=== PATIENT | female | born 2000 | race Caucasian/White ===

== ENCOUNTER → 2022-05-28 | Outpatient (CLI) | payer MEDICAID, SELFPAY ==
[2022-05-28 10:50] LABS: Absolute Lymphocyte Count 1.88 X10^3/uL (0.83-4.51); Absolute Neutrophil Count 6.3 X10^3/uL (2.0-7.7); Basophil# 0.03 X10^3/uL; Basophil% 0.3 % (0-1); Eosinophil# 0.08 X10^3/uL; Eosinophils% 0.9 % (0-5); Hematocrit 38.2 % (37-47); Hemoglobin 13.1 g/dL (12.0-15.0); Lymphocyte # 1.88 X10^3/ul (0.83-4.51); Lymphocyte % 21.4 % (19-41); Mean Corp Hgb Conc 34.3 g/dL (32-36); Mean Corpuscular Hgb 28.6 pg (27.0-32.0); Mean Corpuscular Volume 83.4 fL (81-99); Mean Platelet Vol. 10.4 fl (6.2-12.0); Monocyte# 0.42 X10^3/uL; Monocyte% 4.8 % (0-10); NRBC Flagged by Analyzer 0 % (0-5); Neutrophil # 6.34 X10^3/uL (2.7-7.7); Platelet Count 239 K/mm3 (150-450); RBC Distribution Width CV 13.4 % (11.6-14.6); RBC Distribution Width SD 41.1 fl (35.1-43.9); Red Blood Count 4.58 M/mm3 (4.2-5.4); White Blood Count 8.8 K/mm3 (4.4-11.0)
[2022-05-28 10:57] LABS: Glucose Challenge Gest 1H 50g 122 mg/dL (70-140)
[2022-05-28 11:54] LABS: Amphetamine Urine VISTA NEGATIVE (<1000 ng/mL); Barbiturate Urine VISTA NEGATIVE (< 200 ng/mL); Benzodiazepine Urine VISTA NEGATIVE (< 200 ng/mL); Cocaine Urine VISTA NEGATIVE (< 300 ng/mL); Ecstacy Urine VISTA NEGATIVE (< 500 ng/mL); Methadone Urine VISTA NEGATIVE (< 300 ng/mL); PCP Urine VISTA NEGATIVE (< 25 ng/mL); THC Urine VISTA NEGATIVE (< 50 ng/mL); Vista UDS pH Range 6
[2022-05-28 12:54] LABS: HIV - WCH Non-Reactive (Nonreactive); Hepatitis B Surface Antigen Non-Reactive (Nonreactive); Hepatitis C Antibody Non-Reactive (Nonreactive); Rubella IgG Reactive (Nonreactive); Syphilis Antibodies Non-reactive
[2022-05-30 09:08] LABS: Chlamydia By Nucleic Acid AMP Negative (Negative)
[2022-05-30 15:33] LABS: Gonococcus By Nucleic Acid AMP Negative (Negative)
== END | disposition home or self-care (01) ==
PROVIDERS: Referring Provider Obstetrics & Gynecology; Visit Provider Obstetrics & Gynecology
DX: O09.90 Supervision of high risk pregnancy, unspecified, unspecified trimester (principal)
CPT/HCPCS: 36415; 80307; 82950; 85025; 86703; 86762; 86780; 86803; 86850; 86900; 86901; 87086; 87340; 87491; 87591

== ENCOUNTER 2022-06-11 07:21 | Emergency (ER) | payer MEDICAID, SELFPAY ==
[2022-06-11 07:22] VITALS: BP 137/82; PULSE 98; RESP 14; TEMP 36.6; O2SAT 99; BMI 31.1
--- NOTE | 2022-06-11 08:38 | EDS_ITS ---
HPI HPI - GI History of Present Illness Chief Complaint: GI Bleed Narrative Narrative: 22-year-old female currently 12 weeks presenting after she vomited some blood this morning. She states it was bright red blood. She does have a picture of this. It only happened 1 time. She is not had any bloody nose or swallowed blood. She is a little bit of stomach discomfort in her epigastrium but this is mild. She states as far as vomiting goes this week has been very good and she has not really vomited this week. She has had a confirmed intrauterine . She denies vaginal discharge or vaginal bleeding. She denies dysuria or hematuria. She does admit to being very thirsty and drinking a lot of water this week. She states has been eating a lot of food this week as well. She states this is because last week he was not a good week for her eating because she was more nauseous. She states this is her first . [facility] Medical History History of COVID-19 Home Medications L.acid,hernandez-B.animal,bifid,infant 50 billion cell capsule,delayed rel (Fortify [place] Women Probiotic) cap PO 05/14/22 [History Last Taken Unknown] cholecalciferol (vitamin D3) 25 mcg (1,000 unit) capsule 25 mcg PO DAILY 05/14/22 [History Last Taken Unknown] multivitamin no.47-iron fum 27 mg-folate no.1 1 mg-dha 300 mg capsule (PNV-DHA) cap PO 05/14/22 [History Last Taken Unknown] omega-3 fatty acids 1,000 mg capsule 1,000 mg PO DAILY 05/14/22 [History Last Taken Unknown] vitamin Bcomplex no.10-folic acid ER 400 mcg tablet,extended release tab PO 05/14/22 [History Last Taken Unknown] progesterone micronized 200 mg capsule (Prometrium) 200 mg vaginal QHS 2 weeks #14 caps 06/09/22 [Rx Last Taken Unknown] Allergy/AdvReac Type Severity Reaction Status Date / Time No Known Allergies Allergy Verified 06/11/22 07:25 Social History adopted: No household members: spouse housing: house 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 status: employed current occupation: 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 exposures/hazards: No pets and animals: Yes (Not managing littebox) pets and animals: cat(s), dog(s) and fish history of recent travel: No sexually active: Yes Smoking Status: Never smoker alcohol intake: never substance use type: does not use diet: lactose free and low carbohydrate well-balanced diet: about half the time caffeine: No eating out: rarely or never during the past year weight has: decreased > 10 lbs what type of physical activity do you participate in: walking frequency: 1-2 times per week duration: 15-30 minutes/day elas/synagogue: [employer] seatbelt use: always do you feel safe at home: Yes 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 ROS ROS ED Constitutional Constitutional ED: Denies chills or sweats ENT ENT ED: Denies rhinorrhea or sore throat Cardiovascular Cardiovascular: Denies chest pain or palpitations Respiratory/Chest Respiratory/Chest: Denies cough or dyspnea Gastrointestinal Gastrointestinal: Reports nausea and vomiting Genitourinary Genitourinary ED: Denies dysuria or hematuria Musculoskeletal Musculoskeletal: Denies arthralgias or back pain Integumentary Denies abscess Neurologic Neurologic: Denies headache(s) or paresthesias Psychiatric Psychiatric: Denies anxiety or depression Endocrine Endocrinology: Reports polydipsia and polyphagia EXAM Physical Exam Const Vital Signs: 06/11/22 07:22 Temperature 97.8 F Temperature Source Temporal Pulse Rate 98 Respiratory Rate 14 Blood Pressure 137/82 H Blood Pressure Mean 100 Pulse Ox 99 Oxygen Delivery Method Room Air Positive well nourished General Appearance ED: NAD; Negative for pallor HEENT Reports moist mucous membranes normocephalic and atraumatic Eyes PERRL and EOMs intact bilaterally Neck no lymphadenopathy and supple Resp normal respiratory effort and clear to auscultation bilaterally Auscultation: Negative for rales, rhonchi or wheezes Cardio regular rate and regular rhythm Back/Spine no CVA tenderness Neuro CN's II-XII intact bilaterally and moves all extremities Sensorium / Orientation: alert and oriented to person Psych mental status grossly normal Skin General Skin Exam: Negative for jaundice or pallor MDM MDM MDM Narrative Medical decision making narrative: Patient arriving with 1 episode of hematemesis. She is not experiencing any discomfort. She declines anything for nausea. She is not on any blood thinners. CBC is normal without elevated white blood cell count. Hemoglobin stable at 13.2, platelets 264, renal function electrolytes are normal. Urinalysis negative for infection. Bedside ultrasound was used to visualize the fetus. There is good heart tones at 144. I spoke with Dr. Smith who recommended starting her on omeprazole and she will try to arrange follow-up with Dr. Maloney if she has recurrent issue. At this point I feel she can be discharged home in stable condition. Impression: 1. Hematemesis Lab Data Labs: Laboratory Results - last 24 hr 06/11/22 06/11/22 06/11/22 08:40 08:45 08:45 WBC 10.9 RBC 4.69 Hgb 13.2 Hct 40.2 MCV 85.7 MCH 28.1 MCHC 32.8 RDW Std Deviation 42.6 RDW Coeff of [place] 13.7 Plt Count 264 MPV 10.5 Immature Gran % (Auto) 0.500 Neut % (Auto) 72.5 H Lymph % (Auto) 21.2 [place] % (Auto) 4.6 Eos % (Auto) 0.7 Baso % (Auto) 0.5 Absolute Neuts (auto) 7.9 H Absolute Lymphs (auto) 2.31 Nucleated RBC % 0 Sodium 138 Potassium 3.7 Chloride 106 Carbon Dioxide 24.0 Anion Gap 8 BUN 6 L Creatinine 0.60 Estim Creat Clear Calc 168.28 Est GFR (MDRD) Af Amer 158 Est GFR (MDRD) Non-Af 130 BUN/Creatinine Ratio 9.9 L Glucose 97 Calcium 9.0 Urine Color Yellow Urine Clarity Sl. Cloudy Urine pH 7.0 Ur Specific [place] 1.020 Urine Protein Negative Urine Glucose (UA) Normal Urine Ketones 5 H Urine Occult Blood Negative Urine Nitrite Negative Urine Bilirubin Negative Urine Urobilinogen Normal Ur Leukocyte Esterase Negative Urine RBC 0 SEEN Urine WBC 0 SEEN Ur Squamous Epith Cells 0-5 SEEN Urine Bacteria 1+ Urine Mucus 0 SEEN Discharge Plan Triage Chief Complaint: GI Bleed ED Provider: Duane Love Dx/Rx/DC Orders Prescriptions: No Action PNV-DHA 27 mg iron-1 mg -300 mg capsule PO vitamin B complex no.10-FA 400 mcg tablet extended release PO cholecalciferol (vitamin D3) 25 mcg (1,000 unit) capsule 25 mcg PO DAILY omega-3 fatty acids 1,000 mg capsule 1,000 mg PO DAILY Fortify [place] Women Probiotic 50 billion cell capsule,delayed release(DR/EC) PO progesterone micronized [Prometrium] 200 mg capsule 200 mg vaginal QHS 14 Days Qty: 14 0RF Rx Instructions: insert 1 cap vaginally at HS through 14 weeks of gestation. Primary Care Provider: Care Physician,No Primary Referrals: Care Physician,No Primary [Primary Care Provider] -
[2022-06-11 08:48] LABS: Mucous, Urine 0 SEEN /hpf (<or=2+); Red Blood Cells-Urine 0 SEEN /hpf (0-5); White Blood Cells 0 SEEN /hpf (0-5)
[2022-06-11 08:50] LABS: Absolute Lymphocyte Count 2.31 X10^3/uL (0.83-4.51); Absolute Neutrophil Count 7.9 X10^3/uL (2.0-7.7); Basophil# 0.06 X10^3/uL; Basophil% 0.5 % (0-1); Eosinophil# 0.08 X10^3/uL; Eosinophils% 0.7 % (0-5); Hematocrit 40.2 % (37-47); Hemoglobin 13.2 g/dL (12.0-15.0); Lymphocyte # 2.31 X10^3/ul (0.83-4.51); Lymphocyte % 21.2 % (19-41); Mean Corp Hgb Conc 32.8 g/dL (32-36); Mean Corpuscular Hgb 28.1 pg (27.0-32.0); Mean Corpuscular Volume 85.7 fL (81-99); Mean Platelet Vol. 10.5 fl (6.2-12.0); Monocyte% 4.6 % (0-10); NRBC Flagged by Analyzer 0 % (0-5); Neutrophil % 72.5 % (47-70); Platelet Count 264 K/mm3 (150-450); RBC Distribution Width CV 13.7 % (11.6-14.6); RBC Distribution Width SD 42.6 fl (35.1-43.9); Red Blood Count 4.69 M/mm3 (4.2-5.4); White Blood Count 10.9 K/mm3 (4.4-11.0)
[2022-06-11 08:59] LABS: Color, Urine Yellow (Yellow); Glucose, Dipstick Normal (Normal); Ketone-Dipstick 5 mg/dl (Negative); Leukocyte Esterase-Dipstick Negative /ul (Negative); Nitrite-Dipstick Negative (Negative); Occult Blood-Urine Negative /ul (Negative); Protein-Dipstick Negative (Negative); Urine Bilirubin Dipstick Negative (Negative); Urine Clarity Sl. Cloudy (Clear); Urine Urobilinogen Normal (Normal)
[2022-06-11 09:03] LABS: Anion Gap 8 (5-15); BUN 6 mg/dL (7-18); BUN/Creat Ratio 9.9 RATIO (10-20); Chloride 106 mmol/L (98-107); EST Glomerular Filtration Rate 130 mL/min (>60); Est Glom Filt Rate - Afr Amer 158 mL/min (>60); Estimated Creatinine Clearance 168.28 ml/min; Glucose 97 mg/dL (74-106); Potassium 3.7 mmol/L (3.5-5.1); Sodium Level 138 mmol/L (136-145)
[2022-06-11 09:08] LABS: Bacteria 1+ /hpf (None Seen); Squamous Epithelial Cells - UA 0-5 SEEN /hpf (5-10)
== END 2022-06-11 10:15 | disposition home or self-care (01) ==
PROVIDERS: Emergency Provider Student in an Organized Health Care Education/Training Program; Visit Provider Student in an Organized Health Care Education/Training Program
DX: O99.611 Diseases of the digestive system complicating pregnancy, first trimester (principal); Z86.16 Personal history of COVID-19; Z3A.12 12 weeks gestation of pregnancy
CPT/HCPCS: 80048; 81001; 85025; 99283

== ENCOUNTER → 2022-07-25 | Outpatient (CLI) | payer MEDICAID, SELFPAY ==
--- NOTE | 2022-07-25 18:20 | US_ITS ---
EXAM: US , LIMITED CLINICAL INDICATION: viability TECHNIQUE: Real-time limited ultrasound of the maternal uterus with image documentation. This report was created using [employer] report generation technology. COMPARISON: None. FINDINGS: FETUS: There is an intrauterine gestation. POSITION: Fetus is in variable position. HEART RATE: heart rate is 148 bpm. PLACENTA: Placenta is anterior. There are small placental lakes present. AMNIOTIC FLUID: The largest pocket of amniotic fluid is 3.8 x 3.9 cm. CERVIX: Cervix measures 3.6 cm. US/OB Limited (No Biometrics) IMPRESSION: Intrauterine gestation with heart rate of 148 bpm. Cervix measures 3.6 cm. No measurements were obtained. Electronically Signed: Mt Boyd MD at 19:54 EST ,
== END | disposition home or self-care (01) ==
LOC: US 18:17
PROVIDERS: Visit Provider Obstetrics & Gynecology
DX: N92.0 Excessive and frequent menstruation with regular cycle (principal); Z3A.14 14 weeks gestation of pregnancy; O09.90 Supervision of high risk pregnancy, unspecified, unspecified trimester
CPT/HCPCS: 76815

== ENCOUNTER → 2022-08-05 | Outpatient (CLI) | payer MEDICAID, SELFPAY ==
--- NOTE | 2022-08-05 07:48 | US_ITS ---
STUDY: SECOND AND THIRD TRIMESTER OBSTETRICAL ULTRASOUND REASON FOR EXAM: Female, 22 years old ANATOMY LMP: 03/17/2022. TECHNIQUE: Transabdominal and Transvaginal TECHNICAL QUALITY: Adequate. PRIOR ULTRASOUND: Comparison is made with prior sonogram dated 07/25/2022. FINDINGS: There is a single intrauterine fetus. The fetus is in a cephalic presentation. There is demonstrated cardiac activity with a heart rate of 145 bpm. There is a normal amniotic fluid volume. The largest amniotic fluid pocket measures 3.05 cm. The amniotic fluid index (TEN) is within normal limits. The placenta is anterior in location and is not low lying. There are Grade 0 placental changes. The cervix measures 3.5 cm in length. The adnexal regions are not visualized. BIOMETRY: BPD: 4.39 cm: 19 weeks, 2 days HC: 16.63 cm: 19 weeks, 2 days AC: 13.54 cm: 19 weeks, 0 days FL: 2.89 cm: 18 weeks, 6 days CI: 75.5% FL/BPD: 65.8% FL/HC: FL/AC: 21.3% HC/AC: 1.23 age by current US: 19 weeks, 0 days. GRAZYNA by current US: 12/30/2022. Estimated weight: 268 grams, +/- 40 grams, 5.3% %. Age by LMP: 20 weeks, 1 days. GRAZYNA by LMP: 12/22/2022. ANATOMY: Gender: Female Cranium: Normal lateral ventricles. Normal choroid plexus. Normal cerebellum. Normal cisterna magna. The face, nose and lips are not well visualized. Chest: Normal 4-chamber heart. Abdomen/Pelvis: Normal diaphragm. Normal stomach. Normal abdominal wall. Normal cord insertion. Normal 3 vessel cord. Normal kidneys. Normal bladder. Spine: The cervical spine is not well visualized. The thoracic spine is not well visualized.. Normal lumbar spine. Normal sacrum. Extremities: Normal bilateral upper extremities. Normal bilateral lower extremities. US/OB Anatomy Scan IMPRESSION: Single live intrauterine gestation with mean gestational age of 19 weeks. weight is in the 5.3% Limited visualization of the cervical and thoracic spine as well as profile view of the face. Follow-up recommended. Electronically Signed: Roberto Carlos Wyatt MD at 14:09 EST ,
--- NOTE | 2022-08-06 16:54 | CASEMGMT ---
Social Work Received phone call from this patient who reports was referred to this service writer via [facility] office due to patient not having any insurance. Patient reports to this service writer that this is her first , which was unexpected after years of trying for . Patient reports it has been an adjustment but is accepting. Patient reports that she and her had been gainfully employed for years, but both quit their jobs in order to try to find something new and this is when knowledge of was realized. Educated patient to Medicaid, which patient reports has applied but has not heard back. This service writer encouraged patient to follow-up with local job and family services, which is in [facility],. This service writer educated that Medicaid can retroactive 90 days but job and family services will need to know there is a need to retroactive. This service writer provided [place] benefits number at as an additional resource to follow-up on Medicaid application. Patient expressed appreciation. This service writer explored how MOB is doing emotionally and also how MOB is doing with gathering supplies for the baby. MOB reports to see a therapist every other week so does feel to have support for any emotional distress. MOB/patient reports that she has been working with the local care center who MOB reports has items such as pack in place and car seats. Educated to WIC services, and MOB reports has been attempting to start this process but has not received a phone call back. Educated to help me grow services, and that this service writer could complete this referral as well as indicate interest in WIC when making the help grow referral. Patient agreeable for this service writer to do such referral. Confirmed address as [address] [place] [address]. Estimated due date is 12/22/2022. Phone number is [phone]. Completed help me grow referral via secure online web portal, also indicating interest in WIC services. No other services requested or indicated. -KETTY Kirkland, DANICA *This note was generated with Picabooation software. It may contain incorrect words, spelling, and punctuation that were not noted in review of the chart prior to signing*
== END | disposition home or self-care (01) ==
PROVIDERS: Referring Provider Obstetrics & Gynecology; Visit Provider Obstetrics & Gynecology
DX: O09.90 Supervision of high risk pregnancy, unspecified, unspecified trimester (principal); Z3A.19 19 weeks gestation of pregnancy
CPT/HCPCS: 76805; 76817

== ENCOUNTER → 2022-08-25 | Outpatient (CLI) | payer MEDICAID, SELFPAY ==
--- NOTE | 2022-08-25 14:20 | US_ITS ---
STUDY: SECOND AND THIRD TRIMESTER OBSTETRICAL ULTRASOUND - LIMITED REASON FOR EXAM: Female, 22 years old IUGR. LMP: March 17, 2022. PRIOR ULTRASOUND: August 05, 2022 and July 25, 2022. TECHNIQUE: Transabdominal TECHNICAL QUALITY: Adequate. FINDINGS: There is a single intrauterine fetus. The fetus is in a breech presentation. There is demonstrated cardiac activity with a heart rate of 143 bpm. There is a normal amniotic fluid volume. The largest amniotic fluid pocket measures 3.61 cm. The placenta is anterior in location and is not low lying. There are Grade 1 placental changes. 2 placental lakes are noted. These appears stable. The cervix measures 5.21 cm cm in length. BIOMETRY: BPD: 5.05 cm: 21 weeks, 2 days HC: 19.57 cm: 21 weeks, 5 days AC: 17.52 cm: 22 weeks, 3 days FL: 3.64 cm: 21 weeks, 4 days Age by LMP: 23 weeks, 0 days. GRAZYNA by LMP: December 22, 2022. age by prior US: 21 weeks, 6 days. GRAZYNA by prior US: December 30, 2022. age by current US: 21 weeks, 5 days. GRAZYNA by current US: December 31, 2022. Estimated weight: 467 grams, +/- 70 grams, 9 percentile. Gender: Indeterminant US/OB Limited With Biometrics IMPRESSION: 1. Live single intrauterine at 21 weeks, 5 days. GRAZYNA is December 31, 2022. There is adequate interval growth since the most recent ultrasound. 2. EFW 467 g. This is at the 9th percentile. 3. Adequate amniotic fluid. 4. Anterior grade 1 placenta. 5. Closed cervix. 6. Breech presentation. Electronically Signed: Andrea Seals DO at 16:18 EST Reading Location ID and State: [facility] / [place] Tel [phone], Service support ,
== END | disposition home or self-care (01) ==
LOC: US 14:19
PROVIDERS: Visit Provider Obstetrics & Gynecology
DX: O36.5990 Maternal care for other known or suspected poor fetal growth, unspecified trimester, not applicable or unspecified (principal)
CPT/HCPCS: 76816

== ENCOUNTER → 2022-09-19 | Outpatient (CLI) | payer MEDICAID, SELFPAY ==
[2022-09-19 10:37] LABS: Absolute Lymphocyte Count 1.81 X10^3/uL (0.83-4.51); Absolute Neutrophil Count 7.9 X10^3/uL (2.0-7.7); Basophil# 0.03 X10^3/uL; Basophil% 0.3 % (0-1); Eosinophil# 0.11 X10^3/uL; Eosinophils% 1.1 % (0-5); Hematocrit 39.4 % (37-47); Hemoglobin 12.8 g/dL (12.0-15.0); Lymphocyte # 1.81 X10^3/ul (0.83-4.51); Lymphocyte % 17.3 % (19-41); Mean Corp Hgb Conc 32.5 g/dL (32-36); Mean Corpuscular Hgb 29.1 pg (27.0-32.0); Mean Corpuscular Volume 89.5 fL (81-99); Monocyte# 0.53 X10^3/uL; Monocyte% 5.1 % (0-10); NRBC Flagged by Analyzer 0 % (0-5); Neutrophil # 7.89 X10^3/uL (2.7-7.7); Neutrophil % 75.4 % (47-70); Platelet Count 241 K/mm3 (150-450); RBC Distribution Width CV 13.2 % (11.6-14.6); RBC Distribution Width SD 43.2 fl (35.1-43.9); White Blood Count 10.5 K/mm3 (4.4-11.0)
[2022-09-19 10:55] LABS: Glucose Challenge Gest 1H 50g 106 mg/dL (70-140)
[2022-09-19 11:35] LABS: HIV - WCH Non-Reactive (Nonreactive); Syphilis Antibodies Non-reactive
== END | disposition home or self-care (01) ==
PROVIDERS: Obstetrics & Gynecology; Referring Provider Obstetrics & Gynecology; Visit Provider Obstetrics & Gynecology
DX: O09.90 Supervision of high risk pregnancy, unspecified, unspecified trimester (principal); Z13.1 Encounter for screening for diabetes mellitus; Z3A.00 Weeks of gestation of pregnancy not specified
CPT/HCPCS: 36415; 82950; 85025; 86703; 86780

== ENCOUNTER → 2022-11-28 | Outpatient (CLI) | payer MEDICAID, SELFPAY | END | disposition home or self-care (01) | LOC: LABSPEC 13:14 | PROVIDERS: Referring Provider Obstetrics & Gynecology; Visit Provider Obstetrics & Gynecology | DX: O09.90 Supervision of high risk pregnancy, unspecified, unspecified trimester (principal); Z3A.00 Weeks of gestation of pregnancy not specified | CPT/HCPCS: 87081 ==

== ENCOUNTER 2022-12-29 01:05 | Inpatient (IN) | payer MEDICAID, SELFPAY ==
[2022-12-29] VITALS (35 sets, daily range): BP systolic 128–163; BP diastolic 69–92; PULSE 83–110; RESP 16; TEMP 35.8–36.9; O2SAT 98–100; BMI 38.6
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
[2022-12-29] MEDS: Lactated Ringers 1,000 ML 200 ML IV (02:00)
[2022-12-29 02:07] LABS: Absolute Lymphocyte Count 2.09 X10^3/uL (0.83-4.51); Absolute Neutrophil Count 15.8 X10^3/uL (2.0-7.7); Basophil# 0.06 X10^3/uL; Basophil% 0.3 % (0-1); Eosinophil# 0.06 X10^3/uL; Eosinophils% 0.3 % (0-5); Hematocrit 37.9 % (37-47); Hemoglobin 12.1 g/dL (12.0-15.0); Lymphocyte # 2.09 X10^3/ul (0.83-4.51); Lymphocyte % 10.9 % (19-41); Mean Corp Hgb Conc 31.9 g/dL (32-36); Mean Corpuscular Hgb 27.1 pg (27.0-32.0); Monocyte# 0.99 X10^3/uL; Monocyte% 5.2 % (0-10); NRBC Flagged by Analyzer 0 % (0-5); Neutrophil # 15.81 X10^3/uL (2.7-7.7); Neutrophil % 82.4 % (47-70); Platelet Count 281 K/mm3 (150-450); RBC Distribution Width CV 13.8 % (11.6-14.6); RBC Distribution Width SD 42.7 fl (35.1-43.9); Red Blood Count 4.46 M/mm3 (4.2-5.4); White Blood Count 19.2 K/mm3 (4.4-11.0)
[2022-12-29 02:43] LABS: Syphilis Antibodies Non-reactive
[2022-12-29] MEDS: Oxytocin 15 Units/NS 250ml 15 UNITS/250 ML IV.SOLN 333 UNITS IV (02:44)
--- NOTE | 2022-12-29 02:59 | EX.PCM.OBRPT ---
Assessment & Plan (1) (spontaneous vaginal delivery): COMMENT: IAL 41 weeks, , girl:JERILYN Davies Maternal Data Information GRAZYNA Calculator Estimated Delivery Date Method Current WG Current Estimate 12/22/22 LMP (Certain) 41w 0d Other Estimates 12/23/22 Ultrasound #1 40w 6d Final GRAZYNA: 12/22/22 Final GRAZYNA Source: LMP Gestational age: 41 Vaginal Delivery Maternal Presentation Maternal Presentation: Active Labor Maternal Presentation: pt presents in active labor at 41 weeks. 8cm/90/+2. AROM for light meconium. Operative Information Date of Procedure: 12/29/22 Pre-Operative Diagnosis: see admission problem list Post-Operative Diagnosis: Surgery / Procedure Performed: Spontaneous Vaginal Delivery Type of Anesthesia: None Estimated Blood Loss: 150 Time of Delivery: 02:34 Findings Description of Procedure: Patient began pushing and delivered the head in the TRES presentation on hands and knees. The head was delivered atraumatically. The anterior and posterior shoulders delivered without complication followed by the rest of the infant and the infant was placed on the maternal abdomen. Delayed cord clamping was employed for approximately 3 minutes. Cord was clamped and cut and gentle traction was applied to the cord and the placenta delivered spontaneously immediately following it was noted to be intact with three-vessel cord. The perineum and vagina were inspected and noted to have no laceration. EBL was 150cc. Patient and tolerated delivery well and entered recovery phase bonding skin to skin. Presentation: Vertex Amniotic Membrane Rupture Type: Artificial Time of Membrane Rupture: 0220 Amniotic Fluid Description: Lightly stained meconium Placental Delivery Description: Spontaneous Placenta Disposition: [facility] Cord Vessel Description: 3 Vessels Cord Entanglement: None A Gender: Female (1 minute): 9 (5 minute): 9 Delayed Cord Clamping: Yes Post Vaginal Delivery Medications Given After Delivery: IV Pitocin Episiotomy Description: None Laceration: None Complication Complications: None Addendum Addendum: CNM delivery
--- NOTE | 2022-12-29 03:08 | PCM.DC ---
Discharge Instructions Diet Discharge Diet: No restrictions Activity Discharge Activity: May Not Drive and May Shower May resume sexual activity in: 6 weeks Weight Bearing Status: Full weight bearing Dressing / Incision Call your doctor if your incision/area has: Sudden Increased Bleeding, Increased Pain/ Swelling and Foul Smelling Discharge Call your doctor if you observe: Fever of 101 or Higher, Numbness or Tingling, Change in Color, Inability to urinate, Inability to have a bowel movement, Using more than 1 pad per hour, Shortness of breath, Dizziness, Fainting spells, Chest pain, Calf discomfort and Uncontrolled pain Follow Up Care Please Follow Up With: Rita Agustin CNM When: 6 weeks , please call office to make an appointment. Congratulations on the of your baby! Test Results: Test results from this visit will be discussed in further detail at your follow-up appointment, if applicable. Discharge Plan Admission Admit Date/Time: 12/29/22 01:05 Attending Provider: Rita Agustin Primary Care Provider: Care Physician,Valerie Primary Discharge Orders/Prescriptions Prescriptions: No Action PNV-DHA 27 mg iron-1 mg -300 mg capsule PO vitamin B complex no.10-FA 400 mcg tablet extended release PO cholecalciferol (vitamin D3) 25 mcg (1,000 unit) capsule 25 mcg PO DAILY omega-3 fatty acids 1,000 mg capsule 1,000 mg PO DAILY Fortify [place] Women Probiotic 50 billion cell capsule,delayed release(DR/EC) PO omeprazole 20 mg capsule,delayed release(DR/EC) 20 mg PO DAILY Qty: 30 0RF progesterone micronized 200 mg capsule See Rx Instructions .ROUTE .COMPLEX Qty: 14 0RF Dose Instruction: APPLY 1 CAPSULE VAGINALLY AT BEDTIME Rx Instructions: APPLY 1 CAPSULE VAGINALLY AT BEDTIME Referrals / Follow Up: Care Physician,No Primary [Primary Care Provider] -
[2022-12-29] MEDS: Acetaminophen 500 MG Tablet 1000 MG PO ×2 (06:41→22:11)
[2022-12-29] MEDS: Naproxen 500 MG Tablet PO (13:47)
[2022-12-30 03:11] VITALS: BP 138/84; PULSE 79; RESP 16; TEMP 36.5
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
[2022-12-30 09:30] VITALS: BP 131/74; PULSE 90; RESP 16; TEMP 36.7
== END 2022-12-30 10:55 | disposition home or self-care (01) | DRG 560 ==
PROVIDERS: Admitting Provider Registered Nurse; Visit Provider Registered Nurse
DX: O48.0 Post-term pregnancy (principal); Z37.0 Single live birth; O77.0 Labor and delivery complicated by meconium in amniotic fluid; O99.214 Obesity complicating childbirth; Z3A.41 41 weeks gestation of pregnancy; Z87.828 Personal history of other (healed) physical injury and trauma
CPT/HCPCS: 59025; 59050; 85025; 86780; 86850; 86900; 86901; 99221; J7120; G0378

== ENCOUNTER → 2023-09-22 | Outpatient (CLI) | payer OTHER, MEDICAID, SELFPAY ==
[2023-09-22 15:52] LABS: Absolute Lymphocyte Count 2.44 X10^3/uL (0.83-4.51); Absolute Neutrophil Count 7.5 X10^3/uL (2.0-7.7); Basophil# 0.07 X10^3/uL; Basophil% 0.6 % (0-1); Eosinophil# 0.15 X10^3/uL; Eosinophils% 1.4 % (0-5); Hematocrit 40.9 % (37-47); Hemoglobin 13.5 g/dL (12.0-15.0); Lymphocyte # 2.44 X10^3/ul (0.83-4.51); Lymphocyte % 22.2 % (19-41); Mean Corpuscular Volume 84.9 fL (81-99); Mean Platelet Vol. 10.4 fl (6.2-12.0); Monocyte# 0.78 X10^3/uL; Monocyte% 7.1 % (0-10); NRBC Flagged by Analyzer 0 % (0-5); Neutrophil % 68.2 % (47-70); Platelet Count 286 K/mm3 (150-450); RBC Distribution Width CV 12.6 % (11.6-14.6); RBC Distribution Width SD 38.4 fl (35.1-43.9); Red Blood Count 4.82 M/mm3 (4.2-5.4)
[2023-09-22 16:07] LABS: Hemoglobin A1c 5.2 % (3.8-5.6)
[2023-09-22 17:08] LABS: HIV - WCH Non-Reactive (Nonreactive); Hepatitis B Surface Antigen Non-Reactive (Nonreactive); Hepatitis C Antibody Non-Reactive (Nonreactive); Rubella IgG Reactive (Nonreactive); Syphilis Antibodies Non-reactive
[2023-09-25 05:07] LABS: Chlamydia By Nucleic Acid AMP Negative (Negative); Gonococcus By Nucleic Acid AMP Negative (Negative)
[2023-10-10 08:35] LABS: HPV Reflexed? NOT INDICATED
== END | disposition home or self-care (01) ==
PROVIDERS: Referring Provider Obstetrics & Gynecology; Visit Provider Obstetrics & Gynecology
DX: Z34.90 Encounter for supervision of normal pregnancy, unspecified, unspecified trimester (principal); Z3A.00 Weeks of gestation of pregnancy not specified
CPT/HCPCS: 36415; 83036; 85025; 86703; 86762; 86780; 86803; 86850; 86900; 86901; 87086; 87340; 87491; 87591; 88175; G0145

== ENCOUNTER → 2024-02-09 | Outpatient (CLI) | payer OTHER, SELFPAY | END | disposition home or self-care (01) | LOC: LAB 11:10 | PROVIDERS: Referring Provider Nurse Practitioner Women's Health; Visit Provider Nurse Practitioner Women's Health | DX: Z00.00 Encounter for general adult medical examination without abnormal findings (principal) ==

== ENCOUNTER → 2024-02-22 | Outpatient (CLI) | payer OTHER, SELFPAY ==
[2024-02-22 09:48] LABS: Absolute Lymphocyte Count 1.84 X10^3/uL (0.83-4.51); Absolute Neutrophil Count 7.4 X10^3/uL (2.0-7.7); Basophil# 0.03 X10^3/uL; Basophil% 0.3 % (0-1); Eosinophil# 0.13 X10^3/uL; Eosinophils% 1.3 % (0-5); Hematocrit 36.4 % (37-47); Lymphocyte # 1.84 X10^3/ul (0.83-4.51); Lymphocyte % 18.6 % (19-41); Mean Corpuscular Hgb 28.7 pg (27.0-32.0); Mean Corpuscular Volume 87.1 fL (81-99); Mean Platelet Vol. 10.4 fl (6.2-12.0); Monocyte# 0.47 X10^3/uL; Monocyte% 4.8 % (0-10); NRBC Flagged by Analyzer 0 % (0-5); Neutrophil # 7.35 X10^3/uL (2.7-7.7); Neutrophil % 74.3 % (47-70); Platelet Count 212 K/mm3 (150-450); RBC Distribution Width CV 13.2 % (11.6-14.6); RBC Distribution Width SD 41.1 fl (35.1-43.9); Red Blood Count 4.18 M/mm3 (4.2-5.4); White Blood Count 9.9 K/mm3 (4.4-11.0)
[2024-02-22 10:14] LABS: Glucose Challenge Gest 1H 50g 118 mg/dL (70-140)
[2024-02-22 10:45] LABS: HIV - WCH Non-Reactive (Nonreactive); Syphilis Antibodies Non-reactive
== END | disposition home or self-care (01) ==
LOC: PAVLAB 09:27
PROVIDERS: Referring Provider Nurse Practitioner Women's Health; Visit Provider Nurse Practitioner Women's Health
DX: Z34.90 Encounter for supervision of normal pregnancy, unspecified, unspecified trimester (principal)
CPT/HCPCS: 36415; 82950; 85025; 86703; 86780

== ENCOUNTER → 2024-04-04 | Outpatient (CLI) | payer OTHER, SELFPAY | END | disposition home or self-care (01) | LOC: LABSPEC 12:03 | PROVIDERS: Referring Provider Advanced Practice Midwife; Visit Provider Advanced Practice Midwife | DX: O09.93 Supervision of high risk pregnancy, unspecified, third trimester (principal); Z3A.37 37 weeks gestation of pregnancy | CPT/HCPCS: 87081 ==

== ENCOUNTER 2024-04-10 09:15 | Outpatient (CLI) | payer OTHER, SELFPAY ==
[2024-04-10 09:39] VITALS: BP 140/81; PULSE 81; RESP 16; TEMP 36.8
[2024-04-10 09:40] VITALS: BMI 36.3
[2024-04-10 10:35] LABS: ROM Internal Control Test YES-OK TO RESULT pt. (Internal QC); ROM Patient Test Negative (Negative); Record Kit Lot#, ROM+ K1660
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
== END 2024-04-10 10:58 | disposition home or self-care (01) ==
LOC: WPOUT 09:25 → WP 09:25
PROVIDERS: Visit Provider Advanced Practice Midwife
DX: O99.891 Other specified diseases and conditions complicating pregnancy (principal); O99.213 Obesity complicating pregnancy, third trimester; Z3A.37 37 weeks gestation of pregnancy; N89.8 Other specified noninflammatory disorders of vagina
CPT/HCPCS: 59025; 59050; 84112; 99221; G0378

== ENCOUNTER 2024-04-30 19:28 | Inpatient (IN) | payer OTHER, MEDICAID, SELFPAY ==
[2024-04-30] VITALS (7 sets, daily range): BP systolic 127–140; BP diastolic 56–84; PULSE 85–92; RESP 16–17; TEMP 36.4–36.5; O2SAT 98–99; BMI 38.0
[2024-04-30] MEDS: Lactated Ringers 1,000 ML 50 ML IV (19:55)
[2024-04-30 20:12] LABS: Absolute Lymphocyte Count 2.54 X10^3/uL (0.83-4.51); Absolute Neutrophil Count 10.6 X10^3/uL (2.0-7.7); Basophil# 0.05 X10^3/uL; Basophil% 0.4 % (0-1); Eosinophil# 0.05 X10^3/uL; Eosinophils% 0.4 % (0-5); Hematocrit 38.6 % (37-47); Hemoglobin 12.6 g/dL (12.0-15.0); Lymphocyte # 2.54 X10^3/ul (0.83-4.51); Lymphocyte % 18.2 % (19-41); Mean Corp Hgb Conc 32.6 g/dL (32-36); Mean Corpuscular Hgb 27.6 pg (27.0-32.0); Mean Corpuscular Volume 84.5 fL (81-99); Mean Platelet Vol. 10.6 fl (6.2-12.0); Monocyte% 4.3 % (0-10); NRBC Flagged by Analyzer 0 % (0-5); Neutrophil # 10.61 X10^3/uL (2.7-7.7); Platelet Count 226 K/mm3 (150-450); RBC Distribution Width CV 14.1 % (11.6-14.6); RBC Distribution Width SD 42.6 fl (35.1-43.9); Red Blood Count 4.57 M/mm3 (4.2-5.4)
[2024-04-30 20:27] LABS: Fibrinogen 519 mg/dl (203-444)
[2024-04-30 20:48] LABS: Syphilis Antibodies Non-reactive
[2024-04-30] MEDS: 0.9% Saline Lock 10 ML Syringe IV (21:14)
--- NOTE | 2024-04-30 23:17 | NURSING ---
SM order to keep pt on continuous monitoring.
[2024-05-01] VITALS (39 sets, daily range): BP systolic 120–156; BP diastolic 57–80; PULSE 80–98; RESP 16–17; TEMP 36.5–36.9; O2SAT 93–100
[2024-05-01] MEDS: Lidocaine 1% (20 ml mdv) 20 ML Vial INFILT (00:36)
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
--- NOTE | 2024-05-01 00:56 | DCINST_ITS ---
Discharge Instructions Diet Discharge Diet: No restrictions Activity Discharge Activity: May Not Drive and May Shower May resume sexual activity in: 6 weeks Weight Bearing Status: Full weight bearing Dressing / Incision Call your doctor if your incision/area has: Sudden Increased Bleeding, Increased Pain/ Swelling and Foul Smelling Discharge Call your doctor if you observe: Fever of 101 or Higher, Numbness or Tingling, Change in Color, Inability to urinate, Inability to have a bowel movement, Using more than 1 pad per hour, Shortness of breath, Dizziness, Fainting spells, Chest pain, Calf discomfort and Uncontrolled pain Follow Up Care Please Follow Up With: Rita Agustin CNM When: 6 weeks , please call office to make an appointment. Congratulations on the of your baby! Test Results: Test results from this visit will be discussed in further detail at your follow- up appointment, if applicable. Discharge Plan Admission Admit Date/Time: 04/30/24 19:28 Attending Provider: Milagros Ambriz Primary Care Provider: Care Physician,No Primary Discharge Orders/Prescriptions Prescriptions: No Action PNV-DHA 27 mg iron-1 mg -300 mg capsule 1 cap PO DAILY Referrals / Follow Up: Care Physician,No Primary [Primary Care Provider] -
[2024-05-01] MEDS: Acetaminophen 500 MG Tablet PO ×2 (01:45→08:42)
--- NOTE | 2024-05-01 03:11 | NURSING ---
report given to theodora TAN . that rn to assume care of pt at this time.
[2024-05-01] MEDS: Ibuprofen 600 MG Tablet PO ×2 (12:56→20:34)
[2024-05-02 01:30] VITALS: BP 130/72; PULSE 85; RESP 16; TEMP 36.5
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
[2024-05-02 08:25] VITALS: BP 137/84; PULSE 93; RESP 16; TEMP 36.5; O2SAT 98
[2024-05-02 08:27] VITALS: PULSE 80; O2SAT 97
[2024-05-02 08:28] VITALS: BP 137/84; PULSE 86
[2024-05-02] MEDS: Ibuprofen 600 MG Tablet PO ×2 (08:30→14:12)
[2024-05-02 11:57] VITALS: BP 135/71; PULSE 105; RESP 16; TEMP 36.5; O2SAT 98
[2024-05-02 11:58] VITALS: BP 135/71; PULSE 107; O2SAT 97
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
== END 2024-05-02 14:30 | disposition home or self-care (01) | DRG 807 ==
LOC: WP 19:42
PROVIDERS: Admitting Provider Obstetrics & Gynecology; Visit Provider Obstetrics & Gynecology
DX: O48.0 Post-term pregnancy (principal); Z37.0 Single live birth; N96 Recurrent pregnancy loss; O99.214 Obesity complicating childbirth; Z86.16 Personal history of COVID-19; Z3A.40 40 weeks gestation of pregnancy; Z87.828 Personal history of other (healed) physical injury and trauma
CPT/HCPCS: 59025; 59050; 85025; 85384; 86780; 86850; 86900; 86901; 99221; J7120; A4216; G0378

== ENCOUNTER → 2024-05-10 | Outpatient (CLI) | payer OTHER, MEDICAID, SELFPAY | END | disposition home or self-care (01) | LOC: LABSPEC 10:19 | PROVIDERS: Referring Provider Advanced Practice Midwife; Visit Provider Advanced Practice Midwife | DX: R10.2 Pelvic and perineal pain (principal) | CPT/HCPCS: 87086; 87088 ==

== ENCOUNTER → 2024-06-14 | Outpatient (CLI) | payer OTHER, MEDICAID, SELFPAY ==
--- NOTE | 2024-06-14 07:48 | US_ITS ---
EXAM: US PELVIS TRANSVAGINAL CLINICAL INDICATION: pelvic pain TECHNIQUE: Endovaginal pelvic ultrasound was performed with grayscale and color Doppler imaging. Endovaginal imaging was used for better evaluation of the endometrium and adnexa. COMPARISON: No relevant prior studies available. FINDINGS: UTERUS/CERVIX: Uterus measures 10.3 x 6.5 x 4.4 cm. Endometrial thickness is 4 mm. RIGHT OVARY: Right ovary is not seen possibly obscured by overlying bowel gas. LEFT OVARY: Left ovary measures 2.4 x 1.7 x 1.4 cm. Blood flow is present in the left ovary. FREE FLUID: None. US/Transvaginal Non- IMPRESSION: No abnormality identified. Nonvisualization of the right ovary. Electronically Signed: Dewayne Dang MD at 16:20 EST ,
== END | disposition home or self-care (01) ==
LOC: US 07:48
PROVIDERS: Referring Provider Advanced Practice Midwife; Visit Provider Advanced Practice Midwife
DX: R10.2 Pelvic and perineal pain (principal)
CPT/HCPCS: 76830

== ENCOUNTER → 2024-06-24 | Outpatient (CLI) | payer OTHER, MEDICAID, SELFPAY | END | disposition home or self-care (01) | LOC: LABSPEC 16:36 | PROVIDERS: Referring Provider Obstetrics & Gynecology; Visit Provider Obstetrics & Gynecology | DX: N89.8 Other specified noninflammatory disorders of vagina (principal) | CPT/HCPCS: 87070; 87205 ==

== ENCOUNTER → 2025-01-19 | Outpatient (CLI) | payer OTHER, MEDICAID, SELFPAY ==
[2025-01-19 08:30] LABS: Hematocrit 41.1 % (37-47); Hemoglobin 13.6 g/dL (12.0-15.0); Immature Granulocytes Count 0.020 X10^3/uL (0.0-0.0); Mean Corp Hgb Conc 33.1 g/dL (32-36); Mean Corpuscular Volume 86.7 fL (81-99); Mean Platelet Vol. 10.0 fl (6.2-12.0); NRBC Flagged by Analyzer 0 % (0-5); Platelet Count 262 K/mm3 (150-450); RBC Distribution Width CV 12.9 % (11.6-14.6); RBC Distribution Width SD 40.7 fl (35.1-43.9); Red Blood Count 4.74 M/mm3 (4.2-5.4); White Blood Count 7.3 K/mm3 (4.4-11.0)
== END | disposition home or self-care (01) ==
LOC: PAVLAB 08:16
PROVIDERS: Referring Provider Obstetrics & Gynecology; Visit Provider Obstetrics & Gynecology
DX: N93.9 Abnormal uterine and vaginal bleeding, unspecified (principal)
CPT/HCPCS: 36415; 84439; 84443; 85025; 85245

== ENCOUNTER → 2025-06-13 | Outpatient (CLI) | payer OTHER, SELFPAY ==
[2025-06-13 17:09] LABS: hCG Titer Quant., Serum < 1 mIU/mL (<9 non-preg)
== END | disposition home or self-care (01) ==
LOC: PAVLAB 15:48
PROVIDERS: Referring Provider Advanced Practice Midwife; Visit Provider Advanced Practice Midwife
DX: Z34.90 Encounter for supervision of normal pregnancy, unspecified, unspecified trimester (principal)
CPT/HCPCS: 36415; 84702

== ENCOUNTER → 2025-07-15 | Outpatient (CLI) | payer OTHER, SELFPAY ==
--- OUTSIDE RECORDS SUMMARY | 2025-07-15 09:35 | XMS RPT_ITS | CCD ---
Author Organization [facility] Care Team Providers Care E Commerce Developer Name Role Phone Shane Ramirez Unavailable Unavailable Shane Ramirez Unavailable Unavailable Moni Paige Unavailable Unavailable Sokari, Telemate Unavailable Unavailable Sokari, Telemate Unavailable Unavailable No Doctor Assigned, Nodr Unavailable Unavail able NO, PHYSICIAN Primary Care Unavailable Free, Text Entry Unavailable Unavailable Manocchio, Eliana Unavailable Unavailable Asbridbozena, Kavya E Unavailable Unavailable Fleming, Abraham Unavailable Unavailable Bilderback, Eliana Unavailable Unavailabl e Cheyenne Ballard Unavailable Unavailable Unavailable Cheyenne Ballard Unavailable [phone] Ortega, Tucker Unavailable Barbara Cao Unavailable Unavailable [place] PROJECT CONTROL OFFICER.ESE Nani N Primary Care Provider Dr. Chasity Tenorio Attending Provider [phone] Dr. Milagros Akins Attending Provider Care Physician, No Primary Primary Care Provider Unavailable Care Physician, No Primary Referring Provider Un available JUNIE Elena NP Attending Provider [phone] Care Physician, No Primary Primary Care Provider Unavailable Care Physician, No Primary Referring Provider Un available Dr. Chasity Tenorio Attending Provider [phone] OBDULIA MILAN Attending Unavailable ANNA CHIANG Primary Care Unavailable JOSE L AGUSTIN Referring Unavailable NO PRIMARY CARE, Primary Care Unavailable DARWIN COTTO Attending Unavailable MILAGROS AKINS Referring Unavailabl e [place] PROJECT CONTROL OFFICER.ESE Nani Moraima Primary Care Provider Anna Chiang CNP. Primary Care Provider CONCHITA DE LA TORRE Attending Unavailable ANNA CHIANG Primary Care Unavailable AFUA ENGEL Consulting Unavailable BRODERICK, CONCHITA Referring Unavailable HITESH GONCALVES Attending UnavailMARTÍN Laurent Admitting Unavailable ANNA CHIANG Primary Care Unavailable Care Physician, No Primary Primary Care Provider Unavailable Care Physician, No Primary Referring Provider Un available Dr. Chasity Tenorio DO Attending Provider Dr. Chasity Tenorio DO Referring Provider Care Physician, No Primary Referring Unava ilable Care Physician, No Primary Primary Care Unava ilable Vilma Sheehan Attending Unavailable Care Physician, No Primary Referring Unava ilable Care Physician, No Primary Primary Care Unava ilable Vilma Sheehan Attending Unavailable Milagros Akins Attending Unavailable Care Physician, No Primary Referring Unava ilable Care Physician, No Primary Primary Care Unava ilable Kassy PRODUCE MANAGER, Judi Attending Unavailable Care Physician, No Primary Referring Unava ilable Care Physician, No Primary Primary Care Unava ilable Care Physician, No Primary Primary Care Unava ilable Vilma Sheehan Attending Unavailable Vilma Sheehan Referring Unavailable Kassy PRODUCE MANAGER, Judi Referring Unavailable Care Physician, No Primary Primary Care Unava ilable Kassy PRODUCE MANAGER, Judi Attending Unavailable Milagros Akins Consulting Unavailable Milagros Akins Attending Unavailable Milagros Akins Admitting Unavailable Care Physician, No Primary Primary Care Unava ilable Vilma Sheehan Attending Unavailable Vilma Sheehan Consulting Unavailable Vilma Sheehan Attending Unavailable Care Physician, No Primary Primary Care Unava ilable Care Physician, No Primary Primary Care Unava ilable Care Physician, No Primary Referring Unava ilable Vilma Sheehan Attending Unavailable Care Physician, No Primary Referring Unava ilable Care Physician, No Primary Primary Care Unava ilable Chasity Tenorio Attending UnavailMilagros Quesada Attending Unavailable Care Physician, No Primary Referring Unava ilable Care Physician, No Primary Primary Care Unava ilable Care Physician, No Primary Primary Care Unava ilable Vilma Sheehan Attending Unavailable Vilma Sheehan Referring Unavailable Vilma Sheehan Referring Unavailable Vilma Sheehan Attending Unavailable Care Physician, No Primary Primary Care Unava ilable Care Physician, No Primary Primary Care Unava ilable Cobye Velleandra, Chasity Attending Unavailabl e Vande Velde, Chasity Referring Unavailabl e Care Physician, No Primary Primary Care Unava ilable Vande Velde, Chasity Attending Unavailabl e Vande Velde, Chasity Referring Unavailabl e Care Physician, No Primary Referring Unava ilable Care Physician, No Primary Primary Care Unava ilable Vande Velleandra, Chasity Attending Unavailabl e Care Physician, No Primary Referring Unava ilable Care Physician, No Primary Primary Care Unava ilable Cobye Velleandra, Chasity Attending Unavailabl e [place] PRODUCE MANAGER, Judi Attending Unavailable [place] PRODUCE MANAGER, Judi Referring Unavailable Care Physician, No Primary Primary Care Unava ilable Milagros Akins Admitting Unavailable Katina, Milagros Attending Unavailable Care Physician, No Primary Primary Care Unava ilable Vilma Sheehan Attending Unavailable Care Physician, No Primary Primary Care Unava ilable Care Physician, No Primary Referring Unava ilable Vilma Sheehan Attending Unavailable Care Physician, No Primary Primary Care Unava ilable Care Physician, No Primary Referring Unava ilable Vilma Sheehan Attending Unavailable Care Physician, No Primary Primary Care Unava ilable Care Physician, No Primary Referring Unava ilable Vilma Sheehan Attending Unavailable Care Physician, No Primary Primary Care Unava ilable Care Physician, No Primary Referring Unava ilable Vilma Sheehan Attending Unavailable Care Physician, No Primary Primary Care Unava ilable Care Physician, No Primary Primary Care Unava ilable Care Physician, No Primary Referring Unava ilable Vilma Sheehan Attending Unavailable Care Physician, No Primary Referring Unava ilable Care Physician, No Primary Primary Care Unava ilable Kassy PRODUCE MANAGER, Judi Attending Unavailable Allergies Allergy Classification Reported Allergen(s) Allergy Type Date of Onset Reaction(s) Facility (1 source) No Known Allergies; Translations: [No Known Allergies] Propensity to adverse reactions to drug (disorder) [facility] Repository (1 source) No Known Medication Allergies; Translations: [No Known Medication Allergies] Propensity to adverse reactions to drug (disorder) [facility] Repository Medications Current Medications Medication Drug Class(es) Dates Sig (Normalized) Sig (Original) brompheniramine maleate 0.4 mg/ml / dextromethorphan hydrobromide 2 mg/ml / pseudoephedrine hydrochloride 6 mg/ml oral solution (1 source) alpha-Adrenergic Agonist, Uncompetitive F-qputtw-K-asparta te Receptor Antagonist, Sigma-1 Agonist Start: 06-22-2021 take 5 mL by mouth every eight hours brompheniramine/pse udoephedrine/dextro methorphan [id number]/5 mL oral syrup ; 5 milliliter(s) orally every 8 hours Quantity: 120 Refills: 0 Ordered: 22-Jun-2021 OrtegaTucker Start: 22-Jun-2021 Generic Substitution Allowed Comments: May cause drowsiness. Alcohol may intensify this effect. Use care when operating dangerous machinery.Obtain medical advice before taking any non-prescription drugs as some may affect the action of this medication. Comment on above: May cause drowsiness . Alcohol may intensify this effect. Use care when operating dangerous machinery.Obtain medical advice before taking any non-prescription drugs as some may affect the action of this medication. cholecalciferol 0.05 mg oral capsule (10 sources) Vitamin D Start: 01-06-2025 take 1 capsule by mouth once daily Cholecalciferol (Vitamin D3) 50 mcg (2,000 unit) capsule Active 50 ug PO daily January 06, 2025 12:00am Start: 05-14-2022 End: 02-09-2023 take 1 capsule by mouth once daily Cholecalciferol (Vitamin D3) 25 mcg (1,000 unit) capsule Discontinued 25 ug PO DAILY May 14, 2022 12:00am February 09, 2023 2:32pm Norgestimate-Ethinyl Estradiol (4 sources) Progestin, Estrogen Start: 01-06-2025 Norgestimate-Ethinyl Estradiol (Sprintec (28)) 0.25-0.035 mg tablet Active 1 {tbl} PO DAILY 84 4 January 06, 2025 12:02pm take active pills only Start: 01-06-2025 Norgestimate-E thinyl Estradiol (Sprintec (28)) 0.25-0.035 mg tablet Active 1 {tbl} PO DAILY 84 January 06, 2025 12:02pm take active pills only Start: 09-29-2024 End: 01-06-2025 Norgestimate-Ethinyl Estradi ol (Sprintec (28)) 0.25-35 mg-mcg tablet Discontinued 1 {tbl} PO DAILY 84 4 September 29, 2024 12:00am January 06, 2025 12:03pm Start: 09-29-2024 End: 01-06-2025 Norgestimate-Ethinyl Estradi ol (Sprintec (28)) 0.25-35 mg-mcg tablet Discontinued 1 {tbl} PO DAILY 84 September 29, 2024 12:00am January 06, 2025 12:03pm multivit with calcium,iron,m in (WOMEN'S MULTIPLE VITAMINS ORAL) (4 sources) Start: 02-18-2020 multivit with calcium,iron,min (WOMEN'S MULTIPLE VITAMINS ORAL) 02/18/2020 Active Start: 02-18-2020 multivit with calcium,iron,min (WOMEN'S MULTIPLE VITAMINS ORAL) mv,iron,min-folic acid-bioti n (HAIR, SKIN AND NAILS-ARGAN OIL) 66.7-1,666.7 mcg cap (4 sources) Start: 02-18-2020 mv,iron,min-fo lic acid-biotin (HAIR, SKIN AND NAILS-ARGAN OIL) 66.7-1,666.7 mcg cap 02/18/2020 Active Start: 02-18-2020 mv,iron,min-fo lic acid-biotin (HAIR, SKIN AND NAILS-ARGAN OIL) 66.7-1,666.7 mcg cap ondansetron 4 mg disintegrating oral tablet (5 sources) Serotonin-3 Receptor Antagonist Start: 06-22-2021 take 1 tablet by mouth three times daily ondansetron 4 mg oral tablet, disintegrating ; 1 tab(s) orally 3 times a day Quantity: 6 Refills: 0 Ordered: 22-Jun-2021 Tucker Vivas Start: 22-Jun-2021 Generic Substitution Allowed Start: 03-17-2021 End: 03-19-2021 take 1 tablet by mouth three times daily ondansetron 4 mg oral tablet, disintegrating ; 1 tab(s) orally 3 times a day Quantity: 9 Refills: 0 Ordered: 17-Mar-2021 Eliana Javier Start: 17-Mar-2021 End: 19-Mar-2021 Status: Other Generic Substitution Allowed pantoprazole 40 mg delayed release oral tablet (4 sources) Proton Pump Inhibitor Start: 09-19-2024 End: 10-19-2024 take 1 tablet by mouth once daily Pantoprazole 40 mg tablet,delayed release (DR/EC) Active 40 mg PO daily September 29, 2024 12:00am Passion flower extract (4 sources) Start: 02-18-2020 PASSION FLOWER ORAL 02/18/2020 Active Start: 02-18-2020 PASSION FLOWER ORAL PNV-DHA 27 mg iron-1 mg -300 mg (4 sources) Start: 07-22-2021 take 1 capsule by mouth once daily PNV-DHA 27 mg iron-1 mg -300 mg Indications: Pre-conception counseling TAKE 1 CAPSULE BY MOUTH EVERY DAY 90 capsule 3 07/22/2021 Active Comment on above: TAKE 1 CAPSULE BY MOUTH EVERY DAY Completed/Discontinued Medications Medication Drug Class(es) Dates Sig (Normalized) Sig (Original) acetaminophen 325 mg oral tablet (1 source) Start: 09-17-2024 End: 09-19-2024 take 1 tablet by mouth every four hours as needed for pain and headache 650 mg, Oral, Every 4 hours PRN, mild pain, fever 100.4 F or greater, headaches, Starting on 09/17/24 at 1847 [id number] 200 actuat albuterol 0.09 mg/actuat metered dose inhaler (10 sources) beta2-Adrenergic Agonist Start: 04-11-2021 take 2 puff(s) by inhalation every six hours as needed for wheezing Albuterol Sulfate HFA 108 (90 Base) MCG/ACT Inhalation Aerosol Solution INHALE 2 PUFFS Every 6 hours PRN FOR WHEEZING Quantity: 1 Refills: 1 Ordered: 11-Apr-2021 Cheyenne Alarcon Start : 11-Apr-2021 Active Start: 03-17-2021 End: 10-22-2021 albuterol HFA (PROVENTIL HFA , VENTOLIN HFA) 90 mcg/actuation inhaler Albuterol 90 MCG /ACT AERS Quantity: 0 Refills: 0 Ordered: 11-Apr-2021 DO Active Comment on above: For inhalation only. It is very important that you take or use this exactly as directed. Do not skip doses or discontinue unless directed by your doctor.Obtain medical advice before taking any non-prescription drugs as some may affect the action of this medication.Shake well before use. amoxicillin 875 mg / clavulanate 125 mg oral tablet (4 sources) Penicillin-class Antibacterial Start: 05-10-2024 End: 05-24-2024 Amoxicillin-Pot Clavulanate 875-125 mg tablet Discontinued 1 {tbl} PO TWICE A DAY 28 14 0 May 10, 2024 12:00am May 23, 2024 1:00am May 24, 2024 1:08am Puerperal endometritis Endometritis following delivery Start: 10-22-2021 End: 11-01-2021 take 1 tablet by mouth every twelve hours amoxicillin-clavulanic acid (AUGMENTIN) 875-125 mg per tablet Indications: Sinobronchitis , Non-recurrent acute suppurative otitis media of right ear without spontaneous rupture of tympanic membrane Take 1 tablet by mouth every 12 hours for 10 days. 20 tablet 0 10/22/2021 11/01/2021 Discontinued (Discontinued by Patient) Comment on above: Take 1 tablet by porsha every 12 hours for 10 days. azithromycin 250 mg oral tablet (4 sources) Macrolide Antimicrobial Start: 03-17-20 End: 03-21-20 azithromycin 250 mg oral tablet ; Take 2 tab(s) orally once a day for day one and then 1 tab daily for days two through five Quantity: 6 Refills: 0 Ordered: 17-Mar-2021 Gualberto Eliana Start: 17-Mar-2021 End: 21-Mar-2021 Status: Other Generic Substitution Allowed Comments: Do not take dairy products, antacids, or iron preparations within one hour of this medication.Finish all this medication unless otherwise directed by prescriber. Comment on above: Do not take dairy pr oducts, antacids, or iron preparations within one hour of this medication.Finish all this medication unless otherwise directed by prescriber. benzonatate 100 mg oral capsule (2 sources) Non-narcotic Antitussive Start: 10-21-19 End: 11-02-19 benzonatate (TESSALON PERLE) 100 mg capsule Biotin (1 source) Start: 05-20-20 End: 10-23-19 BIOTIN 10,000 TABLET cephalexin 500 mg oral capsule (6 sources) Cephalosporin Antibacterial Start: 12-15-19 End: 12-24-19 take 1 capsule by mouth every six hours Keflex 500 mg oral capsule ; 1 cap(s) orally every 6 hours Quantity: 40 Refills: 0 Ordered: 14-Dec-2020 Eliana Javier Start: 14-Dec-2020 End: 23-Dec-2020 Status: Other Generic Substitution Allowed Comments: Finish all this medication unless otherwise directed by prescriber. Comment on above: Finish all this medi cation unless otherwise directed by prescriber. citric acid 0.01 mg/mg / lactic acid 0.018 mg/mg / potassium bitartrate 0.004 mg/mg vaginal gel (3 sources) Calculi Dissolution Agent, Anti-coagulant Start: 02-10-20 End: 09-15-19 Lactic Gqlu-Gtexxl-Unxxangdi (Phexxi) 1.8-1-0.4 % gel Discontinued 1 NMA VAGINAL per package directions 60 4 February 09, 2023 12:00am September 15, 2023 10:41am insert 1 applicatorful vaginally within 1 hour before each act of vaginal intercourse Start: 02-09-2023 End: 09-15-2023 Lactic Fhgj-Hbjwhu-Tgjcyauic (Phexxi) 1.8-1-0.4 % gel Discontinued 1 APPFUL VAGINAL per package directions 60 February 08, 2023 11:00pm September 15, 2023 9:41am insert 1 applicatorful vaginally within 1 hour before each act of vaginal intercourse dicyclomine hydrochloride 10 mg oral capsule (1 source) Anticholinergic Start: 09-20-2021 End: 10-22-2021 take 1 capsule by mouth three times daily as needed for diarrhea dicyclomine (BENTYL) 10 mg capsule Indications: Viral gastroenteritis Take 1 capsule by mouth three times daily as needed (abdominal cramps/diarrhea). 30 capsule 1 09/20/2021 10/22/2021 Discontinued (Course of therapy completed) Comment on above: Take 1 capsule by mo [facility] three times daily as needed (abdominal cramps/diarrhea). doxycycline hyclate 100 mg oral capsule (9 sources) Tetracycline-class Drug Start: 06-24-2024 End: 09-29-2024 take 1 capsule by mouth twice daily Doxycycline Hyclate 100 mg capsule Discontinued 100 mg PO TWICE A DAY 14 0 June 24, 2024 1:00am September 29, 2024 8:37am Start: 04-11-2021 take 1 capsule by mo ut once daily Doxycycline Hyclate 100 MG Oral Capsule TAKE 1 CAPSULE EVERY 12 HOURS DAILY. Quantity: 14 Refills: 0 Ordered: 11-Apr-2021 Cheyenne Alracon Start : 11-Apr-2021 Active Start: 09-08-2019 End: 09-17-2019 take 1 tablet by mouth twice daily doxycycline hyclate 100 mg oral tablet ; 1 tab(s) orally 2 times a day Quantity: 20 Refills: 0 Ordered: 07-Sep-2019 Eliana Javier Start: 07-Sep-2019 End: 16-Sep-2019 Status: Other Generic Substitution Allowed Comments: Avoid prolonged or excessive exposure to direct and/or artificial sunlight while taking this medication.Do not take this drug if you are .Finish all this medication unless otherwise directed by prescriber.Medication should be taken with plenty of water. Comment on above: Avoid prolonged or e xcessive exposure to direct and/or artificial sunlight while taking this medication.Do not take this drug if you are .Finish all this medication unless otherwise directed by prescriber.Medication should be taken with plenty of water. ferrous sulfate (1 source) Start : 05-20 End: 10-22 ferrous sulfate (IRON ORAL) fluticasone propionate 0.05 mg/actuat metered dose nasal spray (2 sources) Corticosteroid Start : 10-22 End: 11-21 take 2 spray(s) nasal route once daily fluticasone (FLONASE ALLERGY RELIEF) 50 mcg/actuation nasal spray Indications: Sinobronchitis , Non-recurrent acute suppurative otitis media of right ear without spontaneous rupture of tympanic membrane Use 2 Sprays in each nostril once daily. 16 g 0 10/22/2021 11/01/2021 Discontinued Comment on above: Use 2 Sprays in each nostril once daily. 60 actuat formoterol fumarate 0.005 mg/actuat / mometasone furoate 0.1 mg/actuat metered dose inhaler (1 source) Corticosteroid, beta2-Adrenergic Agonist Start : 06-28 End: 10-22 take 2 puff(s) by inhalation twice daily mometasone-formotero l (DULERA) 100-5 mcg/actuation inhaler Indications: Post-COVID chronic cough Inhale 2 Puffs as instructed twice daily. 17.6 g 0 06/28/2021 10/22/2021 Discontinued (Discontinued by Patient) Comment on above: Inhale 2 Puffs as in structed twice daily. Iron (3 sources) Iron TABS Quanti ty: 0 Refills: 0 Ordered: 10-Jun-2021 DO Active L. acidophilus-L. salivarius-B. bifidum-S. thermophilus (ACIDOPHILUS) 175 mg capsule (1 source) Start : 09-20 End: 10-22 take 1 capsule by mouth once daily L. acidophilus-L. salivarius-B. bifidum-S. thermophilus (ACIDOPHILUS) 175 mg capsule Indications: Viral gastroenteritis Take 1 capsule by mouth once daily. 30 capsule 1 09/20/2021 10/22/2021 Discontinued (Course of therapy completed) Comment on above: Take 1 capsule by [facility] once daily. L.Acid,Gavino-B.Anim ,Bifid,Infan ([employer] Probiotic) 50 billion cell capsule,delayed release(DR/EC) (8 sources) Start : 05-14 End: 02-09 L.Acid,Gavino-B.Anim,B ifid,Infan ([employer] Probiotic) 50 billion cell capsule,delayed release(DR/EC) Discontinued NMA PO May 14, 2022 12:00am February 09, 2023 2:33pm Start: 05-14-2022 End: 02-09-2023 L.Acid,Gavino-B.Anim,Bifid,Inf an ([employer] Probiotic) 50 billion cell capsule,delayed release(DR/EC) Discontinued CAP PO May 13, 2022 11:00pm February 09, 2023 1:33pm Start: 05-14-2022 L.Acid,Gavino-B. Anim,Bifid,Infan ([employer] Probiotic) 50 billion cell capsule,delayed release(DR/EC) Active CAP PO May 13, 2022 11:00pm methylPREDNISolone 4 mg oral tablet (2 sources) Corticosteroid Start: 10-22-2021 End: 11-01-2021 methylPREDNISolone (MEDROL, SHANIQUE,) 4 mg Dose-Pack Indications: Sinobronchitis Take by mouth per package instructions 1 Package 0 10/22/2021 11/01/2021 Discontinued Comment on above: Take by mouth per pa ckage instructions Multi-Vitamins TABS (3 sources) Multi-Vitamins T ABS Quantity: 0 Refills: 0 Ordered: 10-Jun-2021 DO Active Multivit 17-Xcvs-Wszskz 1-Dha (Pnv-Dha) 27 mg iron-1 mg -300 mg capsule (11 sources) Start: 09-15-2023 End: 09-29-2024 Multivit 52-Rgoh-Twlfpp 1-Dha (Pnv-Dha) 27 mg iron-1 mg -300 mg capsule Discontinued 1 NMA PO DAILY September 15, 2023 1:00am September 29, 2024 8:37am Start: 09-15-2023 End: 09-29-2024 Multivit 12-Osyh-Qelrvs 1-Dh a (Pnv-Dha) 27 mg iron-1 mg -300 mg capsule Discontinued 1 NMA PO DAILY September 15, 2023 1:00am September 29, 2024 8:37am Start: 09-15-2023 Multivit 47-Ir on-Folate 1-Dha (Pnv-Dha) 27 mg iron-1 mg -300 mg capsule Active CAP PO September 15, 2023 12:00am Start: 05-14-2022 End: 02-09-2023 Multivit 22-Bicu-Gvphej 1-Dh a (Pnv-Dha) 27 mg iron-1 mg -300 mg capsule Discontinued NMA PO May 14, 2022 12:00am February 09, 2023 2:33pm Start: 05-14-2022 End: 02-09-2023 Multivit 54-Wipe-Eflnvt 1-Dh a (Pnv-Dha) 27 mg iron-1 mg -300 mg capsule Discontinued CAP PO May 13, 2022 11:00pm February 09, 2023 1:33pm Start: 05-14-2022 Multivit 47-Ir on-Folate 1-Dha (Pnv-Dha) 27 mg iron-1 mg -300 mg capsule Active CAP PO May 13, 2022 11:00pm mupirocin 0.02 mg/mg topical ointment (6 sources) RNA Synthetase Inhibitor Antibacterial Start: 12-14-2020 End: 12-18-2020 mupirocin 2% topical ointment ; Apply topically to affected area 3 times a day Quantity: 22 Refills: 0 Ordered: 14-Dec-2020 Eliana Javier Start: 14-Dec-2020 End: 18-Dec-2020 Status: Other Generic Substitution Allowed Comments: For external use only. Comment on above: For external use onl y. [place]-3 Fatty Acids (6 sources) Start: 05-14-2022 End: 02-09-2023 take 1000 mg by mouth once daily [place]-3 Fatty Acids Discontinued 1000 MG PO DAILY May 13, 2022 11:00pm February 09, 2023 1:33pm Start: 05-14-2022 take 1000 mg by mouth once pauly ly [place]-3 Fatty Acids Active 1000 MG PO DAILY May 13, 2022 11:00pm [place]-3 Fatty Acids 1,000 mg capsule (2 sources) Start: 05-14-2022 End: 02-09-2023 take 1 capsule by mouth once daily [place]-3 Fatty Acids 1,000 mg capsule Discontinued 1000 mg PO DAILY May 14, 2022 12:00am February 09, 2023 2:33pm omeprazole 20 mg delayed release oral capsule (7 sources) Proton Pump Inhibitor Start: 06-11-2022 End: 02-09-2023 take 1 capsule by mouth once daily Omeprazole 20 mg capsule,delayed release(DR/EC) Discontinued 20 mg PO DAILY 30 0 June 11, 2022 1:00am February 09, 2023 2:33pm ondansetron (ZOFRAN-ODT) disintegrating tablet 4 mg (1 source) Start: 09-17-2024 End: 09-19-2024 take 1 tablet by mouth every six hours as needed for nausea and vomiting ondansetron (ZOFRAN-ODT) disintegrating tablet 4 mg pantoprazole (PROTONIX) Vial 40 mg (1 source) Start: 09-17-2024 End: 09-19-2024 40 mg, Intravenous, Daily, First dose on 09/17/24 at 2000, Dilute each vial with 10 mL of 0.9% NaCl. BRQ20-Iqob NtzwukIown-PY-NHK-D DINERO (PNV OB+DHA) 27-1-50-250 mg cmpk (1 source) Start: 06-20-2021 End: 06-28-2021 take 1 tablet by mouth once daily DLG80-Bkxk MuqkdtAenl-FJ-APR-D DINERO (PNV OB+DHA) 27-1-50-250 mg cmpk Take 1 tablet by mouth once daily. 30 Each 06/20/2021 06/28/2021 Discontinued (Duplicate Entry) 100 ml potassium chloride 0.2 meq/ml injection (1 source) Start: 09-19-2024 End: 09-19-2024 take 20 mEq intravenously every two hours 20 mEq, Intravenous, at 50 mL/hr, Every 2 hours, First dose on Thu09/19/24 at 0700, For 4 doses, 20mEq IVPB over 120 minutes x 4 (for total of 80 mEq over 8 hours) for serum Potassium in range of 2.5-2.9 mEq/L per [facility]mediate [facility] Electrolyte Replacement Therapy. (INTERMEDIATE CARE) ORDER repeat potassium level 4 hours after fourth dose has been infused. VESICANT predniSONE 5 mg oral tablet (7 sources) Start: 12-16-2023 End: 01-12-2024 Prednisone 5 mg tablets,dose pack Discontinued 0 PO per package directions December 16, 2023 12:00am January 12, 2024 9:43am PO PER PKG DIR Start: 04-11-2021 take 5 tablets by mo uth once daily, then take 5 tablets by mouth once daily, then take 1 tablet by mouth every other day predniSONE 10 MG Oral Tablet TAKE 5 TABLET Daily 5 tabs daily x 2 days then decrease by 1 tablet every 2 days Quantity: 30 Refills: 0 Ordered: 11-Apr-2021 Cheyenne Alarcon Start : 11-Apr-2021 Active Start: 03-17-2021 End: 03-23-2021 take 3 tablets by mouth once daily at mealtime predniSONE 20 mg oral tablet ; 3 tab(s) orally once a day Quantity: 21 Refills: 0 Ordered: 17-Mar-2021 Eliana Javier Start: 17-Mar-2021 End: 23-Mar-2021 Status: Other Generic Substitution Allowed Comments: It is very important that you take or use this exactly as directed. Do not skip doses or discontinue unless directed by your doctor.Obtain medical advice before taking any non-prescription drugs as some may affect the action of this medication.Take with food or milk. Comment on above: It is very important that you take or use this exactly as directed. Do not skip doses or discontinue unless directed by your doctor.Obtain medical advice before taking any non-prescription drugs as some may affect the action of this medication.Take with food or milk. progesterone 200 mg oral capsule (20 sources) Progesterone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 Spontaneous vaginal delivery Varicose veins of both lower extremities History of COVID-19 PCOS (polycystic ovarian syndrome) Social History adopted: No household members: spouse and children housing: house number of children: 1 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 status: employed current occupation: 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 exposures/hazards: No pets and animals: Yes (Not managing litterbox) pets and animals: cat(s) and dog(s) history of recent travel: Yes (- June) out of state: Yes out of country: No sexually active: Yes Smoking Status: Never smoker alcohol intake: never substance use type: does not use well-balanced diet: daily or most days caffeine: No eating out: rarely or never during the past year weight has: decreased > 10 lbs what type of physical activity do you participate in: walking frequency: 1-2 times per week duration: 15-30 minutes/day elsa/caodaism: Holiness seatbelt use: always do you feel safe at home: Yes 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 She states that since taking the pill her periods are more regular. SHe is on zoloft 50 mg and states that she feels better and wants to try to wean off. She still has the complaint of irritability the week prior to her menses. History 6 Elective abortions Hx Para 2 Spontaneous abortions 4 Hx # Term Pregnancies Ectopic pregnancies Hx # Pregnancies Multiple births # of living children 2 Past Pregnancies Del. Date Name GA/Weeks Outcome Route Bth Weight Gen Labor Lgth Anesthesia Del Locatn Provider FOB Unknown [phone] 4 chemical 12/29/22 Keke 41 live - full term 7lbs 13oz Female [facility] JERILYN Marroquin 05/01/24 Alexys 39 live - full term 7#15 Male [facility] An albrecht Delivery Date: 12/29/22 Last Updated by: Jovita PRUITT Delivery Date: 05/01/24 Last Updated by: Arleth PRUITT IOL DECEL ROS Const ROS Unobtainable: All systems reviewed are unremarkable except as noted in H Resp Resp: Reports system reviewed and no additional complaints, except as documented; Denies cough GI GI: Reports as per HPI Psych Psych: Reports system reviewed and no additional complaints, except as documented Exam Const General: cooperative, healthy appearing, comfortable and no acute distress Resp Effort Inspection: normal respiratory effort Skin General: no rashes or lesions noted Psych Appearance: grossly normal Speech and Movement: speech and movement normal Coding Level of Care Code Off vis,est,level 4 Diagnoses Contraceptive management Z30.9 Assessment and Plan Assessment and Plan (1) Contraceptive management: Status: Acute Comment: No PA needed for IUD Medications: Changed From norgestimate-ethinyl estradiol 0.25-0.035 mg (Sprintec (28)) 1 TAB PO DAILY 84 tabs 4RF To norgestimate-ethinyl estradiol 0.25-0.035 mg (Sprintec (28)) take active pills only 1 TAB PO DAILY 84 tabs 4RF Refilled sertraline (Zoloft) 50 mg PO QDAY 90 tabs 3RF Plan plan is to start taking active pills only (continuous method) to hopefully allow for less E2 and P withdrawal that could be causing irritability or pmdd. I do not recommend st (more content not included)... 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 Is patient in pain?: No Allergies No Known Allergies Allergy (Verified 09/29/24 08:31) Medications ???Medication ???Instructions ???Recorded ???Confirmed ???Type sertraline 50 mg tablet (Zoloft) 50 mg PO QDAY #90 tabs 08/12/24 Rx norgestimate 0.25 mg-ethinyl 1 tab PO DAILY #84 tabs 09/29/24 0 09/29/24 Rx estradiol 35 mcg tablet (Sprintec (28)) pantoprazole 40 mg tablet,delayed 40 mg PO QDAY 09/29/24 09/29/24 H istory release Post menopausal: No Patient : No PFS Medical History Contraceptive management Vaginal delivery depression History of depression Spontaneous vaginal delivery Varicose veins of both lower extremities History of COVID-19 PCOS (polycystic ovarian syndrome) Social History adopted: No household members: spouse and children housing: house number of children: 1 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 status: employed current occupation: 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 exposures/hazards: No pets and animals: Yes (Not managing litterbox) pets and animals: cat(s) and dog(s) history of recent travel: Yes (- June) out of state: Yes out of country: No sexually active: Yes Smoking Status: Never smoker alcohol intake: never substance use type: does not use well-balanced diet: daily or most days caffeine: No eating out: rarely or never during the past year weight has: decreased > 10 lbs what type of physical activity do you participate in: walking frequency: 1-2 times per week duration: 15-30 minutes/day elsa/caodaism: Holiness seatbelt use: always do you feel safe at home: Yes 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 She states that she was hospitalized for 5 days due to severe ketoacidosis. She was losing 4 pounds a day doing an extensive workout in the am and yoga at night and cutting carbs. 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 States that she has also been seeing a counselor History 6 Elective abortions Hx Para 2 Spontaneous abortions 4 Hx # Term Pregnancies Ectopic pregnancies Hx # Pregnancies Multiple births # of living children 2 Past Pregnancies Del. Date Name GA/Weeks Outcome Route Bth Weight Gen Labor Lgth Anesthesia Del Locatn Provider FOB Unknown [phone] 4 chemical 12/29/22 Keke 41 live - full term 7lbs 13oz Female [facility] JERILYN Lopez 05/01/24 Alexys 39 live - full term 7#15 Male [facility] An nthostephie Delivery Date: 12/29/22 Last Updated by: Jovita PRUITT LC Delivery Date: 05/01/24 Last Updated by: Arleth Mauricio IOL DECEL ROS Const ROS Unobtainable: All systems reviewed are unremarkable except as noted in H Resp Resp: Reports system reviewed and no additional complaints, except as documented; Denies cough GI GI: Reports as per HPI Psych Psych: Reports system reviewed and no additional complaints, except as documented Exam Const General: cooperative, healthy appearing, comfortable and no acute distress Resp Effort Inspection: normal respiratory effort Skin General: no rashes or lesions noted Psych Appearance: grossly normal Speech and Movement: speech and movement normal Coding Level of Care Code Off vis,est,level 4 Diagnoses Abnormal uterine bleeding N93.9 Assessment and Plan Assessment and Plan (1) Abnormal uterine bleeding: Status: Acute Plan: I would like to try ocps but I need her to clear this with her internal medicine doc first. pt states that her liver and kidney functions were off. pt to call back in 2 weeks with a follow up Discussed use, benefits, risks and side effects of combination ocp's. Instruct on Thursday start and reviewed use of condoms. Written information given. Medications: New norgestimate-ethinyl estradiol 0.25-35 mg-mcg (Sprintec (28)) 1 TAB PO DAILY 84 tabs 4RF (more content not included)... Normal [facility] T4, FREE [CCL]on 09-28-2024 Free T4 [Mass/Vol] 1.1 ng/dL Normal 0.9-1.7 [facility] Comment on above: Result Comment: [facility] [address] [place] [address] Mynor Galvez III, M.D. [id number] Performed By: #### 2 33716 #### [address] [address] THYROGLOBULIN AB [CCL]on Thyroglobulin Ab, Serum <0.9 Normal <4.0 [facility] Comment on above: Result Comment: The Thyroglobulin Antibody test was performed using the [employer] DXI paramagnetic particle chemiluminescent immunoassay method. Results obtained with different assay methods or kits cannot be used interchangeably. [facility] [address] [place] [address] Mynor Galvez III, M.D. [id number] Performed By: #### 2 38848 #### [address] [address] CBC (NO DIFF)on 09-27-2024 CBC panel Auto (Bld) Normal [facility] Comment on above: Result Comment: CBC( WITHOUT DIFFERENTIAL) Performed By: #### 2 57375 #### [address] [address] Erythrocyte distribution width (RBC) [Ratio] 14.1 % Normal 12.0 - 15.6 [facility] Comment on above: Performed By: #### 2 98218 #### [address] [address] Hematocrit (Bld) [Volume fraction] 40.1 % Normal 34.0 - 46.0 [facility] Comment on above: Performed By: #### 2 53194 #### [address] [address] Hemoglobin (Bld) [Mass/Vol] 13.9 g/dL Normal 12.0 - 16.0 [facility] Comment on above: Performed By: #### 2 21941 #### [address] [address] MCH (RBC) [Entitic mass] 29 pg Normal 27 - 33 [facility] Comment on above: Performed By: #### 2 99167 #### [facility],[address] [place] [address] MCHC 35 X10 3 Normal 32 - 36 [facility] Comment on above: Performed By: #### 2 57879 #### [facility],[address] [place] [address] MCV (RBC) [Entitic vol] 84 fL Normal 80 - 99 [facility] Comment on above: Performed By: #### 2 48888 #### [facility],[address] [place] [address] PLATELET 243 x10EE3/UL Normal 150 - 450 [facility] Comment on above: Performed By: #### 2 80995 #### [facility],[address] [place] [address] Platelet mean volume (Bld) [Entitic vol] 9.0 fL Normal 6.6 - 10.5 [facility] Comment on above: Performed By: #### 2 28524 #### [facility],[address] [place] [address] RBC 4.77 x 10EE6/UL Normal 4.10 - 5.30 [facility] Comment on above: Performed By: #### 2 36172 #### [facility],[address] [place], [place] [id number] WBC 4.9 x 10EE3/UL Normal 4.5 - 10.8 [facility] Comment on above: Performed By: #### 2 02109 #### [facility],[address] [place], [place] [id number] CMP with eGFRon 09-27-2024 AGE 24 years Normal [facility] Comment on above: Performed By: #### 2 90500 #### [facility],[address] [place] [address] Albumin [Mass/Vol] 3.7 g/dL Normal 3.4 - 5.0 [facility] Comment on above: Performed By: #### 2 11055 #### [facility],[address] [place] [address] Albumin/Globulin [Mass ratio] 1.2 {ratio} Normal 0.9 - 1.6 [facility] Comment on above: Performed By: #### 2 31011 #### [facility],[address] [place] [address] ALK PHOS 126 U/L High 46 - 116 [facility] Comment on above: Performed By: #### 2 71981 #### [facility],[address] [place] [address] ALT [Catalytic activity/Vol] 27 U/L Normal 16 - 63 [facility] Comment on above: Performed By: #### 2 83111 #### [facility],[address] [place] [address] Anion gap [Moles/Vol] 9 mmol/L Low 10 - 20 [facility] Comment on above: Performed By: #### 2 99768 #### [facility],[address] [place] [address] AST [Catalytic activity/Vol] 21 U/L Normal 13 - 39 [facility] Comment on above: Performed By: #### 2 11611 #### [facility],[address] [place] [address] B/C RATIO 7 ratio Normal 0 - 30 [facility] Comment on above: Performed By: #### 2 45475 #### [facility],[address] [place] [address] Bilirubin [Mass/Vol] 0.4 mg/dL Normal 0.2 - 1.0 [facility] Comment on above: Performed By: #### 2 11804 #### [facility],[address] [place] [address] Calcium [Mass/Vol] 8.7 mg/dL Normal 8.5 - 10.1 [facility] Comment on above: Performed By: #### 2 31538 #### [facility],[address] [place], [place] [id number] Chloride [Moles/Vol] 107 mmol/L Normal 98 - 107 [facility] Comment on above: Performed By: #### 2 04342 #### [facility],[address] [place], [place] [id number] CMP with eGFR Normal [facility] Comment on above: Result Comment: COMP REHENSIVE METABOLIC PANEL Performed By: #### 2 93526 #### [facility],[address] [place] [address] CO2 [Moles/Vol] 30.2 mmol/L Normal 21.0 - 32.0 [facility] Comment on above: Performed By: #### 2 57076 #### [facility],[address] [place], [place] [address] Creatinine [Mass/Vol] 0.83 mg/dL Normal 0.55 - 1.02 [facility] Comment on above: Performed By: #### 2 08660 #### [facility],[address] [place] [address] GFR/1.73 sq M.predicted among non-blacks MDRD (S/P/Bld) [Vol rate/Area] mL/min/{1.73_m2} Normal 60 - 999 [facility] Comment on above: Performed By: #### 2 77526 #### [facility],[address] [place], [place] [id number] Result Comment: ACCO RDING TO THE NATIONAL KIDNEY DISEASE EDUCATION PROGRAM(NKDE), A NORMAL eGFR IS A VALUE GREATER THAN OR EQUAL TO 60 ML/MIN/1.73 SQ METERS. CHRONIC KIDNEY DISEASE: <60mL/MIN/1.73 SQ METERS KIDNEY FAILURE: <15mL/MIN/1.73 SQ METERS THIS TEST SHOULD ONLY BE USED FOR PATIENTS 18 YEARS OF AGE AND OLDER. Globulin (S) [Mass/Vol] 3.0 g/dL Normal 1.5 - 3.8 [facility] Comment on above: Performed By: #### 2 82976 #### [facility],[address] [place] [address] Glucose [Mass/Vol] 87 mg/dL Normal 74 - 106 [facility] Comment on above: Performed By: #### 2 20850 #### [facility],[address] [place] [address] Potassium [Moles/Vol] 4.0 mmol/L Normal 3.5 - 5.1 [facility] Comment on above: Performed By: #### 2 15081 #### [facility],[address] [place] [address] Protein [Mass/Vol] 6.7 g/dL Normal 6.4 - 8.2 [facility] Comment on above: Performed By: #### 2 92170 #### [facility],[address] [place] [address] Sodium [Moles/Vol] 142 mmol/L Normal 136 - 145 [facility] Comment on above: Performed By: #### 2 77436 #### [facility],[address] [place] [address] Urea nitrogen [Mass/Vol] 6 mg/dL Low 7 - 18 [facility] Comment on above: Performed By: #### 2 69316 #### [facility],[address] [place] [address] HEMOGLOBIN A1C (POM)on 09-27 Glucose [Mass/Vol] 91.1 mg/dL High 0.0 - 0.0 [facility] Comment on above: Result Comment: BLDo HEMOGLOBIN A1C REFERENCE RANGESBLDo Suggested Diagnosis HbA1c(%) HbA1C (mmol/mol Diabetic >/=6.5 >/=48 Prediabetes 5.7 - 6.4 39 - 47 Normal <5.7 <39 Performed By: #### 2 96567 #### [facility],[address] [place] [address] HbA1c (Bld) [Mass fraction] 4.8 % Normal 0.0 - 6.5 [facility] Comment on above: Performed By: #### 2 35601 #### [facility],[address] [place] [address] LIPID PROFILEon 09-27-2024 Cholesterol [Mass/Vol] 212 mg/dL Normal 0 - 240 [facility] Comment on above: Performed By: #### 2 35651 #### [facility],[address] [place] [address] Cholesterol in HDL [Mass/Vol] 54 mg/dL Normal 40 - 60 [facility] Comment on above: Performed By: #### 2 99579 #### [facility],[address] [place] [address] Cholesterol in LDL [Mass/Vol] 136 mg/dL High 0 - 129 [facility] Comment on above: Performed By: #### 2 60596 #### [facility],[address] [place] [address] Cholesterol.total/Chol esterol in HDL [Mass ratio] 3.9 {ratio} Normal 0.0 - 5.0 [facility] Comment on above: Performed By: #### 2 93880 #### [facility],[address] [place] [address] Lipid 1996 panel Normal [facility] Comment on above: Result Comment: LIPI D PROFILE Performed By: #### 2 58671 #### [facility],[address] [place] [address] Triglyceride [Mass/Vol] 110 mg/dL Normal 0 - 150 [facility] Comment on above: Performed By: #### 2 95494 #### [facility],[address] [place] [address] T4 Free SerPl-mCncon 025 Free T4 [Mass/Vol] 1.1 ng/dL Normal 0.9-1.7 [facility] Comment on above: Order Comment: Víctor larson Type: BLOOD SPECIMEN Ordering Facility: [facility] Address: [address] [place] [address] Performed By: #### 3 024-7 #### [facility] CLIA [id number] [address] [place] [address] OF [place] THYROGLOBULIN ANTIBODYon Thyroglobulin Ab Qn [IU]/mL Normal <4.0 [facility] Comment on above: Order Comment: Víctor larson Type: BLOOD SPECIMEN Ordering Facility: [facility] Address: [address] [place] [address] Result Comment: The Thyroglobulin Antibody test was performed using the [employer] DXI paramagnetic particle chemiluminescent immunoassay method. Results obtained with different assay methods or kits cannot be used interchangeably. Performed By: #### T KENNY #### [facility] CLIA [id number] [address] [place] [address] [place] TSHon 09-27-2024 TSH Qn 2.97 m[IU]/L Normal 0.35 - 3.74 [facility] Comment on above: Performed By: #### 2 83588 #### [place] [id number] VITAMIN D, 25 HYDROXYon 09-17 VitD 28.40 ng/mL Low 30.00 - 100 [facility] Comment on above: Result Comment: 25-O HD3 indicates both endogenous production and supplementation. 25-OHD2 is an indicator of exogenous sources, such as diet or supplementation. Therapy is based on measurement of Total 25-OHD, with levels <20 ng/mL indicative of Vitamin D deficiency, while levels between 20 ng/mL and 30 ng/mL suggest insufficiency. Optimal levels are >=30ng/mL. Vitamin D, 25-OH D3 Not Established Vitamin D, 25-OH D2 Not Established Performed By: #### 2 36556 #### [address] [address] ACETAMINOPHEN LEVELon 2024 ACETAMINOPHEN < Normal 0.0-30.0 [facility] Comment on above: Order Comment: Thera peutic Range: 10-30 mcg/mL Potentially Toxic: >200 mcg/mL (4 hours post dose) >100 mcg/mL (8 hours post dose) >50 mcg/mL (12 hours post dose) Performed By: #### 4 5014 #### [facility] [address] [address] [place] M.D. [id number] Acetaminophen Levelon 2024 Acetaminophen [Mass/Vol] [facility] Acetaminophen [Mass/Vol]on 0 09-19-2024 Interpretation and review of laboratory results Normal [facility] Therapeutic Range: 1 0-30 mcg/mL Potentially Toxic: >200 mcg/mL (4 hours post dose) >100 mcg/mL (8 hours post dose) >50 mcg/mL (12 hours post dose) [facility] BASIC METABOLIC PANELon Anion gap [Moles/Vol] 17 mmol/L Normal 10-20 [facility] Comment on above: Order Comment: Test performed by: [facility] [address] [place] [address] Performed By: #### 4 5562 #### [facility] [address] [address] [place] Singh M.D. [id number] Calcium [Mass/Vol] 9.5 mg/dL Normal 8.4-10.[address] [facility] Comment on above: Order Comment: Test performed by: [facility] [facility] [address] [place] [address] Performed By: #### 4 5562 #### MH LAB [address] [place], [place] [address] South Singh M.D. [id number] Chloride [Moles/Vol] 100 mmol/L Normal 98-108 [facility] Comment on above: Order Comment: Test performed by: [facility] [address] [place] [address] Performed By: #### 4 5562 #### MH LAB [address] [place] [address] South Singh M.D. [id number] Creatinine [Mass/Vol] 0.79 mg/dL Normal 0.40-1.10 [facility] Comment on above: Order Comment: Test performed by: [facility] [address] [place] [address] Performed By: #### 4 5562 #### MH LAB [address] [place] [address] South Singh M.D. [id number] EGFR 107 mL/min/1.73 m2 Normal >=[address] [facility] Comment on above: Order Comment: Test performed by: [facility] [address] [place] [address] Result Comment: Madhavi mated GFR was calculated using the 2020 CKD-EPI creatinine equation. Performed By: #### 4 5562 #### MH LAB [address] [place] [address] South Singh M.D. [id number] Glucose [Mass/Vol] 99 mg/dL Normal 65-[address] [facility] Comment on above: Order Comment: Test performed by: [facility] [address] [place] [address] Performed By: #### 4 5562 #### MH LAB [address] [place] [address] South Singh M.D. [id number] HCO3 (Bld) [Moles/Vol] 28 mmol/L Normal 21-32 [facility] Comment on above: Order Comment: Test performed by: [facility] [address] [place] [address] Performed By: #### 4 5562 #### MH LAB [address] [place] [address] South Singh M.D. [id number] Potassium [Moles/Vol] 3.6 mmol/L Normal 3.5-5.1 [facility] Comment on above: Order Comment: Test performed by: [facility] [address] [place] [address] Performed By: #### 4 5562 #### MH LAB [address] [place] [address] South Singh M.D. [id number] Sodium [Moles/Vol] 141 mmol/L Normal 135-[address] [facility] Comment on above: Order Comment: Test performed by: [facility] [address] [place] [address] Performed By: #### 4 5562 #### MH LAB [address] [place] [address] South Singh M.D. [id number] Urea nitrogen [Mass/Vol] 9 mg/dL Normal 8-25 [facility] Comment on above: Order Comment: Test performed by: [facility] [address] [place] [address] Performed By: #### 4 5562 #### LAB [address] [place] [address] South Singh M.D. [id number] Urea nitrogen/Creatinine [Mass ratio] 11.4 mg/mg Normal 10.0-20.0 [facility] Comment on above: Order Comment: Test performed by: [facility] [address] [place] [address] Performed By: #### 4 5562 #### MH LAB [address] [place] [address] South Singh M.D. [id number] BETA-HYDROXYBUTYRATEon 09-19 BETA-HYDROXYBUTYRATE 3.0 mmol/L High 0.0-0.3 [facility] Comment on above: Performed By: #### 4 5139 #### MH LAB [address] [place] [address] South Singh M.D. [id number] Basic metabolic 2000 panelon 09-19-2024 Anion gap [Moles/Vol] 17 mmol/L 10 - 2 0 mmol/L [facility] Calcium [Mass/Vol] 9.5 mg/dL 8.4 - 10. 2 mg/dL [facility] Chloride [Moles/Vol] 100 mmol/L 98 - 10 8 mmol/L [facility] Creatinine [Mass/Vol] 0.79 mg/dL 0.40 - 1.10 mg/dL [facility] GFR/1.73 sq M.predicted CKD-EPI (S/P/Bld) [Vol rate/Area] 107 - PINF [facility] Comment on above: Estimated GFR was ca lculated using the 2020 CKD-EPI creatinine equation. Glucose [Mass/Vol] 99 mg/dL 65 - 99 mg/dL [facility] HCO3 [Moles/Vol] 28 mmol/L 21 - 32 mmol/L [facility] Interpretation and review of laboratory results Normal [facility] Potassium [Moles/Vol] 3.6 mmol/L 3.5 - 5.1 mmol/L [facility] Sodium [Moles/Vol] 141 mmol/L 135 - 145 mmol/L [facility] Urea nitrogen [Mass/Vol] 9 mg/dL 8 - 25 mg/dL [facility] Urea nitrogen/Creatinine [Mass ratio] 11.4 mg/mg 10.0 - 20.0 [facility] has implemented the eGFR calculation approach that does not have a coefficient for race that conforms to the NKF-ASN Task Force Recommendations. [facility] Beta hydroxybutyrate [Moles/ Vol]on 09-19-2024 Interpretation and review of laboratory results Abnormal [facility] Beta-Hydroxybutyrateon 09-19 Beta hydroxybutyrate [Moles/Vol] 3 mmol/L High 0.0 - 0.3 mmol/L [facility] CBC Auto Differentialon Basophils (Bld) [#/Vol] 0.05 10*3/uL [facility] Basophils/100 WBC (Bld) 0.6 % [facility] Eosinophils (Bld) [#/Vol] 0.21 10*3/uL [facility] Eosinophils/100 WBC (Bld) 2.6 % [facility] Erythrocyte distribution width (RBC) [Entitic vol] 13.9 % 11.6 - 14.8 % [facility] Hematocrit (Bld) [Volume fraction] 41.3 % 36.0 - 46.0 % [facility] Hemoglobin (Bld) [Mass/Vol] 13.7 g/dL 12.0 - 16.0 g/dL [facility] Immature granulocytes (Bld) [#/Vol] 0.04 10*3/uL [facility] Immature granulocytes/100 WBC (Bld) 0.5 % [facility] Comment on above: The IG parameter is the percentage of metamyelocytes, myelocytes and promyelocytes. An immature granulocyte count (IG) of 1% or more suggests the possibility of infection, an IG count of 3% is very likely related to an infection. Lymphocytes (Bld) [#/Vol] 2.35 10*3/uL [facility] Lymphocytes/100 WBC (Bld) 28.8 % [facility] MCH (RBC) [Entitic mass] 27.6 pg 26.0 - 34.0 pg [facility] MCHC (RBC) [Mass/Vol] 33.2 g/dL 31.0 - 37.0 g/dL [facility] MCV (RBC) [Entitic vol] 83.1 fL 80.0 - 100.0 fL [facility] Monocytes (Bld) [#/Vol] 0.89 10*3/uL [facility] Monocytes/100 WBC (Bld) 10.9 % [facility] Neutrophils (Bld) [#/Vol] 4.61 10*3/uL [facility] Neutrophils/100 WBC (Bld) 56.6 % [facility] Nucleated RBC (Bld) [#/Vol] 0 10*3/uL [facility] Nucleated RBC/100 WBC (Bld) [Ratio] 0 % [facility] Platelet mean volume (Bld) [Entitic vol] 10.4 fL 9.4 - 12.4 fL [facility] Platelets (Bld) [#/Vol] 343 10*3/uL [facility] RBC (Bld) [#/Vol] 4.97 10*6/uL [facility] WBC (Bld) [#/Vol] 8.15 10*3/uL [facility] CBC WITH AUTO DIFFERENTIALon 09-19-2024 AUTO NRBC 0.0 % Normal [facility] Comment on above: Performed By: #### 4 5562 #### LAB [address] [place], [place] [address] South Singh M.D. [id number] AUTO NRBC ABS COUNT 0.00 K/mcL Normal 0.00-0.00 [facility] Comment on above: Performed By: #### 4 5562 #### LAB [address] [place], [place] [address] South Singh M.D. [id number] BASOPHILS ABSOLUTE COUNT 0.05 K/mcL Normal 0.00-0.30 [facility] Comment on above: Performed By: #### 4 5518 #### LAB [address] [place] [address] South Singh M.D. [id number] Basophils/100 WBC (Bld) 0.6 % Normal [facility] Comment on above: Performed By: #### 4 5578 #### LAB [address] [place] [address] South Singh M.D. [id number] Eosinophils (Bld) [#/Vol] 0.21 10*3/uL Normal 0.00-0.50 [facility] Comment on above: Performed By: #### 4 9631 #### LAB [address] [place] [address] South Singh M.D. [id number] Eosinophils/100 WBC (Bld) 2.6 % Normal [facility] Comment on above: Performed By: #### 4 2879 #### LAB [address] [place] [address] South Singh M.D. [id number] Erythrocyte distribution width (RBC) [Ratio] 13.9 % Normal 11.6-14.8 [facility] Comment on above: Performed By: #### 4 1155 #### LAB [address] [place] [address] South Singh M.D. [id number] Hematocrit (Bld) [Volume fraction] 41.3 % Normal 36.0-46.0 [facility] Comment on above: Performed By: #### 4 8574 #### LAB [address] [place] [address] South Singh M.D. [id number] Hemoglobin (Bld) [Mass/Vol] 13.7 g/dL Normal 12.0-16.0 [facility] Comment on above: Performed By: #### 4 8935 #### LAB [address] [place] [address] South Singh M.D. [id number] IG ABSOLUTE 0.04 K/mcL Normal 0.00-0.30 [facility] Comment on above: Performed By: #### 4 5581 #### LAB [address] [place] [address] South Singh M.D. [id number] IG PERCENT 0.50 % Normal [facility] Comment on above: Result Comment: The IG parameter is the percentage of metamyelocytes, myelocytes and promyelocytes. An immature granulocyte count (IG) of 1% or more suggests the possibility of infection, an IG count of 3% is very likely related to an infection. Performed By: #### 4 5508 #### LAB [address] [place] [address] South Singh M.D. [id number] Lymphocytes (Bld) [#/Vol] 2.35 10*3/uL Normal 0.90-4.00 [facility] Comment on above: Performed By: #### 4 5520 #### LAB [address] [place] [address] South Singh M.D. [id number] Lymphocytes/100 WBC (Bld) 28.8 % Normal [facility] Comment on above: Performed By: #### 4 5521 #### LAB [address] [place] [address] South Singh M.D. [id number] MCH (RBC) [Entitic mass] 27.6 pg Normal 26.0-34.0 [facility] Comment on above: Performed By: #### 4 5561 #### LAB [address] [place] [address] South Singh M.D. [id number] MCV (RBC) [Entitic vol] 83.1 fL Normal 80.0-100.0 [facility] Comment on above: Performed By: #### 4 5528 #### LAB [address] [place] [address] South Singh M.D. [id number] MEAN CORPUSCULAR HEMOGLOBIN CONC 33.2 g/dL Normal 31.0-37.0 [facility] Comment on above: Performed By: #### 4 0765 #### LAB [address] [place] [address] South Singh M.D. [id number] Monocytes (Bld) [#/Vol] 0.89 10*3/uL Normal 0.30-0.90 [facility] Comment on above: Performed By: #### 4 5562 #### LAB [address] [place] [address] South Singh M.D. [id number] Monocytes/100 WBC (Bld) 10.9 % Normal [facility] Comment on above: Performed By: #### 4 5562 #### LAB [address] [place] [address] South Singh M.D. [id number] NEUTROPHILS ABSOLUTE COUNT 4.61 K/mcL Normal 1.70-7.00 [facility] Comment on above: Performed By: #### 4 5562 #### LAB [address] [place] [address] South Singh M.D. [id number] Neutrophils/100 WBC (Bld) 56.6 % Normal [facility] Comment on above: Performed By: #### 4 5562 #### LAB [address] [place] [address] South Singh M.D. [id number] Platelet mean volume (Bld) [Entitic vol] 10.4 fL Normal 9.4-12.4 [facility] Comment on above: Performed By: #### 4 5562 #### LAB [address] [place] [address] South Singh M.D. [id number] Platelets (Bld) [#/Vol] 343 10*3/uL Normal 150-400 [facility] Comment on above: Performed By: #### 4 5537 #### LAB [address] [place] [address] South Singh M.D. [id number] RBC (Bld) [#/Vol] 4.97 10*6/uL Normal 4.00-5.20 [facility] Comment on above: Performed By: #### 4 6837 #### LAB [address] [place], [place] [address] South Singh M.D. [id number] WBC (Bld) [#/Vol] 8.15 10*3/uL Normal 4.50-11.00 [facility] Comment on above: Performed By: #### 4 5562 #### LAB [address] [place] [address] South Singh M.D. [id number] COMPREHENSIVE METABOLIC PANE Kenneth 09-19-2024 Albumin [Mass/Vol] 3.5 g/dL Normal 3.2-5.[address] [facility] Comment on above: Order Comment: [facility] has implemented the eGFR calculation approach that does not have a coefficient for race that conforms to the NKF-ASN Task Force Recommendations. Performed By: #### 4 6126 #### LAB [address] [place] [address] South Singh M.D. [id number] ALP [Catalytic activity/Vol] 119 U/L Normal 40-140 [facility] Comment on above: Order Comment: [facility] has implemented the eGFR calculation approach that does not have a coefficient for race that conforms to the NKF-ASN Task Force Recommendations. Performed By: #### 4 6126 #### LAB [address] [place] [address] South Singh M.D. [id number] ALT [Catalytic activity/Vol] 13 U/L Normal 0-35 U/L [facility] Comment on above: Order Comment: [facility] has implemented the eGFR calculation approach that does not have a coefficient for race that conforms to the NKF-ASN Task Force Recommendations. Performed By: #### 4 6126 #### LAB [address] [place] [address] South Singh M.D. [id number] Anion gap [Moles/Vol] 18 mmol/L Normal 10-20 [facility] Comment on above: Order Comment: [facility] has implemented the eGFR calculation approach that does not have a coefficient for race that conforms to the NKF-ASN Task Force Recommendations. Performed By: #### 4 6126 #### LAB [address] [place] [address] South Singh M.D. [id number] AST [Catalytic activity/Vol] 13 U/L Normal 0-35 U/L [facility] Comment on above: Order Comment: [facility] has implemented the eGFR calculation approach that does not have a coefficient for race that conforms to the NKF-ASN Task Force Recommendations. Performed By: #### 4 6126 #### LAB [address] [place] [address] South Singh M.D. [id number] Bilirubin [Mass/Vol] 0.3 mg/dL Normal 0.0-1.3 [facility] Comment on above: Order Comment: [facility] has implemented the eGFR calculation approach that does not have a coefficient for race that conforms to the NKF-ASN Task Force Recommendations. Performed By: #### 4 6126 #### LAB [address] [place] [address] South Singh M.D. [id number] Calcium [Mass/Vol] 8.8 mg/dL Normal 8.4-10.[address] [facility] Comment on above: Order Comment: [facility] has implemented the eGFR calculation approach that does not have a coefficient for race that conforms to the NKF-ASN Task Force Recommendations. Performed By: #### 4 6126 #### LAB [address] [place] [address] South Singh M.D. [id number] Chloride [Moles/Vol] 98 mmol/L Normal 98-108 [facility] Comment on above: Order Comment: [facility] has implemented the eGFR calculation approach that does not have a coefficient for race that conforms to the NKF-ASN Task Force Recommendations. Performed By: #### 4 6126 #### LAB [address] [place] [address] South Singh M.D. [id number] Creatinine [Mass/Vol] 0.68 mg/dL Normal 0.40-1.10 [facility] Comment on above: Order Comment: [facility] has implemented the eGFR calculation approach that does not have a coefficient for race that conforms to the NKF-ASN Task Force Recommendations. Performed By: #### 4 6126 #### LAB [address] [place] [address] South Singh M.D. [id number] EGFR 124 mL/min/1.73 m2 Normal >=[address] [facility] Comment on above: Order Comment: [facility] has implemented the eGFR calculation approach that does not have a coefficient for race that conforms to the NKF-ASN Task Force Recommendations. Result Comment: Madhavi mated GFR was calculated using the 2020 CKD-EPI creatinine equation. Performed By: #### 4 6126 #### LAB [address] [place] [address] South Singh M.D. [id number] Glucose [Mass/Vol] 86 mg/dL Normal 65-[address] [facility] Comment on above: Order Comment: [facility] has implemented the eGFR calculation approach that does not have a coefficient for race that conforms to the NKF-ASN Task Force Recommendations. Performed By: #### 4 6126 #### LAB [address] [place] [address] South Singh M.D. [id number] HCO3 (Bld) [Moles/Vol] 28 mmol/L Normal 21-32 [facility] Comment on above: Order Comment: [facility] has implemented the eGFR calculation approach that does not have a coefficient for race that conforms to the NKF-ASN Task Force Recommendations. Performed By: #### 4 6174 #### LAB [address] [place] [address] South Singh M.D. [id number] Potassium [Moles/Vol] 2.9 mmol/L Low 3.5-5.1 [facility] Comment on above: Order Comment: [facility] has implemented the eGFR calculation approach that does not have a coefficient for race that conforms to the NKF-ASN Task Force Recommendations. Performed By: #### 4 6126 #### LAB [address] [place], [place] [address] South Singh M.D. [id number] Protein [Mass/Vol] 5.7 g/dL Low 6.0-8.[address] [facility] Comment on above: Order Comment: [facility] has implemented the eGFR calculation approach that does not have a coefficient for race that conforms to the NKF-ASN Task Force Recommendations. Performed By: #### 4 6126 #### LAB [address] [place], [place] [address] South Singh M.D. [id number] Sodium [Moles/Vol] 141 mmol/L Normal 135-[address] [facility] Comment on above: Order Comment: [facility] has implemented the eGFR calculation approach that does not have a coefficient for race that conforms to the NKF-ASN Task Force Recommendations. Performed By: #### 4 6126 #### LAB [address] [place] [address] South Singh M.D. [id number] Urea nitrogen [Mass/Vol] 8 mg/dL Normal 8-25 [facility] Comment on above: Order Comment: [facility] has implemented the eGFR calculation approach that does not have a coefficient for race that conforms to the NKF-ASN Task Force Recommendations. Performed By: #### 4 6126 #### LAB [address] [place] [address] South Singh M.D. [id number] Urea nitrogen/Creatinine [Mass ratio] 11.8 mg/mg Normal 10.0-20.0 [facility] Comment on above: Order Comment: [facility] has implemented the eGFR calculation approach that does not have a coefficient for race that conforms to the NKF-ASN Task Force Recommendations. Performed By: #### 4 6126 #### LAB [address] [place] [address] South Singh M.D. [id number] CT HEAD OR BRAIN WITHOUT CON TRASTon 09-19-2024 CT HEAD OR BRAIN WITHOUT CONTRAST EXAMINATION: CT HEAD OR BRAIN WITHOUT CONTRAST HISTORY: ORDERING SYSTEM PROVIDED HISTORY: PARESTHESIA, TECHNOLOGIST PROVIDED HISTORY: Illness/Other Reason for exam: Paresthesia Encounter Type: Initial Additional signs and symptoms: . ORDERING SYSTEM PROVIDED DIAGNOSIS CODES: COMPARISON: None TECHNIQUE: CT examination of the head without IV contrast. Multiplanar reformats. Dose reduction techniques were achieved by using automated exposure control and/or adjustment of mA and/or kV according to patient size and/or use of iterative reconstruction technique. FINDINGS: There is an approximate 1.8 x 1.9 x 3.2 cm low-attenuation mass lesion along the anterior caudal aspect of the left frontal lobe. No intra-axial mass, acute intracranial hemorrhage or any other abnormal extra-axial fluid collection is seen. No large territorial infarct or hydrocephalus is evident. The imaged paranasal sinuses, mastoid air cells and middle ear cavities are clear. IMPRESSION: 1. 1.8 x 1.9 x 3.2 cm cystic lesion along the anterior caudal aspect of the left frontal lobe, most likely an arachnoid cyst. 2. Negative for acute intracranial process. Workstation ID: [id number] Dictated by: ERVIN MICHAELS on ThuSep 19, 2024 11:08:39 AM EST Transcribed by: ERVIN MICHAELS on ThuSep 19, 2024 11:08:39 AM EST Finalized by: ERVIN MICHAELS on ThuSep 19, 2024 11:08:39 AM EST Normal [facility] Comment on above: Order Comment: This Gas Chromatography test was developed and its performance characteristics determined by T[facility] at [facility] [place] [facility]. It has not been cleared or approved by the FDA. The laboratory is regulated under CLIA as qualified to perform high-complexity testing. This test is used for clinical purposes. It should not be regarded as investigational or for research. Test performed by: [facility] [address] [place] [id number] [address] Head WO contraston 2024 1. 1.8 x 1.9 x 3.2 cm cystic lesion along the anterior caudal aspect of the left frontal lobe, most likely an arachnoid cyst. 2. Negative for acute intracranial process. Workstation ID: [id number] [employer] [facility] EXAMINATION: CT HEAD OR BRAIN WITHOUT CONTRAST HISTORY: ORDERING SYSTEM PROVIDED HISTORY: PARESTHESIA, TECHNOLOGIST PROVIDED HISTORY: Illness/Other Reason for exam: Paresthesia Encounter Type: Initial Additional signs and symptoms: . ORDERING SYSTEM PROVIDED DIAGNOSIS CODES: COMPARISON: None TECHNIQUE: CT examination of the head without IV contrast. Multiplanar reformats. Dose reduction techniques were achieved by using automated exposure control and/or adjustment of mA and/or kV according to patient size and/or use of iterative reconstruction technique. FINDINGS: There is an approximate 1.8 x 1.9 x 3.2 cm low-attenuation mass lesion along the anterior caudal aspect of the left frontal lobe. No intra-axial mass, acute intracranial hemorrhage or any other abnormal extra-axial fluid collection is seen. No large territorial infarct or hydrocephalus is evident. The imaged paranasal sinuses, mastoid air cells and middle ear cavities are clear. [facility] Ervin Michaels M D - 09/19/2024 EXAMINATION: CT HEAD OR BRAIN WITHOUT CONTRAST HISTORY: ORDERING SYSTEM PROVIDED HISTORY: PARESTHESIA, TECHNOLOGIST PROVIDED HISTORY: Illness/Other Reason for exam: Paresthesia Encounter Type: Initial Additional signs and symptoms: . ORDERING SYSTEM PROVIDED DIAGNOSIS CODES: COMPARISON: None TECHNIQUE: CT examination of the head without IV contrast. Multiplanar reformats. Dose reduction techniques were achieved by using automated exposure control and/or adjustment of mA and/or kV according to patient size and/or use of iterative reconstruction technique. FINDINGS: There is an approximate 1.8 x 1.9 x 3.2 cm low-attenuation mass lesion along the anterior caudal aspect of the left frontal lobe. No intra-axial mass, acute intracranial hemorrhage or any other abnormal extra-axial fluid collection is seen. No large territorial infarct or hydrocephalus is evident. The imaged paranasal sinuses, mastoid air cells and middle ear cavities are clear. IMPRESSION: 1. 1.8 x 1.9 x 3.2 cm cystic lesion along the anterior caudal aspect of the left frontal lobe, most likely an arachnoid cyst. 2. Negative for acute intracranial process. Workstation ID: [id number] [facility] Radiology Study observation (narrative) [facility] CT Head WO contrastOrdered B y: Ervin Michaels on 09-19-2024 [facility] Work Phone: Comprehensive metabolic 2000 panelOrdered By: Heide Holley on 09-19-2024 Albumin [Mass/Vol] 3.5 g/dL 3.2 - 5.2 g/dL [facility] ALP [Catalytic activity/Vol] 119 U/L 40 - 140 U/L [facility] ALT [Catalytic activity/Vol] 13 U/L 0-35 U/L [facility] Anion gap [Moles/Vol] 18 mmol/L 10 - 2 0 mmol/L [facility] AST [Catalytic activity/Vol] 13 U/L 0-35 U/L [facility] Bilirubin [Mass/Vol] 0.3 mg/dL 0.0 - 1 .3 mg/dL [facility] Calcium [Mass/Vol] 8.8 mg/dL 8.4 - 10. 2 mg/dL [facility] Chloride [Moles/Vol] 98 mmol/L 98 - 10 8 mmol/L [facility] Creatinine [Mass/Vol] 0.68 mg/dL 0.40 - 1.10 mg/dL [facility] GFR/1.73 sq M.predicted CKD-EPI (S/P/Bld) [Vol rate/Area] 124 - PINF [facility] Comment on above: Estimated GFR was ca lculated using the 2020 CKD-EPI creatinine equation. Glucose [Mass/Vol] 86 mg/dL 65 - 99 mg/dL [facility] HCO3 [Moles/Vol] 28 mmol/L 21 - 32 mmol/L [facility] [facility] Interpretation and review of laboratory results Abnormal [facility] Potassium [Moles/Vol] 2.9 mmol/L Low 3.5 - 5.1 mmol/L [facility] Protein [Mass/Vol] 5.7 g/dL Low 6.0 - 8.0 g/dL [facility] Sodium [Moles/Vol] 141 mmol/L 135 - 145 mmol/L [facility] Urea nitrogen [Mass/Vol] 8 mg/dL 8 - 25 mg/dL [facility] Urea nitrogen/Creatinine [Mass ratio] 11.8 mg/mg 10.0 - 20.0 [facility] has implemented the eGFR calculation approach that does not have a coefficient for race that conforms to the NKF-ASN Task Force Recommendations. [facility] ETHYLENE GLYCOLon 09-19-2024 ETHYLENE GLYCOL 0.00 mg/dL Normal None Detected [facility] Comment on above: Order Comment: Test performed by: [facility] [address] [place] [id number] Result Comment: This Gas Chromatography test was developed and its performance characteristics determined by Toxicology Laboratory at [facility] [place] [facility]. It has not been cleared or approved by the FDA. The laboratory is regulated under CLIA as qualified to perform high-complexity testing. This test is used for clinical purposes. It should not be regarded as investigational or for research. Performed By: #### 4 5562 #### LAB [address] [place], [place] [address] South Singh M.D. [id number] LACTIC ACID, PLASMAon 2024 LACTIC ACID, PLASMA 2.1 mmol/L High 0.6-2.0 [facility] Comment on above: Performed By: #### 4 [id number] #### LAB [address] [place] [address] South Singh M.D. [id number] Lactate [Moles/Vol]on 2024 Interpretation and review of laboratory results Abnormal [facility] Lactic Acid, Plasmaon 2024 Lactate [Moles/Vol] 2.1 mmol/L High 0.6 - 2. 0 mmol/L [facility] MAGNESIUM LEVELon 09-19-2024 Magnesium [Mass/Vol] 1.6 mg/dL Normal 1.6-2.4 [facility] Comment on above: Performed By: #### 4 5562 #### LAB [address] [place] [address] South Singh M.D. [id number] Magnesium Levelon 09-19-2024 Magnesium [Mass/Vol] 1.6 mg/dL 1.6 - 2 .4 mg/dL [facility] Magnesium [Mass/Vol]on 09-19 Interpretation and review of laboratory results Normal [facility] OSMOLALITYon 09-19-2024 Osmolality [Osmolality] 293 mosm/kg Normal 275-295 [facility] Comment on above: Performed By: #### 4 [id number] #### LAB [address] [place] [address] South Singh M.D. [id number] OsmolalityOrdered By: Rafael Maher on 09-19-2024 Osmolality [Osmolality] 293 mosm/kg [facility] Osmolality [Osmolality]Order ed By: Alda Maher on 09-19-2024 Interpretation and review of laboratory results Normal [facility] VOLATILE PANELon 09-19-2024 ACETONE, BLOOD Not detected Normal Not Detected [facility] Comment on above: Order Comment: This Gas Chromatography test was developed and its performance characteristics determined by Toxicology Laboratory at [facility] [place] [facility]. It has not been cleared or approved by the FDA. The laboratory is regulated under CLIA as qualified to perform high-complexity testing. This test is used for clinical purposes. It should not be regarded as investigational or for research. Test performed by: [facility] [address] [place] [address] Performed By: #### 4 [id number] #### LAB [address] [place] [address] South Singh M.D. [id number] Ethanol [Mass/Vol] Not detected Normal Not Detected [facility] Comment on above: Order Comment: This Gas Chromatography test was developed and its performance characteristics determined by Toxicology Laboratory at [facility] [place] [facility]. It has not been cleared or approved by the FDA. The laboratory is regulated under CLIA as qualified to perform high-complexity testing. This test is used for clinical purposes. It should not be regarded as investigational or for research. Test performed by: [facility] [address] [place] [address] Performed By: #### 4 [id number] #### [facility] LAB [address] [place] [address] South Singh M.D. [id number] ISOPROPANOL, BLOOD Not detected Normal Not Detected [facility] Comment on above: Order Comment: This Gas Chromatography test was developed and its performance characteristics determined by Toxicology Laboratory at [facility] [place] [facility]. It has not been cleared or approved by the FDA. The laboratory is regulated under CLIA as qualified to perform high-complexity testing. This test is used for clinical purposes. It should not be regarded as investigational or for research. Test performed by: [facility] [address] [place] [address] Performed By: #### 4 [id number] #### [facility] LAB [address] [place] [address] South Singh M.D. [id number] METHANOL, BLOOD Not detected Normal Not Detected [facility] Comment on above: Order Comment: This Gas Chromatography test was developed and its performance characteristics determined by Toxicology Laboratory at [facility] [place] [facility]. It has not been cleared or approved by the FDA. The laboratory is regulated under CLIA as qualified to perform high-complexity testing. This test is used for clinical purposes. It should not be regarded as investigational or for research. Test performed by: [facility] [address] [place] [phone] Performed By: #### 4 [id number] #### [facility] [address] [place], [place] [address] South Singh M.D. [id number] BETA-HYDROXYBUTYRATEon 09-18 BETA-HYDROXYBUTYRATE 3.2 mmol/L High 0.0-0.3 [facility] Comment on above: Performed By: #### 4 [id number] #### [facility] [address] [place] [address] South Singh M.D. [id number] Beta hydroxybutyrate [Moles/ Vol]on 09-18-2024 Interpretation and review of laboratory results Abnormal [facility] Beta-Hydroxybutyrateon 09-18 Beta hydroxybutyrate [Moles/Vol] 3.2 mmol/L High 0.0 - 0.3 mmol/L [facility] COMPREHENSIVE METABOLIC PANE Kenneth 09-18-2024 Albumin [Mass/Vol] 4.1 g/dL Normal 3.2-5.[address] [facility] Comment on above: Order Comment: [facility] has implemented the eGFR calculation approach that does not have a coefficient for race that conforms to the NKF-ASN Task Force Recommendations. Performed By: #### 4 [id number] #### [facility] [address] [place], [place] [address] South Singh M.D. [id number] ALP [Catalytic activity/Vol] 143 U/L High 40-140 [facility] Comment on above: Order Comment: [facility] has implemented the eGFR calculation approach that does not have a coefficient for race that conforms to the NKF-ASN Task Force Recommendations. Performed By: #### 4 [id number] #### LAB [address] [place] [address] South Singh M.D. [id number] ALT [Catalytic activity/Vol] 16 U/L Normal 0-35 U/L [facility] Comment on above: Order Comment: [facility] has implemented the eGFR calculation approach that does not have a coefficient for race that conforms to the NKF-ASN Task Force Recommendations. Performed By: #### 4 [id number] #### LAB [address] [place] [address] South Singh M.D. [id number] Anion gap [Moles/Vol] 21 mmol/L High [address] Comment on above: Order Comment: [facility] has implemented the eGFR calculation approach that does not have a coefficient for race that conforms to the NKF-ASN Task Force Recommendations. Performed By: #### 4 6126 #### LAB [address] [place] [address] [place] Singh M.D. [id number] AST [Catalytic activity/Vol] 13 U/L Normal 0-35 U/L [facility] Comment on above: Order Comment: [facility] has implemented the eGFR calculation approach that does not have a coefficient for race that conforms to the NKF-ASN Task Force Recommendations. Performed By: #### 4 6126 #### LAB [address] [place] [address] South Singh M.D. [id number] Bilirubin [Mass/Vol] 0.4 mg/dL Normal 0.0-1.3 [facility] Comment on above: Order Comment: [facility] has implemented the eGFR calculation approach that does not have a coefficient for race that conforms to the NKF-ASN Task Force Recommendations. Performed By: #### 4 6126 #### LAB [address] [place] [address] South Singh M.D. [id number] Calcium [Mass/Vol] 9.4 mg/dL Normal 8.4-10.[address] [facility] Comment on above: Order Comment: [facility] has implemented the eGFR calculation approach that does not have a coefficient for race that conforms to the NKF-ASN Task Force Recommendations. Performed By: #### 4 6126 #### LAB [address] [place], [place] [address] South Singh M.D. [id number] Chloride [Moles/Vol] 103 mmol/L Normal 98-108 [facility] Comment on above: Order Comment: [facility] has implemented the eGFR calculation approach that does not have a coefficient for race that conforms to the NKF-ASN Task Force Recommendations. Performed By: #### 4 6126 #### LAB [address] [place] [address] South Singh M.D. [id number] Creatinine [Mass/Vol] 0.92 mg/dL Normal 0.40-1.10 [facility] Comment on above: Order Comment: [facility] has implemented the eGFR calculation approach that does not have a coefficient for race that conforms to the NKF-ASN Task Force Recommendations. Performed By: #### 4 6126 #### LAB [address] [place] [address] South Singh M.D. [id number] EGFR 89 mL/min/1.73 m2 Normal >=60 [facility] Comment on above: Order Comment: [facility] has implemented the eGFR calculation approach that does not have a coefficient for race that conforms to the NKF-ASN Task Force Recommendations. Result Comment: Madhavi mated GFR was calculated using the 2020 CKD-EPI creatinine equation. Performed By: #### 4 6126 #### [facility] [address] [place] [address] South Singh M.D. [id number] Glucose [Mass/Vol] 108 mg/dL High 65-[address] [facility] Comment on above: Order Comment: [facility] has implemented the eGFR calculation approach that does not have a coefficient for race that conforms to the NKF-ASN Task Force Recommendations. Performed By: #### 4 6126 #### [facility] [address] [place] [address] South Singh M.D. [id number] HCO3 (Bld) [Moles/Vol] 19 mmol/L Low 21-32 [facility] Comment on above: Order Comment: [facility] has implemented the eGFR calculation approach that does not have a coefficient for race that conforms to the NKF-ASN Task Force Recommendations. Performed By: #### 4 6126 #### LAB [address] [place] [address] South Singh M.D. [id number] Potassium [Moles/Vol] 3.5 mmol/L Normal 3.5-5.1 [facility] Comment on above: Order Comment: [facility] has implemented the eGFR calculation approach that does not have a coefficient for race that conforms to the NKF-ASN Task Force Recommendations. Performed By: #### 4 6126 #### [facility] LAB [address] [place] [address] South Singh M.D. [id number] Protein [Mass/Vol] 6.9 g/dL Normal 6.0-8.[address] [facility] Comment on above: Order Comment: [facility] has implemented the eGFR calculation approach that does not have a coefficient for race that conforms to the NKF-ASN Task Force Recommendations. Performed By: #### 4 6126 #### LAB [address] [place] [address] South Singh M.D. [id number] Sodium [Moles/Vol] 139 mmol/L Normal 135-[address] [facility] Comment on above: Order Comment: [facility] has implemented the eGFR calculation approach that does not have a coefficient for race that conforms to the NKF-ASN Task Force Recommendations. Performed By: #### 4 6126 #### [facility] [address] [place] [address] [place] Singh M.D. [id number] Urea nitrogen [Mass/Vol] 9 mg/dL Normal 8-25 [facility] Comment on above: Order Comment: [facility] has implemented the eGFR calculation approach that does not have a coefficient for race that conforms to the NKF-ASN Task Force Recommendations. Performed By: #### 4 6126 #### LAB [address] [place], [place] [address] South Singh M.D. [id number] Urea nitrogen/Creatinine [Mass ratio] 9.8 mg/mg Low 10.0-20.0 [facility] Comment on above: Order Comment: [facility] has implemented the eGFR calculation approach that does not have a coefficient for race that conforms to the NKF-ASN Task Force Recommendations. Performed By: #### 4 6126 #### LAB [address] [place], [place] [address] South Singh M.D. [id number] Comprehensive metabolic 2000 panelon 09-18-2024 Albumin [Mass/Vol] 4.1 g/dL 3.2 - 5.2 g/dL [facility] ALP [Catalytic activity/Vol] 143 U/L High 40 - 140 U/L [facility] ALT [Catalytic activity/Vol] 16 U/L 0-35 U/L [facility] Anion gap [Moles/Vol] 21 mmol/L High 10 - 2 0 mmol/L [facility] AST [Catalytic activity/Vol] 13 U/L 0-35 U/L [facility] Bilirubin [Mass/Vol] 0.4 mg/dL 0.0 - 1 .3 mg/dL [facility] Calcium [Mass/Vol] 9.4 mg/dL 8.4 - 10. 2 mg/dL [facility] Chloride [Moles/Vol] 103 mmol/L 98 - 10 8 mmol/L [facility] Creatinine [Mass/Vol] 0.92 mg/dL 0.40 - 1.10 mg/dL [facility] GFR/1.73 sq M.predicted CKD-EPI (S/P/Bld) [Vol rate/Area] 89 - PINF [facility] Comment on above: Estimated GFR was ca lculated using the 2020 CKD-EPI creatinine equation. Glucose [Mass/Vol] 108 mg/dL High 65 - 99 mg/dL [facility] HCO3 [Moles/Vol] 19 mmol/L Low 21 - 32 mmol/L [facility] Interpretation and review of laboratory results Abnormal [facility] Potassium [Moles/Vol] 3.5 mmol/L 3.5 - 5.1 mmol/L [facility] Protein [Mass/Vol] 6.9 g/dL 6.0 - 8.0 g/dL [facility] Sodium [Moles/Vol] 139 mmol/L 135 - 145 mmol/L [facility] Urea nitrogen [Mass/Vol] 9 mg/dL 8 - 25 mg/dL [facility] Urea nitrogen/Creatinine [Mass ratio] 9.8 mg/mg Low 10.0 - 20.0 [facility] has implemented the eGFR calculation approach that does not have a coefficient for race that conforms to the NKF-ASN Task Force Recommendations. [facility] Volatile PanelOrdered By: Sarah Salgado on 09-18-2024 Acetone Quantitation, Blood 23 mg/dL [facility] Acetone, Blood Detected Abnormal Not Detected [facility] th Ethanol [Mass/Vol] Not detected Not Detected [facility] Ethanol Quantitation, Blood <10 mg/dL [facility] Interpretation and review of laboratory results Abnormal [facility] Isopropanol Quantitation, Blood <10 mg/dL [facility] Isopropanol, Blood Not detected Not Detected [facility] Methanol Quantitation, Blood <10 mg/dL [facility] Methanol, Blood Not detected Not Detected [facility] This Gas Chromatogra phy test was developed and its performance characteristics determined by Toxicology Laboratory at [facility] [place] [facility]. It has not been cleared or approved by the FDA. The laboratory is regulated under CLIA as qualified to perform high-complexity testing. This test is used for clinical purposes. It should not be regarded as investigational or for research. Test performed by: [facility] [address] [phone] [facility] BETA-HYDROXYBUTYRATEon 09-17 BETA-HYDROXYBUTYRATE 6.5 mmol/L High 0.0-0.3 [facility] Comment on above: Performed By: #### 4 5562 #### [facility] LAB [address] [place], [place] [address] South Singh M.D. [id number] Beta hydroxybutyrate [Moles/ Vol]on 09-17-2024 Interpretation and review of laboratory results Abnormal [facility] Beta-Hydroxybutyrateon 09-17 Beta hydroxybutyrate [Moles/Vol] 6.5 mmol/L High 0.0 - 0.3 mmol/L [facility] CBCon 09-17-2024 AUTO NRBC 0.0 % Normal [facility] Comment on above: Performed By: #### 4 6608 #### LAB [address] [place] [address] South Singh M.D. [id number] AUTO NRBC ABS COUNT 0.00 K/mcL Normal 0.00-0.00 [facility] Comment on above: Performed By: #### 4 1632 #### LAB [address] [place] [address] [place] Singh M.D. [id number] Erythrocyte distribution width (RBC) [Ratio] 14.0 % Normal 11.6-14.8 [facility] Comment on above: Performed By: #### 4 66 #### LAB [address] [place] [address] [place] Singh M.D. [id number] Hematocrit (Bld) [Volume fraction] 46.3 % High 36.0-46.0 [facility] Comment on above: Performed By: #### 4 6694 #### LAB [address] [place] [address] [place] Singh M.D. [id number] Hemoglobin (Bld) [Mass/Vol] 14.9 g/dL Normal 12.0-16.0 [facility] Comment on above: Performed By: #### 4 6634 #### LAB [address] [place] [address] [place] Singh M.D. [id number] MCH (RBC) [Entitic mass] 27.7 pg Normal 26.0-34.0 [facility] Comment on above: Performed By: #### 4 6698 #### LAB [address] [place] [address] [place] Singh M.D. [id number] MCV (RBC) [Entitic vol] 86.1 fL Normal 80.0-100.0 [facility] Comment on above: Performed By: #### 4 7432 #### LAB [address] [place] [address] [place] Singh M.D. [id number] MEAN CORPUSCULAR HEMOGLOBIN CONC 32.2 g/dL Normal 31.0-37.0 [facility] Comment on above: Performed By: #### 4 [id number] #### LAB [address] [place] [address] [place] Singh M.D. [id number] Platelet mean volume (Bld) [Entitic vol] 9.9 fL Normal 9.4-12.4 [facility] Comment on above: Performed By: #### 4 [id number] #### LAB [address] [place] [address] [place] Singh M.D. [id number] Platelets (Bld) [#/Vol] 333 10*3/uL Normal 150-400 [facility] Comment on above: Performed By: #### 4 [id number] #### LAB [address] [place] [address] [place] Singh M.D. [id number] RBC (Bld) [#/Vol] 5.38 10*6/uL High 4.00-5.20 [facility] Comment on above: Performed By: #### 4 [id number] #### LAB [address] [place] [address] [place] Singh M.D. [id number] WBC (Bld) [#/Vol] 13.40 10*3/uL High 4.50-11.00 [facility] Comment on above: Performed By: #### 4 [id number] #### LAB [address] [place] [address] [place] Singh M.D. [id number] CBC WITH AUTO DIFFERENTIALon 09-17-2024 AUTO NRBC 0.0 % Normal [facility] Comment on above: Performed By: #### L [id number] #### [facility] LAB [address] [place] [address] [place] Singh M.D. [id number] AUTO NRBC ABS COUNT 0.00 K/mcL Normal 0.00-0.00 [facility] Comment on above: Performed By: #### L [id number] #### [facility] LAB [address] [place] [address] South Singh M.D. [id number] BASOPHILS ABSOLUTE COUNT 0.06 K/mcL Normal 0.00-0.30 [facility] Comment on above: Performed By: #### L [id number] #### LAB [address] [place] [address] South Singh M.D. [id number] Basophils/100 WBC (Bld) 0.4 % Normal [facility] Comment on above: Performed By: #### L [id number] #### LAB [address] [place] [address] South Singh M.D. [id number] Eosinophils (Bld) [#/Vol] 0.05 10*3/uL Normal 0.00-0.50 [facility] Comment on above: Performed By: #### L [id number] #### LAB [address] [place] [address] South Singh M.D. [id number] Eosinophils/100 WBC (Bld) 0.4 % Normal [facility] Comment on above: Performed By: #### L [id number] #### LAB [address] [place] [address] South Singh M.D. [id number] Erythrocyte distribution width (RBC) [Ratio] 13.7 % Normal 11.6-14.8 [facility] Comment on above: Performed By: #### L [id number] #### LAB [address] [place] [address] South Singh M.D. [id number] Hematocrit (Bld) [Volume fraction] 49.0 % High 36.0-46.0 [facility] Comment on above: Performed By: #### L [id number] #### LAB [address] [place] [address] South Singh M.D. [id number] Hemoglobin (Bld) [Mass/Vol] 15.6 g/dL Normal 12.0-16.0 [facility] Comment on above: Performed By: #### L [id number] #### LAB [address] [place] [address] South Singh M.D. [id number] IG ABSOLUTE 0.05 K/mcL Normal 0.00-0.30 [facility] Comment on above: Performed By: #### L [id number] #### LAB [address] [place] [address] South Singh M.D. [id number] IG PERCENT 0.40 % Normal [facility] Comment on above: Result Comment: The IG parameter is the percentage of metamyelocytes, myelocytes and promyelocytes. An immature granulocyte count (IG) of 1% or more suggests the possibility of infection, an IG count of 3% is very likely related to an infection. Performed By: #### L [id number] #### LAB [address] [place] [address] South Singh M.D. [id number] Lymphocytes (Bld) [#/Vol] 1.49 10*3/uL Normal 0.90-4.00 [facility] Comment on above: Performed By: #### L [id number] #### LAB [address] [place] [address] South Singh M.D. [id number] Lymphocytes/100 WBC (Bld) 10.6 % Normal [facility] Comment on above: Performed By: #### L [id number] #### LAB [address] [place] [address] South Singh M.D. [id number] MCH (RBC) [Entitic mass] 27.9 pg Normal 26.0-34.0 [facility] Comment on above: Performed By: #### L [id number] #### LAB [address] [place] [address] South Singh M.D. [id number] MCV (RBC) [Entitic vol] 87.7 fL Normal 80.0-100.0 [facility] Comment on above: Performed By: #### L [id number] #### LAB [address] [place] [address] South Singh M.D. [id number] MEAN CORPUSCULAR HEMOGLOBIN CONC 31.8 g/dL Normal 31.0-37.0 [facility] Comment on above: Performed By: #### L [id number] #### LAB [address] [place] [address] South Singh M.D. [id number] Monocytes (Bld) [#/Vol] 0.52 10*3/uL Normal 0.30-0.90 [facility] Comment on above: Performed By: #### L [id number] #### LAB [address] [place] [address] South Singh M.D. [id number] Monocytes/100 WBC (Bld) 3.7 % Normal [facility] Comment on above: Performed By: #### L [id number] #### LAB [address] [place] [address] South Singh M.D. [id number] NEUTROPHILS ABSOLUTE COUNT 11.90 K/mcL High 1.70-7.00 [facility] Comment on above: Performed By: #### L [id number] #### LAB [address] [place] [address] [place] Singh M.D. [id number] Neutrophils/100 WBC (Bld) 84.5 % Normal [facility] Comment on above: Performed By: #### L [id number] #### LAB [address] [place] [address] South Singh M.D. [id number] Platelet mean volume (Bld) [Entitic vol] 10.2 fL Normal 9.4-12.4 [facility] Comment on above: Performed By: #### L [id number] #### LAB [address] [place] [address] South Singh M.D. [id number] Platelets (Bld) [#/Vol] 424 10*3/uL High 150-400 [facility] Comment on above: Performed By: #### L [id number] #### LAB [address] [place] [address] [place] Singh M.D. [id number] RBC (Bld) [#/Vol] 5.59 10*6/uL High 4.00-5.20 [facility] Comment on above: Performed By: #### L [id number] #### [facility] LAB [address] [place], [place] [address] South Singh M.D. [id number] WBC (Bld) [#/Vol] 14.07 10*3/uL High 4.50-11.00 [facility] Comment on above: Performed By: #### L [id number] #### LAB [address] [place], [place] [address] South Singh M.D. [id number] CBC panel Auto (Bld)on 09-17 Erythrocyte distribution width (RBC) [Entitic vol] 14 % 11.6 - 14.8 % [facility] Hematocrit (Bld) [Volume fraction] 46.3 % High 36.0 - 46.0 % [facility] Hemoglobin (Bld) [Mass/Vol] 14.9 g/dL 12.0 - 16.0 g/dL [facility] Interpretation and review of laboratory results Abnormal [facility] MCH (RBC) [Entitic mass] 27.7 pg 26.0 - 34.0 pg [facility] MCHC (RBC) [Mass/Vol] 32.2 g/dL 31.0 - 37.0 g/dL [facility] MCV (RBC) [Entitic vol] 86.1 fL 80.0 - 100.0 fL [facility] Nucleated RBC (Bld) [#/Vol] 0 10*3/uL [facility] Nucleated RBC/100 WBC (Bld) [Ratio] 0 % [facility] Platelet mean volume (Bld) [Entitic vol] 9.9 fL 9.4 - 12.4 fL [facility] Platelets (Bld) [#/Vol] 333 10*3/uL [facility] RBC (Bld) [#/Vol] 5.38 10*6/uL High [facility] WBC (Bld) [#/Vol] 13.4 10*3/uL [facility] [Catalytic activity/Vol]o n 09-17-2024 Interpretation and review of laboratory results Abnormal [facility] COMPREHENSIVE METABOLIC PANE Kenneth 09-17-2024 Albumin [Mass/Vol] 4.3 g/dL Normal 3.2-5.[address] [facility] Comment on above: Order Comment: Test performed by: [facility] [address] [place] [address] Performed By: #### [id number] #### MH LAB [address] [address] [place] Singh M.D. [id number] ALP [Catalytic activity/Vol] 155 U/L High 40-140 [facility] Comment on above: Order Comment: Test performed by: [facility] [address] [place] [address] Performed By: #### [id number] #### [facility] [address] [address] [place] Singh M.D. [id number] ALT [Catalytic activity/Vol] 16 U/L Normal 0-35 U/L [facility] Comment on above: Order Comment: Test performed by: [facility] [address] [place] [address] Performed By: #### [id number] #### [facility] [address] [address] [address] Singh M.D. [id number] Anion gap [Moles/Vol] 27 mmol/L High 10-20 [facility] Comment on above: Order Comment: Test performed by: [facility] [address] [place] [address] Performed By: #### [id number] #### [facility] [address] [address] [address] Singh M.D. [id number] AST [Catalytic activity/Vol] 18 U/L Normal 0-35 U/L [facility] Comment on above: Order Comment: Test performed by: [facility] [address] [place] [address] Result Comment: Slig htly Hemolyzed Performed By: #### 4 [id number] #### [facility] [address] [address] [address] Singh M.D. [id number] Bilirubin [Mass/Vol] 0.3 mg/dL Normal 0.0-1.3 [facility] Comment on above: Order Comment: Test performed by: [facility] [address] [place] [address] Performed By: #### [id number] #### LAB [address] [address] [address] Singh M.D. [id number] Calcium [Mass/Vol] 9.4 mg/dL Normal 8.4-10.[address] [facility] Comment on above: Order Comment: Test performed by: [facility] [address] [place] [address] Performed By: #### 4 [id number] #### LAB [address] [place] [address] South Singh M.D. [id number] Chloride [Moles/Vol] 103 mmol/L Normal 98-108 [facility] Comment on above: Order Comment: Test performed by: [facility] [address] [place] [address] Performed By: #### 4 [id number] #### LAB [address] [place] [address] South Singh M.D. [id number] Creatinine [Mass/Vol] 0.91 mg/dL Normal 0.40-1.10 [facility] Comment on above: Order Comment: Test performed by: [facility] [address] [place] [address] Performed By: #### 4 [id number] #### LAB [address] [address] [address] Singh M.D. [id number] EGFR 90 mL/min/1.73 m2 Normal >=60 [facility] Comment on above: Order Comment: Test performed by: [facility] [address] [place] [address] Result Comment: Madhavi mated GFR was calculated using the 2020 CKD-EPI creatinine equation. Performed By: #### [id number] #### [facility] [address] [address] [address] Singh M.D. [id number] Glucose [Mass/Vol] 85 mg/dL Normal 65-[address] [facility] Comment on above: Order Comment: Test performed by: [facility] [address] [place] [address] Performed By: #### 4 [id number] #### MH LAB [address] [address] [address] Singh M.D. [id number] HCO3 (Bld) [Moles/Vol] 10 mmol/L Low 21-32 [facility] Comment on above: Order Comment: Test performed by: [facility] [address] [place] [address] Performed By: #### 4 [id number] #### MH LAB [address] [address] [address] Singh M.D. [id number] Potassium [Moles/Vol] 4.3 mmol/L Normal 3.5-5.1 [facility] Comment on above: Order Comment: Test performed by: [facility] [address] [place] [address] Result Comment: Slig htly Hemolyzed Performed By: #### 4 [id number] #### MH LAB [address] [address] [address] Singh M.D. [id number] Protein [Mass/Vol] 7.6 g/dL Normal 6.0-8.[address] [facility] Comment on above: Order Comment: Test performed by: [facility] [address] [place] [address] Performed By: #### 4 [id number] #### MH LAB [address] [address] [address] Singh M.D. [id number] Sodium [Moles/Vol] 136 mmol/L Normal 135-[address] [facility] Comment on above: Order Comment: Test performed by: [facility] [address] [place] [address] Performed By: #### 4 [id number] #### MH LAB [address] [place], [place] [address] [place] Singh M.D. [id number] Urea nitrogen [Mass/Vol] 8 mg/dL Normal 8-25 [facility] Comment on above: Order Comment: Test performed by: [facility] [address] [place] [id number] Performed By: #### 4 [id number] #### LAB [address] [address] [address] Singh M.D. [id number] Urea nitrogen/Creatinine [Mass ratio] 8.8 mg/mg Low 10.0-20.0 [facility] Comment on above: Order Comment: Test performed by: [facility] [address] [place], [place] [id number] Performed By: #### 4 [id number] #### LAB [address] [address] [address] Singh M.D. [id number] CPKon 09-17-2024 CPK 35 U/L Low 40-170 [facility] Comment on above: Performed By: #### 4 [id number] #### LAB [address] [address] [address] Singh M.D. [id number] CPK NO MBon 09-17-2024 CK [Catalytic activity/Vol] 35 U/L Low 40 - 170 U/L [facility] CT ABDOMEN PELVIS WITHOUT CO NTRASTon 09-17-2024 CT ABDOMEN PELVIS WITHOUT CONTRAST EXAMINATION: CT ABDOMEN PELVIS WITHOUT CONTRAST HISTORY: ORDERING SYSTEM PROVIDED HISTORY: LUQ abd pain, TECHNOLOGIST PROVIDED HISTORY: Illness/Other Reason for exam: LUQ abd pain Encounter Type: Initial Additional signs and symptoms: none ORDERING SYSTEM PROVIDED DIAGNOSIS CODES: COMPARISON: None. TECHNIQUE: CT examination of the abdomen and pelvis without IV contrast. Coronal and sagittal reformations were performed. Dose reduction techniques were achieved by using automated exposure control and/or adjustment of mA and/or kV according to patient size and/or use of iterative reconstruction technique. LOWER CHEST No significant abnormality. ABDOMEN AND PELVIS Liver: Unremarkable. Biliary System: Normal gallbladder. No biliary ductal dilation. Pancreas: Unremarkable. Spleen: Unremarkable. Adrenal Glands: Unremarkable. Urinary System: Unremarkable kidneys.No hydronephrosis or urolithiasis.Unremarkable bladder. Reproductive organs: Unremarkable. Gastrointestinal Tract: Mild circumferential wall thickening of the visualized distal esophagus with paraesophageal fatty stranding. Normal caliber bowel. No bowel wall thickening or inflammation. Normal appendix. Vessels: Nonaneurysmal abdominal aorta. Lymph Nodes: No adenopathy. Peritoneum: No ascites or pneumoperitoneum. MSK Soft tissues: Unremarkable. Bones: No acute abnormality or suspicious lesion. ANDRADE: (series, image) IMPRESSION: 1. Suspected acute esophagitis of thee visualized distal esophagus. 2. No other acute process identified. Workstation ID: [id number] Dictated by: ALEX MCGEE on [facility] Sep 17, 2024 11:16:45 AM EST Transcribed by: ALEX MCGEE on [facility] Sep 17, 2024 11:16:45 AM EST Finalized by: ALEX MCGEE on [facility] Sep 17, 2024 11:16:45 AM EST Normal [facility] Comment on above: Order Comment: Injur y/Trauma or Illness?:Illness/Other How long have you had these symptoms (acute/chronic)?:Acute Reason for exam?:LUQ abd pain Type of Exam?:Initial Additional signs and symptoms?:none Comprehensive metabolic 2000 panelOrdered By: Loraine Jesus on 09-17-2024 Albumin [Mass/Vol] 4.3 g/dL 3.2 - 5.2 g/dL [facility] ALP [Catalytic activity/Vol] 155 U/L High 40 - 140 U/L [facility] ALT [Catalytic activity/Vol] 16 U/L 0-35 U/L [facility] Anion gap [Moles/Vol] 27 mmol/L High 10 - 2 0 mmol/L [facility] AST [Catalytic activity/Vol] 18 U/L 0-35 U/L [facility] Comment on above: Slightly Hemolyzed Bilirubin [Mass/Vol] 0.3 mg/dL 0.0 - 1 .3 mg/dL [facility] Calcium [Mass/Vol] 9.4 mg/dL 8.4 - 10. 2 mg/dL [facility] Chloride [Moles/Vol] 103 mmol/L 98 - 10 8 mmol/L [facility] Creatinine [Mass/Vol] 0.91 mg/dL 0.40 - 1.10 mg/dL [facility] GFR/1.73 sq M.predicted CKD-EPI (S/P/Bld) [Vol rate/Area] 90 - PINF [facility] Comment on above: Estimated GFR was ca lculated using the 2020 CKD-EPI creatinine equation. Glucose [Mass/Vol] 85 mg/dL 65 - 99 mg/dL [facility] HCO3 [Moles/Vol] 10 mmol/L Low 21 - 32 mmol/L [facility] Interpretation and review of laboratory results Abnormal [facility] Potassium [Moles/Vol] 4.3 mmol/L 3.5 - 5.1 mmol/L [facility] Comment on above: Slightly Hemolyzed Protein [Mass/Vol] 7.6 g/dL 6.0 - 8.0 g/dL [facility] Sodium [Moles/Vol] 136 mmol/L 135 - 145 mmol/L [facility] Urea nitrogen [Mass/Vol] 8 mg/dL 8 - 25 mg/dL [facility] Urea nitrogen/Creatinine [Mass ratio] 8.8 mg/mg Low 10.0 - 20.0 [facility] has implemented the eGFR calculation approach that does not have a coefficient for race that conforms to the NKF-ASN Task Force Recommendations. [facility] ED Prov Noteon 09-17-2024 ED Prov Note [facility] EMERGENCY DEPARTMENT ATTENDING NOTE: NAME: Ashley Lynn CSN: [id number] 24 y.o. PCP: Anna Chiang CNP History: Chief Complaint: Abdominal Pain HPI: The history was obtained from the patient. Ashley is a 24 y.o. female who presents with a chief complaint of Abdominal Pain. Patient states that for the past 3 days she has had left upper quadrant abdominal pain, currently rated 6/10 dull constant aching and worse after movement and occasionally worse after eating. She has nausea but denies emesis diarrhea chest pain shortness of breath. She has been training and for the past 2 weeks has become progressively weaker. She was able to do 4 sets of multiple exercises (push-ups pull-ups stairs squats) and today she cannot do any. Furthermore she is breast-feeding for approximately 3 months; during her she had episode of hematemesis, which has not reoccurred since then. ED Course / Medical Decision Making: ED COURSE: 24-year-old female presents with abdominal pain and tachycardia. Differentials include gastritis, PUD, pancreatitis, dehydration/MARIE. I have ordered labs Zofran fluids for dehydration Protonix GI cocktail as well as CT abdomen/pelvis Labs remarkable for VBG: pH 7.09, pCO2 28.3 bicarb 8.6, indicating hyperchloremic normal anion gap acidosis. H/H 16.3/48.9, likely hemoconcentrated, ketonuria. Of note lactate and glucose within normal limits, 1.3 and 98, respectively. 1115 I reexamined the patient and confirmed no diarrhea or medications such as spironolactone/acetazolam cheryle. Furthermore she has had no intake of alcohol, aspirin. Of note, however, she states she has been dieting and in a calorie deficit. Therefore, ketosis could be secondary to starvation. I have ordered bicarb drip. CT abdomen results pending. 1141 CT demonstrates esophagitis otherwise no acute findings please refer to the radiology report for details. Given the patient's acidosis she requires further management and care. She requests [facility], transfer order placed After reviewing the items above, I did look at previous medical documentation, such as recent hospitalizations, office visits, and/or recent consultations with PCP/specialist. SDOH: Another factor that I considered in Ashley's care was her Social Determinants of Health (SDOH). During this ED encounter, she did NOT appear to have any significant issues identified. Laboratory & Radiological Imaging (if done): Labs Reviewed POC CBC AND DIFFERENTIAL - Abnormal; Notable for the following components: Result Value RBC 5.69 (*) Hemoglobin 16.3 (*) Hematocrit 48.9 (*) Platelets 448 (*) Comment See Comment (*) All other components within normal limits POC URINALYSIS DIPSTICK,AUTO - RALS - Abnormal; Notable for the following components: Spec Grav, UA >=1.030 (*) Protein, UA 100 (*) Ketones, UA >=160 (*) Bilirubin, UA Moderate (*) Blood, UA Small (*) All other components within normal limits POC BASIC METABOLIC PANEL - RALS - Abnormal; Notable for the following components: Sodium 133 (*) Chloride 111 (*) TCO2 8 (*) All other components within normal limits Narrative: Critical result acted upon time of test. Test performed at bedside. [facility] has implemented the eGFR calculation approach that does not have a coefficient for race that conforms to the NKF-ASN Task Force Recommendations. POC LIVER PANEL PLUS RALS - Abnormal; Notable for the following components: Alkaline Phosphatase 154 (*) Total Protein 9.3 (*) All other components within normal limits POC VBG (EPOC) WITH FULL PANEL - RALS - Abnormal; Notable for the following components: pH, Venous 7.09 (*) pCO2, Ko 28.3 (*) Base Excess, Ko -19.8 (*) HCO3, Ko 8.6 (*) Hemoglobin, Calculated 17.4 (*) Hematocrit 51 (*) Sodium 134 (*) Chloride 112 (*) All other components within normal limits Narrative: [facility] has implemented the eGFR calculation approach that does not have a coefficient for race that conforms to the NKF-ASN Task Force Recommendations. Specimens collected in a lithium heparin tube may show erroneous pO2, pCO2 and related calculations due to aerobic handling. If the most accurate venous blood gas results are needed, use a heparinized blood gas syringe. Critical result acted upon time of test. Test performed at bedside. POC , URINE - RALS - Normal Narrative: Negative: Dilute urine specimens, as indicated by a low specific gravity (<1.010) may not contain representitive levels of hCG. If is still suspected, a serum test or repeat urine test using a first morning urine specimen should be considered. CBC AND DIFFERENTIAL Narrative: The following orders were created for panel order CBC and Differential. Procedure Abnormality Status --------- ------ CBC Auto Differential (more content not included)... Normal [facility] ELECTROLYTES, URINEon 2024 CHLORIDE UR 73 mmol/L Normal [facility] Comment on above: Order Comment: No es tablished reference range. Performed By: #### 4 [id number] #### MH LAB [address] [place], [place] [address] [place] Singh M.D. [id number] POTASSIUM UR 55.9 mmol/L [facility] Comment on above: Order Comment: No es tablished reference range. Performed By: #### 4 5542 #### MH LAB [address] [place], [place] [address] [place] Singh M.D. [id number] Sodium (U) [Moles/Vol] 64 mmol/L Normal [facility] Comment on above: Order Comment: No es tablished reference range. Performed By: #### 4 5532 #### LAB [address] [place], [place] [address] [place] Singh M.D. [id number] Electrolytes 3 panel (U)on 0 09-17-2024 Chloride (U) [Moles/Vol] 73 mmol/L [facility] Potassium (U) [Moles/Vol] 55.9 mmol/L [facility] Sodium (U) [Moles/Vol] 64 mmol/L [facility] No established refer ence range. [facility] Obtain venous blood gases an d performon 09-17-2024 [facility] Chloride [Moles/Vol] 111 mmol/L High 98-108 [facility] Comment on above: Order Comment: Criti latisha result acted upon time of test. Test performed at bedside. [facility] has implemented the eGFR calculation approach that does not have a coefficient for race that conforms to the NKF-ASN Task Force Recommendations. CO2 [Moles/Vol] 8 mmol/L Off scale low 21-32 [facility] Comment on above: Order Comment: Criti latisha result acted upon time of test. Test performed at bedside. [facility] has implemented the eGFR calculation approach that does not have a coefficient for race that conforms to the NKF-ASN Task Force Recommendations. Creatinine [Mass/Vol] 0.87 mg/dL Normal 0.40-1.10 [facility] Comment on above: Order Comment: Criti latisha result acted upon time of test. Test performed at bedside. [facility] has implemented the eGFR calculation approach that does not have a coefficient for race that conforms to the NKF-ASN Task Force Recommendations. Glucose [Mass/Vol] 98 mg/dL Normal 65-99 [facility] Comment on above: Order Comment: Criti latisha result acted upon time of test. Test performed at bedside. [facility] has implemented the eGFR calculation approach that does not have a coefficient for race that conforms to the NKF-ASN Task Force Recommendations. POC GFR 95 mL/min/1.73 m2 Normal >=60 [facility] Comment on above: Order Comment: Criti latisha result acted upon time of test. Test performed at bedside. [facility] has implemented the eGFR calculation approach that does not have a coefficient for race that conforms to the NKF-ASN Task Force Recommendations. Result Comment: Madhavi mated GFR was calculated using the 2020 CKD-EPI creatinine equation. POC IONIZED CALCIUM 4.9 mg/dL Normal 4.5-5.3 [facility] Comment on above: Order Comment: Criti latisha result acted upon time of test. Test performed at bedside. [facility] has implemented the eGFR calculation approach that does not have a coefficient for race that conforms to the NKF-ASN Task Force Recommendations. Potassium [Moles/Vol] 4.7 mmol/L Normal 3.5-5.1 [facility] Comment on above: Order Comment: Criti latisha result acted upon time of test. Test performed at bedside. [facility] has implemented the eGFR calculation approach that does not have a coefficient for race that conforms to the NKF-ASN Task Force Recommendations. Sodium [Moles/Vol] 133 mmol/L Low 135-145 [facility] Comment on above: Order Comment: Criti latisha result acted upon time of test. Test performed at bedside. [facility] has implemented the eGFR calculation approach that does not have a coefficient for race that conforms to the NKF-ASN Task Force Recommendations. Urea nitrogen [Mass/Vol] 8 mg/dL Normal 8-25 [facility] Comment on above: Order Comment: Criti latisha result acted upon time of test. Test performed at bedside. [facility] has implemented the eGFR calculation approach that does not have a coefficient for race that conforms to the NKF-ASN Task Force Recommendations. POC CBC AND DIFFERENTIALon 0 09-17-2024 Erythrocyte distribution width (RBC) [Ratio] 13.7 % Normal 11.6-14.8 [facility] Hematocrit (Bld) [Volume fraction] 48.9 % High 36.0-46.0 [facility] Hemoglobin (Bld) [Mass/Vol] 16.3 g/dL High 12.0-16.0 [facility] Comment on above: Result Comment: Hemo globin result outside normal range for a female patient, consider a mixing issue. MCH (RBC) [Entitic mass] 28.6 pg Normal 26.0-34.0 [facility] MCV (RBC) [Entitic vol] 85.9 fL Normal 80.0-100.0 [facility] MEAN CORPUSCULAR HEMOGLOBIN CONC 33.3 g/dL Normal 31.0-37.0 [facility] Platelet mean volume (Bld) [Entitic vol] 9.8 fL Normal 9.4-12.4 [facility] Platelets (Bld) [#/Vol] 448 10*3/uL High 150-400 [facility] RBC (Bld) [#/Vol] 5.69 10*6/uL High 4.00-5.20 [facility] [id number] See Comment Critically abnormal (none) [facility] Comment on above: Result Comment: DRAKE SOARES. CBCD reordered and sent to . Possible interfering substance affecting the WBC and Differential parameters. POC LIVER PANEL PLUS [facility] 09-17-2024 Albumin [Mass/Vol] 5.0 g/dL Normal 3.2-5.2 [facility] ALP [Catalytic activity/Vol] 154 U/L High 40-140 [facility] ALT [Catalytic activity/Vol] 24 U/L Normal 0-40 [facility] Amylase [Catalytic activity/Vol] 31 U/L Normal 25-115 [facility] Amylase [Catalytic activity/Vol] 14 U/L Normal 7-33 [facility] AST [Catalytic activity/Vol] 27 U/L Normal 0-45 [facility] Bilirubin [Mass/Vol] 0.6 mg/dL Normal 0.0-1.3 [facility] Protein [Mass/Vol] 9.3 g/dL High 6.0-8.0 [facility] POC , URINE - [facility] 09-17-2024 Beta HCG ( test) Ql (U) Negative Normal Negative [facility] Comment on above: Order Comment: Negat geni: Dilute urine specimens, as indicated by a low specific gravity (<1.010) may not contain representitive levels of hCG. If is still suspected, a serum test or repeat urine test using a first morning urine specimen should be considered. POC URINALYSIS DIPSTICK,AUTO - [facility] 09-17-2024 POC BILIRUBIN, URINE Moderate Abnormal Negative [facility] POC BLOOD, URINE Small Abnormal Negative [facility] POC GLUCOSE, URINE Negative Normal Negative [facility] POC KETONES, URINE >=160 Abnormal Negative [facility] POC LEUKOCYTE ESTERASE, URINE Negative Normal Negative [facility] POC NITRITE, URINE Negative Normal Negative [facility] POC PH, URINE 5.5 Normal 5.0-7.0 [facility] POC SPECIFIC GRAVITY >= High 1.005-1.025 [facility] POC UROBILINOGEN 0.2 mg/dL Normal < 2.0 [facility] Protein (U) [Mass/Vol] 100 mg/dL Abnormal Negative [facility] POC VBG (EPOC) WITH FULL RENNER HALLEY Mckenna 09-17-2024 BASE EXCESS, VENOUS -19.8 Low -2.0-2.0 [facility] Comment on above: Order Comment: [facility] has implemented the eGFR calculation approach that does not have a coefficient for race that conforms to the NKF-ASN Task Force Recommendations. Specimens collected in a lithium heparin tube may show erroneous pO2, pCO2 and related calculations due to aerobic handling. If the most accurate venous blood gas results are needed, use a heparinized blood gas syringe. Critical result acted upon time of test. Test performed at bedside. CALCIUM IONIZED 5.1 mg/dL Normal 4.5-5.3 [facility] Comment on above: Order Comment: [facility] has implemented the eGFR calculation approach that does not have a coefficient for race that conforms to the NKF-ASN Task Force Recommendations. Specimens collected in a lithium heparin tube may show erroneous pO2, pCO2 and related calculations due to aerobic handling. If the most accurate venous blood gas results are needed, use a heparinized blood gas syringe. Critical result acted upon time of test. Test performed at bedside. Chloride [Moles/Vol] 112 mmol/L High 98-108 [facility] Comment on above: Order Comment: [facility] has implemented the eGFR calculation approach that does not have a coefficient for race that conforms to the NKF-ASN Task Force Recommendations. Specimens collected in a lithium heparin tube may show erroneous pO2, pCO2 and related calculations due to aerobic handling. If the most accurate venous blood gas results are needed, use a heparinized blood gas syringe. Critical result acted upon time of test. Test performed at bedside. Creatinine [Mass/Vol] 0.89 mg/dL Normal 0.40-1.10 [facility] Comment on above: Order Comment: [facility] has implemented the eGFR calculation approach that does not have a coefficient for race that conforms to the NKF-ASN Task Force Recommendations. Specimens collected in a lithium heparin tube may show erroneous pO2, pCO2 and related calculations due to aerobic handling. If the most accurate venous blood gas results are needed, use a heparinized blood gas syringe. Critical result acted upon time of test. Test performed at bedside. Glucose [Mass/Vol] 79 mg/dL Normal 65-99 [facility] Comment on above: Order Comment: [facility] has implemented the eGFR calculation approach that does not have a coefficient for race that conforms to the NKF-ASN Task Force Recommendations. Specimens collected in a lithium heparin tube may show erroneous pO2, pCO2 and related calculations due to aerobic handling. If the most accurate venous blood gas results are needed, use a heparinized blood gas syringe. Critical result acted upon time of test. Test performed at bedside. HCO3 (Bld) [Moles/Vol] 8.6 mmol/L Low 24.0-28.0 [facility] Comment on above: Order Comment: [facility] has implemented the eGFR calculation approach that does not have a coefficient for race that conforms to the NKF-ASN Task Force Recommendations. Specimens collected in a lithium heparin tube may show erroneous pO2, pCO2 and related calculations due to aerobic handling. If the most accurate venous blood gas results are needed, use a heparinized blood gas syringe. Critical result acted upon time of test. Test performed at bedside. Hematocrit (Bld) [Volume fraction] 51 % High 36-46 [facility] Comment on above: Order Comment: [facility] has implemented the eGFR calculation approach that does not have a coefficient for race that conforms to the NKF-ASN Task Force Recommendations. Specimens collected in a lithium heparin tube may show erroneous pO2, pCO2 and related calculations due to aerobic handling. If the most accurate venous blood gas results are needed, use a heparinized blood gas syringe. Critical result acted upon time of test. Test performed at bedside. HEMOGLOBIN, CALCULATED 17.4 g/dL High 12.0-16.0 [facility] Comment on above: Order Comment: [facility] has implemented the eGFR calculation approach that does not have a coefficient for race that conforms to the NKF-ASN Task Force Recommendations. Specimens collected in a lithium heparin tube may show erroneous pO2, pCO2 and related calculations due to aerobic handling. If the most accurate venous blood gas results are needed, use a heparinized blood gas syringe. Critical result acted upon time of test. Test performed at bedside. Oxygen saturation in Blood 47.3 % Normal 40.0-70.0 [facility] Comment on above: Order Comment: [facility] has implemented the eGFR calculation approach that does not have a coefficient for race that conforms to the NKF-ASN Task Force Recommendations. Specimens collected in a lithium heparin tube may show erroneous pO2, pCO2 and related calculations due to aerobic handling. If the most accurate venous blood gas results are needed, use a heparinized blood gas syringe. Critical result acted upon time of test. Test performed at bedside. PCO2 VENOUS 28.3 mm Hg Low 41.0-51.0 [facility] Comment on above: Order Comment: [facility] has implemented the eGFR calculation approach that does not have a coefficient for race that conforms to the NKF-ASN Task Force Recommendations. Specimens collected in a lithium heparin tube may show erroneous pO2, pCO2 and related calculations due to aerobic handling. If the most accurate venous blood gas results are needed, use a heparinized blood gas syringe. Critical result acted upon time of test. Test performed at bedside. PH VENOUS 7.09 Off scale low 7.32-7.42 [facility] Comment on above: Order Comment: [facility] has implemented the eGFR calculation approach that does not have a coefficient for race that conforms to the NKF-ASN Task Force Recommendations. Specimens collected in a lithium heparin tube may show erroneous pO2, pCO2 and related calculations due to aerobic handling. If the most accurate venous blood gas results are needed, use a heparinized blood gas syringe. Critical result acted upon time of test. Test performed at bedside. PO2 VENOUS 35 mm Hg Normal 25-40 [facility] Comment on above: Order Comment: [facility] has implemented the eGFR calculation approach that does not have a coefficient for race that conforms to the NKF-ASN Task Force Recommendations. Specimens collected in a lithium heparin tube may show erroneous pO2, pCO2 and related calculations due to aerobic handling. If the most accurate venous blood gas results are needed, use a heparinized blood gas syringe. Critical result acted upon time of test. Test performed at bedside. POC GFR 92 mL/min/1.73 m2 Normal >=60 [facility] Comment on above: Order Comment: [facility] has implemented the eGFR calculation approach that does not have a coefficient for race that conforms to the NKF-ASN Task Force Recommendations. Specimens collected in a lithium heparin tube may show erroneous pO2, pCO2 and related calculations due to aerobic handling. If the most accurate venous blood gas results are needed, use a heparinized blood gas syringe. Critical result acted upon time of test. Test performed at bedside. Result Comment: Madhavi mated GFR was calculated using the 2020 CKD-EPI creatinine equation. POC LACTATE 1.3 mmol/L Normal 0.6-2.0 [facility] Comment on above: Order Comment: [facility] has implemented the eGFR calculation approach that does not have a coefficient for race that conforms to the NKF-ASN Task Force Recommendations. Specimens collected in a lithium heparin tube may show erroneous pO2, pCO2 and related calculations due to aerobic handling. If the most accurate venous blood gas results are needed, use a heparinized blood gas syringe. Critical result acted upon time of test. Test performed at bedside. Potassium [Moles/Vol] 4.9 mmol/L Normal 3.5-5.1 [facility] Comment on above: Order Comment: [facility] has implemented the eGFR calculation approach that does not have a coefficient for race that conforms to the NKF-ASN Task Force Recommendations. Specimens collected in a lithium heparin tube may show erroneous pO2, pCO2 and related calculations due to aerobic handling. If the most accurate venous blood gas results are needed, use a heparinized blood gas syringe. Critical result acted upon time of test. Test performed at bedside. Sodium [Moles/Vol] 134 mmol/L Low 135-145 [facility] Comment on above: Order Comment: [facility] has implemented the eGFR calculation approach that does not have a coefficient for race that conforms to the NKF-ASN Task Force Recommendations. Specimens collected in a lithium heparin tube may show erroneous pO2, pCO2 and related calculations due to aerobic handling. If the most accurate venous blood gas results are needed, use a heparinized blood gas syringe. Critical result acted upon time of test. Test performed at bedside. Urea nitrogen [Mass/Vol] 10 mg/dL Normal 8-25 [facility] Comment on above: Order Comment: [facility] has implemented the eGFR calculation approach that does not have a coefficient for race that conforms to the NKF-ASN Task Force Recommendations. Specimens collected in a lithium heparin tube may show erroneous pO2, pCO2 and related calculations due to aerobic handling. If the most accurate venous blood gas results are needed, use a heparinized blood gas syringe. Critical result acted upon time of test. Test performed at bedside. POC VENOUS BLOOD GAS PANEL-P ANGEL LUIS Mckenna 09-17-2024 BASE EXCESS, VENOUS -16.5 Low -2.0-2.0 [facility] Comment on above: Order Comment: Test performed by: [facility] [address] [place] [address] Performed By: #### [id number] #### LAB [address] [place] [address] South Singh M.D. [id number] HCO3 (Bld) [Moles/Vol] 10.6 mmol/L Low 24.0-28.0 [facility] Comment on above: Order Comment: Test performed by: [facility] [address] [place] [address] Performed By: #### 4 [id number] #### [facility] [address] [place] [address] South Singh M.D. [id number] Hematocrit (Bld) [Volume fraction] 47.3 % High 36.0-46.0 [facility] Comment on above: Order Comment: Test performed by: [facility] [address] [place] [address] Performed By: #### 4 [id number] #### LAB [address] [place] [address] South Singh M.D. [id number] Hemoglobin (Bld) [Mass/Vol] 15.4 g/dL Normal 12.0-16.0 [facility] Comment on above: Order Comment: Test performed by: [facility] [address] [place] [address] Performed By: #### 4 [id number] #### LAB [address] [place] [address] South Singh M.D. [id number] Oxygen saturation in Blood 82.8 % High 40.0-70.0 [facility] Comment on above: Order Comment: Test performed by: [facility] [address] [place] [address] Performed By: #### 4 [id number] #### [facility] [address] [address] South Singh M.D. [id number] PCO2 VENOUS 28.9 mm Hg Low 41.0-51.0 [facility] Comment on above: Order Comment: Test performed by: [facility] [address] [place] [address] Performed By: #### 4 [id number] #### [facility] [address] [address] South Singh M.D. [id number] PH VENOUS 7.17 Off scale low 7.32-7.42 [facility] Comment on above: Order Comment: Test performed by: [facility] [address] [place] [address] Performed By: #### 4 [id number] #### [facility] [address] [address] South Singh M.D. [id number] PO2 VENOUS 48 mm Hg High 25-40 [facility] Comment on above: Order Comment: Test performed by: [facility] [address] [place] [address] Performed By: #### 4 [id number] #### [facility] [address] [address] South Singh M.D. [id number] SPECIMEN SOURCE RADIANCE Not specified Normal [facility] Comment on above: Order Comment: Test performed by: [facility] [address] [place] [address] Performed By: #### 4 [id number] #### [facility] [address] [address] South Singh M.D. [id number] POC Venous Blood Gas Panel-P [facility] 09-17-2024 Base excess Calc (BldV) [Moles/Vol] -16.35512 mmol/L Low -2.0 - 2.0 [facility] CO2 (BldV) [Partial pressure] 28.9 mm[Hg] Low [facility] Hematocrit (BldA) [Volume fraction] 47.3 % High 36.0 - 46.0 % [facility] Interpretation and review of laboratory results Abnormal [facility] Oxygen (BldV) [Partial pressure] 48 mm[Hg] High [facility] Oxygen saturation in Venous blood 82.8 % High 40.0 - 70.0 % [facility] pH (BldV) 7.17 [pH] Critically low 7.32 - 7.42 [facility] Specimen source Nom (Unsp spec) Not specified [facility] Critical result acte d upon time of test. Test performed at bedside. [facility] SALICYLATE LEVELon 5 SALICYLATE 0.5 mg/dL Normal 0.0-20.0 [facility] Comment on above: Order Comment: Thera peutic Range: 10-20 mg/dL Potentially Toxic: >30 mg/dL Performed By: #### [id number] #### LAB [address] [place], [place] [address] South Singh M.D. [id number] Salicylate Levelon 5 Salicylates [Mass/Vol] 0.5 mg/dL 0.0 - 20.0 mg/dL [facility] Salicylates [Mass/Vol]on Interpretation and review of laboratory results Normal [facility] Therapeutic Range: 1 0-20 mg/dL Potentially Toxic: >30 mg/dL [facility] URINALYSISon 09-17-2024 BACTERIA, URINE None Seen Normal None Seen [facility] Comment on above: Order Comment: Micro scopic examination is performed on all urinalysis samples and only positive findings are reported. The test for blood on the chemical analytic portion of urinalysis may also be positive due to hemoglobinuria and myoglobinuria and if red blood cells are present they are quantified by microscopic examination. Performed By: #### 4 [id number] #### LAB [address] [place], [place] [address] South Singh M.D. [id number] BILIRUBIN, URINE Negative Normal Negative [facility] [place] [facility] Comment on above: Order Comment: Micro scopic examination is performed on all urinalysis samples and only positive findings are reported. The test for blood on the chemical analytic portion of urinalysis may also be positive due to hemoglobinuria and myoglobinuria and if red blood cells are present they are quantified by microscopic examination. Performed By: #### 4 [id number] #### LAB [address] [address] South Singh M.D. [id number] BLOOD, URINE Negative Normal Negative [facility] Comment on above: Order Comment: Micro scopic examination is performed on all urinalysis samples and only positive findings are reported. The test for blood on the chemical analytic portion of urinalysis may also be positive due to hemoglobinuria and myoglobinuria and if red blood cells are present they are quantified by microscopic examination. Performed By: #### 4 [id number] #### LAB [address] [address] South Singh M.D. [id number] Clarity (U) Clear Normal Clear [facility] Comment on above: Order Comment: Micro scopic examination is performed on all urinalysis samples and only positive findings are reported. The test for blood on the chemical analytic portion of urinalysis may also be positive due to hemoglobinuria and myoglobinuria and if red blood cells are present they are quantified by microscopic examination. Performed By: #### 4 [id number] #### LAB [address] [address] South Singh M.D. [id number] Color (U) Yellow Normal Colorless, Yellow [facility] Comment on above: Order Comment: Micro scopic examination is performed on all urinalysis samples and only positive findings are reported. The test for blood on the chemical analytic portion of urinalysis may also be positive due to hemoglobinuria and myoglobinuria and if red blood cells are present they are quantified by microscopic examination. Performed By: #### 4 [id number] #### LAB [address] [address] South Singh M.D. [id number] Glucose Ql (U) Negative Normal Negative [facility] Comment on above: Order Comment: Micro scopic examination is performed on all urinalysis samples and only positive findings are reported. The test for blood on the chemical analytic portion of urinalysis may also be positive due to hemoglobinuria and myoglobinuria and if red blood cells are present they are quantified by microscopic examination. Performed By: #### 4 [id number] #### LAB [address] [address] South Singh M.D. [id number] Hyaline casts LM Ql (Urine sed) 0-2 Normal 0-2 [facility] Comment on above: Order Comment: Micro scopic examination is performed on all urinalysis samples and only positive findings are reported. The test for blood on the chemical analytic portion of urinalysis may also be positive due to hemoglobinuria and myoglobinuria and if red blood cells are present they are quantified by microscopic examination. Performed By: #### 4 [id number] #### LAB [address] [address] South Singh M.D. [id number] Ketones Ql (U) >=80 Abnormal Negative [facility] Comment on above: Order Comment: Micro scopic examination is performed on all urinalysis samples and only positive findings are reported. The test for blood on the chemical analytic portion of urinalysis may also be positive due to hemoglobinuria and myoglobinuria and if red blood cells are present they are quantified by microscopic examination. Performed By: #### 4 [id number] #### LAB [address] [address] South Singh M.D. [id number] Leukocyte esterase Test strip Ql (U) Negative Normal Negative [facility] Comment on above: Order Comment: Micro scopic examination is performed on all urinalysis samples and only positive findings are reported. The test for blood on the chemical analytic portion of urinalysis may also be positive due to hemoglobinuria and myoglobinuria and if red blood cells are present they are quantified by microscopic examination. Performed By: #### 4 [id number] #### LAB [address] [address] South Singh M.D. [id number] MUCUS, URINE Rare Normal None Seen, Rare [facility] Comment on above: Order Comment: Micro scopic examination is performed on all urinalysis samples and only positive findings are reported. The test for blood on the chemical analytic portion of urinalysis may also be positive due to hemoglobinuria and myoglobinuria and if red blood cells are present they are quantified by microscopic examination. Performed By: #### 4 [id number] #### LAB [address] [address] South Singh M.D. [id number] NITRITE, URINE Negative Normal Negative [facility] Comment on above: Order Comment: Micro scopic examination is performed on all urinalysis samples and only positive findings are reported. The test for blood on the chemical analytic portion of urinalysis may also be positive due to hemoglobinuria and myoglobinuria and if red blood cells are present they are quantified by microscopic examination. Performed By: #### 4 [id number] #### LAB [address] [address] South Singh M.D. [id number] pH (U) 5.5 [pH] Normal 5.0-7.0 [facility] Comment on above: Order Comment: Micro scopic examination is performed on all urinalysis samples and only positive findings are reported. The test for blood on the chemical analytic portion of urinalysis may also be positive due to hemoglobinuria and myoglobinuria and if red blood cells are present they are quantified by microscopic examination. Performed By: #### 4 [id number] #### LAB [address] [address] South Singh M.D. [id number] Protein (U) [Mass/Vol] 30 mg/dL Abnormal Negative [facility] Comment on above: Order Comment: Micro scopic examination is performed on all urinalysis samples and only positive findings are reported. The test for blood on the chemical analytic portion of urinalysis may also be positive due to hemoglobinuria and myoglobinuria and if red blood cells are present they are quantified by microscopic examination. Result Comment: Fals e positive results may occur in urines with large amounts of hemoglobin, pH greater than 8.0, contrast medium, or disinfectants including ammonium compounds. Performed By: #### 4 [id number] #### LAB [address] [address] South Singh M.D. [id number] RBC, URINE < Normal 0-3 [facility] Comment on above: Order Comment: Micro scopic examination is performed on all urinalysis samples and only positive findings are reported. The test for blood on the chemical analytic portion of urinalysis may also be positive due to hemoglobinuria and myoglobinuria and if red blood cells are present they are quantified by microscopic examination. Performed By: #### 4 [id number] #### LAB [address] [address] South Singh M.D. [id number] Specific gravity (U) [Rel density] 1.026 High 1.005-1.025 [facility] Comment on above: Order Comment: Micro scopic examination is performed on all urinalysis samples and only positive findings are reported. The test for blood on the chemical analytic portion of urinalysis may also be positive due to hemoglobinuria and myoglobinuria and if red blood cells are present they are quantified by microscopic examination. Performed By: #### 4 [id number] #### LAB [address] [place] [address] South Singh M.D. [id number] SQUAMOUS EPITHELIAL 4 /hpf Normal 0-4 [facility] Comment on above: Order Comment: Micro scopic examination is performed on all urinalysis samples and only positive findings are reported. The test for blood on the chemical analytic portion of urinalysis may also be positive due to hemoglobinuria and myoglobinuria and if red blood cells are present they are quantified by microscopic examination. Performed By: #### 4 [id number] #### LAB [address] [place] [address] South Singh M.D. [id number] UROBILINOGEN, URINE 2.0 mg/dL Abnormal <2.0 [facility] Comment on above: Order Comment: Micro scopic examination is performed on all urinalysis samples and only positive findings are reported. The test for blood on the chemical analytic portion of urinalysis may also be positive due to hemoglobinuria and myoglobinuria and if red blood cells are present they are quantified by microscopic examination. Performed By: #### 4 [id number] #### LAB [address] [place] [address] South Singh M.D. [id number] WBC LM.HPF (Urine sed) [#/Area] 1 /[HPF] Normal 0-5 [facility] Comment on above: Order Comment: Micro scopic examination is performed on all urinalysis samples and only positive findings are reported. The test for blood on the chemical analytic portion of urinalysis may also be positive due to hemoglobinuria and myoglobinuria and if red blood cells are present they are quantified by microscopic examination. Performed By: #### 4 [id number] #### LAB [address] [facility] [place], [place] [address] South Singh M.D. [id number] UrinalysisOrdered By: Diana Gardner on 09-17-2024 Bacteria Auto Ql (U) None Seen None Se en /hpf [facility] Bilirubin Ql (U) Negative Negative [facility] th Clarity Refractometry automated (U) Clear Clear [facility] Color (U) Yellow Colorless, Yellow [facility] Epithelial cells.squamous Auto (Urine sed) [#/Area] 4 [facility] Glucose Auto test strip (U) [Mass/Vol] Negative Negative mg/dL [facility] Hemoglobin Auto test strip Ql (U) Negative Negative [facility] Hyaline casts Auto (Urine sed) [#/Area] 0-2 [facility] Interpretation and review of laboratory results Abnormal [facility] Ketones (U) [Mass/Vol] mg/dL Abnormal Negat geni mg/dL [facility] Leukocyte esterase Auto test strip Ql (U) Negative Negative [facility] [place] [facility] h Mucus Auto (Urine sed) [#/Area] Rare None Seen, Rare /lpf [facility] Nitrite Auto test strip Ql (U) Negative Negative [facility] [facility] pH (U) 5.5 [pH] 5.0 - 7.0 [facility] Protein (U) [Mass/Vol] 30 mg/dL Abnormal Negative [facility] Comment on above: False positive resul ts may occur in urines with large amounts of hemoglobin, pH greater than 8.0, contrast medium, or disinfectants including ammonium compounds. RBC Auto (Urine sed) [#/Area] [facility] Specific gravity (U) [Rel density] 1.026 High 1.005 - 1.025 [facility] Urobilinogen (U) [Mass/Vol] 2.0 mg/dL Abnormal NINF - 2.0 mg/dL [facility] WBC Auto (Urine sed) [#/Area] 1 [facility] Microscopic examinat ion is performed on all urinalysis samples and only positive findings are reported. The test for blood on the chemical analytic portion of urinalysis may also be positive due to hemoglobinuria and myoglobinuria and if red blood cells are present they are quantified by microscopic examination. [facility] VOLATILE PANELon 09-17-2024 ACETONE QUANT, BLOOD 23 mg/dL Normal [facility] Comment on above: Order Comment: This Gas Chromatography test was developed and its performance characteristics determined by [facility] at [facility]. It has not been cleared or approved by the FDA. The laboratory is regulated under CLIA as qualified to perform high-complexity testing. This test is used for clinical purposes. It should not be regarded as investigational or for research. Test performed by: [facility] [address] [place], [place] [id number] Performed By: #### [id number] #### LAB [address] [place] [address] South Singh M.D. [id number] ACETONE, BLOOD Detected Abnormal Not Detected [facility] [place] [facility] Comment on above: Order Comment: This Gas Chromatography test was developed and its performance characteristics determined by [facility] at [facility]. It has not been cleared or approved by the FDA. The laboratory is regulated under CLIA as qualified to perform high-complexity testing. This test is used for clinical purposes. It should not be regarded as investigational or for research. Test performed by: [facility] [address] [place] [id number] Performed By: #### [id number] #### LAB [address] [place] [address] South Singh M.D. [id number] Ethanol [Mass/Vol] Not detected Normal Not Detected [facility] Comment on above: Order Comment: This Gas Chromatography test was developed and its performance characteristics determined by [facility] at [facility]. It has not been cleared or approved by the FDA. The laboratory is regulated under CLIA as qualified to perform high-complexity testing. This test is used for clinical purposes. It should not be regarded as investigational or for research. Test performed by: [facility] [address] [place] [address] Performed By: #### [id number] #### [facility] LAB [address] [place] [address] South Singh M.D. [id number] ETHANOL QUANT, BLOOD <10 Normal [facility] Comment on above: Order Comment: This Gas Chromatography test was developed and its performance characteristics determined by [facility] at [facility]. It has not been cleared or approved by the FDA. The laboratory is regulated under CLIA as qualified to perform high-complexity testing. This test is used for clinical purposes. It should not be regarded as investigational or for research. Test performed by: [facility] [address] [place] [address] Performed By: #### [id number] #### [facility] LAB [address] [place] [address] South Singh M.D. [id number] ISOPROPANOL QUANT, BLOOD <10 [facility] Comment on above: Order Comment: This Gas Chromatography test was developed and its performance characteristics determined by [facility] at [facility]. It has not been cleared or approved by the FDA. The laboratory is regulated under CLIA as qualified to perform high-complexity testing. This test is used for clinical purposes. It should not be regarded as investigational or for research. Test performed by: [facility] [address] [place], [place] [id number] Performed By: #### [id number] #### [facility] LAB [address] [place] [address] South Singh M.D. [id number] ISOPROPANOL, BLOOD Not detected Normal Not Detected [facility] Comment on above: Order Comment: This Gas Chromatography test was developed and its performance characteristics determined by [facility] at [facility]. It has not been cleared or approved by the FDA. The laboratory is regulated under CLIA as qualified to perform high-complexity testing. This test is used for clinical purposes. It should not be regarded as investigational or for research. Test performed by: [facility] [address] [place], [place] [id number] Performed By: #### [id number] #### LAB [address] [place], [place] [address] South Singh M.D. [id number] METHANOL QUANT, BLOOD <10 Normal [facility] Comment on above: Order Comment: This Gas Chromatography test was developed and its performance characteristics determined by [facility] at [facility]. It has not been cleared or approved by the FDA. The laboratory is regulated under CLIA as qualified to perform high-complexity testing. This test is used for clinical purposes. It should not be regarded as investigational or for research. Test performed by: [facility] [address] [place], [place] [phone] Performed By: #### [id number] #### LAB [address] [place], [place] [address] South Singh M.D. [id number] METHANOL, BLOOD Not detected Normal Not Detected [facility] Comment on above: Order Comment: This Gas Chromatography test was developed and its performance characteristics determined by [facility] at [facility]. It has not been cleared or approved by the FDA. The laboratory is regulated under CLIA as qualified to perform high-complexity testing. This test is used for clinical purposes. It should not be regarded as investigational or for research. Test performed by: [facility] [address] [place] [address] Performed By: #### [id number] #### LAB [address] [place], [place] [address] South Singh M.D. [id number] Genital Culture Comprehensiv galen 06-25-2024 VAC Reason for Exam: vag inal discharge Normal vaginal rashmi isolated. No yeast, Gardnerella, Neisseria or beta-hemolytic Streptococcus isolated. Normal [facility] Comment on above: Performed By: #### M 100.2000, M100.3200 ####[facility] [id number] [place], [address] Gram Stainon 06-24-2024 GS Reason for Exam: vag inal discharge Gram Stain 4+ Gram positive rods No Gram negative diplococci Rare Gram positive cocci 1+ White Blood Cells Score = 0 Interpretation: 0-3 Normal, 4-6 Intermediate, 7-10 Positive BV Normal [facility] Comment on above: Performed By: #### M 100.2000, M100.3200 ####[facility] [id number] [place], [address] Potato Chip Maker Office Visit Reporton 06-24-2024 Potato Chip Maker Office Visit Report [facility] [address], [address] [place] [address] OFFICE VISIT Date of Service: 06/24/24 MR#: [id number] Acct: [id number] Name: ASHLEY LYNN Rep #: [id number] : 2000 Provider: Dr. 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 Is patient in pain?: No Allergies No Known Allergies Allergy (Verified 06/24/24 15:31) Medications ???Medication ???Instructions ???Recorded ???Confirmed ???Type multivitamin no.47-iron fum 27 1 cap PO DAILY 09/15/23 06/24/24 History mg-folate no.1 1 mg-dha 300 mg capsule (PNV-DHA) doxycycline hyclate 100 mg capsule 100 mg PO BID #14 caps 06/24/24 06/24/24 Rx progesterone micronized 200 mg 200 mg PO DAILY #30 caps 06/24/24 06/24/24 Rx capsule (Prometrium) Post menopausal: No Patient : No : No PFSH Medical History Contraceptive management Vaginal delivery depression History of depression Spontaneous vaginal delivery Varicose veins of both lower extremities History of COVID-19 PCOS (polycystic ovarian syndrome) Social History adopted: No household members: spouse and children housing: house number of children: 1 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 status: employed current occupation: 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 exposures/hazards: No pets and animals: Yes (Not managing litterbox) pets and animals: cat(s) and dog(s) history of recent travel: Yes (- June) out of state: Yes out of country: No sexually active: Yes Smoking Status: Never smoker alcohol intake: never substance use type: does not use well-balanced diet: daily or most days caffeine: No eating out: rarely or never during the past year weight has: decreased > 10 lbs what type of physical activity do you participate in: walking frequency: 1-2 times per week duration: 15-30 minutes/day elsa/caodaism: Holiness seatbelt use: always do you feel safe at home: Yes 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 She completed a course of doxycycline and this helped for a few days but the bleeding then returned. History 6 Elective abortions Hx Para 2 Spontaneous abortions 4 Hx # Term Pregnancies Ectopic pregnancies Hx # Pregnancies Multiple births # of living children 2 Past Pregnancies Del. Date Name GA/Weeks Outcome Route Bth Weight Gen Labor Lgth Anesthesia Del Locatn Provider FOB Unknown 4 chemical 12/29/22 Keke 41 live - full term 7lbs 13oz Female [facility] Lopez 05/01/24 Alexys 39 live - full term 7#15 Male [facility] An albrecht Delivery Date: 12/29/22 Last Updated by: Jovita PRUITT Delivery Date: 05/01/24 Last Updated by: Arleth PRUITT IOL DECEL ROS Const ROS Unobtainable: All systems reviewed are unremarkable except as noted in H Resp Resp: Reports system reviewed and no additional complaints, except as documented; Denies cough GI GI: Reports as per HPI Psych Psych: Reports system reviewed and no additional complaints, except as documented Exam Const General: cooperative, healthy appearing, comfortable and no acute distress Resp Effort Inspection: normal respiratory effort General: bimanual renal exam normal bilaterally External Female Exam: normal appearance of the urethra Urethra: normal appearance of the urethra Speculum Exam - Vagina: normal appearance of the vagina Speculum Exam - Cervix: normal appearance of the cervix Bimanual Exam- Adnexa, other: normal adnexae and normal Pelvic Support: normal Skin General: no rashes or lesions noted Psych Appearance: grossly normal Speech and Movement: speech and movement normal Coding Level of Care Code Off vis,est,level 4 Diagnoses endometritis O86.12 Abnormal uterine bleeding N93.9 Assessment and Plan Assessment and Plan (1) endometritis: Status: Acute Comment: ultrasound: TECHNIQUE: Endovaginal pelvic ultrasound was performed with grayscale and color Doppler imaging. Endovaginal imaging was used for better evaluation of the endometrium and adnexa. COMPARISON: No relevant prior studies available. FINDINGS: UTERUS/CERVIX: Uterus measures 10.3 x 6.5 x 4.4 (more content not included)... Normal [facility] Transvaginal Non-on 06-14-2024 Transvaginal Non- [facility] [address] [place] [id number] Transvaginal Non- MR#: [id number] Acct: [id number] Name: ASHLEY LYNN Rep #: [id number] : 2000 F 24 From: Dewayne Dang MD PCP: Care Physician,No Primary Status: REG CL Study: Transvaginal Non- Date of Exam: Exam# [id number] Ordering Dr: Vilma Sheehan [facility] [id number] EXAM: US PELVIS TRANSVAGINAL CLINICAL INDICATION: pelvic pain TECHNIQUE: Endovaginal pelvic ultrasound was performed with grayscale and color Doppler imaging. Endovaginal imaging was used for better evaluation of the endometrium and adnexa. COMPARISON: No relevant prior studies available. FINDINGS: UTERUS/CERVIX: Uterus measures 10.3 x 6.5 x 4.4 cm. Endometrial thickness is 4 mm. RIGHT OVARY: Right ovary is not seen possibly obscured by overlying bowel gas. LEFT OVARY: Left ovary measures 2.4 x 1.7 x 1.4 cm. Blood flow is present in the left ovary. FREE FLUID: None. US/Transvaginal Non- IMPRESSION: No abnormality identified. Nonvisualization of the right ovary. Electronically Signed: Dewayne Dang MD at 16:20 EST , CC: MIRIAN Sheehan; No Primary Care Physician Appraisal Manager: Signed Normal [facility] Potato Chip Maker Office Visit Reporton 06-10-2024 Potato Chip Maker Office Visit Report [facility] [address], [address] [place] [address] OFFICE VISIT Date of Service: 06/10/24 MR#: [id number] Acct: [id number] Name: ASHLEY LYNN Rep #: [id number] : 2000 Provider: MIRIAN Sheets ams Age/Sex: 24/F [place] [facility] [place]: Signed Intake Vital Signs 04/30/24 19:00 05/10/24 09:47 06/10/24 09:55 Height 5 ft 10 in 5 ft 10 in 5 ft 10 in Weight: 256 lb BMI 36.7 BP 119/87 H Intake Visit Reasons: visit (obstetrics) Textile 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 Required: No Is patient in pain?: Yes Pain scale (1-10): 2 Allergies No Known Allergies Allergy (Verified 06/10/24 10:04) Medications ???Medication ???Instructions ???Recorded ???Confirmed ???Type multivitamin no.47-iron fum 27 1 cap PO DAILY 09/15/23 06/10/24 History mg-folate no.1 1 mg-dha 300 mg capsule (PNV-DHA) : Yes PFSH Medical History Vaginal delivery depression History of depression Spontaneous vaginal delivery Varicose veins of both lower extremities History of COVID-19 PCOS (polycystic ovarian syndrome) Social History adopted: No household members: spouse and children housing: house number of children: 1 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 status: employed current occupation: 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 exposures/hazards: No pets and animals: Yes (Not managing litterbox) pets and animals: cat(s) and dog(s) history of recent travel: Yes (- June) out of state: Yes out of country: No sexually active: Yes Smoking Status: Never smoker alcohol intake: never substance use type: does not use well-balanced diet: daily or most days caffeine: No eating out: rarely or never during the past year weight has: decreased > 10 lbs what type of physical activity do you participate in: walking frequency: 1-2 times per week duration: 15-30 minutes/day elsa/caodaism: Holiness seatbelt use: always do you feel safe at home: Yes 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 Date Name GA/Weeks Outcome Route Bth Weight Gen Labor Lgth Anesthesia Del Locatn Provider FOB Unknown 4 chemical 12/29/22 Keke 41 live - [facility]lbs [facility] Alex[facility] - full term 7#15 Male [facility] An nthostephie Delivery Date: 12/29/22 Last Updated by: Jovita PRUITT Delivery Date: 05/01/24 Last Updated by: Arlteh PRUITT [facility] DECEL Depression Screen PHQ-2/9 PHQ-2 Over the last 2 weeks, how often have you been bothered by any of the following problems? 1. Little interest or pleasure in doing things: not at all 2. Feeling down, depressed, or hopeless: not at all Total score: 0 Post HPI Routine Follow-Up: Details: ASHLEY LYNN is a 24 year old who presents for her post visit. Still having pelvic pain and bleeding since delivery. Pelvic pain did get better after course of ATB but has remained stable since then. Feeding: Breast Menses resumed: No [place] since delivery: No Emotional Support: Yes Last Pap:: 2023 Control Method: desire madhu IUD ROS Const All systems reviewed are unremarkable except as noted in H Reports system reviewed and no additional complaints, except as documented Card Reports system reviewed and no additional complaints, except as documented GI Reports system reviewed and no additional complaints, except as documented Neuro Yes system reviewed and no additional complaints, except as documented Psych Reports system reviewed and no additional complaints, except as documented, Denies anhedonia, Denies depression, Denies homicidal ideation and Denies suicidal ideation Exam Const General: cooperative, healthy appearing and comfortable Nutritional Appearance: average body habitus Orientation: alert, awake and oriented x3 Neck Neck: normal visual inspection and full ROM Resp Effort Inspection: normal respiratory effort, able to speak in complete sentences and symmetric chest movement GI Inspection: normal to inspection Palpation: soft External Female Exam: normal external appearance and normal appearance of the urethra Urethra: normal appearance of the urethra Speculum Exam - Vagina: normal appearance of the vagina and normal vaginal discharge Bimanual Exam- Vagina Uterus: normal bimanual exam, normal palpation and uterine size normal Bimanual Exam- Adnexa, other: normal a (more content not included)... Normal [facility] Urine Cultureon 05-12-2024 U[facility] Mixed Gram Positive Organisms [place] Count 11,000-25,000 MIXC Mixed contaminants. Submit a new specimen if indicated. Normal [facility] Comment on above: Performed By: #### M 100.2200 #### [facility] Laboratory [facility] [place], [place], [address] Potato Chip Maker Office Visit Reporton 05-10-2024 Potato Chip Maker Office Visit Report [facility] [address], [address] [place] [address] OFFICE VISIT Date of Service: 05/10/24 MR#: [id number] Acct: [id number] Name: ASHLEY LYNN Rep #: [id number] : 2000 Provider: MIRIAN Sheets ams Age/Sex: 24/F [place] [facility] [place]: Signed Intake Vital Signs 04/30/24 19:00 05/10/24 09:43 05/10/24 09:47 Height 5 ft 10 in 5 ft 10 in 5 ft 10 in Weight: 252 lb BMI 36.1 BP 136/92 H Temp 98.2 F Intake Visit Reasons: low grade fever/UTI? groin pain Textile Engineer Required: No Is patient in pain?: No Allergies No Known Allergies Allergy (Verified 05/10/24 09:45) Medications ???Medication ???Instructions ???Recorded ???Confirmed ???Type multivitamin no.47-iron fum 27 1 cap PO DAILY 09/15/23 05/10/24 History mg-folate no.1 1 mg-dha 300 mg capsule (PNV-DHA) amoxicillin 875 mg-potassium 1 tab PO BID 14 days #28 tabs 05/10/24 05/10/24 Rx clavulanate 125 mg tablet Is last menstrual period known: No Post menopausal: No Patient : No : Yes PFSH Medical History Vaginal delivery depression History of depression Spontaneous vaginal delivery Varicose veins of both lower extremities History of COVID-19 PCOS (polycystic ovarian syndrome) Social History adopted: No household members: spouse and children housing: house number of children: 1 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 status: employed current occupation: 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 exposures/hazards: No pets and animals: Yes (Not managing litterbox)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 intervention preferences: [] pain management options preferred: none cut cord/dad catch: cord : yes PP control planned: plan copper IUD discussed possible routes of delivery and associated risks: [] special requests: [] Specific Issue/Plans Covid status: [] Flu vaccine: [] Tdap vaccine: declines Rhogam: na LARC form signed: yes Problem list reviewed and updated with the most current plan of care details and appropriate orders placed. Relevant counseling for the gestational age provided. Continue routine care and follow up unless otherwise noted in visit notes/problem list details Initial Weight: Not Recorded Date -???-???-???-???-???-???- ???-???-???-???-???-???- EGA Weight BP Urine Prot -???-???-???-???-???-???- ???-???-???-???-???-???- Glucose FHR FuHt Pres Dilation -???-???-???-???-???-???- ???-???-???-???-???-???- Effaced St Visit Note 09/22/23 -???-???-???-???-???-???- ???-???-???-???-???-???- 8w 6d 254 lb 6 oz 114/75 -???-???-???-???-???-???- ???-???-???-???-???-???- 180 -???-???-???-???-???-???- ???-???-???-???-???-???- JV- CRL cons istent with last early us. declines NIPT. 10/19/23 -???-???-???-???-???-???- ???-???-???-???-???-???- 12w 5d 251 lb 6 oz 116/78 Negative -???-???-???-???-???-???- ???-???-???-???-???-???- Negative 160 -???-???-???-???-???-???- ???-???-???-???-???-???- LC- no vb/cr amping. declines afp. mfm anatomy ordered. 11/17/23 -???-???-???-???-???-???- ???-???-???-???-???-???- 16w 6d 243 lb 99/66 Negative -???-???-???-???-???-???- ???-???-???-???-???-???- Negative 154 -???-???-???-???-???-???- ???-???-???-???-???-???- KW- No vb/cr amping. + flutters. Anatomy US schedul (more content not included)... Normal [facility] Potato Chip Maker Office Visit Reporton 03-11-2024 Potato Chip Maker Office Visit Report [facility] [address], [address] [place] [address] OFFICE VISIT Date of Service: 03/11/24 MR#: [id number] Acct: [id number] Name: ASHLEY LYNN Rep #: [id number] : 2000 Provider: MIRIAN Sheets ams Age/Sex: 23/F [place] [facility] [place]: Signed Intake Vital Signs 02/22/24 09:49 03/11/24 08:35 Height 6 ft 6 ft Weight: 257 lb 4 oz BMI 34.9 BP 110/73 Intake Visit Reasons: 33 wk ob Chief Complaint: 33 Week OB Textile Engineer Required: No Is patient in pain?: No Allergies No Known Allergies Allergy (Verified 03/11/24 08:34) Medications ???Medication ???Instructions ???Recorded ???Confirmed ???Type multivitamin no.47-iron fum 27 cap PO 09/15/23 03/11/24 History mg-folate no.1 1 mg-dha 300 mg capsule (PNV-DHA) Last Menstrual Period: 07/10/23 Zika: Zika virus screening: Negative : No PFSH PFSH Medical History depression History of depression Spontaneous vaginal delivery Varicose veins of both lower extremities History of COVID-19 PCOS (polycystic ovarian syndrome) Social History adopted: No household members: spouse and children housing: house number of children: 1 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 status: employed current occupation: 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 exposures/hazards: No pets and animals: Yes (Not managing litterbox) pets and animals: cat(s) and dog(s) history of recent travel: Yes (- June) out of state: Yes out of country: No sexually active: Yes Smoking Status: Never smoker alcohol intake: never substance use type: does not use well-balanced diet: daily or most days caffeine: No eating out: rarely or never during the past year weight has: decreased > 10 lbs what type of physical activity do you participate in: walking frequency: 1-2 times per week duration: 15-30 minutes/day elsa/caodaism: Holiness seatbelt use: always do you feel safe at home: Yes 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 Date Name GA/Weeks Outcome Route Bth Weight Infant Gen Labor Lgth Anesthesia Del Locatn Provider FOB Unknown [phone] 4 chemical 12/29/22 Keke 41 live - full term 7lbs 13oz Female [facility] JERILYN Marroquin Delivery Date: 12/29/22 Last Updated by: Jovita Leos LC HPI 33 wk ob Details: ASHLEY LYNN is a 23 year old who presents for routine OB visit. OB Visit GRAZYNA Calculator Estimated Delivery Date Method Current WG Current Estimate 04/27/24 Ultrasound #1 33w 2d Other Estimates 04/15/24 LMP (Certain) 35w 0d Expected Delivery Route/Plan Labor Preferences- CB/BF classes: no labor support person: Lopez labor intervention preferences: [] pain management options preferred: none cut cord/dad catch: cord : yes PP control planned: plan copper IUD discussed possible routes of delivery and associated risks: [] special requests: [] Specific Issue/Plans Covid status: [] Flu vaccine: [] Tdap vaccine: declines Rhogam: na LARC form signed: yes Problem list reviewed and updated with the most current plan of care details and appropriate orders placed. Relevant counseling for the gestational age provided. Continue routine care and follow up unless otherwise noted in visit notes/problem list details Initial Weight: Not Recorded Date -???-???-???-???-???-???- ???-???-???-???-???-???- EGA Weight BP Urine Prot -???-???-???-???-???-???- ???-???-???-???-???-???- Glucose FHR FuHt Pres Dilation -???-???-???-???-???-???- ???-???-???-???-???-???- Effaced St Visit Note 09/22/23 -???-???-???-???-???-???- ???-???-???-???-???-???- 8w 6d 254 lb 6 oz 114/75 -???-???-???-???-???-???- ???-???-???-???-???-???- 180 -???-???-???-???-???-???- ???-???-???-???-???-???- JV- CRL cons istent with last early us. declines NIPT. 10/19/23 -???-???-???-???-???-???- ???-???-???-???-???-???- 12w 5d 251 lb 6 oz 116/78 Negative -???-???-???-???-???-???- ???-???-???-???-???-???- Negative 160 -???-???-???-???-???-???- ???-???-???-???-???-???- LC- no vb/cr amping. declines afp. mfm anatomy ordered. 11/17/23 -???-???-???-???-???-???- ???-???-???-???-???-???- 16w 6d 243 lb 99/66 Negative -???-???-???-???-???-???- ???-???-???-???-???-???- Negative 154 -???-???-???-???-???-???- ???-???-???-???-???-???- KW- No vb/cr amping. + flutters. Anatomy US scheduled. 05/29/24 -???-???-? (more content not included)... Normal [facility] CBC W/Diff, Automatedon 08-0 5-2023 Absolute Lymph 1.84 X10 3/uL Normal 0.83-4.51 [facility] Comment on above: Performed By: #### L 100.0100, L501.0250, L509.8000, L3890.6005 #### [facility] Laboratory [address] [place], [address] Absolute Neut 7.4 X10 3/uL Normal 2.0-7.7 [facility] Comment on above: Performed By: #### L 100.0100, L501.0250, L509.8000, [id number] #### [facility] Laboratory [address] [place], [address] Basophils/100 WBC (Bld) 0.3 % Normal 0-1 [facility] Comment on above: Performed By: #### L 100.0100, L501.0250, L509.8000, [id number] #### [facility] Laboratory [address] [place], [address] Eosinophils/100 WBC (Bld) 1.3 % Normal 0-5 [facility] Comment on above: Performed By: #### L 100.0100, L501.0250, L509.8000, [id number] #### [facility] Laboratory [address] [place], [address] Erythrocyte distribution width (RBC) [Ratio] 13.2 % Normal 11.6-14.6 [facility] Comment on above: Performed By: #### L 100.0100, L501.0250, L509.8000, [id number] #### [facility] Laboratory [address] [place], [address] Hematocrit (Bld) [Volume fraction] 36.4 % Low 37-47 [facility] Comment on above: Performed By: #### L 100.0100, L501.0250, L509.8000, [id number] #### [facility] Laboratory [address] [place], [address] Hemoglobin (Bld) [Mass/Vol] 12.0 g/dL Normal 12.0-15.0 [facility] Comment on above: Performed By: #### L 100.0100, L501.0250, L509.8000, [id number] #### [facility] Laboratory [address] [place], [address] IG% 0.700 Normal 0.0-0.9 [facility] Comment on above: Result Comment: IG% - Immature Granulocytes (promyelocytes, myelocytes and metamyelocytes) > 1% indicates that a LEFT SHIFT is Present. Performed By: #### L 100.0100, L501.0250, L509.8000, [id number] #### [facility] Laboratory [address] [place], [address] Lymphocytes/100 WBC (Bld) 18.6 % Low 19-41 [facility] Comment on above: Performed By: #### L 100.0100, L501.0250, L509.8000, [id number] #### [facility] Laboratory [address] [place], [address] MCH (RBC) [Entitic mass] 28.7 pg Normal 27.0-32.0 [facility] Comment on above: Performed By: #### L 100.0100, L501.0250, L509.8000, [id number] #### [facility] Laboratory [address] [place], [address] MCHC (RBC) [Mass/Vol] 33.0 g/dL Normal 32-36 [facility] Comment on above: Performed By: #### L 100.0100, L501.0250, L509.8000, [id number] #### [facility] Laboratory [address] [place], [address] MCV (RBC) [Entitic vol] 87.1 fL Normal 81-99 [facility] Comment on above: Performed By: #### L 100.0100, L501.0250, L509.8000, [id number] #### [facility] Laboratory [address] [place], [address] Monocytes/100 WBC (Bld) 4.8 % Normal 0-10 [facility] Comment on above: Performed By: #### L 100.0100, L501.0250, L509.8000, [id number] #### [facility] Laboratory [address] [place], [address] Neutrophils/100 WBC (Bld) 74.3 % High 47-70 [facility] Comment on above: Performed By: #### L 100.0100, L501.0250, L509.8000, [id number] #### [facility] Laboratory [address] [place], [address] Nucleated RBC (Bld) [#/Vol] 0 10*3/uL Normal 0-5 [facility] Comment on above: Performed By: #### L 100.0100, L501.0250, L509.8000, [id number] #### [facility] Laboratory [address] [place], [address] Platelet mean volume (Bld) [Entitic vol] 10.4 fL Normal 6.2-12.0 [facility] Comment on above: Performed By: #### L 100.0100, L501.0250, L509.8000, L3890.6005 #### [facility] Laboratory [address] [place], [address] Platelets (Bld) [#/Vol] 212 10*3/uL Normal 150-450 [facility] Comment on above: Performed By: #### L 100.0100, L501.0250, L509.8000, [id number] #### [facility] Laboratory [address] [place], [address] RBC (Bld) [#/Vol] 4.18 10*6/uL Low 4.2-5.4 [facility] Comment on above: Performed By: #### L 100.0100, L501.0250, L509.8000, [id number] #### [facility] Laboratory [address] [place], [address] RDW SD 41.1 fl Normal 35.1-43.9 [facility] Comment on above: Performed By: #### L 100.0100, L501.0250, L509.8000, L3890.6005 #### [facility] Laboratory [address] [place], [address] WBC (Bld) [#/Vol] 9.9 10*3/uL Normal 4.4-11.0 [facility] Comment on above: Performed By: #### L 100.0100, L501.0250, L509.8000, [id number] #### [facility] Laboratory [address] [place], [address] Glucose Challenge Gest 1H 50 karoline 02-22-2024 GLU GEST 50g 1H 118 mg/dL Normal 70-140 [facility] Comment on above: Performed By: #### L 100.0100, L501.0250, L509.8000, L3890.6005 #### [facility] Laboratory [address] [place], [address] HIV - WCHon 02-22-2024 HIV Non-Reactive Normal Nonreactive [facility] Comment on above: Performed By: #### L 100.0100, L501.0250, L509.8000, L3890.6005 ####[facility] [address] [place], [address] L509.8000on 02-22-2024 Syphilis Abs Non-Reactive Normal [facility] Comment on above: Performed By: #### L 100.0100, L501.0250, L509.8000, L3890.6005 ####[facility] [address] [place], [address] Potato Chip Maker Office Visit Reporton 02-22-2024 Potato Chip Maker Office Visit Report [facility] [address] [place] [address] OFFICE VISIT Date of Service: 02/22/24 MR#: [id number] Acct: [id number] Name: ASHLEY LYNN Rep #: [id number] : 2000 Provider: JUNIE latham Age/Sex: 23/F [place] [facility] [place]: Signed Intake Vital Signs 02/09/24 11:22 02/22/24 09:49 Height 6 ft 6 ft Weight: 253 lb 6 oz BMI 34.3 BP 101/69 Intake Visit Reasons: 31 WK OB Chief Complaint: 31 Week OB Textile Engineer Required: No Is patient in pain?: No Allergies No Known Allergies Allergy (Verified 02/22/24 09:48) Medications ???Medication ???Instructions ???Recorded ???Confirmed ???Type multivitamin no.47-iron fum 27 cap PO 09/15/23 02/22/24 History mg-folate no.1 1 mg-dha 300 mg capsule (PNV-DHA) Last Menstrual Period: 07/10/23 Zika: Zika virus screening: Negative : No PFSH PFSH Medical History depression History of depression Spontaneous vaginal delivery Varicose veins of both lower extremities History of COVID-19 PCOS (polycystic ovarian syndrome) Social History adopted: No household members: spouse and children housing: house number of children: 1 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 status: employed current occupation: 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 exposures/hazards: No pets and animals: Yes (Not managing litterbox) pets and animals: cat(s) and dog(s) history of recent travel: Yes (- June) out of state: Yes out of country: No sexually active: Yes Smoking Status: Never smoker alcohol intake: never substance use type: does not use well-balanced diet: daily or most days caffeine: No eating out: rarely or never during the past year weight has: decreased > 10 lbs what type of physical activity do you participate in: walking frequency: 1-2 times per week duration: 15-30 minutes/day elsa/caodaism: Holiness seatbelt use: always do you feel safe at home: Yes 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 Date Name GA/Weeks Outcome Route Bth Weight Gen Labor Lgth Anesthesia Del Locatn Provider FOB Unknown [phone] 4 chemical 12/29/22 Keke 41 live - full term 7lbs 13oz Female [facility] JERILYN Marroquin Delivery Date: 12/29/22 Last Updated by: Jovita Leos HPI 31 WK OB Details: ASHLEY LYNN is a 23 year old who presents for routine OB visit. OB Visit GRAZYNA Calculator Estimated Delivery Date Method Current WG Current Estimate 04/27/24 Ultrasound #1 30w 5d Other Estimates 04/15/24 LMP (Certain) 32w 3d Expected Delivery Route/Plan Labor Preferences- CB/BF classes: no labor support person: Lopez labor intervention preferences: [] pain management options preferred: none cut cord/dad catch: cord : yes PP control planned: plan copper IUD discussed possible routes of delivery and associated risks: [] special requests: [] Specific Issue/Plans Covid status: [] Flu vaccine: [] Tdap vaccine: declines Rhogam: na LARC form signed: yes Problem list reviewed and updated with the most current plan of care details and appropriate orders placed. Relevant counseling for the gestational age provided. Continue routine care and follow up unless otherwise noted in visit notes/problem list details Initial Weight: Not Recorded Date -???-???-???-???-???-???- ???-???-???-???-???-???- EGA Weight BP Urine Prot -???-???-???-???-???-???- ???-???-???-???-???-???- Glucose FHR FuHt Pres Dilation -???-???-???-???-???-???- ???-???-???-???-???-???- Effaced St Visit Note 09/22/23 -???-???-???-???-???-???- ???-???-???-???-???-???- 8w 6d 254 lb 6 oz 114/75 -???-???-???-???-???-???- ???-???-???-???-???-???- 180 -???-???-???-???-???-???- ???-???-???-???-???-???- JV- CRL cons istent with last early us. declines NIPT. 10/19/23 -???-???-???-???-???-???- ???-???-???-???-???-???- 12w 5d 251 lb 6 oz 116/78 Negative -???-???-???-???-???-???- ???-???-???-???-???-???- Negative 160 -???-???-???-???-???-???- ???-???-???-???-???-???- LC- no vb/cr amping. declines afp. mfm anatomy ordered. 11/17/23 -???-???-???-???-???-???- ???-???-???-???-???-???- 16w 6d 243 lb 99/66 Negative -???-???-???-???-???-???- ???-???-???-???-???-???- Negative 154 -???-???-???-???-???-???- ???-???-???-???-???-???- KW- No vb/cr amping. + flutters. Anatomy US scheduled. 12/16/23 (more content not included)... Normal [facility] Potato Chip Maker Office Visit Reporton 02-09-2024 Potato Chip Maker Office Visit Report [facility] [address] [place] [address]. [address] [place] [address] OFFICE VISIT Date of Service: 02/09/24 MR#: [id number] Acct: [id number] Name: ASHLEY LYNN Rep #: [id number] : 2000 Provider: Dr. Milagros albrecht MD Age/Sex: 23/F [place] [facility] [place]: Signed Intake Vital Signs 11/17/23 09:55 01/12/24 09:40 02/09/24 11:17 02/09/24 11:22 Height 6 ft 6 ft 6 ft 6 ft Weight: 250 lb 8 oz BMI 34.0 BP 124/78 H Intake Visit Reasons: 29 WK OB Textile Engineer Required: No Is patient in pain?: No Allergies No Known Allergies Allergy (Verified 02/09/24 11:17) Medications ???Medication ???Instructions ???Recorded ???Confirmed ???Type multivitamin no.47-iron fum 27 cap PO 09/15/23 02/09/24 History mg-folate no.1 1 mg-dha 300 mg capsule (PNV-DHA) Last Menstrual Period: 07/10/23 Zika: Zika virus screening: Negative : No PFSH PFSH Medical History depression History of depression Spontaneous vaginal delivery Varicose veins of both lower extremities History of COVID-19 PCOS (polycystic ovarian syndrome) Social History adopted: No household members: spouse and children housing: house number of children: 1 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 status: employed current occupation: 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 exposures/hazards: No pets and animals: Yes (Not managing litterbox) pets and animals: cat(s) and dog(s) history of recent travel: Yes (- June) out of state: Yes out of country: No sexually active: Yes Smoking Status: Never smoker alcohol intake: never substance use type: does not use well-balanced diet: daily or most days caffeine: No eating out: rarely or never during the past year weight has: decreased > 10 lbs what type of physical activity do you participate in: walking frequency: 1-2 times per week duration: 15-30 minutes/day elsa/caodaism: Holiness seatbelt use: always do you feel safe at home: Yes 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 Date Name GA/Weeks Outcome Route Bth Weight Infant Gen Labor Lgth Anesthesia Del Locatn Provider FOB Unknown [phone] 4 chemical 12/29/22 Keke 41 live - full term 7lbs 13oz Female [facility] JERILYN Marroquin Delivery Date: 12/29/22 Last Updated by: Jovita Leos LC HPI 29 WK OB Details: ASHLEY LYNN is a 23 year old who presents for routine OB visit. OB Visit GRAZYNA Calculator Estimated Delivery Date Method Current WG Current Estimate 04/27/24 Ultrasound #1 28w 6d Other Estimates 04/15/24 LMP (Certain) 30w 4d Expected Delivery Route/Plan Labor Preferences- CB/BF classes: [] labor support person: [] labor intervention preferences: [] pain management options preferred: [] cut cord/dad catch: [] : [] PP control planned: plan copper IUD discussed possible routes of delivery and associated risks: [] special requests: [] Specific Issue/Plans Covid status: [] Flu vaccine: [] Tdap vaccine: [] Rhogam: [] LARC form signed: [] Problem list reviewed and updated with the most current plan of care details and appropriate orders placed. Relevant counseling for the gestational age provided. Continue routine care and follow up unless otherwise noted in visit notes/problem list details Initial Weight: Not Recorded Date -???-???-???-???-???-???- ???-???-???-???-???-???- EGA Weight BP Urine Prot -???-???-???-???-???-???- ???-???-???-???-???-???- Glucose FHR FuHt Pres Dilation -???-???-???-???-???-???- ???-???-???-???-???-???- Effaced St Visit Note 09/22/23 -???-???-???-???-???-???- ???-???-???-???-???-???- 8w 6d 254 lb 6 oz 114/75 -???-???-???-???-???-???- ???-???-???-???-???-???- 180 -???-???-???-???-???-???- ???-???-???-???-???-???- JV- CRL cons istent with last early us. declines NIPT. 10/19/23 -???-???-???-???-???-???- ???-???-???-???-???-???- 12w 5d 251 lb 6 oz 116/78 Negative -???-???-???-???-???-???- ???-???-???-???-???-???- Negative 160 -???-???-???-???-???-???- ???-???-???-???-???-???- LC- no vb/cr amping. declines afp. mfm anatomy ordered. 11/17/23 -???-???-???-???-???-???- ???-???-???-???-???-???- 16w 6d 243 lb 99/66 Negative -???-???-???-???-???-???- ???-???-???-???-???-???- Negative 154 -???-???-???-???-???-???- ???-???-???-???-???-???- KW- No vb/cr amping. + flutters. Anatomy US scheduled. (more content not included)... Normal [facility] Absolute lymphocyte countOrd ered By: Chasity Araujo on 09-22-2023 Lymphocytes Auto (Unsp spec) [#/Vol] 2.44 10*3/uL 0.83-4.51 [facility] Automated lymphocyte count a s percentage of total leukocytesOrdered By: Chasity Araujo on 09-22-2023 Lymphocytes/100 WBC Auto (Unsp spec) 22.2 % 19-41 [facility] Basophil percentageOrdered B y: Chasity Araujo on 09-22-2023 Basophils/100 WBC (Bld) 0.6 % 0-1 [facility] Eosinophils/100 WBC (Bld) 1.4 % 0-5 [facility] Hemoglobin (Bld) [Mass/Vol] 13.5 g/dL 12.0-15.0 [facility] Monocytes/100 WBC (Bld) 7.1 % 0-10 [facility] Neutrophils (Bld) [#/Vol] 7.5 10*3/uL 2.0-7.7 [facility] [place] Neutrophils/100 WBC (Bld) 68.2 % 47-70 [facility] [place] WBC (Bld) [#/Vol] 11.0 10*3/uL 4.4-11.0 [facility] Chlamydia trachomatis rRNA d etection by probe and target amplification methodOrdered By: Chasity Araujo on 09-22-2023 C. trachomatis rRNA JESSICA+probe Ql (Unsp spec) Negative Negative [facility] Culture, urineOrdered By: Jose Araujo on 09-22-2023 Bacteria identified Cx Nom (U) Culture exhibits no growth. [facility] [place] Determination of erythrocyte mean corpuscular volume (MCV)Ordered By: Chasity Araujo on 09-22-2023 MCV (RBC) [Entitic vol] 84.9 fL 81-99 [facility] [place] Erythrocyte distribution wid th ratioOrdered By: Chasity Araujo on 09-22-2023 Erythrocyte distribution width (RBC) [Ratio] 12.6 % 11.6-14.6 [facility] [place] Erythrocyte distribution wid th standard deviationOrdered By: Chasity Araujo on 09-22-2023 Erythrocyte distribution width (RBC) [Entitic vol] 38.4 fL 35.1-43.9 [facility] [place] HIV 1 and HIV-2 antibody ass ay with HIV-1 p24 antigen detectionOrdered By: Chasity Araujo on 09-22-2023 HIV 1+2 Ab+HIV1 p24 Ag IA Ql Non-Reactive Nonreactive [facility] [place] Hematocrit Auto (Bld) [Volum e fraction]Ordered By: Chasity Araujo on 09-22-2023 Hematocrit (Bld) [Volume fraction] 40.9 % 37-47 [facility] [place] Immature granulocytes/100 WB C Auto (Bld)Ordered By: Chasity Araujo on 09-22-2023 Immature granulocytes/100 WBC (Bld) 0.500 % 0.0-0.9 [facility] [place] Comment on above: IG% - Immature Granu locytes (promyelocytes, myelocytes and metamyelocytes) > 1% indicates that a LEFT SHIFT is Present. Laboratory - Hematology and Cell countsOrdered By: Chasity Araujo on 09-22-2023 MCH (RBC) [Entitic mass] 28.0 pg 27.0-32.0 [facility] [place] MCHC (RBC) [Mass/Vol] 33.0 g/dL 32-36 [facility] Nucleated RBC/100 WBC (Bld) [Ratio] 0 % 0-5 [facility] [place] Platelet mean volume (Bld) [Entitic vol] 10.4 fL 6.2-12.0 [facility] [place] Platelets (Bld) [#/Vol] 286 10*3/uL 150-450 [facility] [place] Laboratory - Microbiology an d Antimicrobial susceptibilityOrdered By: Chasity Araujo on 09-22-2023 N. gonorrhoeae DNA JESSICA+probe Ql (Unsp spec) Negative Negative [facility] [place] Comment on above: Performed at: [address] [id number] Director: Ursula Alonzo MD, Phone: [phone] No Panel InformationOrdered By: Chasity Araujo on 09-22-2023 Hepatitis B Surface Antigen Non-Reactive Nonreactive [facility] [place] Hepatitis C Antibody Non-Reactive Nonreactive [facility] Comment on above: Non Reactive: < 0.8 Equivocal: >/= 0.8 to < 1.0 Reactive: >/= 1.0The CDC requires that a reactive/equivocal HCV antibody result be sent out for confirmation. HCV Quant by PCR testing. Rubella IgG Antibody Reactive Nonreactive [facility] Comment on above: Antibody Results Int erpretation of Immune Status Non Reactive Presumed Non-Immune Equivocal Equivocal Reactive Presumed Immune RBC Auto (Bld) [#/Vol]Ordere d By: Chasity Araujo on 09-22-2023 RBC (Bld) [#/Vol] 4.82 10*6/uL 4.2-5.4 [facility] Serum Treponema species anti body detectionOrdered By: Chasity Araujo on 09-22-2023 Treponema sp Ab Ql (S) Non-Reactive [facility] [place] Whole blood hemoglobin A1c/t otal hemoglobin ratio (mass fraction)Ordered By: Chasity Araujo on 09-22-2023 HbA1c (Bld) [Mass fraction] 5.2 % 3.8-5.6 [facility] [place] Comment on above: Normal < 5.7 % Predi abetic 5.7 - 6.4 % Diabetic >or= 6.5 % Please note range changes. Laboratory - Chemistry and C hemistry - challengeon 08-22-2022 Glucose Ql (U) Negative [facility] [place] Laboratory - Urinalysison Protein Ql (U) Negative [facility] [place] Laboratory - Chemistry and C hemistry - challengeon 07-23-2022 Glucose Ql (U) Negative [facility] [place] Laboratory - Urinalysison Protein Ql (U) Negative [facility] [place] Laboratory - Chemistry and C hemistry - challengeon 06-27-2022 Glucose Ql (U) Negative [facility] [place] Laboratory - Urinalysison Protein Ql (U) Negative [facility] [place] Absolute lymphocyte countOrd ered By: Dr. Love on 06-11-2022 Lymphocytes Auto (Unsp spec) [#/Vol] 2.31 10*3/uL 0.83-4.51 [facility] [place] Basophil percentageOrdered B y: Dr. Love on 06-11-2022 Basophils/100 WBC (Bld) 0.5 % 0-1 [facility] [place] Chloride [Moles/Vol] 106 mmol/L 98-107 [facility] Eosinophils/100 WBC (Bld) 0.7 % 0-5 [facility] [place] Glucose [Mass/Vol] 97 mg/dL 74-106 [facility] [place] Neutrophils (Bld) [#/Vol] 7.9 10*3/uL 2.0-7.7 [facility] [place] Neutrophils/100 WBC (Bld) 72.5 % 47-70 [facility] [place] Potassium [Moles/Vol] 3.7 mmol/L 3.5-5.1 [facility] Sodium [Moles/Vol] 138 mmol/L 136-145 [facility] [place] WBC (Bld) [#/Vol] 10.9 10*3/uL 4.4-11.0 [facility] Basophil percentage 0 SEEN /hpf 0-5 [facility] Bilirubin Test strip Ql (U)O rdered By: Dr. Love on 06-11-2022 Bilirubin Ql (U) Negative Negative [facility] [place] Blood erythrocytes count (nu mber/volume)Ordered By: Dr. Love on 06-11-2022 RBC (Bld) [#/Vol] 4.69 10*6/uL 4.2-5.4 [facility] Blood hemoglobin measurement (mass/volume)Ordered By: Dr. Love on 06-11-2022 Hemoglobin (Bld) [Mass/Vol] 13.2 g/dL 12.0-15.0 [facility] [place] Blood lymphocytes/100 leukoc ytesOrdered By: Dr. Love on 06-11-2022 Lymphocytes/100 WBC (Bld) 21.2 % 19-41 [facility] [place] Blood monocytes/100 leukocyt esOrdered By: Dr. Love on 06-11-2022 Monocytes/100 WBC (Bld) 4.6 % 0-10 [facility] [place] Blood platelet mean volumeOr dered By: Dr. Love on 06-11-2022 Platelet mean volume (Bld) [Entitic vol] 10.5 fL 6.2-12.0 [facility] [place] Determination of erythrocyte mean corpuscular volume (MCV)Ordered By: Dr. Love on 06-11-2022 MCV (RBC) [Entitic vol] 85.7 fL 81-99 [facility] [place] Hematocrit Auto (Bld) [Volum e fraction]Ordered By: Dr. Love on 06-11-2022 Hematocrit (Bld) [Volume fraction] 40.2 % 37-47 [facility] [place] Ketones Test strip Ql (U)Ord ered By: Dr. Love on 06-11-2022 Ketones Ql (U) 5 mg/dl Negative [facility] [place] Laboratory - Chemistry and C hemistry - challengeOrdered By: Dr. Love on 06-11-2022 CO2 [Moles/Vol] 24.0 mmol/L 21.0-32.0 [facility] [place] Urea nitrogen/Creatinine [Mass ratio] 9.9 mg/mg 10-20 [facility] [place] Laboratory - Hematology and Cell countsOrdered By: Dr. Love on 06-11-2022 Erythrocyte distribution width (RBC) [Entitic vol] 42.6 fL 35.1-43.9 [facility] [place] Erythrocyte distribution width (RBC) [Ratio] 13.7 % 11.6-14.6 [facility] [place] Immature granulocytes/100 WBC (Bld) 0.500 % 0.0-0.9 [facility] [place] Comment on above: IG% - Immature Granu locytes (promyelocytes, myelocytes and metamyelocytes) > 1% indicates that a LEFT SHIFT is Present. MCH (RBC) [Entitic mass] 28.1 pg 27.0-32.0 [facility] [place] Nucleated RBC/100 WBC (Bld) [Ratio] 0 % 0-5 [facility] MCHC Auto (RBC) [Mass/Vol]Or dered By: Dr. Love on 06-11-2022 MCHC (RBC) [Mass/Vol] 32.8 g/dL 32-36 [facility] Mucus LM Ql (Urine sed)Order ed By: Dr. Love on 06-11-2022 Mucus Ql (Urine sed) 0 SEEN /hpf [facility] Nitrite Test strip Ql (U)Ord ered By: Dr. Love on 06-11-2022 Nitrite Ql (U) Negative Negative [facility] [place] No Panel InformationOrdered By: Dr. Love on 06-11-2022 Estimated Creatinine Clearance Calc 168.28 ml/min [facility] [place] Estimated GFR (MDRD) Amer 158 mL/min >60 [facility] [place] Comment on above: GFR Calc Estimated GFR (MDRD) Non-Af Amer 130 mL/min >60 [facility] [place] Comment on above: Non- GFR Calc Platelets bldOrdered By: Dr. Love on 06-11-2022 Platelets (Bld) [#/Vol] 264 10*3/uL 150-450 [facility] [place] Protein Test strip Ql (U)Ord ered By: Dr. Love on 06-11-2022 Protein Ql (U) Negative Negative [facility] [place] Serum or plasma calcium evangelist urement (mass/volume)Ordered By: Dr. Love on 06-11-2022 Calcium [Mass/Vol] 9.0 mg/dL 8.5-10.1 [facility] [place] Serum or plasma creatinine m easurement (mass/volume)Ordered By: Dr. Love on 06-11-2022 Creatinine [Mass/Vol] 0.60 mg/dL 0.55-1.02 [facility] Comment on above: The validity of the calculated GFR & GFRAA in patients over 70 years has not been determined. Clinical correlation is essential. Serum or plasma urea nitroge n measurement (mass/volume)Ordered By: Dr. Love on 06-11-2022 Urea nitrogen [Mass/Vol] 6 mg/dL 7-18 [facility] [place] Squamous epithelial cells de tection in urine sediment by light microscopyOrdered By: Dr. Love on 06-11-2022 Epithelial cells.squamous LM Ql (Urine sed) 0-5 SEEN /hpf 5-10 [facility] [place] Thin prep Papanicolaou smear with manual screeningOrdered By: Dr. Love on 06-11-2022 Thin prep Papanicolaou smear with manual screening 8 5-15 [facility] [place] Urine blood detectionOrdered By: Dr. Love on 06-11-2022 RBC Ql (U) Negative Negative [facility] [place] RBC Ql (U) 0 SEEN /hpf 0-5 [facility] [place] Urine clarityOrdered By: Dr. Love on 06-11-2022 Clarity (U) Sl. Cloudy Clear [facility] [place] Urine color determinationOrd ered By: Dr. Love on 06-11-2022 Color (U) Yellow Yellow [facility] [place] Urine glucose detectionOrder ed By: Dr. Love on 06-11-2022 Glucose Ql (U) Normal mg/dl Normal [facility] [place] Urine leukocyte esterase det ection by dipstickOrdered By: Dr. Love on 06-11-2022 Leukocyte esterase Test strip Ql (U) Negative Negative [facility] [place] Urine pHOrdered By: Dr. Wilder hassan on 06-11-2022 pH (U) 7.0 [pH] 5.0 - 8.0 [facility] [place] Urine sediment bacteria coun t by microscopy (number/high power field)Ordered By: Dr. Love on 06-11-2022 Bacteria LM.HPF (Urine sed) [#/Area] 1 /[HPF] None Seen [facility] [place] Urine specific gravity measu rementOrdered By: Dr. Love on 06-11-2022 Specific gravity (U) [Rel density] 1.020 1.002-1.030 [facility] [place] Urobilinogen Auto test strip Ql (U)Ordered By: Dr. Love on 06-11-2022 Urobilinogen Ql (U) Normal mg/dl Normal [facility] Culture, urineOrdered By: Dr Monique Araujo on 05-30-2022 Bacteria identified Cx Nom (U) Culture exhibits no growth. [facility] [place] Absolute lymphocyte countOrd ered By: Dr. Araujo on 05-28-2022 Lymphocytes Auto (Unsp spec) [#/Vol] 1.88 10*3/uL 0.83-4.51 [facility] [place] Basophil percentageOrdered B y: Dr. Araujo on 05-28-2022 Basophils/100 WBC (Bld) 0.3 % 0-1 [facility] [place] Eosinophils/100 WBC (Bld) 0.9 % 0-5 [facility] [place] Neutrophils (Bld) [#/Vol] 6.3 10*3/uL 2.0-7.7 [facility] [place] Neutrophils/100 WBC (Bld) 72.0 % 47-70 [facility] [place] WBC (Bld) [#/Vol] 8.8 10*3/uL 4.4-11.0 [facility] [place] Blood erythrocytes count (nu mber/volume)Ordered By: Dr. Araujo on 05-28-2022 RBC (Bld) [#/Vol] 4.58 10*6/uL 4.2-5.4 [facility] Blood hemoglobin measurement (mass/volume)Ordered By: Dr. Araujo on 05-28-2022 Hemoglobin (Bld) [Mass/Vol] 13.1 g/dL 12.0-15.0 [facility] [place] Blood lymphocytes/100 leukoc ytesOrdered By: Dr. Araujo on 05-28-2022 Lymphocytes/100 WBC (Bld) 21.4 % 19-41 [facility] [place] Blood monocytes/100 leukocyt esOrdered By: Dr. Araujo on 05-28-2022 Monocytes/100 WBC (Bld) 4.8 % 0-10 [facility] [place] Blood platelet mean volumeOr dered By: Dr. Araujo on 05-28-2022 Platelet mean volume (Bld) [Entitic vol] 10.4 fL 6.2-12.0 [facility] [place] Chlamydia trachomatis rRNA d etection by probe and target amplification methodOrdered By: Dr. Araujo on 05-28-2022 C. trachomatis rRNA JESSICA+probe Ql (Unsp spec) Negative Negative [facility] [place] Determination of erythrocyte mean corpuscular volume (MCV)Ordered By: Dr. Araujo on 05-28-2022 MCV (RBC) [Entitic vol] 83.4 fL 81-99 [facility] [place] Gestational diabetes screen 1-hour screen with 50g oral glucose loadOrdered By: Dr. Araujo on 05-28-2022 Glucose 1 Hr post 50 g glucose PO [Mass/Vol] 122 mg/dL 70-140 [facility] [place] HIV 1 and HIV-2 antibody ass ay with HIV-1 p24 antigen detectionOrdered By: Dr. Araujo on 05-28-2022 HIV 1+2 Ab+HIV1 p24 Ag IA Ql Non-Reactive Nonreactive [facility] [place] Hematocrit Auto (Bld) [Volum e fraction]Ordered By: Dr. Araujo on 05-28-2022 Hematocrit (Bld) [Volume fraction] 38.2 % 37-47 [facility] [place] Laboratory - Drug toxicology Ordered By: Dr. Araujo on 05-28-2022 Amphetamines Ql (U) Negative <1000 ng/mL [facility] Benzodiazepines Ql (U) Negative < 200 ng/mL [facility] Cannabinoids Screen Ql (U) Negative < 50 ng/mL [facility] [place] Cocaine Ql (U) Negative < 300 ng/mL [facility] [place] Opiates Ql (U) Negative < 300 ng/mL [facility] [place] Laboratory - Hematology and Cell countsOrdered By: Dr. Araujo on 05-28-2022 Erythrocyte distribution width (RBC) [Entitic vol] 41.1 fL 35.1-43.9 [facility] [place] Erythrocyte distribution width (RBC) [Ratio] 13.4 % 11.6-14.6 [facility] [place] Immature granulocytes/100 WBC (Bld) 0.600 % 0.0-0.9 [facility] [place] Comment on above: IG% - Immature Granu locytes (promyelocytes, myelocytes and metamyelocytes) > 1% indicates that a LEFT SHIFT is Present. MCH (RBC) [Entitic mass] 28.6 pg 27.0-32.0 [facility] [place] Nucleated RBC/100 WBC (Bld) [Ratio] 0 % 0-5 [facility] [place] Laboratory - Microbiology an d Antimicrobial susceptibilityOrdered By: Dr. Araujo on 05-28-2022 N. gonorrhoeae DNA JESSICA+probe Ql (Unsp spec) Negative Negative [facility] [place] Comment on above: Performed at: =[address] [id number] Director: Ursula Alonzo MD, Phone: [phone] [facility] Auto (RBC) [Mass/Vol]Or dered By: Dr. Araujo on 05-28-2022 MCHC (RBC) [Mass/Vol] 34.3 g/dL 32-36 [facility] No Panel InformationOrdered By: Dr. Araujo on 05-28-2022 MDMA (Ecstasy) Screen Negative < 500 ng/mL [facility] Urine Barbiturates Screen Negative < 200 ng/mL [facility] [place] Urine Drug Screen Comment [facility] Comment on above: CONFIRMATORY TESTING FOR ALL POSITIVE URINE DRUG SCREENRESULTS WILL ONLY BE SENT OUT UPON PHYSICIAN ORDER. VISTA Urine Drug Screen methods provide only preliminaryanalytical test results. A more specific alternate chemicalmethod must be used in order to obtain a confirmedanalytical result. Gas chromatography/mass spectrometery(GC/MS) is the preferred confirmatory method. Clinicalconsideration and professional judgement should be appliedto any drug of abuse test result, particularly whenpreliminary positive results are used. URINE TCA TESTING MUST BE ORDERED SEPARATELY. USE TESTMNEMONIC: [facility] Urine Methadone Screen Negative < 300 ng/mL [facility] Hepatitis B Surface Antigen Non-Reactive Nonreactive [facility] [place] Hepatitis C Antibody Non-Reactive Nonreactive [facility] Comment on above: Non Reactive: < 0.8 Equivocal: >/= 0.8 to < 1.0 Reactive: >/= 1.0The CDC recommends that a reactive/equivocal HCV antibody result be followed up by the HCV Nucleic Acid Amplificationtest (968920) Rubella IgG Antibody Reactive Nonreactive [facility] Comment on above: Antibody Results Int erpretation of Immune Status Non Reactive Presumed Non-Immune Equivocal Equivocal Reactive Presumed Immune Platelets bldOrdered By: Dr. Araujo on 05-28-2022 Platelets (Bld) [#/Vol] 239 10*3/uL 150-450 [facility] [place] Serum Treponema species anti body detectionOrdered By: Dr. Araujo on 05-28-2022 Treponema sp Ab Ql (S) Non-Reactive [facility] [place] Urine phencyclidine (PCP) de tectionOrdered By: Dr. Araujo on 05-28-2022 Phencyclidine Ql (U) Negative < 25 ng/mL [facility] No Panel Informationon 08-06 IMPRESSION: No acute radiographic abnormalities seen in the left wrist or left hand. Appraisal Manager: PSCB Transcribe Date/Time: Aug 06 2021 4:32P Dictated by : IRINA MORIN MD This examination was interpreted and the report reviewed and electronically signed by: IRINA MORIN MD on Aug 06 2021 4:37PM [facility] DIVISION OF RADIOLOGY Radiology Study observation (narrative) [facility] No Panel InformationOrdered By: Ccf Provider on 08-06-2021 [facility] XR Hand - left PA and Latera l and Obliqueon 08-06-2021 * * *Final Report* * * DATE OF EXAM: Aug 06 2021 4:31PM WOX 5345 - XR HAND 3V PA/LAT/OBL LT / PROCEDURE REASON: Hand pain, left * * * * Physician Interpretation * * * * EXAM TITLE: XR WRIST 4V PA/LAT/OBL/SCAPH LT, XR HAND 3V PA/LAT/OBL LT EXAM DATE/TIME: 08/06/2021 4:31 PM COMPARISON: None. CLINICAL INDICATION/HISTORY: Fall. TECHNIQUE: PA, lateral, oblique and scaphoid views of left wrist are presented. PA, oblique and lateral views of the left hand are also presented. FINDINGS: No acute fractures or subluxations are noted in the left wrist or left hand. The joint spaces are well preserved. The mineralization of the bones is normal. There is no significant soft tissue swelling. [facility] * * *Final Report* * * DATE OF EXAM: Aug 06 2021 4:31PM WOX 5345 - XR HAND 3V PA/LAT/OBL LT / PROCEDURE REASON: Hand pain, left * * * * Physician Interpretation * * * * EXAM TITLE: XR WRIST 4V PA/LAT/OBL/SCAPH LT, XR HAND 3V PA/LAT/OBL LT EXAM DATE/TIME: 08/06/2021 4:31 PM COMPARISON: None. CLINICAL INDICATION/HISTORY: Fall. TECHNIQUE: PA, lateral, oblique and scaphoid views of left wrist are presented. PA, oblique and lateral views of the left hand are also presented. FINDINGS: No acute fractures or subluxations are noted in the left wrist or left hand. The joint spaces are well preserved. The mineralization of the bones is normal. There is no significant soft tissue swelling. IMPRESSION IMPRESSION: No acute radiographic abnormalities seen in the left wrist or left hand. Appraisal Manager: PSCB Transcribe Date/Time: Aug 06 2021 4:32P Dictated by : IRINA MORIN MD This examination was interpreted and the report reviewed and electronically signed by: IRINA MORIN MD on Aug 06 2021 4:37PM EST [facility] XR Wrist - left 4 Viewson * * *Final Report* * * DATE OF EXAM: Aug 06 2021 4:31PM WOX 5272 - XR WRIST 4V PA/LAT/OBL/SCAPH LT / PROCEDURE REASON: Injury of left wrist, initial encounter * * * * Physician Interpretation * * * * EXAM TITLE: XR WRIST 4V PA/LAT/OBL/SCAPH LT, XR HAND 3V PA/LAT/OBL LT EXAM DATE/TIME: 08/06/2021 4:31 PM COMPARISON: None. CLINICAL INDICATION/HISTORY: Fall. TECHNIQUE: PA, lateral, oblique and scaphoid views of left wrist are presented. PA, oblique and lateral views of the left hand are also presented. FINDINGS: No acute fractures or subluxations are noted in the left wrist or left hand. The joint spaces are well preserved. The mineralization of the bones is normal. There is no significant soft tissue swelling. DIVISION OF RADIOLOGY Provider, [facility] - 08/06/2021 * * *Final Report* * * DATE OF EXAM: Aug 06 2021 4:31PM WOX 5272 - XR WRIST 4V PA/LAT/OBL/SCAPH LT / PROCEDURE REASON: Injury of left wrist, initial encounter * * * * Physician Interpretation * * * * EXAM TITLE: XR WRIST 4V PA/LAT/OBL/SCAPH LT, XR HAND 3V PA/LAT/OBL LT EXAM DATE/TIME: 08/06/2021 4:31 PM COMPARISON: None. CLINICAL INDICATION/HISTORY: Fall. TECHNIQUE: PA, lateral, oblique and scaphoid views of left wrist are presented. PA, oblique and lateral views of the left hand are also presented. FINDINGS: No acute fractures or subluxations are noted in the left wrist or left hand. The joint spaces are well preserved. The mineralization of the bones is normal. There is no significant soft tissue swelling. IMPRESSION IMPRESSION: No acute radiographic abnormalities seen in the left wrist or left hand. Appraisal Manager: Need Fixed Transcribe Date/Time: Aug 06 2021 4:32P Dictated by : IRINA MORIN MD This examination was interpreted and the report reviewed and electronically signed by: IRINA MORIN MD on Aug 06 2021 4:37PM EST [facility] XR Chest PA and Lateralon IMPRESSION: Normal chest. Appraisal Manager: [facility]Wyo[facility] Transcribe Date/Time: Jun 25 2021 4:42P Dictated by : JUANI POLANCO MD This examination was interpreted and the report reviewed and electronically signed by: JUANI POLANCO MD on Jun 25 2021 4:45PM [facility] DIVISION OF RADIOLOGY * * *Final Report* * * DATE OF EXAM: Jun 25 2021 4:32PM WOX 5291 - XR CHEST 2V FRONTAL/LAT / PROCEDURE REASON: Cough * * * * Physician Interpretation * * * * EXAMINATION: CHEST RADIOGRAPH (2 VIEW FRONTAL & LATERAL), 06/25/2021 CLINICAL HISTORY: Cough MQ: XC2_6 EXAM DATE/TIME: 06/25/2021 4:32 PM COMPARISON: None RESULT: Lines, tubes, and devices: None. Lungs and pleura: The lungs are clear. No pleural effusion. No pneumothorax. Cardiomediastinal silhouette: Normal cardiomediastinal silhouette. Bones and soft tissues: Unremarkable. DIVISION OF RADIOLOGY Provider, [facility] - 06/25/2021 * * *Final Report* * * DATE OF EXAM: Jun 25 2021 4:32PM WOX 5291 - XR CHEST 2V FRONTAL/LAT / PROCEDURE REASON: Cough * * * * Physician Interpretation * * * * EXAMINATION: CHEST RADIOGRAPH (2 VIEW FRONTAL & LATERAL), 06/25/2021 CLINICAL HISTORY: Cough MQ: XC2_6 EXAM DATE/TIME: 06/25/2021 4:32 PM COMPARISON: None RESULT: Lines, tubes, and devices: None. Lungs and pleura: The lungs are clear. No pleural effusion. No pneumothorax. Cardiomediastinal silhouette: Normal cardiomediastinal silhouette. Bones and soft tissues: Unremarkable. IMPRESSION IMPRESSION: Normal chest. Appraisal Manager: PSCB Transcribe Date/Time: Jun 25 2021 4:42P Dictated by : JUANI POLANCO MD This examination was interpreted and the report reviewed and electronically signed by: JUANI POLANCO MD on Jun 25 2021 4:45PM EST [facility] Radiology Study observation (narrative) [facility] XR Chest PA and LateralOrder ed By: Ccf Provider on 06-25-2021 [facility] Provider Note - ED v3on Provider Note - ED v3 Provider Note: Chart Review: HISTORY OF PRESENTING ILLNESS ASHLEY is a 21 year old Female and was seen by me at 22-Jun-2021 09:38. Other complaints include: Mrs. Lynn is a 21y/o WF presents with c/o N/D ongoing since eating at [employer] on 06/19/21. She continues to eat hamburger & grilled cheese at her place of work. She denies travel, denies anosmia/dysgeusia or melena/hematochezia. She also mentions her friend, who at with her, is currently being treated at an ER for N/V/D. She also mentions an exacerbation of her lingering cough since 02/2021 dx of JUAN J ESPARZA. She allegedly was not told to f/u with any GP, yet a clear instruction to see Dr. Bhardwaj at her last ER visit. Pt denies hemoptysis, she denies any exertional dyspnea or fever. She denies any active pleuritic or central CP. . The historian is the patient. Triage Information: Most recent Vital Sign Value Date PAST MEDICAL HISTORY ALLERGIES/INTOLERANCES: No Known Allergies HEALTH HISTORY: No documented data. OUTPATIENT MEDICATIONS: Home Medications Review Status for Reconciliation: Complete Med Status: Patient Currently Takes Medications Drug Name: albuterol 90 mcg/inh inhalation aerosol Instructions: 2 puff(s) inhaled every 6 hours Drug Name: brompheniramine/pseudoeph edrine/dextromethorphan 4et-33kd-92fs/5 mL oral syrup Instructions: 5 milliliter(s) orally every 8 hours Drug Name: ondansetron 4 mg oral tablet, disintegrating Instructions: 1 tab(s) orally 3 times a day SIGNIFICANT EVENTS: Past Medical History Description:Hypertension (HTN) PREP PERSON: Is : no Is : no REVIEW OF SYSTEMS CONSTITUTIONAL: Negative for: chills, fever and malaise ENMTNose: POSITIVE for: congestion and discharge Throat/Neck: Negative for: throat pain RESPIRATORY: POSITIVE for: cough Negative for: dyspnea, pleuritic chest pain and wheezing GASTROINTESTINAL: POSITIVE for: diarrhea and nausea; Negative for: abdominal pain and vomiting; MUSCULOSKELETAL: Negative for: pain NEUROLOGICAL: Negative for: dizziness and headache; PHYSICAL EXAM CONSTITUTIONAL: Well appearing, well nourished, awake, alert, oriented to person, place, time/situation and in no apparent distress. HENMT: Head Examination: atraumatic Face: no signs of abnormality Ear: - BILATERAL TM's CLEAR Nose: INFLAMMATION and RHINORRHEA Mouth: ULCERS (palate) Throat: normal pharynx EYES: Clear bilaterally, pupils equal, round and reactive to light. CARDIOVASCULAR: Normal rate, regular rhythm. Heart sounds S1, S2. No murmurs, rubs or gallops. PMI non-displaced. RESPIRATORY: Breath sounds clear and equal bilaterally. recurrent cough/harsh & not productive. GASTROINTESTINAL: Abdomen soft MUSCULOSKELETAL: Spine appears normal, range of motion is not limited, no muscle or joint tenderness. SKIN: Skin normal color for race, warm, dry and intact. CRITICAL CARE VITAL SIGNS: T PRBP SpO2O2(LPM) %FiO2 Method 22-Jun-2021 09:45:[id number] 97[facility] MDM/ED COURSE: 1) Discussed Findings with: patient Data Reviewed: old records and vital signs Conducted Detailed Discussion with Patient and/or Guardian Regarding: need for outpatient follow-up (encouraged she keep her appt. with GP this coming Thursday.) DISPOSITION Diagnosis/Annotation: ED Dx Name:Acute bronchitis, unspecified organism Code:J20.9 Name:Acute gastroenteritis Code:K52.9 Disposition: discharged CONSULT CRITICAL CARE TIME Is this a critically ill patient: no Electronic Signatures: Tucker Vivas (PAC) (Signed 22-Jun-2021 10:45) Authored: HPI, PMH, ROS, PE, Results/Vital Signs, MDM/ED Course, Clinical Impression, Attestation, Chart Review, Scores Last Updated: 22-Jun-2021 10:45 by Tucker Vivas (PAC) Normal [facility] TESTOST,FREE AND TOTALon TESTOSTERONE TOT.LC/MS/MS 23 ng/dL Normal 2-45 [facility] Comment on above: Result Comment: For additional information, please refer to http://education.SOHM/faq/ Vp[email or web address] (This link is being provided for informational/ educational purposes only.) This test was developed and its analytical performance characteristics have been determined by [employer] [place], [place]. It has not been cleared or approved by the U.S. Food and Drug Administration. This assay has been validated pursuant to the CLIA regulations and is used for clinical purposes. Performed By: #### T ESFT #### [employer] [facility] [address] [place], [place] TESTOSTERONE,FREE 3.1 pg/mL Normal 0.1-6.4 [facility] Comment on above: Result Comment: This test was developed and its analytical performance characteristics have been determined by [employer] [place], [place]. It has not been cleared or approved by the U.S. Food and Drug Administration. This assay has been validated pursuant to the CLIA regulations and is used for clinical purposes. Performed By: #### T ESFT #### [employer] [facility] [address] [place], [place] DHEA SULFATEon 06-15-2021 DHEA SULFATE 309 ug/dL Normal 65 - 395 [facility] Comment on above: Result Comment: ALEKSANDR JIANG-BASED REFERENCE RANGES: PUBERTAL (ELLIS) STAGE MALE FEMALE I 5 - 265 5 - 125 II 15 - 380 15 - 150 III 60 - 505 20 - 535 IV 65 - 560 35 - 485 V 165 - 500 75 - 530 Biotin interference may cause falsely elevated results. Patients taking a Biotin dose of up to 5 mg/day should refrain from taking Biotin for 24 hours before sample collection. Providers may contact their local laboratory for further information. Performed By: #### D DONNA #### [facility] [address] [place] [address] PROLACTINon 06-15-2021 PROLACTIN 5.5 ug/L Normal 3.0 - 20.0 [facility] Comment on above: Performed By: #### P ROL #### [facility] [address] [place] [address] CBCon 06-14-2021 NUCLEATED RBC 0.2 /100 WBC Normal [facility] Comment on above: Performed By: #### C BC #### [address] [address] Erythrocyte distribution width (RBC) [Ratio] 14.5 % Normal 11.5 - 14.5 [facility] Comment on above: Performed By: #### C BC #### [address] [address] Hematocrit (Bld) [Volume fraction] 42.0 % Normal 36.0 - 46.0 [facility] Comment on above: Performed By: #### C BC #### [address] [address] Hemoglobin (Bld) [Mass/Vol] 13.7 g/dL Normal 12.0 - 16.0 [facility] Comment on above: Performed By: #### C BC #### [address] [address] MCHC (RBC) [Mass/Vol] 32.5 g/dL Normal 32.0 - 36.0 [facility] Comment on above: Performed By: #### C BC #### [address] [address] MCV (RBC) [Entitic vol] 86 fL Normal 80 - 100 [facility] Comment on above: Performed By: #### C BC #### [address] [address] Platelets (Bld) [#/Vol] 295 10*3/uL Normal 150 - 450 [facility] Comment on above: Performed By: #### C BC #### [address] [address] RBC 4.90 x10E12/L Normal 4.00 - 5.20 [facility] Comment on above: Performed By: #### C BC #### [address] [address] WBC (Bld) [#/Vol] 7.8 10*3/uL Normal 4.4 - 11.3 [facility] Comment on above: Performed By: #### C BC #### [address] [address] DHEA Sulfate, Serumon 2020 DHEA-S [Mass/Vol] 309 ug/dL 65 - 395 [employer] [facility] [place] Work Phone: Comment on above: MATURITY-BASED REFER ENCE RANGES: PUBERTAL (ELLIS) STAGE MALE FEMALE I 5 - 265 5 - 125 II 15 - 380 15 - 150 III 60 - 505 20 - 535 IV 65 - 560 35 - 485 V 165 - 500 75 - 530 Biotin interference may cause falsely elevated results. Patients taking a Biotin dose of up to 5 mg/day should refrain from taking Biotin for 24 hours before sample collection. Providers may contact their local laboratoryfor further information. Hemoglobin A1Con 06-14-2021 Glucose [Mass/Vol] 105 mg/dL Normal [facility] [place] Work Phone: Comment on above: Performed By: #### H BA1E #### [address] [address] HbA1c (Bld) [Mass fraction] 5.3 % Normal [facility] [place] Work Phone: Comment on above: Diagnosis of Diabete s-Adults Non-Diabetic: < or = 5.6% Increased risk for developing diabetes: 5.7-6.4% Diagnostic of diabetes: > or = 6.5%. Monitoring of Diabetes Age (y) Therapeutic Goal (%) Adults: >18 <7.0 Pediatrics: 13-18 <7.5 7-12 <8.0 0- 6 7.5-8.5 [employer]. Diabetes Care 33(S1), Jul 2009. Result Comment: Diag nosis of Diabetes-Adults Non-Diabetic: < or = 5.6% Increased risk for developing diabetes: 5.7-6.4% Diagnostic of diabetes: > or = 6.5% . Monitoring of Diabetes Age (y) Therapeutic Goal (%) Adults: >18 <7.0 Pediatrics: 13-18 <7.5 7-12 <8.0 0- 6 7.5-8.5 [employer]. Diabetes Care 33(S1), Jul 2009. Performed By: #### H BA1E #### [id number] [place] [address] Laboratory - Chemistry and C hemistry - challengeon 06-14-2021 Testosterone [Mass/Vol] 23 ng/dL 2-45 [facility] [place] Work Phone: Comment on above: For additional infor mation, please refer tohttp://education.Descubre.la.[employer]/faq/TotalTestosteroneLC [email or web address](This link is being provided for informational/educational purposes only.) This test was developed and its analytical performancecharacteristics have been determined by [employer] [place], [place]. It hasnot been cleared or approved by the U.S. Food and DrugAdministration. This assay has been validated pursuantto the CLIA regulations and is used for clinicalpurposes. Testosterone Free [Mass/Vol] 3.1 pg/mL 0.1-6.4 [facility] [place] Work Phone: Comment on above: This test was develo ped and its analytical performancecharacteristics have been determined by [employer] [place], [place]. It hasnot been cleared or approved by the U.S. Food and DrugAdministration. This assay has been validated pursuantto the CLIA regulations and is used for clinicalpurposes. TSH Qn 2.22 m[IU]/L See Below [place] [address] [employer] Work Phone: Comment on above: Reference Range: 0.4 4 - 3.98 TSH testing is performed using different testing methodology at [facility] than at other [facility]. Direct result comparisons should only be made within the same method. Laboratory - Hematology and Cell countson 06-14-2021 Erythrocyte distribution width (RBC) [Ratio] 14.5 % See Below [place] [address] [employer] Work Phone: Comment on above: Reference Range: 11. 5 - 14.5 Hematocrit (Bld) [Volume fraction] 42.0 % See Below [place] [address] [employer] Work Phone: Comment on above: Reference Range: 36. 0 - 46.0 Hemoglobin (Bld) [Mass/Vol] 13.7 g/dL See Below [place] [address] [employer] Work Phone: Comment on above: Reference Range: 12. 0 - 16.0 MCHC (RBC) [Mass/Vol] 32.5 g/dL See Below [place] [address] [employer] Work Phone: Comment on above: Reference Range: 32. 0 - 36.0 MCV (RBC) [Entitic vol] 86 fL 80 - 100 [place] [address] [employer] Work Phone: Platelets (Bld) [#/Vol] 295 10*3/uL 150 - 450 [place] [address] [employer] Work Phone: RBC (Bld) [#/Vol] 4.90 {x10E12/L} See Below [place] [address] [employer] Work Phone: Comment on above: Reference Range: 4.0 0 - 5.20 WBC (Bld) [#/Vol] 7.8 10*3/uL 4.4 - 11.3 [facility] [employer] Work Phone: No Panel Informationon 06-14 Normal [facility] [place] Work Phone: 0.2 {/100_WBC} [facility] [place] Work Phone: Prolactin, Serumon Prolactin [Mass/Vol] 5.5 ug/L 3.0 - 20.0 [facility] [place] Work Phone: TSH WITH REFLEX TO FREE T4 I F ABNORMALon 06-14-2021 TSH Qn 2.22 m[IU]/L Normal 0.44 - 3.98 [facility] Comment on above: Result Comment: TSH testing is performed using different testing methodology at [facility] than at other [facility]. Direct result comparisons should only be made within the same method. Performed By: #### T [facility] #### [place] [address] LMPon 06-10-2021 Last menstrual period start date 20May2021 [facility] [place] Work Phone: Laboratory - Cytologyon 05-21 Cytology report Cyto stain.thin prep Doc (Cvx/Vag) [facility] [place] Work Phone: PREP PERSON - Office Visiton 05-21 PREP PERSON - Office Visit Diagnoses/Problems Assessed Menorrhagia with irregular cycle (626.2) (N92.1) Orders Complete Blood Count; Status:Active; Requested for:10Jun2021; DHEA Sulfate, Serum; Status:Active; Requested for:10Jun2021; Hemoglobin A1C; Status:Active; Requested for:10Jun2021; Prolactin, Serum; Status:Active; Requested for:10Jun2021; Testosterone Free + Total; Status:Active; Requested for:10Jun2021; TSH WITH REFLEX TO FREE T4 IF ABNORMAL; Status:Active; Requested for:10Jun2021; Ultrasound Pelvis Transabdominal With Transvaginal; Status:Active; Requested for:14Jun2021; Radiologist to Determine Optimal Study : Y What are the patient's signs and symptoms? : Menorrhagia\f0 PAP [employer], Cytology; Status:In Progress - Specimen/Data Collected,Retrospective Authorization; Done: 10Jun2021 Last Menstrual Period (LMP): : 05/20/2021 PAP - Site : CERVICAL Cytology Order : ThinPrep PAP, Screening, HPV Reflex - Include Genotyping Provider Impressions Impression:. Patient is a 21-year-old who comes in but does not state why she is here. Patient has never had a [employer] exam so exam and Pap smear were done exam was benign. History of irregular periods offered a work-up and patient was agreeable we will order blood work and sonogram and have patient return in 2 weeks to discuss results Infertility patient is unsure if she desires evaluation and work-up for this. Chief Complaint Patient is here for her yearly exam and pap test. LMP- 05/20/2021. Patient does do self breast exams and states she has been trying to get for 2 years with no success. History of Present IllnessPatient is a 21-year-old who states she does not know why she is here. Patient states that her psychiatrist sent her to us. Patient reports menarche at age 12. Patient reports that her periods have never been regular. She reports her menses coming come between 12 and 36 days and usually complete from 3 to 20 days. She reports that she has an iron deficiency. She also reports that she has some residual respiratory problems as a result of Covid. Patient states she has been trying to conceive for 2 years patient denies any history of sexually transmitted diseases Review of Systems Constitutional: Denies any significant change in weight. Cardiovascular: Denies any chest pain or palpitation. Respiratory: Reports chronic shortness of breath secondary to Covid. Gastrointestinal: Denies any change in bowel habits but reports occasional abdominal pain. Genitourinary: as noted in HPI. Psychiatric: Reports that she has been having trouble sleeping for the last 4 years. Denies any recent change in her mood. Active Problems Problems COVID-19 (079.89) (U07.1) Pneumonia (486) (J18.9) Reactive airway disease (493.90) (J45.909) Past Medical History Problems History of Menstruation age 12 Surgical History Problems No history of surgery Family History Paternal Grandmother Family history of type 2 diabetes mellitus (V18.0) (Z83.3) Social History Problems Coffee Never smoker No advance directives (V49.89) (Z78.9) No alcohol use No illicit drug use Sexually active Allergies Medication No Known Drug Allergies Recorded By: Christa Meade; 03/27/2021 1:43:46 PM Current Meds Medication NameInstruction Albuterol Sulfate HFA 108 (90 Base) MCG/ACT Inhalation Aerosol SolutionINHALE 2 PUFFS Every 6 hours PRN FOR WHEEZING Iron TABS Multi-Vitamins TABS Vitals Vital Signs Recorded: 10Jun2021 01:14PM Zfzhudzgxas20.2 F Zwstezkg207 Ijgxucpvl79 Height5 ft 11 in Cdhdzk423 lb BMI Hegdjhfsky98.1 kg/m2 BSA Calculated2.38 [id number] Physical Exam Constitutional: Healthy-appearing female in no physical distress. Head and Face: No gross lesions. Neck: Supple without adenopathy. Cardiovascular: Regular rate and rhythm. Pulmonary: Clear to auscultation. Chest: No masses discharge or retraction or skin changes noted. Abdomen: Soft nontender no masses. External genitalia revealed no lesions the vagina was well estrogenized the cervix was nonfriable uterus and adnexa were normal size nontender Musculoskeletal: Good mobility of all extremities. Psychiatric: Appropriately oriented, confrontational and dismissive affect very evasive in her answers. Signatures Electronically signed by : Barbara Cao DO; Jun 10 2021 1:35PM EST (Author) Normal [employer] Office Visiton 04-11-2021 Follow-up visit Diagnoses/Problems COVID-19 (079.89) (U07.1) Pneumonia (486) (J18.9) Reactive airway disease (493.90) (J45.909) Orders COVID-19, Pneumonia Start: predniSONE 10 MG Oral Tablet; TAKE 5 TABLET Daily 5 tabs daily x 2 days then decrease by 1 tablet every 2 days COVID-19, Reactive airway disease Start: Albuterol Sulfate HFA 108 (90 Base) MCG/ACT Inhalation Aerosol Solution; INHALE 2 PUFFS Every 6 hours PRN FOR WHEEZING Pneumonia, Reactive airway disease Start: Doxycycline Hyclate 100 MG Oral Capsule; TAKE 1 CAPSULE EVERY 12 HOURS DAILY Patient Discussion/Summary Prednisone taper and doxycycline for 7 days. Refill on albuterol. Follow up as needed. Chief Complaint Pt presents with c/o white, cloudy productive cough s/p positive COVID test on 03/12/21 with pneumonia History of Present IllnessShe presents today for follow up of COVID pneumonia. She was feeling better, now back at work. Feeling worse. Pulse ox has been okay, with running at work will drop to 93%, Sputum changed from clear to white cloudy. No fever, sweats, and chills. has a fever. No N/V. Chest feels tight around sides. Using inhaler, it does not help. Has had cephalexin, z pack and prednisone. Was doing better until this weekend. Review of Systems General: Negative except HPI Cardiovascular: Negative except HPI Respiratory: Negative except HPI Gastrointestinal: Negative except HPI : Negative except HPI Neurological: Negative except HPI Active Problems COVID-19 (079.89) (U07.1) Pneumonia (486) (J18.9) Surgical History No history of surgery Family History Family history of type 2 diabetes mellitus (V18.0) (Z83.3) Social History Coffee Never smoker No advance directives (V49.89) (Z78.9) No alcohol use No illicit drug use Allergies No Known Drug Allergies Recorded By: Christa Meade; 03/27/2021 1:43:46 PM Current Meds Medication NameInstruction Albuterol 90 MCG/ACT AERS Vitals Vital Signs Recorded: [id number] 01:01PM Annogoirfod34.4 F Heart Jhgx526 Dikmjnjw298, LUE Bxhcvvxvc80, LUE Height5 ft 11 in Nnjsjm223 lb 6 oz BMI Yvjieddypm74.32 kg/m2 BSA Calculated2.36 Tobacco Useb) No Fall Screeninga) No falls within the last year O2 Aytophyutj86 Physical Exam General: well nourished, in no distress Neck: No lymphadenopathy, thyromegaly or carotid bruit. Supple and normal ROM Cardiovascular: RRR, no Murmur, No edema Respiratory: Clear lungs throughout, frequent dry bronchial cough, breathing treatment given, pt feels more open. Lung sounds are the same Abdomen: No tenderness or masses. Normal bowel sounds Neuro: Alert and oriented x 3 Musculoskeletal: Normal gait Signatures Electronically signed by : SYLVIA Gtz; Apr 11 2021 1:48PM EST (Author) Normal [facility] Tobacco Screening.on 021 Fall risk assessment a) No falls within the last year [facility] Work Phone: Tobacco use status [facility] b) No [facility] Work Phone: Office Visiton 03-27-2021 Follow-up visit Diagnoses/Problems COVID-19 (079.89) (U07.1) Pneumonia (486) (J18.9) Orders COVID-19, Pneumonia Xray Chest 2 View PA + Lateral; Status:Hold For - Scheduling; Requested for:03May2021; Radiologist to Determine Optimal Study : Y What are the patient's signs and symptoms? : RML and RLL pneumonia follow up SocHx: Never smoker Tobacco Use Screening; Status:Complete; Done: 27Mar2021 Patient Discussion/Summary Recommend a few more days of rest return to work next week. As long as her oxygen level is staying above 95%. Continue albuterol use as needed. Chief Complaint Pt presents to establish new PCP; [facility] ER f/u for positive COVID with symptoms starting on 03/15/21, and pneumonia. History of Present IllnessShe presents today for follow-up from Covid. She has been in the emergency room twice. She tested positive on March 17. Her symptoms started on March 08. She did have pneumonia and some shortness of breath. She had a low oxygen level. Still using albuterol at home. Pulse ox above 95% today for the first time. She is still coughing quite a bit and using her inhaler. She is still having some shortness of breath with activity she has started increasing her activity level. Her job is very exertional and she feels that she cannot return to work at this time. Review of Systems General: Negative except HPI Cardiovascular: Negative except HPI Respiratory: Negative except HPI Gastrointestinal: Negative except HPI : Negative except HPI Neurological: Negative except HPI Active Problems COVID-19 (079.89) (U07.1) Pneumonia (486) (J18.9) Surgical History No history of surgery Family History Family history of type 2 diabetes mellitus (V18.0) (Z83.3) Social History Coffee Never smoker No advance directives (V49.89) (Z78.9) No alcohol use No illicit drug use Allergies No Known Drug Allergies Recorded By: Christa Meade; 03/27/2021 1:43:46 PM Vitals Vital Signs Recorded: 27Mar2021 01:40PM Eyoowyehakh77.8 F Heart Mkcg917 Sfmleise494, LUE Bdcjmwrnm98, LUE Height5 ft 11 in Nwzavv198 lb 2 oz BMI Zajsbwvffq96.75 kg/m2 BSA Calculated2.32 Tobacco Useb) No Fall Screeninga) No falls within the last year O2 Uqseblrmvl18 Physical Exam General: vitals reviewed. Appears m well, no distress ENT: TM with good light reflex, no redness or bulging. Pharynx no erythema or exudate. Nasal turbinates nonedematous. Respiratory: dry cough, Lungs are clear. Normal rate. Neck: No lymphadenopathy or tenderness Cardiac: Normal RR Head: No facial tenderness Abdomen: Normal bowel sounds in all quadrants. Mild tenderness lower abdomen. Signatures Electronically signed by : SYLVIA Gtz; Mar 27 2021 3:55PM EST (Author) Normal [facility] Tobacco Screening.on 021 Fall risk assessment a) No falls within the last year [facility] [facility] Work Phone: Tobacco use status CP b) No [facility] [facility] Work Phone: No Panel Informationon 03-23 [email or web address] 1:808 [email or web address] ?RetrieveTestByDateTime?P vgiplmWA=[id number]&Date=0 10-26-2020&Time=11%3a39%3a 36%3a00&TestType=ECG&Site =14&OutputType=PDF&Ext=PD F [facility] Work Phone: Please see physicia n note for formal interpretation confirmed by Scribe [facility] [facility] Work Phone: Normal [facility] [facility] Work Phone: [phone] [facility] [facility] Work Phone: [phone] [facility] [facility] Work Phone: [phone] [facility] [facility] Work Phone: [phone] [facility] [facility] Work Phone: [phone] [facility] [facility] Work Phone: [phone] 1 [facility] [facility] Work Phone: [phone] 1 [facility] [facility] Work Phone: [phone] 1 [facility] [facility] Work Phone: [phone] [facility] [facility] Work Phone: [phone] [facility] [facility] Work Phone: [phone] [facility] [facility] Work Phone: [phone] 1 [facility] [facility] Work Phone: [phone] [facility] [facility] Work Phone: [phone] [facility] [facility] Work Phone: Provider Note - ED v3on 09-0 Provider Note - ED v3 Provider Note: Chart Review: HISTORY OF PRESENTING ILLNESS ASHLEY is a 20 year old Female and was seen by me at 23-Mar-2021 11:41 for a chief complaint of shortness of breath (To ED per wheelchair c/o SOB and low SpO2 at home with activity. Pt was diagnosed with COVID-19 on 03/12/21. Her workplace wants her evaluated prior to returning to work.)(1). Triage Information: Most recent Vital Sign Value Date Temp (F): 97.8 03-23-2021 11:42 Temp (C): 36.6 03-23-2021 11:42 Heart Rate (beats/min): 78 03-23-2021 11:42 Respirations (breaths/min): 18 03-23-2021 11:42 SpO2 (%): 97 03-23-2021 11:42 BP Systolic (mm Hg): 116 03-23-2021 11:42 BP Diastolic (mm Hg): 72 03-23-2021 11:42 PAST MEDICAL HISTORY ALLERGIES/INTOLERANCES: No Known Allergies HEALTH HISTORY: No documented data. OUTPATIENT MEDICATIONS: Home Medications Review Status for Reconciliation: N/A Med Status: Patient Currently Takes Medications Drug Name: doxycycline hyclate 100 mg oral tablet Instructions: 1 tab(s) orally 2 times a day Drug Name: Keflex 500 mg oral capsule Instructions: 1 cap(s) orally every 6 hours Drug Name: mupirocin 2% topical ointment Instructions: Apply topically to affected area 3 times a day Drug Name: Ultram 50 mg oral tablet Instructions: 1 tab(s) orally every 6 hours Drug Name: azithromycin 250 mg oral tablet Instructions: Take 2 tab(s) orally once a day for day one and then 1 tab daily for days two through five Drug Name: ondansetron 4 mg oral tablet, disintegrating Instructions: 1 tab(s) orally 3 times a day Drug Name: albuterol 90 mcg/inh inhalation aerosol Instructions: 2 puff(s) inhaled every 6 hours Drug Name: predniSONE 20 mg oral tablet Instructions: 3 tab(s) orally once a day SIGNIFICANT EVENTS: Past Medical History Description:Hypertension (HTN) MDM MDM/ED COURSE: PMH: Reviewed PSH: Reviewed Social History: Reviewed. Allergies reviewed. HPI: This is a 20 year old female with history of HTN who presents to the ED today with complaints of needing a work note. Patient states she was diagnosed Covid positive on 03/12. She was treated with antibiotics, steroids, inhaler. She states that she has a pulse ox at home and she has been monitoring this. She drops to 92 to 93% when ambulating. She feels that she is not ready to go back to work but her work states that she needs to come back and otherwise needs a work note. She is unvaccinated against Covid. She received monoclonal antibodies previously. REVIEW OF SYSTEMS: All other systems reviewed and negative except as listed in HPI. PHYSICAL EXAM: GENERAL: Vitals noted, no distress. Alert and oriented x 3. Non-toxic. EENT: TMs clear. Posterior oropharynx unremarkable. EOMI, no nystagmus noted. NECK: Supple. No masses. No midline tenderness. No meningeal signs. CARDIAC: Regular rate, rhythm. No murmurs rubs or gallops. No JVD. PULMONARY: Lungs clear and equal bilaterally. No wheezes rales or rhonchi. No respiratory distress. + cough. EXTREMITIES: No peripheral edema. SKIN: No rash. Warm, dry, and intact. NEURO: No focal neurologic deficits. ED COURSE: This patient was seen and examined by myself independently. She is ambulated in the room with a pulse ox of 92%. She's not hypoxic requiring admission. She's referred to Dr Bhardwaj, medicine recreation therapist, for establishment and followup care/return to work. Given a work note to be off until symptoms/oxygenation with exertion improves. She is discharged home in a stable condition with computer instructions given and is encouraged to return to the ER for any new or worsening symptoms. DIAGNOSTIC IMPRESSION: #1 covid 19 PROGRESS NOTE EKG Post-Procedure Diagnosis: EKG INTERPRETATION: Impression: EKG interpreted by ED physician shows SR with rate of 88. Normal axis. NH interval 144. QRS interval 90. QT interval 358. QTc interval 433. Non-specific ST-T wave changes. No acute ischemia or injury pattern. DISPOSITION Diagnosis/Annotation: ED Dx Name:COVID Code:U07.1 Disposition: discharged CONSULT CRITICAL CARE TIME Is this a critically ill patient: no Electronic Signatures: Eliana Salcido (PROJECT CONTROL OFFICER-SPORTS STATISTICIAN) (Signed 23-Mar-2021 12:57) Authored: HPI, PMH, MDM/ED Course, Procedure, Clinical Impression, Attestation, Chart Review, Scores Last Updated: 23-Mar-2021 12:57 by Eliana Salcido (PROJECT CONTROL OFFICER-SPORTS STATISTICIAN) References: 1. Data Referenced From Triage - ED 23-Mar-2021 11:42 Normal [facility] Triage - EDon 03-23-2021 Triage - ED Quick Triage: Are You no Have You Given In The Last 6 Weeksno Are You Currently Breastfeedingno The patient and/or guardian verbally acknowledges placement for services into the following (when Urgent Care Service hours are operating):emergency department Chart Review: ARRIVAL INFORMATION Mode of Arrival: private vehicle CHIEF COMPLAINT ASHLEY LYNN is a Female patient with a chief complaint of shortness of breath (To ED per wheelchair c/o SOB and low SpO2 at home with activity. Pt was diagnosed with COVID-19 on 03/12/21. Her workplace wants her evaluated prior to returning to work.). Triage Date/Time: 23-Mar-2021 11:42 LOKI: 3 Pain Rating (0-10): 4 = Moderate Pain location: chest Vital Signs: Temperature: 97.8F ( 36.6C) taken oral Blood Pressure: 116/72 Mean: Heart Rate: 78 Respiratory Rate: 18 Pulse Oximetry: 97% on room air, no respiratory support. Weight: 231.4 pounds. Calculated 105.0 kg. Neyda Coma Scale: Best Eye Response: (E4) spontaneous Best Motor Response: (M6) obeys commands Best Verbal Response: (V5) oriented Neyda Score: 15 Cough lasting greater than 3 weeks: no Allergies: no Mask applied: yes Patient has homicidal thoughts: no Symptoms Are POSITIVE For: chest pain, cough and dyspnea. Symptoms Are Negative For: body aches, chills, congestion, diaphoresis, fever, headache and malaise. Risk Screens Suicide Risk Screen In the Past Month: Have you wished you were or wished you could go to sleep and not wake up no In the Past Month: Have you had any actual thoughts of killing yourself no In Your Lifetime: Have you ever done anything, started to do anything, or prepared to do anything to end your life no Us Fall Scale Screening Has the patient fallen before (or is the patient in the ED as a result of a fall) has not had a fall Does the patient have an impaired gait does not have impaired gait Is the patient cognitively impaired not cognitively impaired Interventions: Magen Fall Interventions: LOW INTERVENTIONS: *patient oriented to surroundings and call system, * patient/family falls education completed and documented, *patients fall status communicated during bedside handoff, *whiteboard updated, *mode of toileting discussed with patient, *bed in low position with brakes locked, *call light in reach, * non-skid footwear TRAVEL HISTORY Travel History Coronavirus Screening: COVID positive 14 or more days ago Travel Exposure History: NO travel to International locations in the past 30 days PAIN Pain Scale Used: SHAGUFTA Pain Rating (0-10): 4 = Moderate Past Medical History: Past Medical History Reviewedyes Electronic Signatures: Ashlee Norris (RN) (Signed 23-Mar-2021 11:46) Entered: Risk Screens, Pain, Travel History, Chart Review, Scores, Past Medical History Authored: Quick Triage, Risk Screens, Pain, Travel History, Chart Review, Scores, Past Medical History Last Updated: 23-Mar-2021 11:46 by Ashlee Norris (RN) [facility] ARTERIAL BLOOD GASon 03-17- 021 BASE EXCESS-BLOOD -4.4 mmol/L Low -2.0 - 3.0 [facility] Comment on above: Performed By: #### B LGA1 #### [place] [address] BICARB, CALCULATED 18.6 mmol/L Low 22.0 - 26.0 [facility] Comment on above: Performed By: #### B LGA1 #### [place] [address] FIO2 21 % Normal [facility] Comment on above: Performed By: #### B LGA1 #### [place] [address] Oxygen (Bld) [Partial pressure] 81 mm[Hg] Low 85 - 95 [facility] Comment on above: Performed By: #### B LGA1 #### [place] [address] PCO2 28 mmHg Low 38 - 42 [facility] Comment on above: Performed By: #### B LGA1 #### [place] [address] pH (Bld) 7.43 [pH] High 7.38 - 7.42 [facility] Comment on above: Performed By: #### B LGA1 #### [place] [address] SITE OF ARTERIAL PUNCTURE R RADIAL [facility] Comment on above: Performed By: #### B LGA1 #### [address] [address] SO2 98 % Normal 94 - 100 [facility] Comment on above: Performed By: #### B LGA1 #### [address] [address] BASIC METABOLIC PANELon 08-2 Anion gap [Moles/Vol] 18 mmol/L Normal 10 - 20 [facility] Comment on above: Performed By: #### B MP #### [address] [address] Calcium [Mass/Vol] 8.5 mg/dL Low 8.6 - 10.3 [facility] Comment on above: Performed By: #### B MP #### [address] [address] Chloride [Moles/Vol] 103 mmol/L Normal 98 - 107 [facility] Comment on above: Performed By: #### B MP #### [address] [address] Creatinine [Mass/Vol] 0.82 mg/dL Normal 0.50 - 1.05 [facility] Comment on above: Performed By: #### B MP #### [address] [address] GFR- AM. >60 Normal >60 [facility] Comment on above: Result Comment: CALC ULATIONS OF ESTIMATED GFR ARE PERFORMED USING THE MDRD STUDY EQUATION FOR THE IDMS-TRACEABLE CREATININE METHODS. CLIN CHEM 2007;53:766-72 Performed By: #### B MP #### [address] [address] GFR-NON AM. >60 Normal >60 [facility] Comment on above: Performed By: #### B MP #### [address] [address] Glucose [Mass/Vol] 92 mg/dL Normal 74 - 99 [facility] Comment on above: Performed By: #### B MP #### [address] [address] HCO3 (Bld) [Moles/Vol] 18 mmol/L Low 21 - 32 [facility] Comment on above: Performed By: #### B MP #### [address] [address] Potassium [Moles/Vol] 3.4 mmol/L Low 3.5 - 5.3 [facility] Comment on above: Result Comment: MILD HEMOLYSIS DETECTED. The result may be falsely elevated due to hemolysis or other interferents. Clinical correlation is recommended. Repeat testing may be considered. Performed By: #### B MP #### [address] [address] Sodium [Moles/Vol] 136 mmol/L Normal 136 - 145 [facility] Comment on above: Performed By: #### B MP #### [address] [address] Urea nitrogen [Mass/Vol] 13 mg/dL Normal 6 - 23 [facility] Comment on above: Performed By: #### B MP #### [address] [address] CBC AND DIFFERENTIALon 03-17 Basophils (Bld) [#/Vol] 0.00 10*3/uL Normal 0.00 - 0.10 [facility] Comment on above: Performed By: #### H CGS #### [address] [address] Basophils/100 WBC (Bld) 0.4 % Normal 0.0 - 2.0 [facility] Comment on above: Performed By: #### H CGS #### [address] [address] Eosinophils (Bld) [#/Vol] 0.00 10*3/uL Normal 0.00 - 0.70 [facility] Comment on above: Performed By: #### H CGS #### [address] [address] Eosinophils/100 WBC (Bld) 0.1 % Normal 0.0 - 6.0 [facility] Comment on above: Performed By: #### H CGS #### [facility] [address] Erythrocyte distribution width (RBC) [Ratio] 12.9 % Normal 11.5 - 14.5 [facility] Comment on above: Performed By: #### H CGS #### [address] [address] Hematocrit (Bld) [Volume fraction] 41.4 % Normal 36.0 - 46.0 [facility] Comment on above: Performed By: #### H CGS #### [address] [address] Hemoglobin (Bld) [Mass/Vol] 13.6 g/dL Normal 12.0 - 16.0 [facility] Comment on above: Performed By: #### H CGS #### [address] [address] Lymphocytes (Bld) [#/Vol] 1.00 10*3/uL Low 1.20 - 4.80 [facility] Comment on above: Performed By: #### H CGS #### [address] [address] Lymphocytes/100 WBC (Bld) 25.4 % Normal 13.0 - 44.0 [facility] Comment on above: Performed By: #### H CGS #### [address] [address] MCHC (RBC) [Mass/Vol] 32.7 g/dL Normal 32.0 - 36.0 [facility] Comment on above: Performed By: #### H CGS #### [address] [address] MCV (RBC) [Entitic vol] 84 fL Normal 80 - 100 [facility] Comment on above: Performed By: #### H CGS #### [address] [address] Monocytes (Bld) [#/Vol] 0.20 10*3/uL Normal 0.10 - 1.00 [facility] Comment on above: Performed By: #### H CGS #### [address] [address] Monocytes/100 WBC (Bld) 5.7 % Normal 2.0 - 10.0 [facility] Comment on above: Performed By: #### H CGS #### [address] [address] Neutrophils (Bld) [#/Vol] 2.70 10*3/uL Normal 1.20 - 7.70 [facility] Comment on above: Result Comment: Perc ent differential counts (%) should be interpreted in the context of the absolute cell counts (cells/L). Performed By: #### H CGS #### [address] [address] Neutrophils/100 WBC (Bld) 68.4 % Normal 40.0 - 80.0 [facility] Comment on above: Performed By: #### H CGS #### [address] [address] NUCLEATED RBC 0.4 /100 WBC Normal [facility] Comment on above: Performed By: #### H CGS #### [address] [address] Platelets (Bld) [#/Vol] 202 10*3/uL Normal 150 - 450 [facility] Comment on above: Performed By: #### H CGS #### [address] [address] RBC 4.96 x10E12/L Normal 4.00 - 5.20 [facility] Comment on above: Performed By: #### H CGS #### [address] [address] WBC (Bld) [#/Vol] 3.9 10*3/uL Low 4.4 - 11.3 [facility] Comment on above: Performed By: #### H CGS #### [address] [address] CORONAVIRUS 2019 BY PCRon SARS-CoV-2 (COVID-19) RNA JESSICA+probe Ql (Unsp spec) Detected Abnormal Not Detected [facility] Comment on above: Order Comment: TEST URINALYSIS WITH CULTURE IF INDICATED WAS CANCELLED, 12/24/2020 23:06 DUPLICATE. Result Comment: . This test has received FDA Emergency Use Authorization (EUA) and has been verified by [facility]. This test is only authorized for the duration of time that circumstances exist to justify the authorization of the emergency use of in vitro diagnostic tests for the detection of SARS-CoV-2 virus and/or diagnosis of COVID-19 infection under section 564(b)(1) of the Act, 21 U.S.C. 360bbb-3(b)(1), unless the authorization is terminated or revoked sooner. [facility] is certified under CLIA-88 as qualified to perform high complexity testing. Testing is performed in the [facility] laboratory located at [address] [place] [address]. SARS-CoV-2/Flu/RSV Multiplex Test: Fact sheet for providers: https://www.fda.gov/media/715549/download Fact sheet for patients: https://www.fda.gov/media/029095/download Called- RB SHAYLEE Christensen , 03/17/2021 12:48 Performed By: #### U ARFX #### [place] [address] Lab Specimen Source Nasal, Nasopharyngeal [facility] Comment on above: Order Comment: TEST URINALYSIS WITH CULTURE IF INDICATED WAS CANCELLED, 12/24/2020 23:06 DUPLICATE. Performed By: #### U ARFX #### [place] [address] DATE OF SYMPTOM ONSET [[id number]]? [id number] [facility] Comment on above: Order Comment: TEST URINALYSIS WITH CULTURE IF INDICATED WAS CANCELLED, 12/24/2020 23:06 DUPLICATE. Performed By: #### U ARFX #### [place] [address] CT ANGIO CHEST FOR PEon 02-18 CT ANGIO CHEST FOR PE Patient Name: ASHLEY LYNN STUDY: CT ANGIO CHEST FOR PE; 03/17/2021 2:20 pm INDICATION: SOB. Positive COVID-19 infection. COMPARISON: None ACCESSION NUMBER(S): [id number] ORDERING CLINICIAN: ELIANA JAVIER TECHNIQUE: Helical data acquisition of the chest was obtained following intravenous contrast material, 90 mL Isovue 370. Images were reformatted in coronal and sagittal planes. Axial and coronal MIP images were created and reviewed. FINDINGS: POTENTIAL LIMITATIONS OF THE STUDY: Pulsation and breathing motion artifacts. HEART AND VESSELS: No discrete filling defects within the main pulmonary artery or its branches. Main pulmonary artery and its branches are normal in caliber. The thoracic aorta is of normal course and caliber. No coronary artery wall calcifications.The study is not optimized for evaluation of coronary arteries. The cardiac chambers are not enlarged. No evidence of pericardial effusion. MEDIASTINUM AND ANDREWS, LOWER NECK AND AXILLA: Mild prominence of right hilar lymph nodes, nonspecific and probably reactive in nature. No evidence of thoracic lymphadenopathy by CT criteria. Esophagus appears within normal limits as seen. LUNGS AND AIRWAYS: The trachea and central airways are patent. No endobronchial lesion. Moderate area of pleural based patchy and ground-glass infiltrate/consolidation involving most of the right lower lobe. Mild similar infiltrate within the left lower lobe within the posterior medial costophrenic angle. Multifocal subtle areas of ground-glass infiltrate within the right upper and right middle lobes. The left upper lobe overall clear. Findings in keeping with patient's history of COVID-19 infectious process. UPPER ABDOMEN: The limited evaluation of the visualized subdiaphragmatic structures demonstrate no remarkable findings. CHEST WALL AND OSSEOUS STRUCTURES: There are no suspicious osseous lesions. IMPRESSION: 1. Near complete consolidation of the right lower lobe, and mild left lower lobe infiltrate in addition to multiple tiny focal areas of ground-glass infiltrate within the right middle and right upper lobes in keeping with patient's history of COVID-19 infectious status. Clinical correlation and follow-up recommended to document resolution. 2. Borderline enlarged right hilar lymph nodes probably reactive in nature. No mediastinal lymphadenopathy. 3. No evidence for acute pulmonary embolic disease, aortic aneurysm or dissection is seen. Electronically signed by: CHRISTEN RICH MD [facility] Complete Blood Count + Diffe rentialon 03-17-2021 Basophils/100 WBC (Bld) 0.4 % 0.0 - 2.0 [facility] Work Phone: Erythrocyte distribution width (RBC) [Ratio] 12.9 % See Below [facility] [facility] Work Phone: Comment on above: Reference Range: 11. 5 - 14.5 Hematocrit (Bld) [Volume fraction] 41.4 % See Below [facility] [facility] Work Phone: Comment on above: Reference Range: 36. 0 - 46.0 Hemoglobin (Bld) [Mass/Vol] 13.6 g/dL See Below [facility] [facility] Work Phone: Comment on above: Reference Range: 12. 0 - 16.0 Lymphocytes/100 WBC (Bld) 25.4 % See Below [facility] [facility] Work Phone: Comment on above: Reference Range: 13. 0 - 44.0 MCHC (RBC) [Mass/Vol] 32.7 g/dL See Below [facility] Work Phone: Comment on above: Reference Range: 32. 0 - 36.0 MCV (RBC) [Entitic vol] 84 fL 80 - 100 [facility] [facility] Work Phone: Monocytes/100 WBC (Bld) 5.7 % 2.0 - 10.0 [facility] Work Phone: Neutrophils/100 WBC (Bld) 68.4 % See Below [facility] [facility] Work Phone: Comment on above: Reference Range: 40. 0 - 80.0 Platelets (Bld) [#/Vol] 202 10*3/uL 150 - 450 [facility] [facility] Work Phone: RBC (Bld) [#/Vol] 4.96 {x10E12/L} See Below [facility] [facility] Work Phone: Comment on above: Reference Range: 4.0 0 - 5.20 WBC (Bld) [#/Vol] 3.9 10*3/uL below low threshold 4.4 - 11.3 [facility] Work Phone: Complete Blood Count + Differential 0.00 {x10E9/L} See Below [facility] [facility] Work Phone: Comment on above: Reference Range: 0.0 0 - 0.10 Reference Range: 0.0 0 - 0.70 Complete Blood Count + Differential 0.20 {x10E9/L} See Below [employer] Work Phone: Comment on above: Reference Range: 0.1 0 - 1.00 Complete Blood Count + Differential 1.00 {x10E9/L} below low threshold See Below [employer] Work Phone: Comment on above: Reference Range: 1.2 0 - 4.80 Complete Blood Count + Differential 2.70 {x10E9/L} See Below [employer] Work Phone: Comment on above: Reference Range: 1.2 0 - 7.70 Percent differential counts (%) should be interpreted in the context of the absolute cell counts (cells/L). Complete Blood Count + Differential 0.1 % 0.0 - 6.0 [facility] [facility] Work Phone: Complete Blood Count + Differential 0.4 {/100_WBC} [facility] [facility] Work Phone: Coronavirus 2019 RNA by PCR, Symptomaticon 03-17-2021 Date and time of symptom onset [id number] [facility] Work Phone: Coronavirus 2019 RNA by PCR, Symptomatic Detected Abnormal See Below [facility] Work Phone: Comment on above: SOURCE: Nasal, Nasop haryngealReference Range: Not Detected.This test has received FDA Emergency Use Authorization (EUA) and has been verified by [facility]. This test is only authorized for the duration of time that circumstances exist to justify the authorization of the emergency use of in vitro diagnostic tests for the detection of SARS-CoV-2 virus and/or diagnosis of COVID-19 infection under section 564(b)(1) of the Act, 21 U.S.C. 360bbb-3(b)(1), unless the authorization is terminated or revoked sooner. [facility] is certified under CLIA-88 as qualified to perform high complexity testing. Testing is performed in the [facility] laboratory located at [address] [place] [address].SARS-CoV-2/Flu/RSV Multiplex Test: Fact sheet for providers: https://www.fda.gov/media/313110/downloadFact sheet for patients: https://www.fda.gov/media/141137/download Called- SHAYLEE Mars , 03/17/2021 12:48 Covid 19 Resultson 1 SARS-CoV-2 (COVID-19) RNA JESSICA+probe Ql (Unsp spec) POSITIVE COVID-19 Test Coronaviruses are common world-wide and are the cause of many common colds. SARS-COV2 is a new coronavirus that began circulating worldwide in 2019 so we are calling it COVID-19. It has been estimated that four out of five patients with COVID-19 will recover at home without the need for medical attention. Symptoms of COVID-19 may include cough, fever, shortness of breath, loss of taste or smell and other flu-like symptoms including chills, sore muscles, sore throat, and headache. Severe illness is more common in older people and people with other health problems such as high blood pressure, obesity, and immune system problems. If the test is positive, you have COVID-19. You will be contacted by the ordering physicians office and instructed to remain on home isolation, in accordance with CDC guidelines. You may also be contacted by the [facility] to see if any of your close contacts may have been exposed to the virus and need to quarantine. If the test is negative, you likely do not have COVID-19 at this time, but you still may have a different illness that can spread to other people (like Influenza, or the Flu) and could still be at risk for getting COVID-19. We recommend that you stay away from other people to limit the spread of illness until your symptoms are improving and you are fever-free for 24 hours without the use of fever lowering medications such as acetaminophen or ibuprofen. No test is 100% accurate so if you are still concerned you may have COVID-19, talk to your doctor about the need to continue to stay away from others. Medicines Unless your provider told you not to use the following: Acetaminophen (Tylenol and others) is generally safe. Anti-inflammatory medications, such as Ibuprofen (Advil or Motrin) or Naproxen (Aleve) can also be used. Mxmk-crh-fzbfoly cough and cold medicines can be used according to the instructions on the package. Some nmkm-lie-hrnxcdj medicines also contain acetaminophen. Make sure you are not taking more than your recommended dose. For those not hospitalized, there is no specific treatment available for this illness. Antibiotics do not treat Coronaviruses. Follow-Up Follow up with your doctor by scheduling a virtual visit or consider follow-up at one of our urgent care fever clinics. If you are having difficulty breathing, or are very weak and having difficulty standing, this is a medical emergency. Call 911 or have someone take you to the nearest emergency room immediately. If possible, wear a facemask. Additional guidance from the CDC for patients who tested POSITIVE for COVID-19 How to isolate: Isolate yourself in a specific room at home and limit your contact with others. Use a separate bathroom from other members of the household, when possible. Leave home only to get essential medical care. Do not go to work, school or public areas. Avoid using public transportation, ride-sharing, or taxis. Restrict contact with pets and other animals. If you must care for your pet or be around animals while you are sick, wash your hands before and after your interaction and wear a facemask. Make sure that shared spaces in the home have good airflow, such as by an air conditioner or an opened window, weather permitting. Personal Hygiene Procedures: Wear a face mask when in the same room as other people or pets. If a face mask interferes with your breathing, others should wear a mask when sharing space with you. Frequent hand-washing: wash your hands with soap and water for at least 20 seconds. If soap and water are not available, use alcohol-based hand brass burnisher. Avoid touching your eyes, nose, and mouth with unwashed hands. Household Hygiene Procedures: Avoid sharing personal household items such as dishes, glassware, cups, eating utensils, towels or bedding with other people or pets in your home. After use, these items should be washed with soap and hot water. Disinfect all high-touch surfaces every day with antibacterial cleaning solutions such as Lysol wipes, bleach, cleansers, etc. High-touch surfaces include tabletops, doorknobs, bathroom fixtures, toilets, phones, keyboards, tablets and bedside tables. Immediately clean any surfaces that may have blood, poop or body fluids on them, using antibacterial cleaning solutions such as Lysol wipes, bleach, cleansers, etc. If clothing or bedding come into contact with blood, poop or body fluids, they should be washed immediately. Follow the directions on the laundry detergent and clothing labels but hot water is recommended when possible. Stopping home isolation precautions: If possible, consult your doctor before stopping home isolation precautions. According to the CDC, you can discontinue home isolation precautions when you have met both of these criteria: Your fever and respiratory symptoms have been gone for 24 puneet (more content not included)... Normal [facility] HCG, Serum - Qualitativeon 0 03-17-2021 HCG ( test) Ql Canceled [facility] Work Phone: HCG ( test) Ql Negative Negative [facility] Work Phone: HCG,SERUM QUALITATIVEon 02-18 HCG,SERUM QUALITATIVE Canceled Normal [facility] Comment on above: Order Comment: TEST HCG,SERUM QUALITATIVE WAS CANCELLED, 03/17/2021 13:17 duplicate. Performed By: #### H CGS #### [place] [address] HCG,SERUM QUALITATIVE Negative Normal Negative [facility] Comment on above: Performed By: #### H CGS #### [address] [address] HCG,URINEon 03-17-2021 Beta HCG ( test) Ql (U) Canceled Normal [facility] Comment on above: Order Comment: TEST HCG,URINE WAS CANCELLED, 03/17/2021 13:03 pt. could not void. ordered serum instead.. Performed By: #### H CGU #### [address] [address] LACTATEon 03-17-2021 Lactate [Moles/Vol] 1.0 mmol/L Normal 0.4 - 2.0 [facility] Comment on above: Result Comment: Emmy puncture immediately after or during the administration of Metamizole may lead to falsely low results. Testing should be performed immediately prior to Metamizole dosing. Performed By: #### L ACT #### [address] [address] Laboratory - Chemistry and C hemistry - challengeon 03-17-2021 CO2 (Bld) [Partial pressure] 28 mm[Hg] below low threshold 38 - 42 [facility] Work Phone: HCO3 (Bld) [Moles/Vol] 18.6 mmol/L below low threshold See Below [facility] Work Phone: Comment on above: Reference Range: 22. 0 - 26.0 Oxygen (Bld) [Partial pressure] 81 mm[Hg] below low threshold 85 - 95 [facility] Work Phone: pH (Bld) 7.43 [pH] above high threshold See Below [facility] Work Phone: Comment on above: Reference Range: 7.3 8 - 7.42 Anion gap [Moles/Vol] 18 mmol/L 10 - 20 [facility] Work Phone: Calcium [Mass/Vol] 8.5 mg/dL below low threshold 8.6 - 10.3 [facility] Work Phone: Chloride [Moles/Vol] 103 mmol/L 98 - 107 [facility] Work Phone: CO2 [Moles/Vol] 18 mmol/L below low threshold 21 - 32 [facility] Work Phone: Creatinine [Mass/Vol] 0.82 mg/dL See Below [facility] Work Phone: Comment on above: Reference Range: 0.5 0 - 1.05 Glucose [Mass/Vol] 92 mg/dL 74 - 99 [facility] Work Phone: Potassium [Moles/Vol] 3.4 mmol/L below low threshold 3.5 - 5.3 [facility] Work Phone: Comment on above: MILD HEMOLYSIS DETEC ELENITA. The result may be falsely elevated due tohemolysis or other interferents. Clinical correlation is recommended.Repeat testing may be considered. Sodium [Moles/Vol] 136 mmol/L 136 - 145 [facility] Work Phone: Urea nitrogen [Mass/Vol] 13 mg/dL 6 - 23 [facility] Work Phone: Lactate, Levelon 03-17-2021 Lactate [Moles/Vol] 1.0 mmol/L 0.4 - 2.0 [facility] Work Phone: Comment on above: Venipuncture immedia tely after or during the administration of Metamizole may lead to falsely low results. Testing should be performed immediately prior to Metamizole dosing. No Panel Informationon 03-17 Inhaled oxygen concentration 21 % [facility] Work Phone: R RADIAL [facility] Work Phone: -4.4 mmol/L below low threshold -2.0 - 3.0 [facility] Work Phone: 98 % 94 - 100 [facility] Work Phone: >60 >60 [facility] Work Phone: Comment on above: CALCULATIONS OF MADHAVI MATED GFR ARE PERFORMED USING THE MDRD STUDY EQUATION FOR THE IDMS-TRACEABLE CREATININE METHODS. CLIN CHEM 2007;53:766-72 [email or web address] ?RetrieveTestByDateTime?P [email or web address]=[id number]&Date=2 03-27-2021&Time=10%3a53%3a 44%3a00&TestType=ECG&Site =14&OutputType=PDF&Ext=PD F [facility] Work Phone: Please see physicia n note for formal interpretation confirmed by Scribe [facility] Work Phone: Normal [facility] Work Phone: [phone] [facility] Work Phone: [phone] [facility] Work Phone: [phone] [facility] Work Phone: [phone] [facility] Work Phone: [phone] [facility] Work Phone: [phone] [facility] Work Phone: -[phone] 1 [facility] Work Phone: [phone] [facility] Work Phone: [phone] [facility] Work Phone: [phone] [facility] Work Phone: [phone] [facility] Work Phone: [phone] [facility] Work Phone: [phone] [facility] Work Phone: [phone] [facility] Work Phone: Provider Note - ED v3on 08-2 Provider Note - ED v3 Provider Note: Chart Review: ED NOTES ED NOTES: ====HPI==== Patient is a 20-year-old female who presents to the emergency department with a chief complaint of nausea, vomiting, diarrhea, and shortness of breath. She tested positive for Covid on Thursday. She states that her symptoms started on March 08. When she arrived she was hyperventilating. She complains of body aches. She reports intermittent fevers in which she has attempted to take Tylenol but states that she has been unable to secondary to her nausea and vomiting. She denies any chest pain PMHX: HTN Social HX: Denies TOBACCO Denies ETOH DeniesDRUGS ==Review of Systems==== 10 point system review is negative except for those specifically mentioned in history of present illness ====Physical Exam==== Constitutional/General: Alert and oriented x3, nontoxic, and in NAD. Head: Normocephalic and atraumatic. Eyes: EOMI, conjunctive normal, sclera nonicteric, subconjunctival layer is pink. Neck: Supple, full ROM, no meningeal signs. Trachea at midline. Respiratory: Lungs clear to auscultation bilaterally, no wheezes, rales, or rhonchi, not in respiratory distress. Cardiovascular: Regular rate, regular rhythm, no murmurs, gallops, or rubs, 2+ distal pulses. Chest: normal chest wall movement GI: Abdomen soft, nontender, nondistended, + BS, no organomegaly, no palpable masses, no rebound, guarding, or rigidity. Musculoskeletal: Moves all extremities x4, warm and well perfused, no clubbing, cyanosis, or edema, cap refill <3 seconds Integument: Skin warm and dry, no rashes. Lymphatic: No lymphadenopathy noted. Neurologic: No focal deficits Psychiatric: Normal affect. ====ED Course and Medical Decision Making==== See MDM section for review of findings & plan of care. Portions of this note were dictated by speech recognition. An attempt at proof reading was made to minimize errors. Minor errors in hammerer may be present. Please call if questions.. HISTORY OF PRESENTING ILLNESS ASHLEY is a 20 year old Female and was seen by me at 17-Mar-2021 10:59 for a chief complaint of shortness of breath (Amb to ER from home with c/o SOB, N/V/D since diagnosis with COVID 5 days ago--hyperventilating--al so c/o all over body aches--)(1). Triage Information: Most recent Vital Sign Value Date Temp (F): 100.6 03-17-2021 11:26 Temp (C): 38.1 03-17-2021 11:26 Heart Rate (beats/min): 116 03-17-2021 11:26 Respirations (breaths/min): 21 03-17-2021 11:26 SpO2 (%): 94 03-17-2021 11:26 BP Systolic (mm Hg): 133 03-17-2021 11:26 BP Diastolic (mm Hg): 81 03-17-2021 11:26 PAST MEDICAL HISTORY ALLERGIES/INTOLERANCES: No Known Allergies HEALTH HISTORY: No documented data. OUTPATIENT MEDICATIONS: Home Medications Review Status for Reconciliation: Not Done Med Status: Patient Currently Takes Medications Drug Name: doxycycline hyclate 100 mg oral tablet Instructions: 1 tab(s) orally 2 times a day Drug Name: Keflex 500 mg oral capsule Instructions: 1 cap(s) orally every 6 hours Drug Name: mupirocin 2% topical ointment Instructions: Apply topically to affected area 3 times a day Drug Name: Ultram 50 mg oral tablet Instructions: 1 tab(s) orally every 6 hours Drug Name: azithromycin 250 mg oral tablet Instructions: Take 2 tab(s) orally once a day for day one and then 1 tab daily for days two through five Drug Name: ondansetron 4 mg oral tablet, disintegrating Instructions: 1 tab(s) orally 3 times a day Drug Name: albuterol 90 mcg/inh inhalation aerosol Instructions: 2 puff(s) inhaled every 6 hours Drug Name: predniSONE 20 mg oral tablet Instructions: 3 tab(s) orally once a day SIGNIFICANT EVENTS: Past Medical History Description:Hypertension (HTN) CRITICAL CARE RESULTS: Recent Lab Results: I have reviewed these laboratory results: Blood Gas, Arterial 17-Mar-2021 15:32:00 ResultValue pH, Arterial 7.43 H pCO2, Arterial 28 L pO2, Arterial 81 L FIO2 21 SO2, Arterial 98 Base Excess-Blood -4.4 L Bicarbonate, Calculated, Arterial 18.6 L Site of Arterial Puncture R RADIAL HCG, Serum 17-Mar-2021 12:25:00 ResultValue HCG, Serum NEGATIVE Complete Blood Count + Differential 17-Mar-2021 11:42:00 ResultValue White Blood Cell Count 3.9 L Nucleated Erythrocyte Count 0.4 Red Blood Cell Count 4.96 HGB 13.6 HCT 41.4 MCV 84 MCHC 32.7 PLT 202 RDW-CV 12.9 Neutrophil % 68.4 Lymphocyte % 25.4 Monocyte % 5.7 Eosinophil % 0.1 Basophil % 0.4 Neutrophil Count 2.70 Lymphocyte Count 1.00 L Monocyte Count 0.20 Eosinophil Count 0.00 Basophil Count 0.00 Basic Metabolic Panel 17-Mar-2021 11:42:00 ResultValue Glucose, Serum 92 NA 136 K 3.4 L CL 103 Bicarbonate, Serum 18 L Anion Gap, Serum 18 BUN 13 CREAT 0.82 GFR-Non >60 GFR- >60 Calcium, Serum 8.5 L Co (more content not included)... Normal [facility] Risk Screen - Adult Emergenc yon 03-17-2021 Risk Screen - Adult Emergency Preferred Language: Preferred Language: Preferred Language for Discussing Health Care (patient/designee)Luxembourger Advanced Directives: Advance Directive/DNRno Family Violence Adult: Abuse Screen: Are you or have you been threatened or abused physically, emotionally, or sexually by anyoneno Learning Assessment (Patient): Learning Assessment (Patient): Patient is Able to be Assessed for Learningyes Factors Influencing Readiness to Learnacuteness of illness Factors that Impact Ability to Learnnone Devices/Methods Used to Communicatenone Learning Preferencesverbal instruction; written material Cultural Considerationsnone Developmental Considerationsnone Congregation Considerationsnone Learning Assessment (Other Learner): Learning Assessment (Other Learner): Other learner availableno Pressure Injury/TB/Substance: Pressure Injury: Pressure Injury Present on Admissionno Do you have a coughyes... Has your cough lasted longer than 2 weeksyes... Smoking Statusunable to assess Alcohol Usedenies Drug Usedenies Drug 2 Usedenies Admission Risk Screen: Significant IndicatorsComplete CAGE: CAGE: Is this an injured patient at a Trauma Center ([facility]/[place]/ [place]): no Electronic Signatures: Joyce Brewster (BRITNEY) (Signed 17-Mar-2021 11:41) Authored: Preferred Language, Advanced Directives, Family Violence Adult, Learning Assessment (Patient), Learning Assessment (Other Learner), Pressure Injury/TB/Substance, Pressure Injury, CAGE Last Updated: 17-Mar-2021 11:41 by Joyce Brewster (BRITNEY) [facility] CT Angio Chest For PEon 0 03-17-2021 CT Angio Chest For PE Normal [facility] Work Phone: Triage - EDon 03-17-2021 Triage - ED Quick Triage: Are You no Are You Currently Breastfeedingno The patient and/or guardian verbally acknowledges placement for services into the following (when Urgent Care Service hours are operating):emergency department Chart Review: PRIMARY ASSESSMENT ABCD Normal Findings: airway open and patent, breathing normal, circulation normal and alert and oriented ARRIVAL INFORMATION Means of Arrival: wheelchair Mode of Arrival: private vehicle Arrival From: home Accompanied By: self Language: Spoken Language Preferred: Luxembourger CHIEF COMPLAINT ASHLEY LYNN is a Female patient with a chief complaint of shortness of breath (Amb to ER from home with c/o SOB, N/V/D since diagnosis with COVID 5 days ago--hyperventilating--al so c/o all over body aches--). Triage Date/Time: 17-Mar-2021 11:26 LOKI: 3 Pain Rating (0-10): 3 = Mild Pain location: general body aches Vital Signs: Temperature: 100.6F ( 38.1C) taken oral Blood Pressure: 133/81 Mean: Heart Rate: 116 Respiratory Rate: 21 Pulse Oximetry: 94% on room air, no respiratory support. Height: 5 feet 11 inches. 180.3 CM Weight: 249.1 pounds. Calculated 113.0 kg. (stated) Calculated BMI (kg/m2): 34.760 Calculated BSA (m2) 2.38 Neyda Coma Scale: Best Eye Response: (E4) spontaneous Best Motor Response: (M6) obeys commands Best Verbal Response: (V5) oriented Neyda Score: 15 Cough lasting greater than 3 weeks: no Allergies: no Mask applied: yes Last menstrual period: 16-Mar-2021 Patient has homicidal thoughts: no Symptoms Are POSITIVE For: body aches, cough, fever and malaise. Symptoms Are Negative For: chest pain, chills, congestion, diaphoresis, dyspnea and headache. Risk Screens Suicide Risk Screen In the Past Month: Have you wished you were or wished you could go to sleep and not wake up no In the Past Month: Have you had any actual thoughts of killing yourself no In Your Lifetime: Have you ever done anything, started to do anything, or prepared to do anything to end your life no Us Fall Scale Screening Has the patient fallen before (or is the patient in the ED as a result of a fall) has not had a fall Does the patient have an impaired gait does not have impaired gait Is the patient cognitively impaired not cognitively impaired Interventions: Us Fall Interventions: LOW INTERVENTIONS: *patient oriented to surroundings and call system, * patient/family falls education completed and documented, *patients fall status communicated during bedside handoff, *whiteboard updated, *mode of toileting discussed with patient, *bed in low position with brakes locked, *call light in reach, * non-skid footwear TRAVEL HISTORY Travel History Coronavirus Screening: positive for symptoms and COVID positive within the last 13 days Travel Exposure History: NO travel to International locations in the past 30 days PAIN Pain Scale Used: SHAGUFTA Pain Rating (0-10): 3 = Mild Past Medical History: Past Medical History Reviewedyes Electronic Signatures: Joyce Brewster (RN) (Signed 17-Mar-2021 11:36) Entered: Risk Screens, Pain, Arrival, ABCD, Travel History, Chart Review, Scores, Past Medical History Authored: Quick Triage, Risk Screens, Pain, Arrival, ABCD, Travel History, Chart Review, Scores, Past Medical History Last Updated: 17-Mar-2021 11:36 by Joyce Brewster (RN) Normal [facility] CBC AND DIFFERENTIALon 12-25 Basophils (Bld) [#/Vol] 0.10 10*3/uL Normal 0.00 - 0.10 [facility] Comment on above: Performed By: #### C BCDF #### [address] [address] Basophils/100 WBC (Bld) 0.9 % Normal 0.0 - 2.0 [facility] Comment on above: Performed By: #### C BCDF #### [address] [address] Eosinophils (Bld) [#/Vol] 0.30 10*3/uL Normal 0.00 - 0.70 [facility] Comment on above: Performed By: #### C BCDF #### [address] [address] Eosinophils/100 WBC (Bld) 2.3 % Normal 0.0 - 6.0 [facility] Comment on above: Performed By: #### C BCDF #### [address] [address] Erythrocyte distribution width (RBC) [Ratio] 13.6 % Normal 11.5 - 14.5 [facility] Comment on above: Performed By: #### C BCDF #### [address] [address] Hematocrit (Bld) [Volume fraction] 41.6 % Normal 36.0 - 46.0 [facility] Comment on above: Performed By: #### C BCDF #### [address] [address] Hemoglobin (Bld) [Mass/Vol] 13.7 g/dL Normal 12.0 - 16.0 [facility] Comment on above: Performed By: #### C BCDF #### [address] [address] Lymphocytes (Bld) [#/Vol] 3.60 10*3/uL Normal 1.20 - 4.80 [facility] Comment on above: Performed By: #### C BCDF #### [address] [address] Lymphocytes/100 WBC (Bld) 32.0 % Normal 13.0 - 44.0 [facility] Comment on above: Performed By: #### C BCDF #### [address] [address] MCHC (RBC) [Mass/Vol] 33.0 g/dL Normal 32.0 - 36.0 [facility] Comment on above: Performed By: #### C BCDF #### [address] [address] MCV (RBC) [Entitic vol] 86 fL Normal 80 - 100 [facility] Comment on above: Performed By: #### C BCDF #### [address] [address] Monocytes (Bld) [#/Vol] 0.70 10*3/uL Normal 0.10 - 1.00 [facility] Comment on above: Performed By: #### C BCDF #### [address] [address] Monocytes/100 WBC (Bld) 6.2 % Normal 2.0 - 10.0 [facility] Comment on above: Performed By: #### C BCDF #### [address] [address] Neutrophils (Bld) [#/Vol] 6.50 10*3/uL Normal 1.20 - 7.70 [facility] Comment on above: Result Comment: Perc ent differential counts (%) should be interpreted in the context of the absolute cell counts (cells/L). Performed By: #### C BCDF #### [address] [address] Neutrophils/100 WBC (Bld) 58.6 % Normal 40.0 - 80.0 [facility] Comment on above: Performed By: #### C BCDF #### [address] [address] NUCLEATED RBC 0.2 /100 WBC Normal [facility] Comment on above: Performed By: #### C BCDF #### [place] [id number] Platelets (Bld) [#/Vol] 294 10*3/uL Normal 150 - 450 [facility] Comment on above: Performed By: #### C BCDF #### [place] [id number] RBC 4.82 x10E12/L Normal 4.00 - 5.20 [facility] Comment on above: Performed By: #### C BCDF #### [place] [id number] WBC (Bld) [#/Vol] 11.1 10*3/uL Normal 4.4 - 11.3 [facility] Comment on above: Performed By: #### C BCDF #### [place] [address] COMPREHENSIVE PANELon 2020 Albumin [Mass/Vol] 4.4 g/dL Normal 3.4 - 5.0 [facility] Comment on above: Performed By: #### U ARFX #### [place] [id number] ALP [Catalytic activity/Vol] 77 U/L Normal 33 - 110 [facility] Comment on above: Performed By: #### U ARFX #### [place] [id number] ALT [Catalytic activity/Vol] 25 U/L Normal 7 - 45 [facility] Comment on above: Result Comment: Ana M ents treated with Sulfasalazine may generate falsely decreased results for ALT. Performed By: #### U ARFX #### [place] [id number] Anion gap [Moles/Vol] 14 mmol/L Normal 10 - 20 [facility] Comment on above: Performed By: #### U ARFX #### [address] [address] AST [Catalytic activity/Vol] 20 U/L Normal 9 - 39 [facility] Comment on above: Performed By: #### U ARFX #### [address] [address] Bilirubin [Mass/Vol] 0.3 mg/dL Normal 0.0 - 1.2 [facility] Comment on above: Performed By: #### U ARFX #### [address] [address] Calcium [Mass/Vol] 9.4 mg/dL Normal 8.6 - 10.3 [facility] Comment on above: Performed By: #### U ARFX #### [place] [address] Chloride [Moles/Vol] 102 mmol/L Normal 98 - 107 [facility] Comment on above: Performed By: #### U ARFX #### [address] [address] Creatinine [Mass/Vol] 0.88 mg/dL Normal 0.50 - 1.05 [facility] Comment on above: Performed By: #### U ARFX #### [address] [address] GFR- AM. >60 Normal >60 [facility] Comment on above: Result Comment: CALC ULATIONS OF ESTIMATED GFR ARE PERFORMED USING THE MDRD STUDY EQUATION FOR THE IDMS-TRACEABLE CREATININE METHODS. CLIN CHEM 2007;53:766-72 Performed By: #### U ARFX #### [address] [address] GFR-NON AM. >60 Normal >60 [facility] Comment on above: Performed By: #### U ARFX #### [address] [address] Glucose [Mass/Vol] 91 mg/dL Normal 74 - 99 [facility] Comment on above: Performed By: #### U ARFX #### [address] [address] HCO3 (Bld) [Moles/Vol] 27 mmol/L Normal 21 - 32 [facility] Comment on above: Performed By: #### U ARFX #### [address] [address] Potassium [Moles/Vol] 3.8 mmol/L Normal 3.5 - 5.3 [facility] Comment on above: Performed By: #### U ARFX #### [address] [address] Protein [Mass/Vol] 7.6 g/dL Normal 6.4 - 8.2 [facility] Comment on above: Performed By: #### U ARFX #### [address] [address] Sodium [Moles/Vol] 139 mmol/L Normal 136 - 145 [facility] Comment on above: Performed By: #### U ARFX #### [address] [address] Urea nitrogen [Mass/Vol] 10 mg/dL Normal 6 - 23 [facility] Comment on above: Performed By: #### U ARFX #### [address] [address] [address] ABDOMEN AND PELVIS WO CON TRASTon 12-25-2020 CT ABDOMEN AND PELVIS WO CONTRAST Patient Name: ASHLEY LYNN STUDY: CT ABDOMEN AND PELVIS WO CONTRAST; 12/24/2020 11:57 pm INDICATION: LLQ pain. COMPARISON: None. ACCESSION NUMBER(S): [id number] ORDERING CLINICIAN: KAVYA OLIVA TECHNIQUE: Axial noncontrast CT images of the abdomen and pelvis with coronal and sagittal reconstructed images. FINDINGS: LOWER CHEST: No acute abnormality of the lung bases. BONES: No acute osseous abnormality. ABDOMINAL WALL: Within normal limits. ABDOMEN: Lack of intravenous contrast limits evaluation of vessels and solid organs. LIVER: Within normal limits. BILE DUCTS: Normal caliber. GALLBLADDER: Contracted gallbladder. No calcified gallstones. No pericholecystic inflammatory changes. PANCREAS: No peripancreatic inflammatory stranding or duct dilatation. SPLEEN: Within normal limits. ADRENALS: Within normal limits. KIDNEYS, URETERS, URINARY BLADDER: No hydronephrosis or urinary tract calculus. The urinary bladder is unremarkable. VESSELS: No aortic aneurysm. RETROPERITONEUM: No pathologically enlarged lymph nodes. PELVIS: REPRODUCTIVE ORGANS: No abnormality, given limitations of the noncontrast CT. No significant free pelvic fluid. BOWEL: No dilated bowel. Normal appendix. PERITONEUM: No ascites or free air, no fluid collection. IMPRESSION: No acute abdominal or pelvic process. Electronically signed by: HILARY MONTILLA MD Normal [facility] HCG,URINEon 12-25-2020 Beta HCG ( test) Ql (U) Negative Normal Negative [facility] Comment on above: Performed By: #### H CGU #### [address] [address] LIPASEon 12-25-2020 Lipase [Catalytic activity/Vol] 21 U/L Normal 9 - 82 [facility] Comment on above: Result Comment: Emmy puncture immediately after or during the administration of Metamizole may lead to falsely low results. Testing should be performed immediately prior to Metamizole dosing. P-ueiigf-q-benzoquinone imine (metabolite of Acetaminophen) will generate erroneously low results in samples for patients that have taken toxic doses of acetaminophen. Performed By: #### L IPAS #### [address] [address] Provider Note - ED v2on 060 Provider Note - ED v2 Provider Note - ED v2: Chart Review: ED NOTES ED NOTES: HPI: Patient is a pleasant female here today for left lower quadrant pain. She says it happened for the last week and half. She has not seen her primary care physician. It has not changed her bowel patterns. She says it is 4 out of 10. Waxing and waning. No blood in her stool. No difficulty urinating. She says she is 2 weeks late for her period. She is up trying to have a child. Patient is not on any prenatals. No spotting or vaginal discharge. No fever. No alleviating factors no exacerbating factors. ROS: All systems are negative other than as noted in HPI. Physical Exam I have reviewed the triage vital signs. Const: Well nourished, well developed, appears stated age, no acute distress Eyes: PERRL, EOM intact, no conjunctival injection, vision grossly normal HENT: Neck supple without meningismus , Moist mucous membranes, no pharyengeal swelling or exudate CV: Regular rate and rhythm, Warm, well-perfused extremities. Chest non tender RESP: Lungs clear bilaterally, Unlabored respiratory effort GI: soft, non-tender, non-distended, no masses MSK: No gross deformities appreciated Back: Non tender, no pain with ROM Skin: Warm, dry. No rashes Neuro: Alert and oriented x4, GCS 15 , forest management professor II-XII grossly intact. Sensation and motor function of extremities grossly intact. Psych: Appropriate mood and affect. HISTORY OF PRESENTING ILLNESS ASHLEY is a 20 year old Female and was seen by me at 25-Dec-2020 00:13 for a chief complaint of abdominal pain (PT TO ED WITH C/O LEFT SIDE ABD PAIN SINCE THURSDAY. LMP 11/13/20)(1). Triage Information: Most recent Vital Sign Value Date Temp (F): 98.2 12-24-2020 22:41 Temp (C): 36.7 12-24-2020 22:41 Heart Rate (beats/min): 99 12-24-2020 22:41 Respirations (breaths/min): 16 12-24-2020 22:41 SpO2 (%): 97 12-24-2020 22:41 BP Systolic (mm Hg): 141 12-24-2020 22:41 BP Diastolic (mm Hg): 88 12-24-2020 22:41 PAST MEDICAL HISTORY ATTESTATION: I have reviewed and confirmed nurse's/medic's notes for patient's medications, allergies, and medical, surgical, family and social history ALLERGIES/INTOLERANCES: No Known Allergies HEALTH HISTORY: No documented data. OUTPATIENT MEDICATIONS: Home Medications Review Status for Reconciliation: N/A Med Status: Patient Currently Takes Medications Drug Name: doxycycline hyclate 100 mg oral tablet Instructions: 1 tab(s) orally 2 times a day Drug Name: Keflex 500 mg oral capsule Instructions: 1 cap(s) orally every 6 hours Drug Name: mupirocin 2% topical ointment Instructions: Apply topically to affected area 3 times a day Drug Name: Ultram 50 mg oral tablet Instructions: 1 tab(s) orally every 6 hours SIGNIFICANT EVENTS: Past Medical History Description:Hypertension (HTN) PREP PERSON: Is : maybe(1) Is : no(1) Order Test: order urine test RESULTS/VITAL SIGNS RESULTS: Recent Lab Results: I have reviewed these laboratory results: Complete Blood Count + Differential 24-Dec-2020 23:08:00 ResultValue White Blood Cell Count 11.1 Nucleated Erythrocyte Count 0.2 Red Blood Cell Count 4.82 HGB 13.7 HCT 41.6 MCV 86 MCHC 33.0 PLT 294 RDW-CV 13.6 Neutrophil % 58.6 Lymphocyte % 32.0 Monocyte % 6.2 Eosinophil % 2.3 Basophil % 0.9 Neutrophil Count 6.50 Lymphocyte Count 3.60 Monocyte Count 0.70 Eosinophil Count 0.30 Basophil Count 0.10 Comprehensive Metabolic Panel 24-Dec-2020 23:08:00 ResultValue Glucose, Serum 91 NA 139 K 3.8 CL 102 Bicarbonate, Serum 27 Anion Gap, Serum 14 BUN 10 CREAT 0.88 GFR-Non >60 GFR- >60 Calcium, Serum 9.4 ALB 4.4 ALKP 77 T Pro 7.6 T Bili 0.3 Alanine Aminotransferase, Serum 25 Aspartate Transaminase, Serum 20 Lipase, Serum 24-Dec-2020 23:08:00 ResultValue Lipase, Serum 21 Urinalysis 24-Dec-2020 22:59:00 ResultValue Color, Urine Yellow Reference Range: STRAW,YELLOW Appearance, Urine HAZY Specific [place], Urine 1.027 pH, Urine 5.0 Protein, Urine NEGATIVE Glucose, Urine NEGATIVE Blood, Urine NEGATIVE Ketones, Urine NEGATIVE Bilirubin, Urine NEGATIVE Urobilinogen, Urine <2.0 Nitrite, Urine Negative Leukocyte Esterase, Urine NEGATIVE Urine Test 24-Dec-2020 22:59:00 ResultValue HCG, Urine NEGATIVE Radiology Results: Impression: No acute abdominal or pelvic process. CT Abdomen and Pelvis without Contrast [Dec 25 2020 12:43AM] VITAL SIGNS: T PRBP SpO2O2(LPM) %FiO2 Method 24-Dec-2020 22:41:[id number] 97 room air, no respiratory support 24-Dec-2020 22:29:[id number]/88 97 room air, no respiratory support MEDICAL DECISION MAKING/ED COURSE MDM/ED COURSE: Patient resting comfortably in bed. Her work-up is negative. CLINICAL IMPRESSION Diagnosis/Annota (more content not included)... Normal [facility] Risk Screen - Adult Emergenc yon 12-25-2020 Risk Screen - Adult Emergency Preferred Language: Preferred Language: Preferred Language for Discussing Health Care (patient/designee)Luxembourger Advanced Directives: Advance Directive/DNRno Family Violence Adult: Abuse Screen: Are you or have you been threatened or abused physically, emotionally, or sexually by anyoneno Learning Assessment (Patient): Learning Assessment (Patient): Patient is Able to be Assessed for Learningyes Factors Influencing Readiness to Learnacuteness of illness; interest in learning Factors that Impact Ability to Learnnone Devices/Methods Used to Communicatenone Learning Preferencesverbal instruction; written material Cultural Considerationsnone Developmental Considerationsnone Congregation Considerationsnone Other Learnersspouse Learning Assessment (Other Learner): Learning Assessment (Other Learner): Other learner availableyes... Learnerspouse Factors Influencing Readiness to Learninterest in learning Factors that Impact Ability to Learnnone Devices/Methods Used to Communicatenone Learning Preferencesverbal instruction, written material Cultural Considerationsnone Developmental Considerationsnone Congregation Considerationsnone Pressure Injury/TB/Substance: Pressure Injury: Do you have a coughno Admission Risk Screen: Significant IndicatorsComplete CAGE: CAGE: Is this an injured patient at a Trauma Center ([facility]/[place]/ [place]): no Electronic Signatures: Rita Love (BRITNEY) (Signed 24-Dec-2020 22:47) Authored: Preferred Language, Advanced Directives, Family Violence Adult, Learning Assessment (Patient), Learning Assessment (Other Learner), Pressure Injury/TB/Substance, Pressure Injury, CAGE Last Updated: 24-Dec-2020 22:47 by Rita Love (BRITNEY) Normal [facility] Triage - EDon 12-25-2020 Triage - ED Quick Triage: Are You maybe Have You Given In The Last 6 Weeksno Are You Currently Breastfeedingno The patient and/or guardian verbally acknowledges placement for services into the following (when Urgent Care Service hours are operating):emergency department Chart Review: PRIMARY ASSESSMENT ASHLEY LYNN's primary assessment is Within Defined Limits. The airway is open and patent. Breathing spontaneous and unlabored with clear breath sounds bilaterally. Circulation is normal with good peripheral pulses. Skin is warm and dry and color is normal for race. ARRIVAL INFORMATION Means of Arrival: Ambulatory Mode of Arrival: private vehicle Arrival From: home Accompanied By: self and spouse/significant other Language: Spoken Language Preferred: Luxembourger Reading Language Preferred: Luxembourger Textile Engineer Requested: no fountain server was requested MDRO: History of MDRO: no Present on Arrival: Device Present on Arrival to ED: no CHIEF COMPLAINT ASHLEY LYNN is a Female patient with a chief complaint of abdominal pain (PT TO ED WITH C/O LEFT SIDE ABD PAIN SINCE THURSDAY. LMP 11/13/20). Triage Date/Time: 24-Dec-2020 22:29 LOKI: 3 Pain Rating (0-10): 7 = Severe Pain location: LEFT SIDE OF ABD Vital Signs: Temperature: 98.2F ( 36.7C) taken oral Blood Pressure: 141/88 Mean: Heart Rate: 99 Respiratory Rate: 16 Pulse Oximetry: 97% on room air, no respiratory support. Height: 5 feet 10 inches. 177.8 CM Weight: 262.3 pounds. Calculated 119.0 kg. (scale measurement) Calculated BMI (kg/m2): 37.642 Calculated BSA (m2) 2.42 Cough lasting greater than 3 weeks: no Patient immunocompromised related to: N/A Allergies: no Last menstrual period: 13-Nov-2020 Patient has homicidal thoughts: no Symptoms Are Negative For: anorexia, constipation, diaphoresis, diarrhea, distention, fever, nausea, rectal blood and vomiting. Risk Screens Suicide Risk Screen In the Past Month: Have you wished you were or wished you could go to sleep and not wake up no In the Past Month: Have you had any actual thoughts of killing yourself no In Your Lifetime: Have you ever done anything, started to do anything, or prepared to do anything to end your life no Us Fall Scale Screening Has the patient fallen before (or is the patient in the ED as a result of a fall) has not had a fall Does the patient have an impaired gait does not have impaired gait Is the patient cognitively impaired not cognitively impaired Interventions: Us Fall Interventions: LOW INTERVENTIONS: *patient oriented to surroundings and call system, * patient/family falls education completed and documented, *patients fall status communicated during bedside handoff, *whiteboard updated, *mode of toileting discussed with patient, *bed in low position with brakes locked, *call light in reach, * non-skid footwear PAST MEDICAL HISTORY Immunization History: Last Known Tetanus Immunization: Unknown TRAVEL HISTORY Travel History Coronavirus Screening: no exposure or symptoms Travel Exposure History: NO travel to International locations in the past 30 days PAIN Pain Scale Used: SHAGUFTA Pain Rating (0-10): 7 = Severe Past Medical History: Past Medical History Reviewedyes Hypertension (HTN): Past Medical History, Active Electronic Signatures: Rita Love (RN) (Signed 24-Dec-2020 22:46) Entered: Risk Screens, Pain, Arrival, ABCD, Immunizations, Travel History, Chart Review, Scores, Past Medical History Authored: Quick Triage, Risk Screens, Pain, Arrival, ABCD, Immunizations, Travel History, Chart Review, Scores, Past Medical History Last Updated: 24-Dec-2020 22:46 by Rita Love (RN) Normal [facility] URINALYSISon 12-25-2020 Appearance (U) HAZY Normal CLEAR [facility] Comment on above: Performed By: #### H CGS #### [address] [address] Bilirubin Ql (U) Negative Normal NEGATIVE [facility] Comment on above: Performed By: #### H CGS #### [address] [address] Color (U) Yellow Normal STRAW,YELLOW [facility] Comment on above: Performed By: #### H CGS #### [address] [address] Glucose Ql (U) Negative Normal NEGATIVE [facility] Comment on above: Performed By: #### H CGS #### [address] [address] Hemoglobin Ql (U) Negative Normal NEGATIVE [facility] Comment on above: Performed By: #### H CGS #### [address] [address] Ketones Ql (U) Negative Normal NEGATIVE [facility] Comment on above: Performed By: #### H CGS #### [address] [address] Leukocyte esterase Test strip Ql (U) Negative Normal NEGATIVE [facility] Comment on above: Performed By: #### H CGS #### [address] [address] Nitrite Ql (U) Negative Normal NEGATIVE [facility] Comment on above: Performed By: #### H CGS #### [address] [address] pH (U) 5.0 [pH] Normal 5.0 - 8.0 [facility] Comment on above: Performed By: #### H CGS #### [place] [id number] Protein Ql (U) Negative Normal NEGATIVE [facility] Comment on above: Performed By: #### H CGS #### [place] [id number] Specific gravity (U) [Rel density] 1.027 Normal 1.005 - 1.035 [facility] Comment on above: Performed By: #### H CGS #### [address] [address] Urobilinogen (U) [Mass/Vol] mg/dL Normal 0.0 - 1.9 [facility] Comment on above: Performed By: #### H CGS #### [place] [id number] URINALYSIS WITH CULTURE IF I NDICATEDon 12-25-2020 Appearance (U) Canceled [facility] Comment on above: Order Comment: TEST URINALYSIS WITH CULTURE IF INDICATED WAS CANCELLED, 12/24/2020 23:06 DUPLICATE. Performed By: #### U ARFX #### [place] [id number] ASCORBIC ACID Canceled [facility] Comment on above: Order Comment: TEST URINALYSIS WITH CULTURE IF INDICATED WAS CANCELLED, 12/24/2020 23:06 DUPLICATE. Result Comment: Conc entrations > = 20 mg/dL of ascorbic acid can be expected to cause strong interference in the reactions testing for glucose, nitrite and blood. It is recommended to discontinue Vitamin C administration and retest in 10 hours. Performed By: #### U ARFX #### [address] [address] Bilirubin Ql (U) Canceled [facility] Comment on above: Order Comment: TEST URINALYSIS WITH CULTURE IF INDICATED WAS CANCELLED, 12/24/2020 23:06 DUPLICATE. Performed By: #### U ARFX #### [place] [id number] Color (U) Canceled [facility] Comment on above: Order Comment: TEST URINALYSIS WITH CULTURE IF INDICATED WAS CANCELLED, 12/24/2020 23:06 DUPLICATE. Performed By: #### U ARFX #### [place] [id number] Glucose Ql (U) Canceled [facility] Comment on above: Order Comment: TEST URINALYSIS WITH CULTURE IF INDICATED WAS CANCELLED, 12/24/2020 23:06 DUPLICATE. Performed By: #### U ARFX #### [address] [address] Hemoglobin Ql (U) Canceled [facility] Comment on above: Order Comment: TEST URINALYSIS WITH CULTURE IF INDICATED WAS CANCELLED, 12/24/2020 23:06 DUPLICATE. Performed By: #### U ARFX #### [place] [id number] Ketones Ql (U) Canceled [facility] Comment on above: Order Comment: TEST URINALYSIS WITH CULTURE IF INDICATED WAS CANCELLED, 12/24/2020 23:06 DUPLICATE. Performed By: #### U ARFX #### [address] [address] Leukocyte esterase Test strip Ql (U) Canceled [facility] Comment on above: Order Comment: TEST URINALYSIS WITH CULTURE IF INDICATED WAS CANCELLED, 12/24/2020 23:06 DUPLICATE. Performed By: #### U ARFX #### [place] [id number] Nitrite Ql (U) Canceled [facility] Comment on above: Order Comment: TEST URINALYSIS WITH CULTURE IF INDICATED WAS CANCELLED, 12/24/2020 23:06 DUPLICATE. Performed By: #### U ARFX #### [address] [address] pH Canceled [facility] Comment on above: Order Comment: TEST URINALYSIS WITH CULTURE IF INDICATED WAS CANCELLED, 12/24/2020 23:06 DUPLICATE. Performed By: #### U ARFX #### [address] [address] Protein Ql (U) Canceled [facility] Comment on above: Order Comment: TEST URINALYSIS WITH CULTURE IF INDICATED WAS CANCELLED, 12/24/2020 23:06 DUPLICATE. Performed By: #### U ARFX #### [address] [address] Specific gravity (U) [Rel density] Canceled [facility] Comment on above: Order Comment: TEST URINALYSIS WITH CULTURE IF INDICATED WAS CANCELLED, 12/24/2020 23:06 DUPLICATE. Performed By: #### U ARFX #### [address] [address] UROBILINOGEN Canceled [facility] Comment on above: Order Comment: TEST URINALYSIS WITH CULTURE IF INDICATED WAS CANCELLED, 12/24/2020 23:06 DUPLICATE. Performed By: #### U ARFX #### [address] [address] Provider Note - ED v2on 11-18 Provider Note - ED v2 Provider Note - ED v2: Chart Review: ED NOTES ED NOTES: ====HPI==== Patient is a 20 yo female who presents to the ED with a chief complaint of an abscess. Patient states that she has had a lump on her tailbone region for approximately 2 to 3 weeks. She noticed some drainage from the area yesterday with bleeding. She reports pain. No bowel or bladder incontinence or retention. No saddle anesthesia. She denies any injury. No fever or chills. Patient denies any chance for . She states that she took a negative test this morning. PMHX: Denies PSHX: Denies Social HX: Denies TOBACCO Denies ETOH Denies DRUGS ====Review of Systems==== 10 point system review is negative except for those specifically mentioned in history of present illness ====Physical Exam==== Constitutional/General: Alert and oriented x3, well appearing, nontoxic, and in NAD. Head: Normocephalic and atraumatic. Eyes: EOMI, conjunctive normal, sclera nonicteric, subconjunctival layer is pink. Respiratory: Lungs clear to auscultation bilaterally, no wheezes, rales, or rhonchi, not in respiratory distress. Cardiovascular: Regular rate, regular rhythm, no murmurs, gallops, or rubs, 2+ distal pulses. Chest: normal chest wall movement GI: Abdomen soft, nontender Back: There is an area of mild erythema noted at the top of the gluteal cleft. No induration. No drainable abscess or fluctuance. No noted drainage. Musculoskeletal: Moves all extremities x4, warm and well perfused, no clubbing, cyanosis, or edema, cap refill <3 seconds Integument: Skin warm and dry, no rashes. Lymphatic: No lymphadenopathy noted. Neurologic: GCS 15, no focal deficits Psychiatric: Normal affect. ====ED Course and Medical Decision Making==== See MDM section for review of findings & plan of care. Portions of this note were dictated by speech recognition. An attempt at proof reading was made to minimize errors. Minor errors in hammerer may be present. Please call if questions.. HISTORY OF PRESENTING ILLNESS ASHLEY is a 20 year old Female and was seen by me at 14-Dec-2020 10:09 for a chief complaint of abscess (has had lumpon her tailbone for several weeks) . Triage Information: Most recent Vital Sign Value Date Temp (F): 98.2 12-14-2020 10:30 Temp (C): 36.8 12-14-2020 10:30 Heart Rate (beats/min): 106 12-14-2020 10:30 Respirations (breaths/min): 18 12-14-2020 10:30 SpO2 (%): 99 12-14-2020 10:30 BP Systolic (mm Hg): 133 12-14-2020 10:30 BP Diastolic (mm Hg): 92 12-14-2020 10:30 PAST MEDICAL HISTORY ATTESTATION: I have reviewed and confirmed nurse's/medic's notes for patient's medications, allergies, and medical, surgical, family and social history ALLERGIES/INTOLERANCES: No Known Allergies HEALTH HISTORY: No documented data. OUTPATIENT MEDICATIONS: Home Medications Review Status for Reconciliation: Not Done Med Status: Patient Currently Takes Medications Drug Name: doxycycline hyclate 100 mg oral tablet Instructions: 1 tab(s) orally 2 times a day Drug Name: Keflex 500 mg oral capsule Instructions: 1 cap(s) orally every 6 hours Drug Name: mupirocin 2% topical ointment Instructions: Apply topically to affected area 3 times a day SIGNIFICANT EVENTS: Past Medical History Description:Hypertension (HTN) PREP PERSON: Is : no(1) Is : no(1) MEDICAL DECISION MAKING/ED COURSE MDM/ED COURSE: Patient is a 20 yo female who presents to the ED with a complaint of an abscess to her tailbone. On exam there is mild erythema with no induration or notable drainage. I will place patient on oral antibiotics and topical and instructed her to apply warm compresses to the area. I informed her the area may come to a head and she has been referred to a surgeon CLINICAL IMPRESSION Diagnosis/Annotation: ED Dx Name:Pilonidal cyst Code:L05.91 Disposition: discharged Type: home ATTESTATION CRITICAL CARE TIME Is this a critically ill patient: no Electronic Signatures: Eliana Javier (PAC) (Signed 14-Dec-2020 10:47) Authored: ED Notes, HPI, PMH, MDM/ED Course, Clinical Impression, Attestation, Chart Review, Scores Last Updated: 14-Dec-2020 10:47 by Eliana Javier (PAC) References: 1. Data Referenced From Triage - ED 14-Dec-2020 10:30 [facility] Triage - EDon 12-14-2020 Triage - ED Quick Triage: Are You no Are You Currently Breastfeedingno The patient and/or guardian verbally acknowledges placement for services into the following (when Urgent Care Service hours are operating):emergency department Chart Review: ARRIVAL INFORMATION Mode of Arrival: private vehicle CHIEF COMPLAINT ASHLEY LYNN is a Female patient with a chief complaint of abscess (has had lumpon her tailbone for several weeks). Triage Date/Time: 14-Dec-2020 10:30 LOKI: 3 Pain Rating (0-10): 4 = Moderate Vital Signs: Temperature: 98.2F ( 36.8C) taken oral Blood Pressure: 133/92 Mean: Heart Rate: 106 Respiratory Rate: 18 Pulse Oximetry: 99% Weight: 262.3 pounds. Calculated 119.0 kg. Pimento Coma Scale: Best Eye Response: (E4) spontaneous Best Motor Response: (M6) obeys commands Best Verbal Response: (V5) oriented Neyda Score: 15 Allergies: no Last menstrual period: 14-Nov-2020 Patient has homicidal thoughts: no Symptoms Are POSITIVE For: lump, redness and swelling. Symptoms Are Negative For: abrasion, avulsion, bleeding, laceration, bruising, fever and discharge. Risk Screens Suicide Risk Screen In the Past Month: Have you wished you were or wished you could go to sleep and not wake up no In the Past Month: Have you had any actual thoughts of killing yourself no In Your Lifetime: Have you ever done anything, started to do anything, or prepared to do anything to end your life no Us Fall Scale Screening Has the patient fallen before (or is the patient in the ED as a result of a fall) has not had a fall Does the patient have an impaired gait does not have impaired gait Is the patient cognitively impaired not cognitively impaired Interventions: Us Fall Interventions: LOW INTERVENTIONS: *patient oriented to surroundings and call system, * patient/family falls education completed and documented, *patients fall status communicated during bedside handoff, *whiteboard updated, *mode of toileting discussed with patient, *bed in low position with brakes locked, *call light in reach, * non-skid footwear TRAVEL HISTORY Travel History Coronavirus Screening: no exposure or symptoms PAIN Pain Scale Used: SHAGUFTA Pain Rating (0-10): 4 = Moderate Past Medical History: Past Medical History Reviewedyes Electronic Signatures: Maggi Sandoval) (Signed 14-Dec-2020 10:39) Entered: Risk Screens, Pain, Chart Review, Scores, Past Medical History Authored: Quick Triage, Risk Screens, Pain, Chart Review, Scores, Past Medical History Last Updated: 14-Dec-2020 10:39 by Maggi Sandoval (RN) Normal [facility] .Manual Abson 11-08-2017 Basophil Abs Man 0.0 10x3/ Normal 0.0-0.2 [facility] Comment on above: Order Comment: Order Added by Lisette Expert. Performed By: #### 3 [id number] ####KORINBrisa ArndtDgjZgbj1718 [place] [address] Eos Abs Man 0.0 10x3/ Normal 0.0-0.5 [facility] Comment on above: Order Comment: Order Added by Lisette Expert. Performed By: #### 3 [id number] ####KORINBrisa ArndtRwsHoan1280 [place] [address] Lymphocytes 5.3 10x3/ High 1.2-3.4 [facility] Comment on above: Order Comment: Order Added by Lisette Expert. Performed By: #### 3 [id number] ####KORINBrisa ArndtOauMfxi1532 [place] [address] Allegan Abs Man 0.2 10x3/ Normal 0.0-0.7 [facility] Comment on above: Order Comment: Order Added by Lisette Expert. Performed By: #### 3 [id number] ####KORINBrisa ArndtJzwMoyd3387 [place] [address] Segs Abs Man 1.6 10x3/ Normal 1.4-6.5 [facility] Comment on above: Order Comment: Order Added by Lisette Expert. Performed By: #### 3 [id number] ####KORINBrisa ArndtWgrGqgf6661 [place] [address] BMPon 11-08-2017 BUN/Creatinine Ratio 16.2 ratio Normal 5.4-30.0 [facility] Comment on above: Performed By: #### 2 [id number] ####KORINBrisa MiddletonDjnJtgg2847 [place] [address] Creatinine 0.8 mg/dL Normal 0.6-1.3 [facility] Comment on above: Performed By: #### 2 [id number] ####KORINBrisa MiddletonUlwWadt3026 [place] [address] Urea nitrogen 13 mg/dL Normal 7-18 [facility] Comment on above: Performed By: #### 2 [id number] ####KORIN MuaGabx1530 [place] [address] Calcium 9.2 mg/dL Normal 8.4-10.2 [facility] Comment on above: Performed By: #### 2 [id number] ####KORIN LqvBgvd8248 [place] [address] Chloride 104 mmol/L Normal 98-107 [facility] Comment on above: Performed By: #### 2 [id number] ####KORIN OukEocd7525 [place] [address] CO2 26.3 mmol/L Normal 24.0-30.0 [facility] Comment on above: Performed By: #### 2 [id number] ####KORIN LyuVqvh9002 [place] [address] Glucose mass conc 92 mg/dL Normal 70-99 [facility] Comment on above: Performed By: #### 2 [id number] ####KORIN VhdXris5768 [place] [address] Potassium molar conc 4.2 mmol/L Normal 3.5-5.1 [facility] Comment on above: Performed By: #### 2 [id number] ####KORIN PifVpyb9550 [place] [address] Sodium 137 mmol/L Normal 136-145 [facility] Comment on above: Performed By: #### 2 [id number] ####KORIN CnnUebb6574 [place] [address] CBC w/ Auto Diffon 8 Erythrocyte distribution width Auto Ratio (RBC) 13.6 % Normal 11.5-14.5 [facility] Comment on above: Performed By: #### 2 [id number] ####KORIN EflVgka6346 [place] [address] Erythrocytes (RBC) 4.68 E6/mcL Normal 3.90-5.40 [facility] Comment on above: Performed By: #### 2 [id number] ####KORIN MiddletonNwtYoyq4046 [place] [address] Hematocrit (HCT) 39.7 % Normal 36.0-48.0 [facility] Comment on above: Performed By: #### 2 [id number] ####KORIN Arndto1025 [place] [address] Hemoglobin mass conc (Bld) 13.6 g/dL Normal 12.0-16.0 [facility] Comment on above: Performed By: #### 2 [id number] ####KORIN Arndto1025 [place] [address] MCH 29.0 pg Normal 27.0-31.0 [facility] Comment on above: Performed By: #### 2 [id number] ####KORIN Arndto1025 [place] [id number] MCHC mass conc (RBC) 34.2 g/dL Normal 33.0-37.0 [facility] Comment on above: Performed By: #### 2 490706 ####KORIN Arndto1025 [place] [address] MCV 84.8 fL Normal 78.0-100.0 [facility] Comment on above: Performed By: #### 2 [id number] ####KORIN Arndto1025 [place] [id number] Platelet mean volume (PMV) 9.1 fL Normal 7.4-11.0 [facility] Comment on above: Performed By: #### 2 [id number] ####KORIN Arndto1025 [place] [address] Platelets 166 E3/mcL Normal 130-400 [facility] Comment on above: Performed By: #### 2 [id number] ####KORIN MiddletonHwyJqjm2983 [place] [address] WBC (Leukocytes) 8.1 E3/mcL Normal 3.6-11.0 [facility] Comment on above: Performed By: #### 2 [id number] ####KORIN MiddletonTvnCmce7514 [place] [address] CT Head or Brain w/o Contras ton 11-08-2017 CT Head or Brain w/o Contrast Exam Date/Time:11/07/2017 22:35 EDTReason for Exam:Altered mental statusReportEXAM: CT Head or Brain w/o ContrastCLINICAL STATEMENT: Altered mental status.COMPARISON: None available.TECHNIQUE: CT examination of the head without IV contrast.Dose reduction techniques were achieved by using automated exposure controland/or adjustment of mA and/or kV according to patient size and/or use ofiterative reconstruction technique.FINDINGS: The cerebral sulci and ventricles are normal in size and shape. Thedensity of the cerebrum, brainstem, and cerebellum is unremarkable. A suspected3.4 x 2.1 cm arachnoid cyst is seen at the anterior inferior aspect of the leftfrontal lobe. There is no evidence of intracranial hemorrhage. The brainstemand cerebellum are normal in appearance. The visualized paranasal sinuses andmastoid air cells are clear. No skull abnormalities are identified.IMPRESSION:1. No acute intracranial abnormality.2. Suspected 3.4 x 2.1 cm arachnoid cyst at the anterior inferior aspect of theleft frontal lobe. FINAL REPORT Dictated: 11/08/2017 6:13 am Abdullahi Arango MD KSigned (Electronic Signature): 11/08/2017 6:13 amSigned by: Abdullahi Arango MD Technologist: LO Normal [facility] D-Dimeron 11-08-2017 D-Dimer 2.90 mg/L FEU Critically abnormal <=0.50 [facility] Comment on above: Result Comment: Crit ical Result DIMER:2.90 Called to HARINI SALINAS at: 00:19:36 by:TOMÁS Read back by:HARINI SALINASNormal D Dimer level indicates no Deep Vein Thrombosis (DVT) or Pulmonary Embolism (PE).Elevated D Dimer level indicates additional studies and clinical assessments are indicated to conclude diagnosis of Deep Vein Thromobsis (DVT) or Pulmonary Embolism (PE). Performed By: #### 2 [id number] ####KORIN Hematology Automated Ljqqvbgzyx2362 [place] [address] Manual Diffon 11-08-2017 Basophils/100 WBC Auto (Bld) 0 % Normal 0-1 [facility] Comment on above: Order Comment: Order Added by Discern Expert. Performed By: #### 2 [id number] ####KORIN CeeVyhh2715 [place] [address] Eosinophils/100 leukocytes 0 % Normal 0-5 [facility] Comment on above: Order Comment: Order Added by Discern Expert. Performed By: #### 2 [id number] ####KORIN MiddletonEgeGfav3359 [place] [address] Erythrocyte morphology NORMAL Normal [facility] Comment on above: Order Comment: Order Added by Discern Expert. Performed By: #### 2 [id number] ####KORIN MiddletonOrqWniq3926 [place] [address] Lymphocytes/100 leukocytes 66 % High 14-48 [facility] Comment on above: Order Comment: Order Added by Discern Expert. Performed By: #### 2 [id number] ####KORIN MiddletonClpMqpf1436 [place] [address] Lymphocytes/100 leukocytes 8 % Normal [facility] Comment on above: Order Comment: Order Added by Discern Expert. Performed By: #### 2 [id number] ####KORIN MiddletonDdaJgju4893 [place] [address] Monocytes/100 leukocytes 3 % Normal 1-11 [facility] Comment on above: Order Comment: Order Added by Discern Expert. Performed By: #### 2 [id number] ####KORIN MiddletonYgrIjxr2946 [place] [address] Neutrophils band/100 leukocytes 3 % High 0-1 [facility] Comment on above: Order Comment: Order Added by Discern Expert. Performed By: #### 2 483294 ####KORIN MiddletonUjkRoan7397 [place] [address] Segs Man 20 % Low 37-75 [facility] Comment on above: Order Comment: Order Added by Discern Expert. Performed By: #### 2 [id number] ####KORIN MiddletonLccJvhy1588 [place] [address] U BhCG Qlton 11-08-2017 HCG.beta subunit Qn Negative Normal Neg [facility] Comment on above: Performed By: #### 2 [id number] ####KORIN Urinalysis Manual Qjojpylsns3345 [place] [id number] UA Completeon 11-08-2017 UA Blood 3+ Normal Negative [facility] Comment on above: Order Comment: Strai ght Cath as needed Performed By: #### 8 [id number] ####KORIN Urinalysis Automated Agrmkudgkt4644 [place] [id number] UA Clarity SltCloudy Abnormal Clear [facility] Comment on above: Order Comment: Strai ght Cath as needed Performed By: #### 8 [id number] ####KORIN Urinalysis Automated Kciqaozlql7700 [place] [address] UA Leuk Est Negative Normal Negative [facility] Comment on above: Order Comment: Strai ght Cath as needed Performed By: #### 8 [id number] ####KORIN Urinalysis Automated Iegdhuljgv[address] [place] [address] UA Mucous Trace Abnormal Trace [facility] Comment on above: Order Comment: Strai ght Cath as needed Performed By: #### 8 [id number] ####KORIN Urinalysis Automated Tthyelqcve[address] [place] [address] UA Nitrite Negative Normal Negative [facility] Comment on above: Order Comment: Strai ght Cath as needed Performed By: #### 8 [id number] ####KORIN Urinalysis Automated Fjoydflkzt[address] [place] [address] UA pH 5.0 Normal 4.6-8.0 [facility] Comment on above: Order Comment: Strai ght Cath as needed Performed By: #### 8 [id number] ####KORIN Urinalysis Automated Bnouhuulkn[address] [place] [address] UA Protein Negative Normal Negative [facility] Comment on above: Order Comment: Strai ght Cath as needed Performed By: #### 8 [id number] ####KORIN Urinalysis Automated Fyywmnlust[address] [place] [address] UA Spec Grav 1.024 Normal 1.003-1.030 [facility] Comment on above: Order Comment: Strai ght Cath as needed Performed By: #### 8 [id number] ####KORIN Urinalysis Automated Nbhvheoizz[address] [place] [address] UA Squam Epithelial 0-5 Normal 0-5 [facility] Comment on above: Order Comment: Strai ght Cath as needed Performed By: #### 8 [id number] ####KORIN Urinalysis Automated Mxtmuzgych[address] [place] [address] UA Urobilinogen 4.0 mg/dL Abnormal [facility] Comment on above: Order Comment: Strai ght Cath as needed Performed By: #### 8 [id number] ####KORIN Urinalysis Automated Bxvipvctls0345 [place] [id number] UA WBC 0-5 Normal 0-5 [facility] Comment on above: Order Comment: Strai ght Cath as needed Performed By: #### 8 [id number] ####KORIN Urinalysis Automated Fdjlsmvvbh7744 [place] [address] Urine, color Yellow Normal Yellow [facility] Comment on above: Order Comment: Strai ght Cath as needed Performed By: #### 8 [id number] ####KORIN Urinalysis Automated Vcqrkwrqyd5305 [place] [address] Urine, erythrocytes /uL Abnormal 0-3 [facility] Comment on above: Order Comment: Strai ght Cath as needed Performed By: #### 8 [id number] ####KORIN Urinalysis Automated Pcpaazdgds1929 [place] [address] Urine, glucose Negative Normal Negative [facility] Comment on above: Order Comment: Strai ght Cath as needed Performed By: #### 8 [id number] ####KORIN Urinalysis Automated Iyrdttpmee4901 [place] [address] Urine, ketones presence Negative Normal Negative [facility] Comment on above: Order Comment: Strai ght Cath as needed Performed By: #### 8 [id number] ####KORIN Urinalysis Automated Nvgkyajxhp7960 [place] [address] Urine, urobilinogen Negative Normal Negative [facility] Comment on above: Order Comment: Strai ght Cath as needed Performed By: #### 8 [id number] ####KORIN Urinalysis Automated Ziwnrpskmo2931 [place] [id number] eGFRon 11-08-2017 eGFR (non-black) mL/min/{1.73_m2} Normal [facility] Comment on above: Order Comment: Order added by Discern Expert. Performed By: #### 1 [id number] ####KORIN GkkGzsd0878 [place] [id number] zzplt morphon 11-08-2017 Platelet morphology NORMAL Normal [facility] Comment on above: Performed By: #### 9 [id number] ####KORIN MiddletonBawGhdd4235 [place] [id number] Platelets NORMAL Normal [facility] Comment on above: Performed By: #### 9 [id number] ####KORIN KzlLbxv2557 [place] [address] Culture, urine Bacteria identified Cx Nom (U) Culture exhibits no growth. [facility] Work Phone: Vital Signs Date Time Vital Sign Value Performing Clinician Facility 01-06-2025 11:41-0400 Body height 177.8 cm No Primary Care Physician [facility] 01-06-2025 11:40-0400 Body mass index (BMI) [Ratio] 31.7 kg/m2 No Primary Care Physician [facility] 01-06-2025 11:40-0400 Body weight 100.35 kg No Primary Care Physician [facility] 01-06-2025 11:40-0400 Diastolic blood pressure 62 mm[Hg] No Primary Care Physician [facility] 01-06-2025 11:40-0400 Systolic blood pressure 108 mm[Hg] No Primary Care Physician [facility] 09-29-2024 08:31-0400 Body mass index (BMI) [Ratio] 33.1 kg/m2 No Primary Care Physician [facility] 09-29-2024 08:31-0400 Body weight 104.89 kg No Primary Care Physician [facility] 09-29-2024 08:31-0400 Diastolic blood pressure 84 mm[Hg] No Primary Care Physician [facility] 09-29-2024 08:31-0400 Systolic blood pressure 131 mm[Hg] No Primary Care Physician [facility] 09-19-2024 15:12-0500 Body temperature 98.01 [degF] Hitesh Segal MD Work Phone: [facility] 09-19-2024 15:12-0500 Diastolic blood pressure 77 mm[Hg] Hitesh Segal MD Work Phone: [facility] 09-19-2024 15:12-0500 Heart rate 91 /min Hitesh Segal MD Work Phone: [facility] 09-19-2024 15:12-0500 Respiratory rate 21 /min Hitesh Segal MD Work Phone: [facility] 09-19-2024 15:12-0500 SaO2% (BldA) [Mass fraction] 97 % Hitesh Segal MD Work Phone: [facility] 09-19-2024 15:12-0500 Systolic blood pressure 124 mm[Hg] Hitesh Segal MD Work Phone: [facility] 09-17-2024 23:18-0500 Body height 180.3 cm Hitesh Segal MD Work Phone: [facility] 09-17-2024 23:18-0500 Body mass index (BMI) [Ratio] 30.68 kg/m2 Hitesh Segal MD Work Phone: [facility] 09-17-2024 23:18-0500 Body weight 99.79 kg Hitesh Segal MD Work Phone: [facility] 09-22-2023 14:34-0500 Body height 182.88 cm No Primary Care Physician [facility] 09-22-2023 14:34-0500 Body mass index (BMI) [Ratio] 34.4 kg/m2 No Primary Care Physician [facility] 09-22-2023 14:34-0500 Body weight 115.38 kg No Primary Care Physician [facility] 09-22-2023 14:34-0500 Diastolic blood pressure 75 mm[Hg] No Primary Care Physician [facility] 09-22-2023 14:34-0500 Systolic blood pressure 114 mm[Hg] No Primary Care Physician [facility] 08-22-2022 09:39-0500 Body height 182.88 cm No Primary Care Physician [facility] 08-22-2022 09:38-0500 Body mass index (BMI) [Ratio] 32 kg/m2 No Primary Care Physician [facility] 08-22-2022 09:38-0500 Body weight 107.04 kg No Primary Care Physician [facility] 08-22-2022 09:38-0500 Diastolic blood pressure 64 mm[Hg] No Primary Care Physician [facility] 08-22-2022 09:38-0500 Systolic blood pressure 114 mm[Hg] No Primary Care Physician [facility] 07-23-2022 09:14-0500 Body height 182.88 cm No Primary Care Physician [facility] 07-23-2022 09:08-0500 Body mass index (BMI) [Ratio] 31.5 kg/m2 No Primary Care Physician [facility] 07-23-2022 09:08-0500 Body weight 105.46 kg No Primary Care Physician [facility] 07-23-2022 09:08-0500 Diastolic blood pressure 70 mm[Hg] No Primary Care Physician [facility] 07-23-2022 09:08-0500 Systolic blood pressure 120 mm[Hg] No Primary Care Physician [facility] 06-27-2022 09:34-0500 Body mass index (BMI) [Ratio] 31.4 kg/m2 No Primary Care Physician [facility] 06-27-2022 09:34-0500 Body weight 104.94 kg No Primary Care Physician [facility] 06-27-2022 09:34-0500 Diastolic blood pressure 76 mm[Hg] No Primary Care Physician [facility] 06-27-2022 09:34-0500 Systolic blood pressure 114 mm[Hg] No Primary Care Physician [facility] 06-11-2022 07:22-0500 Body height 182.[address] Chasity Tenorio Work Phone: [facility] Work Phone: 06-11-2022 07:22-0500 Body mass index (BMI) [Ratio] 31.1 kg/m2 Dr. Chasity Tenorio Work Phone: [facility] 06-11-2022 07:22-0500 Body temperature 97.8 [degF] Dr. Chasity Tenorio Work Phone: [facility] 06-11-2022 07:22-0500 Body weight 104.[address] Chasity Tenorio Work Phone: [facility] 06-11-2022 07:22-0500 Diastolic blood pressure 82 mm[Hg] Dr. Chasity Tenorio Work Phone: [facility] 06-11-2022 07:22-0500 Heart rate 98 /min Dr. Chasity Tenorio Work Phone: [facility] 06-11-2022 07:22-0500 Respiratory rate 14 /min Dr. Chasity Tenorio Work Phone: [facility] 06-11-2022 07:22-0500 SaO2% (BldA) [Mass fraction] 99 % Dr. Chasity Tenorio Work Phone: [facility] 06-11-2022 07:22-0500 Systolic blood pressure 137 mm[Hg] Dr. Chasity Tenorio Work Phone: [facility] 05-28-2022 09:19-0500 Body height 182.[address] Chasity Tenorio Work Phone: [facility] Work Phone: 05-28-2022 09:19-0500 Body mass index (BMI) [Ratio] 32 kg/m2 Dr. Chasity Tenorio Work Phone: [facility] 05-28-2022 09:19-0500 Body weight 107.[address] Chasity Tenorio Work Phone: [facility] 05-28-2022 09:19-0500 Diastolic blood pressure 83 mm[Hg] Dr. Chasity Tenorio Work Phone: [facility] 05-28-2022 09:19-0500 Systolic blood pressure 129 mm[Hg] Dr. Chasity Tenorio Work Phone: [facility] 11-01-2021 11:19-0400 Body height 180.3 cm Shari Jaquez PA-C Work Phone: [facility] 11-01-2021 11:19-0400 Body weight 115.21 kg Shari Jaquez PA-C Work Phone: [facility] 10-22-2021 09:29-0400 Body temperature 98.4 [degF] Nani Hwodeky PROJECT CONTROL OFFICER.SPORTS STATISTICIAN Work Phone: [facility] 10-22-2021 09:29-0400 Body weight 115.21 kg Nani Hwodeky PROJECT CONTROL OFFICER.SPORTS STATISTICIAN Work Phone: [facility] 10-22-2021 09:29-0400 Diastolic blood pressure 80 mm[Hg] Nani Hwodeky PROJECT CONTROL OFFICER.SPORTS STATISTICIAN Work Phone: [facility] 10-22-2021 09:29-0400 Heart rate 104 /min Nani Hwodeky PROJECT CONTROL OFFICER.SPORTS STATISTICIAN Work Phone: [facility] 10-22-2021 09:29-0400 Systolic blood pressure 129 mm[Hg] Nani Hwodeky PROJECT CONTROL OFFICER.SPORTS STATISTICIAN Work Phone: [facility] 06-22-2021 11:45-0500 Body height 180.3 cm Text Entry [facility] 06-22-2021 11:45-0500 Body temperature 98.06 [degF] Text Entry [facility] 06-22-2021 11:45-0500 Diastolic blood pressure 80 mm[Hg] Text Entry [facility] 06-22-2021 11:45-0500 Heart rate 114 /min Text Entry [facility] 06-22-2021 11:45-0500 Respiratory rate 16 /min Text Entry [facility] 06-22-2021 11:45-0500 SaO2% (BldA) [Mass fraction] 97 % Text Entry [facility] 06-22-2021 11:45-0500 Systolic blood pressure 148 mm[Hg] Text Entry [facility] 06-10-2021 13:14-0500 Body height 180.34 cm Cheyenne Ballard Work Phone: [address] Work Phone: 06-10-2021 13:14-0500 Body mass index (BMI) [Ratio] 37.1 kg/m2 Cheyenne Ballard Work Phone: [address] Work Phone: 06-10-2021 13:14-0500 Body surface area Derived from formula 2.38 m2 Cheyenne Munizter Work Phone: [address] Work Phone: 06-10-2021 13:14-0500 Body temperature 98.2 [degF] Cheyenne Munizter Work Phone: [address] Work Phone: 06-10-2021 13:14-0500 Body weight 120.66 kg Cheyenne Ballard Work Phone: [address] Work Phone: 06-10-2021 13:14-0500 Diastolic blood pressure 80 mm[Hg] Cheyenne Munizter Work Phone: [address] Work Phone: 06-10-2021 13:14-0500 Systolic blood pressure 122 mm[Hg] Cheyenne Munizter Work Phone: [address] Work Phone: 04-11-2021 13:01-0400 Body height 180.34 cm Cheyenne Munizter Work Phone: [facility] [employer] [facility] [employer] Work Phone: 04-11-2021 13:01-0400 Body mass index (BMI) [Ratio] 36.32 kg/m2 Cheyenne Munizter Work Phone: [facility] [employer] [facility] Work Phone: 04-11-2021 13:01-0400 Body surface area Derived from formula 2.36 m2 Cheyenne Ballard Work Phone: [facility] Work Phone: 04-11-2021 13:01-0400 Body temperature 97.4 [degF] Cheyenne Ballard Work Phone: [facility] Work Phone: 04-11-2021 13:01-0400 Body weight 118.11 kg Cheyenne Ballard Work Phone: [facility] Work Phone: 04-11-2021 13:01-0400 Diastolic blood pressure 68 mm[Hg] Cheyenne Ballard Work Phone: [facility] Work Phone: 04-11-2021 13:01-0400 Heart rate 116 /min Cheyenne Ballard Work Phone: [facility] Work Phone: 04-11-2021 13:01-0400 SaO2% (BldA) [Mass fraction] 96 % Cheyenne Ballard Work Phone: [facility] Work Phone: 04-11-2021 13:01-0400 Systolic blood pressure 120 mm[Hg] Cheyenne Ballard Work Phone: [facility] Work Phone: 03-27-2021 13:40-0400 Body height 180.34 cm Cheyenne Ballard Work Phone: [facility] Work Phone: 03-27-2021 13:40-0400 Body mass index (BMI) [Ratio] 34.75 kg/m2 Cheyenne Ballard Work Phone: [facility] Work Phone: 03-27-2021 13:40-0400 Body surface area Derived from formula 2.32 m2 Cheyenne Ballard Work Phone: [facility] Work Phone: 03-27-2021 13:40-0400 Body temperature 96.8 [degF] Cheyenne Ballard Work Phone: [facility] Work Phone: 03-27-2021 13:40-0400 Body weight 113.01 kg Cheyenne Ballard Work Phone: [facility] Work Phone: 03-27-2021 13:40-0400 Diastolic blood pressure 64 mm[Hg] Cheyenne Ballard Work Phone: [facility] Work Phone: 03-27-2021 13:40-0400 Heart rate 108 /min Cheyenne Ballard Work Phone: [facility] Work Phone: 03-27-2021 13:40-0400 SaO2% (BldA) [Mass fraction] 98 % Cheyenne Ballard Work Phone: [facility] Work Phone: 03-27-2021 13:40-0400 Systolic blood pressure 110 mm[Hg] Cheyenne Ballard Work Phone: [facility] Work Phone: 03-23-2021 14:30-0400 Diastolic blood pressure 80 mm[Hg] Text Entry [facility] 03-23-2021 14:30-0400 Heart rate 92 /min Text Entry [facility] 03-23-2021 14:30-0400 Respiratory rate 16 /min Text Entry [facility] 03-23-2021 14:30-0400 SaO2% (BldA) [Mass fraction] 96 % Text Entry [facility] 03-23-2021 14:30-0400 Systolic blood pressure 97 mm[Hg] Text Entry [facility] 03-23-2021 13:42-0400 Body temperature 97.88 [degF] Text Entry [facility] 03-23-2021 13:42-0400 Body weight 105 kg Text Entry [facility] 03-18-2021 13:32-0400 Diastolic blood pressure 75 mm[Hg] Text Entry [facility] 03-18-2021 13:32-0400 Heart rate 83 /min Text Entry [facility] 03-18-2021 13:32-0400 Respiratory rate 18 /min Text Entry [facility] 03-18-2021 13:32-0400 SaO2% (BldA) [Mass fraction] 94 % Text Entry [facility] 03-18-2021 13:32-0400 Systolic blood pressure 133 mm[Hg] Text Entry [facility] 03-18-2021 10:45-0400 Body temperature 98.78 [degF] Text Entry [facility] 03-17-2021 20:41-0400 Diastolic blood pressure 77 mm[Hg] Text Entry [facility] 03-17-2021 20:41-0400 Heart rate 87 /min Text Entry [facility] 03-17-2021 20:41-0400 Respiratory rate 18 /min Text Entry [facility] 03-17-2021 20:41-0400 SaO2% (BldA) [Mass fraction] 95 % Text Entry [facility] 03-17-2021 20:41-0400 Systolic blood pressure 119 mm[Hg] Text Entry [facility] 03-17-2021 14:30-0400 Body temperature 99.5 [degF] Text Entry [facility] 03-17-2021 13:26-0400 Body height 180.3 cm Text Entry [facility] 03-17-2021 13:26-0400 Body weight 113 kg Text Entry [facility] 12-25-2020 03:10-0400 Diastolic blood pressure 87 mm[Hg] Text Entry [facility] 12-25-2020 03:10-0400 Heart rate 94 /min Text Entry [facility] 12-25-2020 03:10-0400 Respiratory rate 18 /min Text Entry [facility] 12-25-2020 03:10-0400 SaO2% (BldA) [Mass fraction] 98 % Text Entry [facility] 12-25-2020 03:10-0400 Systolic blood pressure 136 mm[Hg] Text Entry [facility] 12-14-2020 12:30-0400 Body temperature 98.24 [degF] Text Entry [facility] 12-14-2020 12:30-0400 Body weight 119 kg Text Entry [facility] 12-14-2020 12:30-0400 Diastolic blood pressure 92 mm[Hg] Text Entry [facility] 12-14-2020 12:30-0400 Heart rate 106 /min Text Entry [facility] 12-14-2020 12:30-0400 Respiratory rate 18 /min Text Entry [facility] 12-14-2020 12:30-0400 SaO2% (BldA) [Mass fraction] 99 % Text Entry [facility] 12-14-2020 12:30-0400 Systolic blood pressure 133 mm[Hg] Text Entry [facility] Encounters Encounter Date Encounter Type Care Provider Facility Start: 01-19-2025 End: 01-19-2025 ambulatory No Primary Care Physician [facility] Start: 01-19-2025 End: 01-19-[address] Chasity Tenorio DO -[facility] Start: 01-19-2025 End: 01-19-2025 ambulatory No Primary Care Physician Facility:[facility] Start: 01-06-2025 End: 01-06-[address] [facility] Work Phone[facility] Start: 01-06-2025 End: 01-06-2025 ambulatory No Primary Care Physician [facility] Work Phone: Start: 09-29-2024 End: 09-29-[address] [facility] Work Phone: Start: 09-29-2024 End: 09-29-2024 ambulatory No Primary Care Physician Facility:[facility] Start: 09-17-2024 End: 09-19-2024 Evaluation and management of inpatient Zi Pérez MD Work Phone: [facility] Start: 09-17-2024 End: 09-17-2024 Emergency department patient visit [facility] Start: 06-24-2024 End: 06-24-2024 ambulatory No Primary Care Physician Facility:[facility] Start: 06-24-2024 End: 06-24-2024 ambulatory No Primary Care Physician Facility:[facility] Start: 06-14-2024 End: 06-14-2024 ambulatory No Primary Care Physician Facility:[facility] Start: 06-10-2024 End: 06-10-2024 ambulatory No Primary Care Physician Facility:[facility] Start: 05-10-2024 End: 05-10-2024 ambulatory No Primary Care Physician Facility:[facility] Start: 05-10-2024 End: 05-10-2024 ambulatory No Primary Care Physician Facility:[facility] Start: 04-30-2024 ambulatory Milagros Katina Faci lity:[facility] Start: 04-30-2024 End: 05-02-2024 Evaluation and management of inpatient Milagros Russoony Facility:[facility] Start: 04-29-2024 End: 04-29-2024 ambulatory No Primary Care Physician Facility:[facility] Start: 04-25-2024 End: 04-25-2024 ambulatory No Primary Care Physician Facility:[facility] Start: 04-19-2024 End: 04-19-2024 ambulatory No Primary Care Physician Facility:[facility] Start: 04-12-2024 End: 04-12-2024 ambulatory Milagros Rafaelaony Facility:[facility] Start: 04-10-2024 ambulatory Vilma Sheehan Facility :[facility] Start: 04-10-2024 End: 04-10-2024 ambulatory Vilma Sheehan Facility:[facility] Start: 04-04-2024 End: 04-04-2024 ambulatory No Primary Care Physician Facility:[facility] Start: 04-04-2024 End: 04-04-2024 ambulatory Vilma Sheehan Facility:[facility] Start: 03-29-2024 End: 03-29-2024 ambulatory No Primary Care Physician Facility:[facility] Start: 03-24-2024 End: 03-24-2024 ambulatory No Primary Care Physician Facility:[facility] Start: 03-11-2024 End: 03-11-2024 ambulatory No Primary Care Physician Facility:[facility] Start: 02-27-2024 Encounter for genera l adult medical examination without abnormal findings Judi Elena PRODUCE MANAGER [facility] Start: 02-22-2024 End: 02-22-2024 ambulatory Judi Elena PRODUCE MANAGER Facility:[facility] Start: 02-22-2024 End: 02-22-2024 ambulatory Judi Elena PRODUCE MANAGER Facility:[facility] Start: 02-09-2024 End: 02-09-2024 ambulatory Milagros Akins Facility:[facility] Start: 02-09-2024 End: 02-09-2024 ambulatory Judi Elena PRODUCE MANAGER Facility:[facility] Start: 12-03-2023 End: 12-03-2023 ambulatory OBDULIA MILAN [facility] Start: 09-22-2023 End: 09-22-2023 ambulatory No Primary Care Physician [facility] Work Phone: Start: 09-22-2023 End: 09-22-2023 Patient encounter procedure No Primary Care Physician [facility] Work Phone: Start: 12-23-2022 End: 12-23-2022 ambulatory MD NO PRIMARY CARE [facility] Start: 08-25-2022 End: 08-25-2022 ambulatory No Primary Care Physician [facility] Work Phone: Start: 08-25-2022 End: 08-25-2022 Patient encounter procedure No Primary Care Physician [facility] Start: 08-22-2022 End: 08-22-2022 Patient encounter procedure No Primary Care Physician [facility] Start: 08-05-2022 End: 08-05-2022 ambulatory No Primary Care Physician [facility] Work Phone: Start: 08-05-2022 End: 08-05-2022 Patient encounter procedure No Primary Care Physician [facility] Start: 07-25-2022 End: 07-25-2022 ambulatory No Primary Care Physician [facility] Work Phone: Start: 07-25-2022 End: 07-25-2022 Patient encounter procedure No Primary Care Physician [facility]-Ul[facility]ound, [facility] Start: 07-23-2022 End: 07-23-2022 Patient encounter procedure No Primary Care Physician [facility] Start: 06-27-2022 End: 06-27-2022 Patient encounter procedure No Primary Care Physician [facility] Start: 06-11-2022 End: 06-11-2022 Emergency department patient visit Dr. Chasity Tenorio Work Phone: [facility]Emergency [facility] Start: 05-28-2022 End: 05-28-[address] Chasity Tenorio Work Phone: [facility] Work Phone: Start: 05-28-2022 End: 05-28-[address] Chasity Tenorio Work Phone: [facility] Start: 11-01-2021 End: 11-01-2021 ambulatory Shari Jaquez PA-C Work Phone: OB/Gynecology Comment on above: Abnormal uterine ble eding (AUB) (Primary Dx); Pre-conception counseling Start: 11-01-2021 End: 11-01-2021 Telemedicine consultation with patient Shari Jaquez PA-C Work Phone: [facility] Start: 10-22-2021 End: 10-22-2021 Patient encounter procedure Nani Valera Hwforeignky PROJECT CONTROL OFFICER.SPORTS STATISTICIAN Work Phone: [facility] Comment on above: Sinobronchitis (Prim asa Dx); Non-recurrent acute suppurative otitis media of right ear without spontaneous rupture of tympanic membrane Start: 10-21-2021 ambulatory Shari Gisele PA-C Work Phone: OB/Gynecology Comment on above: Blood test Start: 08-06-2021 End: 08-06-2021 Subsequent hospital visit by physician Xr [facility] Jhonatan Work Phone: Radiology Comment on above: Hand pain, left [M79 .642] Start: 06-28-2021 Chart Update Cheyenne Vale ster Work Phone: [facility] [place] Work Phone: Start: 06-25-2021 End: 06-25-2021 Subsequent hospital visit by physician Xr [facility] [place] Work Phone: Radiology Comment on above: Cough [R05.9] Start: 06-24-2021 AUDIT Cheyenne Robert Harp ster Work Phone: [facility] [place] Work Phone: Start: 06-22-2021 End: 06-22-2021 Emergency department patient visit Tucker Ortega [facility] 02 Start: 06-18-2021 Chart Update Cheyenne Robert Harp ster Work Phone: [facility] [place] Work Phone: Start: 04-11-2021 Office outpatient vi sit 15 minutes Cheyenne Ballard Work Phone: [facility] Work Phone: Start: 03-23-2021 End: 03-23-2021 Emergency department patient visit Eliana Omari [facility] Emergency 10 Start: 03-18-2021 End: 03-18-2021 Emergency department patient visit Abraham Fleming [facility] Emergency 07 Start: 03-17-2021 End: 03-17-2021 Emergency department patient visit Eliana Javier [facility] Emergency 08 Start: 12-25-2020 End: 12-25-2020 Emergency department patient visit Kavya Oliva [facility] Emergency 01 Start: 12-14-2020 End: 12-14-2020 Emergency department patient visit Eliana Javier [facility] Emergency 14 Start: 06-15-2019 End: 06-19-2019 Patient encounter procedure PHYSICIAN [facility] Start: 11-07-2017 End: 11-08-2017 Emergency department patient visit Azul [facility] Facility:[facility] Start: 02-27-2017 End: 02-28-2017 Ambulatory Shane Katz [facility] Facility:[facility] Procedures Date Procedure Procedure Detail Performing Clinician Start: 09-19-2024 Basic metabolic pane l calcium total Hitesh Segal MD Work Phone: Start: 09-19-2024 Ct head/brain w/o co ntrast material Hitesh Segal MD Work Phone: Start: 09-19-2024 Acetaminophen blood measurement Hitesh Segal MD Work Phone: Start: 09-19-2024 Comprehensive metabo lic panel Afua Engel MD Work Phone: Start: 09-18-2024 Comprehensive metabo lic panel Afua Engel MD Work Phone: Start: 09-17-2024 End: 09-17-2024 Chloride urine Martín Zhang MD Work Phone: Start: 09-17-2024 Urnls dip stick/tabl et reagent auto microscopy Martín Zhang MD Work Phone: Start: 09-17-2024 Gases blood ph direc t evangelist xcpt pulse oximitry Zi Pérez MD Work Phone: Start: 09-17-2024 Comprehensive metabo lic panel Martín Zhang MD Work Phone: Start: 09-17-2024 OBTAIN VENOUS BLOOD GASES AND PERFORM Martín Zhang MD Work Phone: Start: 09-17-2024 Salicylate blood measurement Afua Engel MD Work Phone: Start: 09-22-2023 Urine culture No Primar y Care Physician Start: 08-25-2022 Ultrasound scan for growth No Primary Care Physician Start: 08-05-2022 Transvaginal obstetr ic ultrasonography No Primary Care Physician Start: 08-05-2022 anatomy study No Primary Care Physician Start: 07-25-2022 Ultrasonography for antepartum monitoring of fetus No Primary Care Physician Start: 08-06-2021 Radex hand minimum 3 views Rich Wu PROJECT CONTROL OFFICER.SPORTS STATISTICIAN Work Phone: Start: 06-28-2021 Adult depression scr eening assessment Nani Coy PROJECT CONTROL OFFICER.SPORTS STATISTICIAN Work Phone: Start: 06-25-2021 Radiologic exam ches t 2 views [place] PROJECT CONTROL OFFICER.SPORTS STATISTICIAN Work Phone: Start: 03-23-2021 End: 03-23-2021 EKG impression Eliana Salcido Start: 03-17-2021 End: 03-17-2021 Gas panel - Arterial blood Eliana Man odiliahio Start: 03-17-2021 End: 03-17-2021 EKG impression Abraham Fleming No history of surgery Hong Ballard Work Phone: Urine culture Dr. Chasity Araujo Work Phone: Urine culture No Primary Car e Physician Plan of Treatment Date Care Activity Detail Author Start: 06-11-2024 PAP TESTING PAP TESTING [facility] Start: 06-11-2024 Screening for malignant neoplasm of cervix Cervical Cancer Screening [facility] Start: 03-20-2024 Covid-19 Vaccine ( season) Covid-19 Vaccine () [facility] Start: 03-20-2024 Influenza vaccination Influenza Vaccine (#1) [facility] Start: 09-22-2023 Liquid based cervical cytology screening [facility] Start: 06-28-2022 Adult depression screening assessment DEPRESSION SCREENING [facility] Start: 06-28-2022 CHLAMYDIA SCREENING (18-24) CHLAMYDIA SCREENING (18-24) [facility] Comment on above: Postponed from 2017 (Declined at t his time) Start: 06-28-2022 COVID-19 VACCINE (1) COVID-19 VACCINE (1) [facility] Comment on above: Postponed from 2004 (Declined at t his time) Start: 06-28-2022 GC (GONORRHEA) SCREENING (18-24) GC (GONORRHEA) SCREENING (18-24) [facility] Comment on above: Postponed from 2017 (Declined at t his time) Start: 06-28-2022 HEPATITIS C SCREENING HEPATITIS C SCREENING [facility] Comment on above: Postponed from 2017 (Declined at t his time) Start: 06-28-2022 HIV SCREENING HIV SCREENING [facility] Comment on above: Postponed from 2017 (Declined at t his time) Start: 03-20-2022 Influenza vaccination INFLUENZA (Season Ended) [facility] Start: 11-01-2021 End: 01-01-2022 TESTOSTERONE, FREE AND TOTAL TESTOSTERONE, FREE AND TOTAL Lab Routine Abnormal uterine bleeding (AUB) Expected: 11/01/2021, Expires: 01/01/2022 [facility] Work Phone: Comment on above: Expected: 11/01/2021, Expires: 2 Start: 10-22-2021 End: 12-22-2021 PROGESTERONE BLD PROGESTERONE BLD Lab Routine Abnormal uterine bleeding (AUB) Expected: 10/22/2021, Expires: 12/22/2021 [facility] Work Phone: Comment on above: Expected: 10/22/2021, Expires: 2 Start: 06-24-2021 FUV, Provider: Barbara Cao, Status: Pen, Time: 11:30 AM FUV, Provider: Barbara Cao, Status: Pen, Time: 11:[address] Work Phone: Start: 06-24-2021 Patient encounter procedure [facility] Start: 2018 Hepatitis B Vaccine (1 of 3 - 19+ 3-dose series) Hepatitis B Vaccine (1 of 3 - 19+ 3-dose series) [facility] Start: 2018 Urine microalbumin profile [facility] Start: 2017 Hepatitis C screening Hepatitis C Screening [facility] Start: 2017 HIV screening HIV Screening [facility] Start: 2013 PEDS TO ADULT TRANSITION ANNUAL ASSESSMENT PEDS TO ADULT TRANSITION ANNUAL ASSESSMENT [facility] Start: 2011 PEDS TO ADULT TRANSITION INITIAL DISCUSSION PEDS TO ADULT TRANSITION INITIAL DISCUSSION [facility] End: 09-19-2024 Blood ethylene glycol level [facility] Comment on above: Once for 1 Occurrences starting 09/20/19 until 09/19/2024 Chlamydia deoxyribon ucleic acid detection [facility] Work Phone: Chlamydia deoxyribon ucleic acid detection [facility] anatomy study [facility] Work Phone: Hepatitis B surface antigen measurement [facility] Work Phone: Hepatitis B surface antigen measurement [facility] Hepatitis C antibody measurement [facility] Work Phone: Hepatitis C antibody measurement [facility] HIV 1+2 Ab+HIV1 p24 Ag [Presence] in Serum or Plasma by Immunoassay [facility] Work Phone: HIV 1+2 Ab+HIV1 p24 Ag [Presence] in Serum or Plasma by Immunoassay [facility] Path report.final Dx Spec [facility] Patient Education ED Upper GI Bl eeding (Stable) [facility] Work Phone: Patient referral [facility] Work Phone: SONOHYSTEROGRAPHY (S IS) US WHI SONOHYSTEROGRAPHY (SIS) US I Anc Imaging Routine Abnormal uterine bleeding (AUB) Ordered: 11/01/2021 [facility] Work Phone: Comment on above: Ordered: 11/01/2021 Treponema sp Ab [Pre sence] in Serum [facility] Work Phone: Treponema sp Ab [Pre sence] in Serum [facility] End: 09-19-2024 Volatile substance screening [facility] Work Phone: Comment on above: Once for 1 Occurrences starting 09/20/19 until 09/19/2024 Leon sarah Payers Date Payer Category Payer Medicaid [id number] 2023 Managed Care (unspecified) [employer] HMO/NTWK/OACCESS/OA+/POS [id number] 2023 Private Health Insurance [id number] 2021 Private Health Insurance [employer] A ETNA CHOICE POS II [id number] 2021-Present [phone] [address] [place] [address] POS [id number] 2019 Unknown [id number] 2017 Self-pay 2017 Private Health Insurance 1999 Unknown [id number] 2.16.840.1.190792.3.579.2. 900 1999 Unknown [id number] 2.16.840.1.028577.3.579.2. 479 1999 Unknown [id number] 2.16.840.1.619100.3.579.2. 479 1999 Unknown [id number] 2.16.840.1.296361.3.579.2. 902 1999 Unknown [id number] 2.840.1.314632.3.579.2. 903 Unknown Unknown [facility] PACKAGE PLAN [id number] Unknown [id number] 2.16.840.1.826093.3.579.2. 462 Unknown [id number] 2.840.1.819534.3.579.2. 462 Unknown [id number] 2..840.1.659187.3.579.2. 462 Unknown [id number] 2.840.1.206256.3.579.2. 462 Unknown [id number] 2.840.1.117685.3.579.2. 462 Unknown [id number] 2.840.1.962702.3.579.2. 462 Unknown [id number] 2.840.1.061598.3.579.2. 462 Unknown [id number] 2.840.1.744680.3.579.2. 462 Unknown [id number] 2.840.1.511424.3.579.2. 462 Unknown [id number] 2.840.1.762134.3.579.2. 462 Unknown [id number] 2.840.1.397918.3.579.2. 462 Unknown [id number] 2.840.1.407196.3.579.2. 462 Unknown [id number] 2.16.840.1.792794.3.579.2. 462 Unknown [id number] 2.16.840.1.247590.3.579.2. 462 Unknown [id number] 2.16.840.1.206227.3.579.2. 462 Unknown [id number] 2..840.1.632720.3.579.2. 462 Unknown [id number] 2.16.840.1.581097.3.579.2. 462 Unknown [id number] 2.16.840.1.874799.3.579.2. 462 Unknown [id number] 2.16.840.1.315509.3.579.2. 462 Unknown [id number] 2.16.840.1.196492.3.579.2. 462 Unknown [id number] 2.16.840.1.045770.3.579.2. 462 Unknown [id number] 2.16.840.1.664843.3.579.2. 462 Unknown [id number] 2.16.840.1.033677.3.579.2. 462 Unknown [id number] 2.16.840.1.021363.3.579.2. 462 Unknown [id number] 2.16.840.1.775391.3.579.2. 462 Unknown [id number] 2.16.840.1.444383.3.579.2. 462 Unknown [id number] 2.16.840.1.763098.3.579.2. 462 Social History Date Type Detail Facility [facility] Start: 05-28-2022 End: 09-22-2023 Tobacco smoking consumption unknown [facility] Start: 06-28-2021 End: 09-18-2024 Never smoker Never smoker [facility] Start: 06-20-2021 End: 04-30-2024 Tobacco smoking status NHIS Never smoked tobacco [facility] Start: 06-15-2019 End: 06-20-2021 Tobacco use and exposure Smokeless tobacco non-user [facility] Start: 06-25-2021 End: 10-22-2021 Alcohol intake Current drinker of alcohol (finding) [facility] Start: 06-28-2021 History SDOH Alcohol Frequency 2 [facility] Start: 06-28-2021 History SDOH Alcohol Std Drinks 1 [facility] Start: 06-20-2021 History SDOH Alcohol Comment occ [facility] Start: 06-28-2021 History SDOH Social Connections Sikh 3 [facility] Start: 06-28-2021 History SDOH Physical Activity DPW 5 [facility] Start: 06-28-2021 History SDOH Physical Activity MPS 9 [facility] Start: 2000 Sex Assigned At Not on file [facility] Start: 05-21-2021 End: 10-24-2021 Exposure to SARS-CoV-2 (event) Not sure [facility] Start: 2000 Sex Assigned At Female [facility] Start: 06-28-2021 End: 09-18-2024 Social connection and isolation panel [facility] Do you belong to any clubs or organizations such as roman catholic groups, unions, fraternal or athletic groups, or school groups? Yes [facility] Are you now , , , , never or living with a partner? [facility] How often to you hav e a drink containing alcohol? Monthly or less [facility] How many standard dr inks containing alcohol do you have on a typical day? 1 or 2 [facility] How often do you hav e 6 or more drinks on 1 occasion? Never [facility] How hard is it for y ou to pay for the very basics like food, housing, medical care, and heating Not hard at all [facility] Do you feel stress - tense, restless, nervous, or anxious, or unable to sleep at night because your mind is troubled all the time - these days [OSQ] To some extent [facility] (I/We) worried wheth er (my/our) food would run out before (I/we) got money to buy more. Never true [facility] In the past 12 month s, was there a time when you were not able to pay the mortgage or rent on time? No [facility] Start: 09-18-2024 Alcoholic beverage intake Ex-drinker (finding) [facility] Start: 06-15-2019 Gender identity Identifies as female gender (finding) [facility] Start: 06-15-2019 Sexual orientation Heterosexual (finding) [facility] Clinical Notes 06-10-2021 to 09-29-2024 Note Date & Type Note Facility 09-29-2024 Evaluation note Diagnosis Onset Date Resolution Abnormal uterine bleeding acute September 29, 2024 8:27am [facility] Work Phone: [phone] Evaluation note* Diagnosis Onset Date Resolution Status Admit Date Abnormal uterine bleeding acute September 29, 2024 8:27am Contraceptive management acute January 06, 2025 11:21am [facility] Work Phone: [phone] Progress note* Quick Note - Milena Denton RN - 09/19/2024 6:09 PM EST Discussed AVS with pt and provided list of PCP accepting pt's in [facility]. Pt has med from pharm. Pt independently dressed and has all belongings including breast pump/parts, cell phone, med frompharm, and clothing. Pt left facility with friend. [id number] Miscellaneous Notes* Quick Note - Milena Denton RN - 09/19/2024 6:09 PM EST Discussed AVS with pt and provided list of PCP accepting pt's in [facility]. Pt has med from pharm. Pt independently dressed and has all belongings including breast pump/parts, cell phone, med frompharm, and clothing. Pt left facility with friend. * Plan of Care - Milena Denton RN - 09/19/2024 5:04 PM EST Problem: Actual or potential alteration in health Goal: Absence of healthcare acquired conditions 09/19/20241703 by Milena Denton RN Outcome: Completed 09/19/2024 110 by Milena Denton RN Outcome: Partially Met Goal: Knowledge of Interdisciplinary Plan of Care 09/19/2024 170 by Milena Denton RN Outcome: Completed 09/19/2024 1102 by Milena Denton RN Outcome: Partially Met Goal: Knowledge of Enviroment 09/19/2024 1704 by Milena Denton RN Outcome: Completed 09/19/2024 1102 by Milena Denton RN Outcome: Partially Met Problem: Pain Goal: Reduced pain sensation 09/19/2024 1704 by Milena Denton RN Outcome: Completed 09/19/2024 1102 by Milena Denton RN Outcome: Partially Met Goal: Control of acute pain to acceptable level 09/19/2024 1704 by Milena Denton RN Outcome: Completed 09/19/2024 110 by Milena Denton RN Outcome: Partially Met Goal: Able to cope with pain 09/19/2024 1704 by Milena Denton RN Outcome: Completed 09/19/2024 110 by Milena Denton RN Outcome: Partially Met Goal: Able to achieve maximum level of physical functioning 09/19/2024 1704 by Milena Denton RN Outcome: Completed 09/19/2024 110 by Milena Denton RN Outcome: Partially Met Goal: Able to achieve maximum level of psychosocial functioning 09/19/2024 1704 by Milena Denton RN Outcome: Completed 09/19/2024 110 by Milena Denton RN Outcome: Partially Met * Quick Note - Milena Denton RN - 09/19/2024 2:[address]Erminy rogers not to admin 4th bag of potassium d/t K+ lab increasing to 3.6. Updated Pt. * Plan of Care - Milena Denton RN - 09/19/2024 11:02 AM EST Problem: Actual or potential alteration in health Goal: Absence of healthcare acquired conditions Outcome: Partially Met Goal: Knowledge of Interdisciplinary Plan of Care Outcome: Partially Met Goal: Knowledge of Enviroment Outcome: Partially Met Problem: Pain Goal: Reduced pain sensation Outcome: Partially Met Goal: Control of acute pain to acceptable level Outcome: Partially Met Goal: Able to cope with pain Outcome: Partially Met Goal: Able to achieve maximum level of physical functioning Outcome: Partially Met Goal: Able to achieve maximum level of psychosocial functioning Outcome: Partially Met * Plan of Care - Román Boyce RN - 09/18/2024 12:39 PM EST Problem: Actual or potential alteration in health Goal: Absence of healthcare acquired conditions Outcome: Partially Met Goal: Knowledge of Interdisciplinary Plan of Care Outcome: Partially Met Goal: Knowledge of Enviroment Outcome: Partially Met Problem: Pain Goal: Reduced pain sensation Outcome: Partially Met Goal: Control of acute pain to acceptable level Outcome: Partially Met Goal: Able to cope with pain Outcome: Partially Met Goal: Able to achieve maximum level of physical functioning Outcome: Partially Met Goal: Able to achieve maximum level of psychosocial functioning Outcome: Partially Met * Plan of Care - Vianca Nascimento RN - 09/18/2024 5:25 AM EST Problem: Actual or potential alteration in health Goal: Absence of healthcare acquired conditions 09/18/2024524 by Vianca Nascimento RN Outcome: Met 09/17/20242329 by Vianca Nascimento RN Outcome: Met Goal: Knowledge of Interdisciplinary Plan of Care 09/18/2024524 by Vianca Nascimento RN Outcome: Met 09/17/20242329 by Vianca Nascimento RN Outcome: Met Goal: Knowledge of Enviroment 09/18/2024524 by Vianca Nascimento RN Outcome: Met 09/17/20242329 by Vianca Nascimento RN Outcome: Met Problem: Pain Goal: Reduced pain sensation Outcome: Met * Plan of Care - Vianca Nascimento RN - 09/17/2024 9:45 PM EST Problem: Actual or potential alteration in health Goal: Absence of healthcare acquired conditions Outcome: Met Goal: Knowledge of Interdisciplinary Plan of Care Outcome: Met Goal: Knowledge of Enviroment Outcome: Met * Quick Note - Balbina Caban RRT - 09/17/2024 7:35 PM EST VBG results to Dr Martín Zhang Latest Reference Range & Units 09/17/24 19:27 pH, Venous 7.32 - 7.42 7.17 (CL) pCO2, Ko 41.0 - 51.0 mm Hg 28.9 (L) pO2, Ko 25 - 40 mm Hg 48 (H) HCO3, Ko 24.0 - 28.0 mmol/L 10.6 (L) * Quick Note - Milagro Palacio RN - 09/17/2024 6:20 PM EST Patient to room per squad documented in this [id number] Plan of care note* Plan of Care - Milena Denton RN - 09/19/2024 5:04 PM EST Problem: Actual or potential alteration in health Goal: Absence of healthcare acquired conditions 09/19/20241703 by Milena Denton RN Outcome: Completed 09/19/2024 1102 by Milena Denton RN Outcome: Partially Met Goal: Knowledge of Interdisciplinary Plan of Care 09/19/2024 170 by Milena Denton RN Outcome: Completed 09/19/2024 110 by Milena Denton RN Outcome: Partially Met Goal: Knowledge of Enviroment 09/19/2024 1704 by Milena Denton RN Outcome: Completed 09/19/2024 110 by Milena Denton RN Outcome: Partially Met Problem: Pain Goal: Reduced pain sensation 09/19/2024 1704 by Milena Denton RN Outcome: Completed 09/19/2024 110 by Milena Denton RN Outcome: Partially Met Goal: Control of acute pain to acceptable level 09/19/2024 170 by Milena Denton RN Outcome: Completed 09/19/2024 110 by Milena Denton RN Outcome: Partially Met Goal: Able to cope with pain 09/19/2024 170 by Milena Denton RN Outcome: Completed 09/19/2024 110 by Milena Denton RN Outcome: Partially Met Goal: Able to achieve maximum level of physical functioning 09/19/2024 170 by Milena Denton RN Outcome: Completed 09/19/2024 110 by Milena Denton RN Outcome: Partially Met Goal: Able to achieve maximum level of psychosocial functioning 09/19/2024 170 by Milena Denton RN Outcome: Completed 09/19/2024 110 by Milena Denton RN Outcome: Partially Met [id number]S DISCHARGE SUMMARY -- [facility] Ashley Lynn Admitted: 09/17/2024 Discharge Date: 09/19/24 PCP Handoff Recommended Outpatient Testing F/u with PCP Results Pending At Discharge None Clinical Summary Ashley Lynn is a 24 y.o. female patient of Anna Chiang CNP with history of depression presented to [facility] ED with complaints of generalized weakness, fatigue, intermittent abdominal pain over the last 2 days, found to have profound acidosis, transferred to [facility] for further workup Metabolic acidosis of unclear etiology resolved Initial VBG. 7.09 Initial bicarb 8->19, anion gap 14->21. Lactate normal 1.3 Initial CBC appeared hemoconcentrated with wbc 14, hct49, plt 424->333 CT abdomen revealed mild circumferential wall thickening of visualized distal esophagus, otherwise no acute process identified UA ketones greater than 160 and high specific gravity beta hydroxybutyrate elevated at 6.5 trended down to 3.0 Salicylate level unremarkable. Volatile screen positive for acetone in blood. Discussed with nephrology at this point not consistent with clinical presentation in addition to bicarbonate levels improving. I called poison control for further recommendations. Recommended to add ethylene glycol testing however clinically not consistent with this. BMP, osmolality and lactic acid repeated. Further discussion with poison control Dr. Amado cleared the patient for discharge. Hypokalemia Paresthesia likely secondary to hypokalemia CT head with known arachnoid cyst. Negative for intracranial process Potassium replaced prior to discharge and normalized. Esophagitis seen on CT Will start on PPI Depression Continue home med Zoloft 4 months Follow-up with PREP PERSON as needed Discharge Medications Discharge Medications New Medications Details pantoprazole 40 MG tablet Commonly known as: PROTONIX Take 1 (one) tablet (40 mg total) by mouth daily . Quantity: 30 tablet Medications To Continue Details sertraline 50 MG tablet Commonly known as: ZOLOFT Take 1 (one) tablet (50 mg total) by mouth daily . Physician(s) Follow Up: Afua Engel MD [address] [facility] [address] Follow up Condition at Discharge: Stable Disposition: Home I reviewed discharge recommendations with the patient in person. Patient instructions, including activity, were given to the patient/family at discharge. On day of discharge I saw Ashley Lynn and spent: > 30 minutes on discharge. Completed by: Hitesh Segal MD on 09/19/24, 3:10 PM AUTHENTICATED BY HITESH SEGAL, ON 09/20/2024 15:28:00[facility] 09-19-2024 Hospital course Narrative* Hitesh Goncalves MD - 09/19/2024 3:[address] [facility] DISCHARGE SUMMARY -- [facility] Ashley Lynn Admitted: 09/17/2024 Discharge Date: 09/19/24 PCP Handoff Recommended Outpatient Testing F/u with PCP Results Pending At Discharge None Clinical Summary Ashley Lynn is a 24 y.o. female patient of Anna Chiang CNP with history of depression presented to [facility] [place] ED with complaints of generalized weakness, fatigue, intermittent abdominalpain over the last 2 days, found to have profound acidosis, transferred to [facility] for further workup Metabolic acidosis of unclear etiology resolved Initial VBG. 7.09 Initial bicarb 8->19, anion gap 14->21. Lactate normal 1.3 Initial CBC appeared hemoconcentrated with wbc 14, hct49, plt 424->333 CT abdomen revealed mild circumferential wall thickening of visualized distal esophagus, otherwise no acute process identified UA ketones greater than 160 and high specific gravity beta hydroxybutyrate elevated at 6.5 trended down to 3.0 Salicylate level unremarkable. Volatile screen positive for acetone in blood. Discussed with nephrology at this point not consistent with clinical presentation in addition to bicarbonate levels improving. I called poison control for further recommendations. Recommended to add ethylene glycol testing however clinically not consistent with this. BMP, osmolality and lactic acid repeated. Further discussion with poison control Dr. Amado cleared the patient for discharge. Hypokalemia Paresthesia likely secondary to hypokalemia CT head with known arachnoid cyst. Negative for intracranial process Potassium replaced prior to discharge and normalized. Esophagitis seen on CT Will start on PPI Depression Continue home med Zoloft Discharge Medications Discharge Medications New Medications Details pantoprazole 40 MG tablet Commonly known as: PROTONIX Take 1 (one) tablet (40 mg total) by mouth daily . Quantity: 30 tablet Medications To Continue Details sertraline 50 MG tablet Commonly known as: ZOLOFT Take 1 (one) tablet (50 mg total) by mouth daily . Physician(s) Follow Up: Afua Engel MD [address] [facility] [address] Follow up Condition at Discharge: Stable Disposition: Home I reviewed discharge recommendations with the patient in person. Patient instructions, including activity, were given to the patient/family at discharge. On day of discharge I saw Ashley Lynn and spent: > 30 minutes on discharge. Completed by: Hitesh Segal MD on 09/19/24, 3:10 PM documented in this [id number] Progress note* Quick Note - Milena Denton RN - 09/19/2024 2:[address]Erminy rogers not to admin 4th bag of potassium d/t K+ lab increasing to 3.6. Updated Pt. [id number] NoteNEPHROLOGY PROGRESS NOTE [facility] Patient Name: Ashley Lynn Admit Date: [id number] MR #: [id number] : 2000 Perpetual Assessment: Ashley Lynn is a 24 y.o. female on hospital day 2 admitted for abdominal pain We are asked to evaluate and manage for low bicarbonate Impression and Plan: AGMA -From ketoacidosis. Interestingly volatile acid screen positive for acetone in blood. Typically acetone or isopropanol ingestion would result in normal anion gap with elevated osmolar gap as well as ketonuria and ketoacidosis. She denies isopropanol ingestion. Reassuringly bicarb levels are improving. Out of abundance of caution, will consult poison control for any recommendations since she is of childbearing age as well as breast-feeding. -B-HB remains high but is improving. Off IV alkali. 2. HypoK From IV alkali Replace and monitor 3. Esophagitis -Per CT. On PPI per primary team Subjective: No events overnight. Doing well. Review of Systems: ROS otherwise reviewed and negative Physical Examination: Vitals: Vitals: 09/19/24 0346 09/19/24 0717 09/19/24 0730 09/19/24 1121 BP: 118/65 118/75 115/69 Pulse: (!) 107 83 85 Resp: 17 14 13 17 Temp: 97.8 degrees F (36.6 degrees C) 97.9 degrees F (36.6 degrees C) 98.3 degrees F (36.8 degrees C) TempSrc: Oral Oral Oral SpO2: 98% 98% Weight: Height: Intake/Output last 3 shifts: Intake/Output Summary (Last 24 hours) at 09/19/2024 1257 Last data filed at 09/19/2024 0800 Gross per 24 hour Intake 503.75 ml Output -- Net 503.75 ml I/O last 3 completed shifts: In: 143.8 [I.V.:143.8] Out: - General: No acute distress HEENT: Anicteric Neck: Supple CV: Regular rate, no murmurs or rubs. No lower extremity edema Lungs: CTA B Abd: Soft, nontender, bowel sounds present Extr: good LE perfusion, no cyanosis Neuro: No myoclonus, alert and oriented x 3 Skin : No new rashes Results/Medications Reviewed 09/19/24 12:57 PM: Laboratory, Microbiology, Pathology, Radiology, Cardiology, Medications and Transcriptions reviewed Scheduled Meds: pantoprazole 40 mg Intravenous Daily potassium chloride 20 mEq Intravenous Q2H sertraline 50 mg Oral Daily sodium chloride (PF) 5 mL Intravenous Q8H BEVERLY Continuous Infusions: Results from last 7 days Lab Units 09/17/24 1927 09/17/24 1910 09/17/24 1014 09/17/24 0954 09/17/24 0921 WBC K/mcL -- 13.40* -- 14.07* -- HGB g/dL -- 14.9 -- 15.6 16.3* HEMOGLOBIN BG g/dL 15.4 -- -- -- -- HEMATOCRIT, CALCULATED % 47.3* -- -- -- -- HCT % -- 46.3* -- 49.0* 48.9* HEMATOCRITPOC % -- -- 51* -- -- PLT K/mcL -- 333 -- 424* 448* Results from last 7 days Lab Units 09/19/24 0348 09/18/24 0601 09/17/24 1910 SODIUM mmol/L 141 139 136 POTASSIUM mmol/L 2.9* 3.5 4.3 CHLORIDE mmol/L 98 103 103 BICARB mmol/L 28 19* 10* BUN mg/dL 8 9 8 CREATININE mg/dL 0.68 0.92 0.91 EGFR mL/min/1.73 m2 124 89 90 GLUCOSE mg/dL 86 108* 85 CALCIUM mg/dL 8.8 9.4 9.4 MAGNESIUM mg/dL 1.6 -- -- Urinalysis Results from last 7 days Lab Units 09/17/242018 COLOR, UR Yellow CLARITY, UR Clear SPEC GRAV 1.026* PH, UR 5.5 GLUCOSE, UR mg/dL Negative KETONES, UR mg/dL >=80* BILIRUBIN, UR Negative UROBILINOGEN, UR mg/dL 2.0* BLOOD, UR Negative NITRITE, UR Negative LEUK SHIRIN, UR Negative MUCUS, UR /lpf Rare WBC, UR /hpf 1 BACTERIA, UR /hpf None Seen HYALINE CASTS /lpf 0-2 Potential limitations of the note: Parts of this note were created by dictation via voice recognition software ([id number]). The completed note was reviewed for accuracy. However, there may be subtle errors that were not found during the review. If such errors are discovered, or if there are any questions or concerns regarding the recommendations/plan of care, please contact the author of the note prior to undertaking the recommendations/plan of care. AUTHENTICATED BY SCAR NIELSEN ON 09/19/2024 13:07:[address] [place], [place] [id number] History of Present illness Narrative* Scar Nielsen MD - 09/19/2024 12:57 PM EST NEPHROLOGY PRO[facility] Patient Name: Ashley Lynn Admit Date: 3000824 MR #: [id number] : 2000 Perpetual Assessment: Ashley Lynn is a 24 y.o. female on hospital day 2 admitted for abdominal pain We are asked to evaluate and manage for low bicarbonate Impression and Plan: AGMA -From ketoacidosis. Interestingly volatile acid screen positive for acetone in blood. Typically acetone or isopropanol ingestion would result in normal anion gap with elevated osmolar gap as well as ketonuria and ketoacidosis. She denies isopropanol ingestion. Reassuringly bicarb levels are improving. Out of abundance of caution, will consult poison control for any recommendations since she is of childbearing age as well as breast-feeding. -B-HB remains high but is improving. Off IV alkali. 2. HypoK From IV alkali Replace and monitor 3. Esophagitis -Per CT. On PPI per primary team Subjective: No events overnight. Doing well. Review of Systems: ROS otherwise reviewed and negative Physical Examination: Vitals: Vitals: 09/19/24 0346 09/19/24 0717 09/19/24 0730 09/19/24 1121 BP: 118/65 118/75 115/69 Pulse: (!) 107 83 85 Resp: 17 14 13 17 Temp: 97.8 F (36.6 C) 97.9 F (36.6 C) 98.3 F (36.8 C) TempSrc: Oral Oral Oral SpO2: 98% 98% Weight: Height: Intake/Output last 3 shifts: Intake/Output Summary (Last 24 hours) at 09/19/2024 1257 Last data filed at 09/19/2024 0800 Gross per 24 hour Intake 503.75 ml Output -- Net 503.75 ml I/O last 3 completed shifts: In: 143.8 [I.V.:143.8] Out: - General: No acute distress HEENT: Anicteric Neck: Supple CV: Regular rate, no murmurs or rubs. No lower extremity edema Lungs: CTA B Abd: Soft, nontender, bowel sounds present Extr: good LE perfusion, no cyanosis Neuro: No myoclonus, alert and oriented x 3 Skin : No new rashes Results/Medications Reviewed 09/19/24 12:57 PM: Laboratory, Microbiology, Pathology, Radiology, Cardiology, Medications and Transcriptions reviewed Scheduled Meds: pantoprazole 40 mg Intravenous Daily potassium chloride 20 mEq Intravenous Q2H sertraline 50 mg Oral Daily sodium chloride (PF) 5 mL Intravenous Q8H BEVERLY Continuous Infusions: Results from last 7 days Lab Units 09/17/24 1927 09/17/24 1910 09/17/24 1014 09/17/24 0954 09/17/24 0921 WBC K/mcL -- 13.40* -- 14.07* -- HGB g/dL -- 14.9 -- 15.6 16.3* HEMOGLOBIN BG g/dL 15.4 -- -- -- -- HEMATOCRIT, CALCULATED % 47.3* -- -- -- -- HCT % -- 46.3* -- 49.0* 48.9* HEMATOCRITPOC % -- -- 51* -- -- PLT K/mcL -- 333 -- 424* 448* Results from last 7 days Lab Units 09/19/24 0348 09/18/24 0601 09/17/24 1910 SODIUM mmol/L 141 139 136 POTASSIUM mmol/L 2.9* 3.5 4.3 CHLORIDE mmol/L 98 103 103 BICARB mmol/L 28 19* 10* BUN mg/dL 8 9 8 CREATININE mg/dL 0.68 0.92 0.91 EGFR mL/min/1.73 m2 124 89 90 GLUCOSE mg/dL 86 108* 85 CALCIUM mg/dL 8.8 9.4 9.4 MAGNESIUM mg/dL 1.6 -- -- Urinalysis Results from last 7 days Lab Units 09/17/24 2019 COLOR, UR Yellow CLARITY, UR Clear SPEC GRAV 1.026* PH, UR 5.5 GLUCOSE, UR mg/dL Negative KETONES, UR mg/dL >=80* BILIRUBIN, UR Negative UROBILINOGEN, UR mg/dL 2.0* BLOOD, UR Negative NITRITE, UR Negative LEUK SHIRIN, UR Negative MUCUS, UR /lpf Rare WBC, UR /hpf 1 BACTERIA, UR /hpf None Seen HYALINE CASTS /lpf 0-2 Potential limitations of the note: Parts of this note were created by dictation via voice recognition software ([id number]). The completed note was reviewed for accuracy. However, there may be subtle errors that were not found during the review. If such errors are discovered, or if there are any questions or concerns regarding the recommendations/plan of care, please contact the author of the note prior to undertaking the recommendations/plan of care. * Hitesh Goncalves MD - 09/18/2024 10:[address] [facility] PROGRESS NOTE Assessment and Plan Ashley Lynn is a 24 y.o. female patient of SpringAnna CNP with history of depression presented to [facility] with complaints of generalized weakness, fatigue, intermittent abdominalpain over the last 2 days, found to have profound acidosis, transferred to [facility] for further workup Metabolic acidosis of unclear etiology Initial VBG. 7.09 Initial bicarb 8->19, anion gap 14->21. Lactate normal 1.3 Initial CBC appeared hemoconcentrated with wbc 14, hct49, plt 424->333 CT abdomen revealed mild circumferential wall thickening of visualized distal esophagus, otherwise no acute process identified UA ketones greater than 160 and high specific gravity, beta hydroxybutyrate elevated at 6.5 negative nitrates, leuk esterase. Afebrile Salicylate level unremarkable. Volatile screen pending but no history consistent with these intoxications Continue bicarbonate drip Esophagitis seen on CT Will start on PPI Depression Continue home med Zoloft Resolved acute medical issues Discharge Planning Medically Stable for Discharge Date: 09/19 Patient requires continued hospitalization due to: metabolic acidosis Discharge Location: home Quality Measures DVT Prophylaxis: SCDs [place] Catheter: absent Code Status full Primary Contact Information Subjective Patient reports feeling well, states that her initial abdominal pain resolved, she was constipated for a few days, now bowel regimen back to baseline (3 times a day). Post intense exercise routine 5 times a week plus 100mg protein intake. She is and pumping. Objective BP 108/73 Pulse 86 Temp 97.8 F (36.6 C) (Oral) Resp 16 Ht 5' 11 Wt 99.8 kg (220 lb) LMP (LMP Unknown) SpO2 98% BMI 30.68 kg/m Physical Examination General Appearance: alert; well appearing; in no acute distress HEENT: Head- normocephalic; Eyes- EOMI, sclera anicteric; Throat- mucous membranes moist Cardiovascular: regular rate and rhythm; normal S1, S2; no murmurs, rubs, clicks or gallops; peripheral edema absent Respiratory: lungs clear to auscultation; without wheezes, rales or rhonchi; on room air Abdomen: soft, non-tender, non-distended Neurological: oriented x 3; normal speech; no focal findings or movement disorder noted Musculoskeletal: no significant deformity or tenderness to palpation Skin: normal coloration Psych: normal mood and affect documented in this [id number] Consult note* Sabra Macias, DARINEL - 09/19/2024 11:44 AM ESTAssociated Order(s): IP CONSULT TO DIETITIAN Consult for diet education- Unclear why patient developed severe ketoacidosis. Suspect from diet: It is high-protein, high-fiber. She wants to continue to lose weight and wants dietary education. Nutrition Education: Pt/family education: Learner: Patient. Spouse in room busy with 20 month old daughter. 4 month old baby laying on bed, mom him. Educated on: healthy diet and nutrition for Readiness: acceptance Method: explanation and handout Response: verbalizes understanding States got up to 285# when with older child, 265# before delivered younger child. Before with younger child 250#, now reports 224#. [facility] wt: 220#. Started working out and eating healthier 2 months ago. Pt had goal of 1-2# wt loss per week, but right before admitted states losing 4# per DAY. Doing push ups, running stairs, about 20-30 minutes exercise daily. Breastfeeds 4 month old. Then pumps 30 ounces daily, 20 ounces given to 20 month old, 10 ounces is put in freezer. 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 Reports consuming 1200 kcals per day from protein and fiber. But RDN told pt- grams from fiber UNABLE to be calculated as kcals. Took in 100gms protein/day and a little less than 30gms fiber/day. Eating lean protein- eggs, chicken, fish, tuna. Rest of kcals from peanut butter, toast, salad, oreos, ice cream. Pt unable to give specific daily amounts, RDN was trying to determine more exact kcals and gms CHO pt was consuming daily. Total kcals per day around 1800kcals per pt report, but RDN anticipates was actually a good amount LESS than that. Gave pt meal plan and plate method handout. Encouraged kcals, CHO's, protein, fat, fiber Recommended 2500 kcals/day since and pumping. When stops and pumping then needs would be around 2000 kcals/day. Pt's goal is wt loss, RDN told slow wt loss of 1-2# per week would be okay. Has RDN name/number for questions. [id number] Consult note* Sabra Macias RD - 09/19/2024 11:44 AM EST Associated Order(s): IP CONSULT TO DIETITIAN Consult for diet education- Unclear why patient developed severe ketoacidosis. Suspect from diet: It is high-protein, high-fiber. She wants to continue to lose weight and wants dietary education. Nutrition Education: Pt/family education: Learner: Patient. Spouse in room busy with 20 month old daughter. 4 month old baby laying on bed, mom him. Educated on: healthy diet and nutrition for Readiness: acceptance Method: explanation and handout Response: verbalizes understanding States got up to 285# when with older child, 265# before delivered younger child. Before with younger child 250#, now reports 224#. [facility] wt: 220#. Started working out and eating healthier 2 months ago. Pt had goal of 1-2# wt loss per week, but right before admitted states losing 4# per DAY. Doing push ups, running stairs, about 20-30 minutes exercise daily. Breastfeeds 4 month old. Then pumps 30 ounces daily, 20 ounces given to 20 month old, 10 ounces is put in freezer. 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 Reports consuming 1200 kcals per day from protein and fiber. But RDN told pt- grams from fiber UNABLE to be calculated as kcals. Took in 100gms protein/day and a little less than 30gms fiber/day. Eating lean protein- eggs, chicken, fish, tuna. Rest of kcals from peanut butter, toast, salad, oreos, ice cream. Pt unable to give specific daily amounts, RDN was trying to determine more exact kcals and gms CHO pt was consuming daily. Total kcals per day around 1800kcals per pt report, but RDN anticipates was actually a good amount LESS than that. Gave pt meal plan and plate method handout. Encouraged kcals, CHO's, protein, fat, fiber Recommended 2500 kcals/day since and pumping. When stops and pumping then needs would be around 2000 kcals/day. Pt's goal is wt loss, RDN told slow wt loss of 1-2# per week would be okay. Has RDN name/number for questions. * Afua Engel MD - 09/18/2024 8:41 AM ESTAssociated Order(s): IP CONSULT TO NEPHROLOGY NEPHROLOGY CONSULTATION [facility] Patient Name: Ashley Lynn MR #: [id number] : 2000 Requesting provider: Hospitalist Reason for consult: Metabolic acidosis Impression/Plan: Metabolic acidosis. Highly suspicious for ketoacidosis. -We obtained workup on presentation. Urinalysis showed ketones greater than 160 and high specific gravity, beta hydroxybutyrate elevated at 6.5 -Salicylate level unremarkable. Volatile screen pending but nothing in history consistent with these intoxications -We changed IV fluids to D5W with 150 meqo f bicarbonate last night.. Bicarb improved from 10-19. Patient's clinical symptoms improved. Will continue bicarb drip today. -Overall unclear why patient developed such as severe ketoacidosis. Patient is eating a high-protein diet with calorie deficit but with appropriate fat and fiber intake in an attempt to lose weight and build muscle mass and become healthier. Will ask RD to evaluate patient's diet and provide recommendations to minimize the chances of ketoacidosis from diet. 2. Tachycardia -Suspect due to volume depletion -Continue with IV fluids and reassess heart rate trends 3. Esophagitis -Per CT. On PPI per primary team History of Presenting Illness: Ashley Lynn is a 24 y.o. female on hospital day 1 with a history of depression who presented to the emergency room with abdominal pain on 09/17. Patient reports over the last 2 to 3 days prior to presentation. He she was experiencing abdominal pain, nausea. She reports she provide herself from having emesis. Denies diarrhea. Patient reports over the last week progressively weaker. An attempt to lose weight and become healthier after her recent patient has changed her dietary habits. She is eating a high-protein diet with approximately 100 g of protein per day, increase fiber to 30 ga day, energy some fats. She is not following a formal diet such as keto diet. She is aiming for net calorie deficit. In addition she is doing high intensity workouts. She has noticed with these workouts she has become progressively weaker. She has gained some muscle mass. History: Past Medical History: Diagnosis Date Depression History reviewed. No pertinent surgical history. Family History: Family History Problem Relation Age of Onset Diabetes Paternal Grandfather [] Unable to obtain due to ventilated and/or neurologic status Social History Socioeconomic History Marital status: Tobacco Use Smoking status: Never Smokeless tobacco: Never Vaping Use Vaping status: Never Used Substance and Sexual Activity Alcohol use: Not Currently Drug use: Never Sexual activity: Yes Partners: Male control/protection: None Social Drivers of Health Financial Resource Strain: Low Risk (06/28/2021) Received from [facility] Overall Financial Resource Strain (CARDIA) Difficulty of Paying Living Expenses: Not hard at all Food Insecurity: No Food Insecurity (09/18/2024) Hunger Vital Sign Worried About Running Out of Food in the Last Year: Never true Ran Out of Food in the Last Year: Never true Transportation Needs: No Transportation Needs (09/18/2024) PRAPARE - Transportation Lack of Transportation (Medical): No Lack of Transportation (Non-Medical): No Physical Activity: Sufficiently Active (06/28/2021) Received from [facility] Exercise Vital Sign Days of Exercise per Week: 5 days Minutes of Exercise per Session: 90 min Stress: Stress Concern Present (06/28/2021) Received from [facility] [place] of Occupational Health - Occupational Stress Questionnaire Feeling of Stress : To some extent Social Connections: Moderately Integrated (06/28/2021) Received from [facility] Social Connection and Isolation Panel [NHANES] Frequency of Communication with Friends and Family: Once a week Frequency of Social Gatherings with Friends and Family: Once a week Attends Congregation Services: More than 4 times per year Active Member of Clubs or Organizations: Yes Attends Club or Organization Meetings: More than 4 times per year Marital Status: Housing Stability: Low Risk (09/18/2024) Housing Stability Vital Sign Unable to Pay for Housing in the Last Year: No Number of Times Moved in the Last Year: 0 Homeless in the Last Year: No [] Unable to obtain due to ventilated and/or neurologic status Living Arrangements: Spouse/significant other, Children Support Systems: Spouse/significant other Home Medications: Outpatient Medications as of 09/18/2024 Medication Sig sertraline (ZOLOFT) 50 MG tablet Take 1 (one) tablet (50 mg total) by mouth daily . Current Hospital Medications: Scheduled Meds: pantoprazole 40 mg Intravenous Daily sertraline 50 mg Oral Daily sodium chloride (PF) 5 mL Intravenous Q8H BEVERLY Continuous Infusions: sodium bicarbonate 150 mEq in dextrose 5% 1000 mL infusion 125 mL/hr (09/17/242226) PRN Meds:.acetaminophen, ondansetron OR ondansetron, Saline lock IV AND sodium chloride (PF) AND sodium chloride (PF) AND sodium chloride 0.9 % sodium bicarbonate 150 mEq in dextrose 5% 1000 mL infusion 125 mL/hr (09/17/242226) Allergies: I have reviewed the patient's allergies. Patient has no known allergies. Review of Systems: [x] CV, Resp, GI, Neuro, and all other systems reviewed and negative other than listed in HPI. [] Unable to obtain due to intubation and/or neurologic status. Objective Findings: Vitals:BP 108/73 Pulse 86 Temp 97.8 F (36.6 C) (Oral) Resp 16 Ht 5' 11 Wt 99.8 kg (220 lb) LMP (LMP Unknown) SpO2 98% BMI 30.68 kg/m Intake/Output last 3 shifts:No intake or output data in the 24 hours ending 09/18/24 0841No intake/output data recorded. Physical Examination: General: Age appropriate, NAD. HEENT: Normocephalic, no scleral icterus. Neck: No JVD. Heart: Tachycardic no murmur, no rub/gallop. Lungs: Clear to ascultation, no rales/wheezing/rhonchi. Good chest wall excursion. Abdomen: Soft, nontender, no supra-public fullness or tenderness. Extremities: No clubbing/cyanosis, no edema. Skin: Warm, dry, no rash, no bruise, no petichiae. Neuro: No myoclonus or tremor. Psych: Normal affect. : [x] Peraza present [] Peraza not present Results/Medications Reviewed: 09/18/24 8:41 AM: Laboratory, Microbiology, Pathology, Radiology, Cardiology, Medications and Transcriptions Laboratory: Results from last 7 days Lab Units 09/17/24 1927 09/17/24190909/17/24 1014 09/17/24 0954 09/17/24 0921 WBC K/mcL -- 13.40* -- 14.07* -- HGB g/dL -- 14.9 -- 15.6 16.3* HEMOGLOBIN BG g/dL 15.4 -- -- -- -- HEMATOCRIT, CALCULATED % 47.3* -- -- -- -- HCT % -- 46.3* -- 49.0* 48.9* HEMATOCRITPOC % -- -- 51* -- -- PLT K/mcL -- 333 -- 424* 448* Results from last 7 days Lab Units 09/18/24 0601 09/17/24190909/17/24190909/17/24 1014 SODIUM mmol/L 139 -- 136 -- POTASSIUM mmol/L 3.5 -- 4.3 -- CHLORIDE mmol/L 103 -- 103 -- BICARB mmol/L 19* -- 10* -- BUN mg/dL 9 -- 8 -- POC BUN mg/dL -- -- -- 10 CREATININE mg/dL 0.92 -- 0.91 -- POC CREATININE (EPOC) mg/dL -- -- -- 0.89 EGFR mL/min/1.73 m2 89 -- 90 -- GLUCOSE mg/dL 108* < > 85 -- CALCIUM mg/dL 9.4 -- 9.4 -- < > = values in this interval not displayed. Urinalysis Results from last 7 days Lab Units 09/17/24 2019 COLOR, UR Yellow CLARITY, UR Clear SPEC GRAV 1.026* PH, UR 5.5 GLUCOSE, UR mg/dL Negative KETONES, UR mg/dL >=80* BILIRUBIN, UR Negative UROBILINOGEN, UR mg/dL 2.0* BLOOD, UR Negative NITRITE, UR Negative LEUK SHIRIN, UR Negative MUCUS, UR /lpf Rare WBC, UR /hpf 1 BACTERIA, UR /hpf None Seen HYALINE CASTS /lpf 0-2 Risk/Complexity: [x] I have reviewed Progress Notes in the [facility] EHR and CareEverywhere. [x] I have interpreted/reviewed lab tests and radiography data in the [facility] EHR. [x] I have discussed the case with the primary service. [x] I have ordered appropriate tests/labs Comments: Thank you for allowing us to participate in the care of this patient. We will continue to follow. Please call if questions or concerns arise. Potential limitations of the note: Parts of this note were created by dictation via voice recognition software ([id number]). The completed note was reviewed for accuracy. However, there may be subtle errors that were not found during the review. If such errors are discovered, or if there are any questions or concerns regarding the recommendations/plan of care, please contact the author of the note prior to undertaking the recommendations/plan of care. documented in this [id number] Plan of care note* Plan of Care - Milena Denton RN - 09/19/2024 11:02 AM EST Problem: Actual or potential alteration in health Goal: Absence of healthcare acquired conditions Outcome: Partially Met Goal: Knowledge of Interdisciplinary Plan of Care Outcome: Partially Met Goal: Knowledge of Enviroment Outcome: Partially Met Problem: Pain Goal: Reduced pain sensation Outcome: Partially Met Goal: Control of acute pain to acceptable level Outcome: Partially Met Goal: Able to cope with pain Outcome: Partially Met Goal: Able to achieve maximum level of physical functioning Outcome: Partially Met Goal: Able to achieve maximum level of psychosocial functioning Outcome: Partially Met [id number] Plan of care note* Plan of Care - Román Boyce RN - 09/18/2024 12:39 PM EST Problem: Actual or potential alteration in health Goal: Absence of healthcare acquired conditions Outcome: Partially Met Goal: Knowledge of Interdisciplinary Plan of Care Outcome: Partially Met Goal: Knowledge of Enviroment Outcome: Partially Met Problem: Pain Goal: Reduced pain sensation Outcome: Partially Met Goal: Control of acute pain to acceptable level Outcome: Partially Met Goal: Able to cope with pain Outcome: Partially Met Goal: Able to achieve maximum level of physical functioning Outcome: Partially Met Goal: Able to achieve maximum level of psychosocial functioning Outcome: Partially Met [id number] NoteS PROGRESS NOTE Assessment and Plan Ashley Lynn is a 24 y.o. female patient of Anna Chiang CNP with history of depression presented to [facility] [place] [place] ED with complaints of generalized weakness, fatigue, intermittent abdominal pain over the last 2 days, found to have profound acidosis, transferred to [facility] for further workup Metabolic acidosis of unclear etiology Initial VBG. 7.09 Initial bicarb 8->19, anion gap 14->21. Lactate normal 1.3 Initial CBC appeared hemoconcentrated with wbc 14, hct49, plt 424->333 CT abdomen revealed mild circumferential wall thickening of visualized distal esophagus, otherwise no acute process identified UA ketones greater than 160 and high specific gravity, beta hydroxybutyrate elevated at 6.5 negative nitrates, leuk esterase. Afebrile Salicylate level unremarkable. Volatile screen pending but no history consistent with these intoxications Continue bicarbonate drip Esophagitis seen on CT Will start on PPI Depression Continue home med Zoloft Resolved acute medical issues Discharge Planning Medically Stable for Discharge Date: 09/19 Patient requires continued hospitalization due to: metabolic acidosis Discharge Location: home Quality Measures DVT Prophylaxis: SCDs Peraza Catheter: absent Code Status full Primary Contact Information Subjective Patient reports feeling well, states that her initial abdominal pain resolved, she was constipated for a few days, now bowel regimen back to baseline (3 times a day). Post intense exercise routine 5 times a week plus 100mg protein intake. She is and pumping. Objective BP 108/73 Pulse 86 Temp 97.8 degrees F (36.6 degrees C) (Oral) Resp 16 Ht 5' 11 Wt 99.8 kg (220 lb) LMP (LMP Unknown) SpO2 98% BMI 30.68 kg/m Physical Examination General Appearance: alert; well appearing; in no acute distress HEENT: Head- normocephalic; Eyes- EOMI, sclera anicteric; Throat- mucous membranes moist Cardiovascular: regular rate and rhythm; normal S1, S2; no murmurs, rubs, clicks or gallops; peripheral edema absent Respiratory: lungs clear to auscultation; without wheezes, rales or rhonchi; on room air Abdomen: soft, non-tender, non-distended Neurological: oriented x 3; normal speech; no focal findings or movement disorder noted Musculoskeletal: no significant deformity or tenderness to palpation Skin: normal coloration Psych: normal mood and affect AUTHENTICATED BY HITESH SEGAL, ON 09/18/2024 13:53:[address] [place] [id number] 09-18-2024 Consult note* Afua Engel MD - 09/18/2024 8:41 AM ESTAssociated Order(s): IP CONSULT TO NEPHROLOGY NEPHROLOGY CONSULTATION [facility] Patient Name: Ashley Lynn MR #: [id number] : 2000 Requesting provider: Hospitalist Reason for consult: Metabolic acidosis Impression/Plan: Metabolic acidosis. Highly suspicious for ketoacidosis. -We obtained workup on presentation. Urinalysis showed ketones greater than 160 and high specific gravity, beta hydroxybutyrate elevated at 6.5 -Salicylate level unremarkable. Volatile screen pending but nothing in history consistent with these intoxications -We changed IV fluids to D5W with 150 meqo f bicarbonate last night.. Bicarb improved from 10-19. Patient's clinical symptoms improved. Will continue bicarb drip today. -Overall unclear why patient developed such as severe ketoacidosis. Patient is eating a high-protein diet with calorie deficit but with appropriate fat and fiber intake in an attempt to lose weight and build muscle mass and become healthier. Will ask RD to evaluate patient's diet and provide recommendations to minimize the chances of ketoacidosis from diet. 2. Tachycardia -Suspect due to volume depletion -Continue with IV fluids and reassess heart rate trends 3. Esophagitis -Per CT. On PPI per primary team History of Presenting Illness: Ashley Lynn is a 24 y.o. female on hospital day 1 with a history of depression who presented to the emergency room with abdominal pain on 09/17. Patient reports over the last 2 to 3 days prior to presentation. He she was experiencing abdominal pain, nausea. She reports she provide herself from having emesis. Denies diarrhea. Patient reports over the last week progressively weaker. An attempt to lose weight and become healthier after her recent patient has changed her dietary habits. She is eating a high-protein diet with approximately 100 g of protein per day, increase fiber to 30 ga day, energy some fats. She is not following a formal diet such as keto diet. She is aiming for net calorie deficit. In addition she is doing high intensity workouts. She has noticed with these workouts she has become progressively weaker. She has gained some muscle mass. History: Past Medical History: Diagnosis Date Depression History reviewed. No pertinent surgical history. Family History: Family History Problem Relation Age of Onset Diabetes Paternal Grandfather [] Unable to obtain due to ventilated and/or neurologic status Social History Socioeconomic History Marital status: Tobacco Use Smoking status: Never Smokeless tobacco: Never Vaping Use Vaping status: Never Used Substance and Sexual Activity Alcohol use: Not Currently Drug use: Never Sexual activity: Yes Partners: Male control/protection: None Social Drivers of Health Financial Resource Strain: Low Risk (06/28/2021) Received from [facility] Overall Financial Resource Strain (CARDIA) Difficulty of Paying Living Expenses: Not hard at all Food Insecurity: No Food Insecurity (09/18/2024) Hunger Vital Sign Worried About Running Out of Food in the Last Year: Never true Ran Out of Food in the Last Year: Never true Transportation Needs: No Transportation Needs (09/18/2024) PRAPARE - Transportation Lack of Transportation (Medical): No Lack of Transportation (Non-Medical): No Physical Activity: Sufficiently Active (06/28/2021) Received from [facility] Exercise Vital Sign Days of Exercise per Week: 5 days Minutes of Exercise per Session: 90 min Stress: Stress Concern Present (06/28/2021) Received from [facility] [place] of Occupational Health - Occupational Stress Questionnaire Feeling of Stress : To some extent Social Connections: Moderately Integrated (06/28/2021) Received from [facility] Social Connection and Isolation Panel [NHANES] Frequency of Communication with Friends and Family: Once a week Frequency of Social Gatherings with Friends and Family: Once a week Attends Congregation Services: More than 4 times per year Active Member of Clubs or Organizations: Yes Attends Club or Organization Meetings: More than 4 times per year Marital Status: Housing Stability: Low Risk (09/18/2024) Housing Stability Vital Sign Unable to Pay for Housing in the Last Year: No Number of Times Moved in the Last Year: 0 Homeless in the Last Year: No [] Unable to obtain due to ventilated and/or neurologic status Living Arrangements: Spouse/significant other, Children Support Systems: Spouse/significant other Home Medications: Outpatient Medications as of 09/18/2024 Medication Sig sertraline (ZOLOFT) 50 MG tablet Take 1 (one) tablet (50 mg total) by mouth daily . Current Hospital Medications: Scheduled Meds: pantoprazole 40 mg Intravenous Daily sertraline 50 mg Oral Daily sodium chloride (PF) 5 mL Intravenous Q8H BEVERLY Continuous Infusions: sodium bicarbonate 150 mEq in dextrose 5% 1000 mL infusion 125 mL/hr (09/17/242226) PRN Meds:.acetaminophen, ondansetron OR ondansetron, Saline lock IV AND sodium chloride (PF) AND sodium chloride (PF) AND sodium chloride 0.9 % sodium bicarbonate 150 mEq in dextrose 5% 1000 mL infusion 125 mL/hr (09/17/242226) Allergies: I have reviewed the patient's allergies. Patient has no known allergies. Review of Systems: [x] CV, Resp, GI, Neuro, and all other systems reviewed and negative other than listed in HPI. [] Unable to obtain due to intubation and/or neurologic status. Objective Findings: Vitals:BP 108/73 Pulse 86 Temp 97.8 F (36.6 C) (Oral) Resp 16 Ht 5' 11 Wt 99.8 kg (220 lb) LMP (LMP Unknown) SpO2 98% BMI 30.68 kg/m Intake/Output last 3 shifts:No intake or output data in the 24 hours ending 09/18/24 0841No intake/output data recorded. Physical Examination: General: Age appropriate, NAD. HEENT: Normocephalic, no scleral icterus. Neck: No JVD. Heart: Tachycardic no murmur, no rub/gallop. Lungs: Clear to ascultation, no rales/wheezing/rhonchi. Good chest wall excursion. Abdomen: Soft, nontender, no supra-public fullness or tenderness. Extremities: No clubbing/cyanosis, no edema. Skin: Warm, dry, no rash, no bruise, no petichiae. Neuro: No myoclonus or tremor. Psych: Normal affect. : [x] Peraza present [] Peraza not present Results/Medications Reviewed: 09/18/24 8:41 AM: Laboratory, Microbiology, Pathology, Radiology, Cardiology, Medications and Transcriptions Laboratory: Results from last 7 days Lab Units 09/17/24 1927 09/17/24190909/17/24 1014 09/17/24 0954 09/17/24 0921 WBC K/mcL -- 13.40* -- 14.07* -- HGB g/dL -- 14.9 -- 15.6 16.3* HEMOGLOBIN BG g/dL 15.4 -- -- -- -- HEMATOCRIT, CALCULATED % 47.3* -- -- -- -- HCT % -- 46.3* -- 49.0* 48.9* HEMATOCRITPOC % -- -- 51* -- -- PLT K/mcL -- 333 -- 424* 448* Results from last 7 days Lab Units 09/18/24 0609/17/24190909/17/24190909/17/24 1014 SODIUM mmol/L 139 -- 136 -- POTASSIUM mmol/L 3.5 -- 4.3 -- CHLORIDE mmol/L 103 -- 103 -- BICARB mmol/L 19* -- 10* -- BUN mg/dL 9 -- 8 -- POC BUN mg/dL -- -- -- 10 CREATININE mg/dL 0.92 -- 0.91 -- POC CREATININE (EPOC) mg/dL -- -- -- 0.89 EGFR mL/min/1.73 m2 89 -- 90 -- GLUCOSE mg/dL 108* < > 85 -- CALCIUM mg/dL 9.4 -- 9.4 -- < > = values in this interval not displayed. Urinalysis Results from last 7 days Lab Units 09/17/24 2019 COLOR, UR Yellow CLARITY, UR Clear SPEC GRAV 1.026* PH, UR 5.5 GLUCOSE, UR mg/dL Negative KETONES, UR mg/dL >=80* BILIRUBIN, UR Negative UROBILINOGEN, UR mg/dL 2.0* BLOOD, UR Negative NITRITE, UR Negative LEUK SHIRIN, UR Negative MUCUS, UR /lpf Rare WBC, UR /hpf 1 BACTERIA, UR /hpf None Seen HYALINE CASTS /lpf 0-2 Risk/Complexity: [x] I have reviewed Progress Notes in the [facility] EHR and CareEverywhere. [x] I have interpreted/reviewed lab tests and radiography data in the [facility] EHR. [x] I have discussed the case with the primary service. [x] I have ordered appropriate tests/labs Comments: Thank you for allowing us to participate in the care of this patient. We will continue to follow. Please call if questions or concerns arise. Potential limitations of the note: Parts of this note were created by dictation via voice recognition software ([id number]). The completed note was reviewed for accuracy. However, there may be subtle errors that were not found during the review. If such errors are discovered, or if there are any questions or concerns regarding the recommendations/plan of care, please contact the author of the note prior to undertaking the recommendations/plan of care. [employer] Phone: [phone] 637-421803-02-2025 NoteNEPHROLOGY CONSULTATION NOTE [facility] Patient Name: Ashley yLnn MR #: [id number] : 2000 Requesting provider: Hospitalist Reason for consult: Metabolic acidosis Impression/Plan: Metabolic acidosis. Highly suspicious for ketoacidosis. -We obtained workup on presentation. Urinalysis showed ketones greater than 160 and high specific gravity, beta hydroxybutyrate elevated at 6.5 -Salicylate level unremarkable. Volatile screen pending but nothing in history consistent with these intoxications -We changed IV fluids to D5W with 150 meqo f bicarbonate last night.. Bicarb improved from 10-19. Patient's clinical symptoms improved. Will continue bicarb drip today. -Overall unclear why patient developed such as severe ketoacidosis. Patient is eating a high-protein diet with calorie deficit but with appropriate fat and fiber intake in an attempt to lose weight and build muscle mass and become healthier. Will ask RD to evaluate patient's diet and provide recommendations to minimize the chances of ketoacidosis from diet. 2. Tachycardia -Suspect due to volume depletion -Continue with IV fluids and reassess heart rate trends 3. Esophagitis -Per CT. On PPI per primary team History of Presenting Illness: Ashley Lynn is a 24 y.o. female on hospital day 1 with a history of depression who presented to the emergency room with abdominal pain on 09/17. Patient reports over the last 2 to 3 days prior to presentation. He she was experiencing abdominal pain, nausea. She reports she provide herself from having emesis. Denies diarrhea. Patient reports over the last week progressively weaker. An attempt to lose weight and become healthier after her recent patient has changed her dietary habits. She is eating a high-protein diet with approximately 100 g of protein per day, increase fiber to 30 g a day, energy some fats. She is not following a formal diet such as keto diet. She is aiming for net calorie deficit. In addition she is doing high intensity workouts. She has noticed with these workouts she has become progressively weaker. She has gained some muscle mass. History: Past Medical History: Diagnosis Date Depression History reviewed. No pertinent surgical history. Family History: Family History Problem Relation Age of Onset Diabetes Paternal Grandfather [] Unable to obtain due to ventilated and/or neurologic status Social History Socioeconomic History Marital status: Tobacco Use Smoking status: Never Smokeless tobacco: Never Vaping Use Vaping status: Never Used Substance and Sexual Activity Alcohol use: Not Currently Drug use: Never Sexual activity: Yes Partners: Male control/protection: None Social Drivers of Health Financial Resource Strain: Low Risk (06/28/2021) Received from [facility] Overall Financial Resource Strain (CARDIA) Difficulty of Paying Living Expenses: Not hard at all Food Insecurity: No Food Insecurity (09/18/2024) Hunger Vital Sign Worried About Running Out of Food in the Last Year: Never true Ran Out of Food in the Last Year: Never true Transportation Needs: No Transportation Needs (09/18/2024) PRAPARE - Transportation Lack of Transportation (Medical): No Lack of Transportation (Non-Medical): No Physical Activity: Sufficiently Active (06/28/2021) Received from [facility] Exercise Vital Sign Days of Exercise per Week: 5 days Minutes of Exercise per Session: 90 min Stress: Stress Concern Present (06/28/2021) Received from [facility] [place] [facility] [place] [facility] - Occupational Stress Questionnaire Feeling of Stress : To some extent Social Connections: Moderately Integrated (06/28/2021) Received from [facility] Social Connection and Isolation Panel [NHANES] Frequency of Communication with Friends and Family: Once a week Frequency of Social Gatherings with Friends and Family: Once a week Attends Congregation Services: More than 4 times per year Active Member of Clubs or Organizations: Yes Attends Club or Organization Meetings: More than 4 times per year Marital Status: Housing Stability: Low Risk (09/18/2024) Housing Stability Vital Sign Unable to Pay for Housing in the Last Year: No Number of Times Moved in the Last Year: 0 Homeless in the Last Year: No [] Unable to obtain due to ventilated and/or neurologic status Living Arrangements: Spouse/significant other, Children Support Systems: Spouse/significant other Home Medications: Outpatient Medications as of 09/18/2024 Medication Sig sertraline (ZOLOFT) 50 MG tablet Take 1 (one) tablet (50 mg total) by mouth daily . Current Hospital Medications: Scheduled Meds: pantoprazole 40 mg Intravenous Daily sertraline 50 mg Oral Daily sodium chloride (PF) 5 mL Intravenous Q8H BEVERLY Continuous Infusions: sodium bicarbonate 150 mEq in dextrose 5% 1000 mL infusion 125 (more content not included)...[facility]03-02-2025 Plan of care note* Plan of Care - Vianca Nascimento RN - 09/18/2024 5:25 AM EST Problem: Actual or potential alteration in health Goal: Absence of healthcare acquired conditions 09/18/2024524 by Vianca Nascimento RN Outcome: Met 09/17/20242329 by Vianca Nascimento RN Outcome: Met Goal: Knowledge of Interdisciplinary Plan of Care 09/18/2024524 by Vianca Nascimento RN Outcome: Met 09/17/20242329 by Vianca Nascimento RN Outcome: Met Goal: Knowledge of Enviroment 09/18/2024524 by Vianca Nascimento RN Outcome: Met 09/17/20242329 by Vianca Nascimento RN Outcome: Met Problem: Pain Goal: Reduced pain sensation Outcome: Met [id number] Plan of care note* Plan of Care - Vianca Nascimento RN - 09/17/2024 9:45 PM EST Problem: Actual or potential alteration in health Goal: Absence of healthcare acquired conditions Outcome: Met Goal: Knowledge of Interdisciplinary Plan of Care Outcome: Met Goal: Knowledge of Enviroment Outcome: Met [id number] Progress note* Quick Note - Balbina Caban RRT - 09/17/2024 7:35 PM EST VBG results to Dr Martín Zhang Latest Reference Range & Units 09/17/24 19:27 pH, Venous 7.32 - 7.42 7.17 (CL) pCO2, Ko 41.0 - 51.0 mm Hg 28.9 (L) pO2, Ko 25 - 40 mm Hg 48 (H) HCO3, Ko 24.0 - 28.0 mmol/L 10.6 (L) [id number] History and physical note* Martín Zhang MD - 09/17/2024 7:[address] [facility] HISTORY AND PHYSICAL -- [facility] Patient Name: Ashley Lynn : 2000 MR #: [id number] Admit Date: 09/17/2024 Physicians: Anna Chiang CNP (Family); Conchita De La Torre MD (Referring) Ashley Lynn is a 24 y.o. female patient of Anna Chiang CNP with history of depression presented to freestanding ED with complaints of generalized weakness, fatigue, intermittent abdominalpain over the last 2 days, found to have profound acidosis, transferred to [facility] for further workup Metabolic acidosis of unclear etiology Initial VBG. 7.09 Initial bicarb 8, anion gap 14. Lactate normal 1.3 Initial CBC appeared hemoconcentrated with wbc 14, hct49, plt 424 CT abdomen revealed mild circumferential wall thickening of visualized distal esophagus, otherwise no acute process identified UA negative nitrates, leuk esterase. Afebrile Started on bicarb drip at outside facility, will continue Check urine electrolytes Repeat labs including CHEM panel, VBG ordered Will consult nephrology for further assistance on acidosis Esophagitis seen on CT Will start on PPI Depression Continue home med Zoloft Residence prior to admission: house or apartment Was patient transferred from outlying hospital or ED no Quality Measures DVT Prophylaxis: ambulation only Peraza Catheter: absent Medication Reconciliation: Verified Admitted with these risk variables:Acidosis. Please see assessment and plan for further details. Estimated Date of Discharge less than 2 midnights Code Status full code Chief Complaint generalized weakness History of Present Illness 24-year-old female history of depression, presents to fre[facility]anding ED with complaints of generalized weakness fatigue, abdominal pain over the last 2 to 3 days. Patient states she has been exercisingwith strength training over the last 2 months, and noticed over the last 2 weeks that she was gradually getting more fatigued. This is significantly worsened over the last 3 days. She also reports ofepigastric abdominal pain intermittently associate with nausea. She denies any vomiting, diarrhea, fevers, chills, chest pain, shortness of breath. Denies taking any new supplements, any changes in medication regimens. Labs revealed severe acidosis, patient was started on bicarb drip, and transferred to [facility] for further management. Of note patient is breast-feeding for the last 4months Past Medical History Past Medical History: Diagnosis Date Depression Past Surgical History No past surgical history on file. Family History Family History Problem Relation Age of Onset Diabetes Paternal Grandfather Social History Social History Tobacco Use Smoking Status Never Smokeless Tobacco Never Social History Substance and Sexual Activity Alcohol Use Not Currently Social History Substance and Sexual Activity Drug Use Never Allergy Information I have reviewed the patient's allergies. Patient has no known allergies. Home Medications Home medications were reviewed. Review Of Systems All relevant systems have been reviewed and are negative except as noted in HPI or below Physical Examination BP 119/76 (BP Location: Right arm, Patient Position: Lying) Pulse (!) 102 Temp 98.3 F (36.8 C) (Oral) Resp 18 LMP (LMP Unknown) General Appearance: alert; chronically ill appearing; in no acute distress HEENT: Head- normocephalic; Eyes- EOMI, sclera anicteric; Throat- mucous membranes moist Cardiovascular: regular rate and rhythm; normal S1, S2; no murmurs, rubs, clicks or gallops; peripheral edema absent Respiratory: lungs clear to auscultation; without wheezes, rales or rhonchi; on room air Abdomen: soft, non-tender, Neurological: oriented x 3; normal speech; no focal findings or movement disorder noted Musculoskeletal: no significant deformity or tenderness to palpation Skin: normal coloration Psych: normal mood and affect Labs, imaging personally reviewed [id number] NoteHMS HISTORY AND PHYSICAL -- [facility] Patient Name: Ashley Lynn : 2000 MR #: [id number] Admit Date: 09/17/2024 Physicians: Anna Chiang CNP (Family); Conchita De La Torre MD (Referring) Ashley Lynn is a 24 y.o. female patient of Anna Chiang CNP with history of depression presented to [facility]anding ED with complaints of generalized weakness, fatigue, intermittent abdominal pain over the last 2 days, found to have profound acidosis, transferred to [facility] for further workup Metabolic acidosis of unclear etiology Initial VBG. 7.09 Initial bicarb 8, anion gap 14. Lactate normal 1.3 Initial CBC appeared hemoconcentrated with wbc 14, hct49, plt 424 CT abdomen revealed mild circumferential wall thickening of visualized distal esophagus, otherwise no acute process identified UA negative nitrates, leuk esterase. Afebrile Started on bicarb drip at outside facility, will continue Check urine electrolytes Repeat labs including CHEM panel, VBG ordered Will consult nephrology for further assistance on acidosis Esophagitis seen on CT Will start on PPI Depression Continue home med Zoloft Residence prior to admission: house or apartment Was patient transferred from outlying hospital or ED no Quality Measures DVT Prophylaxis: ambulation only Peraza Catheter: absent Medication Reconciliation: Verified Admitted with these risk variables:Acidosis. Please see assessment and plan for further details. Estimated Date of Discharge less than 2 midnights Code Status full code Chief Complaint generalized weakness History of Present Illness 24-year-old female history of depression, presents to [facility]anding ED with complaints of generalized weakness fatigue, abdominal pain over the last 2 to 3 days. Patient states she has been exercising with strength training over the last 2 months, and noticed over the last 2 weeks that she was gradually getting more fatigued. This is significantly worsened over the last 3 days. She also reports of epigastric abdominal pain intermittently associate with nausea. She denies any vomiting, diarrhea, fevers, chills, chest pain, shortness of breath. Denies taking any new supplements, any changes in medication regimens. Labs revealed severe acidosis, patient was started on bicarb drip, and transferred to [facility] for further management. Of note patient is breast-feeding for the last 4 months Past Medical History Past Medical History: Diagnosis Date Depression Past Surgical History No past surgical history on file. Family History Family History Problem Relation Age of Onset Diabetes Paternal Grandfather Social History Social History Tobacco Use Smoking Status Never Smokeless Tobacco Never Social History Substance and Sexual Activity Alcohol Use Not Currently Social History Substance and Sexual Activity Drug Use Never Allergy Information I have reviewed the patient's allergies. Patient has no known allergies. Home Medications Home medications were reviewed. Review Of Systems All relevant systems have been reviewed and are negative except as noted in HPI or below Physical Examination BP 119/76 (BP Location: Right arm, Patient Position: Lying) Pulse (!) 102 Temp 98.3 degrees F (36.8 degrees C) (Oral) Resp 18 LMP (LMP Unknown) General Appearance: alert; chronically ill appearing; in no acute distress HEENT: Head- normocephalic; Eyes- EOMI, sclera anicteric; Throat- mucous membranes moist Cardiovascular: regular rate and rhythm; normal S1, S2; no murmurs, rubs, clicks or gallops; peripheral edema absent Respiratory: lungs clear to auscultation; without wheezes, rales or rhonchi; on room air Abdomen: soft, non-tender, Neurological: oriented x 3; normal speech; no focal findings or movement disorder noted Musculoskeletal: no significant deformity or tenderness to palpation Skin: normal coloration Psych: normal mood and affect Labs, imaging personally reviewed AUTHENTICATED BY MARTÍN ZHANG, ON 09/17/2024 19:39:22[facility] 09-17-2024 History and physical note* Martín Zhang MD - 09/17/2024 7:[address] [facility] HISTORY AND PHYSICAL -- [facility] Patient Name: Ashley Lynn : 2000 MR #: [id number] Admit Date: 09/17/2024 Physicians: Anna Chiang CNP (Family); Conchita De La Torre MD (Referring) Ashley Lynn is a 24 y.o. female patient of Anna Chiang CNP with history of depression presented to [facility] [place] [place] ED with complaints of generalized weakness, fatigue, intermittent abdominalpain over the last 2 days, found to have profound acidosis, transferred to [facility] for further workup Metabolic acidosis of unclear etiology Initial VBG. 7.09 Initial bicarb 8, anion gap 14. Lactate normal 1.3 Initial CBC appeared hemoconcentrated with wbc 14, hct49, plt 424 CT abdomen revealed mild circumferential wall thickening of visualized distal esophagus, otherwise no acute process identified UA negative nitrates, leuk esterase. Afebrile Started on bicarb drip at outside facility, will continue Check urine electrolytes Repeat labs including CHEM panel, VBG ordered Will consult nephrology for further assistance on acidosis Esophagitis seen on CT Will start on PPI Depression Continue home med Zoloft Residence prior to admission: house or apartment Was patient transferred from outlying hospital or ED no Quality Measures DVT Prophylaxis: ambulation only Peraza Catheter: absent Medication Reconciliation: Verified Admitted with these risk variables:Acidosis. Please see assessment and plan for further details. Estimated Date of Discharge less than 2 midnights Code Status full code Chief Complaint generalized weakness History of Present Illness 24-year-old female history of depression, presents to [facility] [place] [place] ED with complaints of generalized weakness fatigue, abdominal pain over the last 2 to 3 days. Patient states she has been exercisingwith strength training over the last 2 months, and noticed over the last 2 weeks that she was gradually getting more fatigued. This is significantly worsened over the last 3 days. She also reports ofepigastric abdominal pain intermittently associate with nausea. She denies any vomiting, diarrhea, fevers, chills, chest pain, shortness of breath. Denies taking any new supplements, any changes in medication regimens. Labs revealed severe acidosis, patient was started on bicarb drip, and transferred to [facility] for further management. Of note patient is breast-feeding for the last 4months Past Medical History Past Medical History: Diagnosis Date Depression Past Surgical History No past surgical history on file. Family History Family History Problem Relation Age of Onset Diabetes Paternal Grandfather Social History Social History Tobacco Use Smoking Status Never Smokeless Tobacco Never Social History Substance and Sexual Activity Alcohol Use Not Currently Social History Substance and Sexual Activity Drug Use Never Allergy Information I have reviewed the patient's allergies. Patient has no known allergies. Home Medications Home medications were reviewed. Review Of Systems All relevant systems have been reviewed and are negative except as noted in HPI or below Physical Examination BP 119/76 (BP Location: Right arm, Patient Position: Lying) Pulse (!) 102 Temp 98.3 F (36.8 C) (Oral) Resp 18 LMP (LMP Unknown) General Appearance: alert; chronically ill appearing; in no acute distress HEENT: Head- normocephalic; Eyes- EOMI, sclera anicteric; Throat- mucous membranes moist Cardiovascular: regular rate and rhythm; normal S1, S2; no murmurs, rubs, clicks or gallops; peripheral edema absent Respiratory: lungs clear to auscultation; without wheezes, rales or rhonchi; on room air Abdomen: soft, non-tender, Neurological: oriented x 3; normal speech; no focal findings or movement disorder noted Musculoskeletal: no significant deformity or tenderness to palpation Skin: normal coloration Psych: normal mood and affect Labs, imaging personally reviewed documented in this [id number] Progress note* Quick Note - Milagro Palacio RN - 09/17/2024 6:20 PM EST Patient to room per squad [id number] History of Present illness Narrative* Shari Jaquez PA-C - 11/01/2021 11:30 AM EDT VIRTUAL VISIT PROGRESS NOTE This is a virtual visit using Crispify video visit. It required patient-provider interaction for themedical decision making as documented below. Ashley Lynn is a 21 year old female seen for f/up re: labs, infertility. Cycles have been irregular and had skipped period x3 mos, however recently has been spotting. OPKs negative. Some acne, no excessive hair growth. has not had SA. Preferred to defer SIS until labs done. Still awaiting 17-hydroxyprogesterone, testosterone levels. Labs thus far: LH See comment mIU/mL 4.7 DHEA-S 148.0 - 407.0 ug/dL 167.2 Estradiol 17B pg/mL 222 Prolactin 4.5 - 26.8 ng/mL 25.4 Progesterone (day 21) See comment ng/mL 0.2 TSH 0.270 - 4.200 mIU/L 1.650 HISTORY REVIEWED (electronic chart updated): PAST MEDICAL HISTORY Diagnosis Date Anxiety with depression 2017 started counseling 2019 Infectious mononucleosis 2017 Insomnia Iron deficiency anemia Irregular menses Pneumonia due to COVID-19 virus 02/2021 PTSD (post-traumatic stress disorder) 2017 started counseling in 2019 PAST SURGICAL HISTORY Procedure Laterality Date NONE FAMILY HISTORY Problem Relation Age of Onset No Known Problems Mother No Known Problems Father No Known Problems Maternal Grandmother No Known Problems Maternal Grandfather Diabetes Paternal great-grandmother Social History Tobacco Use Smoking status: Never Smoker Smokeless tobacco: Never Used Substance Use Topics Alcohol use: Yes Comment: occ Drug use: Never Current Outpatient Medications Medication Sig amoxicillin-clavulanic acid (AUGMENTIN) 875-125 mg per tablet Take 1 tablet by mouth every 12 hoursfor 10 days. fluticasone (FLONASE ALLERGY RELIEF) 50 mcg/actuation nasal spray Use 2 Sprays in each nostril oncedaily. methylPREDNISolone (MEDROL, SHANIQUE,) 4 mg Dose-Pack Take by mouth per package instructions benzonatate (TESSALON PERLE) 100 mg capsule PNV-DHA 27 mg iron-1 mg -300 mg TAKE 1 CAPSULE BY MOUTH EVERY DAY mv,iron,min-folic acid-biotin (HAIR, SKIN AND NAILS-ARGAN OIL) 66.7-1,666.7 mcg cap multivit with calcium,iron,min (WOMEN'S MULTIPLE VITAMINS ORAL) PASSION FLOWER ORAL No current facility-administered medications for this visit. ALLERGIES No Known Allergies REVIEW OF SYSTEMS: As noted in HPI PHYSICAL EXAMINATION: NAD VIDEO EXAM: (if completed, performed via video enabled technology) No exam performed ASSESSMENT: (N93.9) Abnormal uterine bleeding (AUB) (primary encounter diagnosis) (Z31.69) Pre-conception counseling PLAN: - Labs reassuring however 21-day progesterone low and pt likely anovulatory. Likely 2/2 PCOS. - Pt amenable to SIS - Discussed further workup/tx and recommend f/up with [facility]I There are no Patient Instructions on file for this visit. Shari Jaquez PA-C Medical Decision Making: Problems: Low: Acute, uncomplicated illness or injury Data: Unique test result(s) reviewed: 3+ Unique test(s) ordered: 1 Medical Decision Making Level: 3 - Low [facility] Miscellaneous Notes* Telephone Encounter - Shari Jaquez PA-C - 10/22/2021 1:15 PM EDT Progesterone, please let her know it's in. documented in this encounter[facility] Instructions* Patient Instructions* Nani Coy APRN.SPORTS STATISTICIAN - 10/22/2021 9:50 AM EDT BRONCHITIS OVERVIEW Bronchitis develops when there is swelling and irritation of the bronchi, the large tubes that carry air to the lungs. There are two types of bronchitis: acute (sudden onset) and chronic (long-standing). Acute bronchitis often occurs with a viral infection, such as the common cold, and is sometimes called a chest cold. The most common symptom of acute bronchitis is a nagging cough. Treatment of acute bronchitis usually involves treating the symptoms, such as sore throat and congestion. Antibiotics do not help to eliminate acute bronchitis caused by a virus. Antiviral agents are useful in some cases of acute bronchitis due to influenza, but there are antiviral agents for other forms of viral bronchitis. BRONCHITIS CAUSES Most cases of bronchitis are caused by a viral infection of the upper airways, such as the common cold or the flu. Less commonly, a bacterium such as pertussis (whooping cough) is the cause. BRONCHITIS SYMPTOMS The most common symptoms of acute bronchitis include: A persistent cough; this may last 10 to 20 days Some people cough up mucus, which may be clear, yellow, or green in color Fever is not common in people with acute bronchitis. However, having a fever can be a sign of another condition, such as the flu or pneumonia. Conditions with similar features There are other conditions that have symptoms similar to those of acute bronchitis. Chronic cough A persistent cough that lasts more than eight weeks is considered a chronic cough, which is discussed in detail elsewhere. Chronic bronchitis Chronic bronchitis is defined as a cough that occurs on most days of the month for at least three months of the year during two consecutive years. Pneumonia Signs of pneumonia include fever and a fast heart and breathing rate. Postnasal drip Postnasal drip occurs when secretions drain from the sinuses into the throat. This can cause the throat to feel irritated, which causes you to feel like you need to clear your throat frequently. Postnasal drip can be caused by the common cold, allergies, sinusitis, or environmental irritants. BRONCHITIS DIAGNOSIS Most people who have a persistent cough after an upper respiratory infection (cold) do not need to see a healthcare provider. Diagnostic testing, such as x- rays, cultures, and blood tests, are not usually needed for people with acute bronchitis. However, testing may be recommended if your diagnosisis not clear based upon your examination or if another condition, such as pneumonia, is suspected. When to seek help You should call your healthcare provider if you have any of the following: Fever (temperature greater than 100.4 F or 38 C) A cough that lasts longer than 10 days Chest pain with coughing, difficulty breathing, or coughing up blood A barking cough that makes it hard to speak, especially if it persists Cough accompanied by unexplained weight loss People who are older than 75 do not always have a fever or other concerning symptoms. If you are over 75 years and you have a persistent cough, you should call your clinician to determine if and whenan office visit is recommended. BRONCHITIS TREATMENT Relief of symptoms There is no specific treatment for bronchitis, but there are a few treatments available for the common cold. A nonsteroidal antiinflammatory drug (ibuprofen, naproxen), aspirin, or acetaminophen (Tylenol ) can help to relieve the pain of a sore throat or headache. Pseudoephedrine is a decongestant that can improve nasal congestion. Most drugstores in the [place] carry pseudoephedrine behind the counter, so you must ask for it from the pharmacist (a prescription is not required). Other decongestants, such as phenylephrine, are not as effective as pseudoephedrine. Antihistamines such as diphenhydramine (Benadryl ) may also help, but can cause side effects such as drowsiness and drying of the eyes, nose, and mouth. Heated, humidified, air can improve symptoms of nasal congestion and runny nose, and has few to no side effects. Cough suppressants such as dextromethorphan may be helpful. Antibiotics Antibiotics are NOT helpful for most people with bronchitis since the illness is typically caused by a virus. Antibiotics treat bacterial, not viral infections. Antibiotics may be helpfulfor some patients with other chronic diseases. Many people request antibiotics in the hopes that it will get rid of the cough, and some people even think that antibiotics have helped on previous occasions. However, there is no benefit of antibiotics for most cases of bronchitis. PREVENTING THE SPREAD OF ILLNESS Hand washing is an essential and highly effective way to prevent the spread of infection. Wet your hands with water and plain soap and rub them together for 15 to 30 seconds. Pay special attention tothe fingernails, between the fingers, and the wrists. Rinse your hands thoroughly, and dry with a single use towel. Alcohol-based hand rubs are a good alternative for disinfecting hands if a sink is not available. Spread the hand rub over the entire surface of your hands, fingers, and wrists until dry. You can usehand rubs repeatedly without irritating the skin or losing effectiveness. Hand rubs are available as a liquid or wipe in small, portable sizes that are easy to carry in a pocket or handbag. When a sink is available, you should wash visibly soiled hands with soap and water. Wash your hands before preparing food and eating, and after going to the bathroom, and after coughing, blowing the nose, or sneezing. While it is not always possible to limit contact with people who are ill, avoid touching your eyes, nose, or mouth after direct contact, when possible. In addition, use a tissue to cover your mouth when sneezing or coughing. Throw away used tissues promptly and then wash your hands. Sneezing/coughing into the sleeve of your clothing (at the inner elbow) is another way of containing sprays of saliva and secretions and does not contaminate your hands. Sneezing and coughing without covering your mouth can spread infection to anyone within 6 feet. Each of us has four paired cavities (spaces) in our head that are connected to the nose by narrow channels. These cavities, known as sinuses, produce a thin mucus that drains out of the channels of the nose. Normally, sinuses are filled with air. But when sinuses become blocked and filled with fluid, bacteria can grow and cause an infection (sinusitis). Conditions that cause sinus blockage include the common cold, allergic rhinitis (swelling of the lining of the nose due to allergies), nasal polyps (small growths in the lining of the nose), or deviated septum (a shift in the nasal cavity). Allergies such as hay fever can also cause swelling and poor drainage of the sinuses. If you have symptoms that involve the sinuses, it may be difficult to tell if you have sinusitis, acold, or a nasal allergy. This article will describe the symptoms, diagnosis, and treatment of sinusitis, and how to distinguish sinusitis from a cold or nasal allergy. What is sinusitis? Sinusitis is an inflammation, or swelling, of the tissue lining the sinuses. There are two types ofsinusitis: Acute sinusitis: a sudden onset of cold symptoms such as runny nose, stuffy nose, and facial pain that does not go away after 7-10 days. It responds well to antibiotics and decongestants. Chronic sinusitis: characterized by nasal congestion, drainage, facial pain/pressure, and decreasedsense of smell for at least 12 weeks. Who gets sinusitis? About 37 million Americans suffer from at least one episode of sinusitis each year. People who havethe following conditions have a higher risk of sinusitis: Nasal mucus membrane swelling, as from a common cold Blockage of drainage ducts Structure differences that narrow the drainage ducts Conditions that result in an increased risk of infection In children, common environmental factors that contribute to sinusitis include allergies, illness from other children at day care or school, pacifiers, bottle drinking while lying on the back, and smoke in the environment. In adults, the contributing factors are most frequently infections, allergies, and smoking. What are the signs and symptoms of acute sinusitis? The primary symptoms of acute sinusitis include: Facial pain/pressure Nasal stuffiness Nasal discharge Loss of smell Cough/congestion Additional symptoms may include: Fever Bad breath Fatigue Dental pain Acute sinusitis can last four weeks or more. This condition may be diagnosed when a person has two or more symptoms and/or the presence of thick, green, or yellow nasal discharge. What are the signs and symptoms of chronic sinusitis? People with chronic sinusitis may have the following symptoms for 12 weeks or more: Facial congestion/fullness A nasal obstruction/blockage Pus in the nasal cavity Fever Nasal discharge/discolored postnasal drainage Additional symptoms may include: Headaches Bad breath Fatigue Dental pain Thick nasal discharge How is sinusitis treated? Acute sinusitis. If you have a simple sinusitis infection, your health care provider may recommend treatment with decongestants like Sudafed and steam inhalations alone, as most sinusitis is viral. Antibiotics are generally needed for more seriously ill patients. If antibiotics are administered, they are given for 10 to 14 days. With treatment, the symptoms usually disappear and antibiotics are no longer required. Oral and topical decongestants may be prescribed to alleviate the symptoms. Use of prescription intranasal steroid sprays might be effective in co ntrolling symptoms. However, non-prescription drops or sprays should not be used beyond their recommended period--usually four to five days--or they may actually increase congestion. Chronic sinusitis. Warm moist air may alleviate sinus congestion. Using a vaporizer or inhaling steam from a renner of boiling water (removed from heat) may also help. Warm compresses are useful to relieve pain in the nose and sinuses. Saline nose drops are also safe for home use. Nonprescription drops or sprays might be effective in controlling symptoms; however, they should not be used beyond their recommended period of time. Nasal steroid sprays that shrink swollen membranes of the nose are beneficial. Antibiotics may also be prescribed. Avoidance of triggers is important. Allergies should be controlled and irritants, such as smoke, should be avoided. [facility] History of Present illness Narrative* Nani Coy APRN.ESE - 10/22/2021 9:36 AM EDT This note was created using Bluebox. Subjective Ashley Lynn is a 21 year old female worsening URI. HPI Patient presents for worsening upper respiratory symptoms after urgent care visit on Thursday. Atthis time she was having left ear pain that has since resolved. She is now complaining of right earpain. She was given Tessalon Perles and told to use Afrin. She reports she took the benzonatate fortwo days as prescribed with no relief. She has been using Afrin and feels that her symptoms have worsened. She complains of cough with cloudy white sputum, sore throat, rhinorrhea, and mild dizziness. These symptoms started on Monday 10/16. She has been taking Mucinex for the congestion with minor relief. She is beginning to lose her voice despite hot tea and voice rest and is concerned about re turning to work. She reports she had a low grade fever of 99.0 on Thursday at urgent care. She was told not to be concerned however this is high for her I know my body. Denies decreased fluid intake,headache, nausea, vomiting. Review of Systems Constitutional: Positive for fatigue and fever (low grade-99.0). HENT: Positive for congestion, ear pain, postnasal drip, rhinorrhea, sinus pressure and sore throat. Respiratory: Positive for cough. Negative for chest tightness, shortness of breath and wheezing. Cardiovascular: Negative for chest pain and palpitations. Gastrointestinal: Negative for abdominal pain, constipation, diarrhea, nausea and vomiting. Musculoskeletal: Negative for arthralgias and myalgias. Neurological: Negative for light-headedness and headaches. All other systems reviewed and are negative. Past Medical History: PAST MEDICAL HISTORY Diagnosis Date Anxiety with depression 2017 started counseling 2019 Infectious mononucleosis 2017 Insomnia Iron deficiency anemia Irregular menses Pneumonia due to COVID-19 virus 02/2021 PTSD (post-traumatic stress disorder) 2017 started counseling in 2019 Past Surgical History: PAST SURGICAL HISTORY Procedure Laterality Date NONE Family History: FAMILY HISTORY Problem Relation Age of Onset No Known Problems Mother No Known Problems Father No Known Problems Maternal Grandmother No Known Problems Maternal Grandfather Diabetes Paternal great-grandmother Social History: Social History Tobacco Use Smoking status: Never Smoker Smokeless tobacco: Never Used Substance Use Topics Alcohol use: Yes Comment: occ Drug use: Never Current Medications: benzonatate (TESSALON PERLE) 100 mg capsule, , Disp: , Rfl: PNV-DHA 27 mg iron-1 mg -300 mg, TAKE 1 CAPSULE BY MOUTH EVERY DAY, Disp: 90 capsule, Rfl: 3 mv,iron,min-folic acid-biotin (HAIR, SKIN AND NAILS-ARGAN OIL) 66.7-1,666.7 mcg cap, , Disp: , Rfl: multivit with calcium,iron,min (WOMEN'S MULTIPLE VITAMINS ORAL), , Disp: , Rfl: PASSION FLOWER ORAL, , Disp: , Rfl: Allergies: ALLERGIES No Known Allergies Objective BP 129/80 Pulse 104 Temp 36.9 C (98.4 F) (Temporal Artery) Wt 115.2 kg (254 lb) LMP 06/15/2021 BMI 35.44 kg/m Physical Exam Constitutional: Appearance: Normal appearance. HENT: Right Ear: Hearing, ear canal and external ear normal. A middle ear effusion is present. Tympanic membrane is injected and erythematous. Left Ear: Hearing, ear canal and external ear normal. A middle ear effusion is present. Tympanic membrane is not erythematous. Nose: Right Sinus: Maxillary sinus tenderness present. Left Sinus: Maxillary sinus tenderness present. Mouth/Throat: Mouth: Mucous membranes are moist. Pharynx: Posterior oropharyngeal erythema present. Cardiovascular: Rate and Rhythm: Normal rate and regular rhythm. Pulses: Normal pulses. Heart sounds: Normal heart sounds. Pulmonary: Effort: Pulmonary effort is normal. Breath sounds: Normal breath sounds. Abdominal: General: Abdomen is flat. Bowel sounds are normal. Neurological: General: No focal deficit present. Mental Status: She is alert and oriented to person, place, and time. Psychiatric: Mood and Affect: Mood normal. Behavior: Behavior normal. ASSESSMENT/PLAN: 1. Sinobronchitis - ICD9: 473.9, 490, ICD10: J32.9, J40 (primary diagnosis) - Will begin treatment with Augmentin 875 mg PO BID for 10 days - Supportive care with plenty of fluids, rest, and analgesia prn. -Discussed ordered medications including administration, side effects, risk/benefit - Discontinue Afrin as this will cause rebound congestion and make you feel worse-discussed using fluticasone nasal spray as ordered - Work excuse given to patient at time of appointment for today 10/22/21 -Follow-up in 3 to 5 days if symptoms persist, sooner if needed - AMOXICILLIN 875 MG-POTASSIUM CLAVULANATE 125 MG TABLET - FLUTICASONE PROPIONATE 50 MCG/ACTUATION NASAL SPRAY,SUSPENSION - METHYLPREDNISOLONE 4 MG TABLETS IN A DOSE PACK 2. Non-recurrent acute suppurative otitis media of right ear without spontaneous rupture of tympanic membrane - ICD9: 382.00, ICD10: H66.001 - Will begin treatment with Augmentin 875 mg PO BID for 10 days - Supportive care with plenty of fluids, rest, and analgesia prn. -Follow-up in 3 to 5 days if symptoms persist, or sooner if needed - AMOXICILLIN 875 MG-POTASSIUM CLAVULANATE 125 MG TABLET - FLUTICASONE PROPIONATE 50 MCG/ACTUATION NASAL SPRAY,SUSPENSION Rosio Gresham TEACHING PROVIDER (Physician/PA/PROJECT CONTROL OFFICER) NOTE OF PERSONAL INVOLVEMENT IN CARE: I have personally seen and examined the patient and performed the medical decision-making components. I have reviewed the Advanced Practice Registered Nurse (PROJECT CONTROL OFFICER) Student's documentation and verified the findings in the note as written. Any additions or changes are noted in bold/italics. Signature: Nani Coy Date: 10/22/2021 Time: 1:03 PM documented in this encounter[facility] History of Present illness Narrative* Lindy Castaneda, RT(R) - 06/25/2021 4:20 PM EST Radiology Service Progress Note PATIENT NAME: Aslhey Lynn DATE OF SERVICE: June 25, 2021 TIME: 4:23 PM PATIENT IDENTITY VERIFICATION COMPLETED USING TWO (2) IDENTIFIERS: Name and Date of confirmedby patient verbally. FALL SCREENING: Has the patient had 2 falls in the last year or 1 fall with injury or currently using an Ambulatory Assistive Device (Walker, Cane, Wheelchair, Crutches, etc.)? No PATIENT GENDER DATA: Female. status: : No status: NO. PATIENT RELEVANT IMPLANT DATA REVIEWED: Not Applicable RADIOLOGY DEPARTMENT: General X-ray: Exam(s) Completed: Chest X-Ray PERIPHERAL IV DATA: Not applicable SIGNED BY: RT Mary(R) June 25, 2021 4:23 PM documented in this encounterAv[facility]11-22-2021 NoteAccession #: [id number] Date of Procedure: 06/10/2021 Pathologist: DORIS RENTERIA MD Date Reported: 06/28/2021 Date Received: 06/11/2021 Submitting Physician: BARBARA CAO M.D. FINAL CYTOLOGICAL INTERPRETATION A. THINPREP PAP CERVICAL: Specimen adequacy: SATISFACTORY FOR EVALUATION. Quality Indicator: Endocervical/transformation zone component is present. General Categorization: NEGATIVE FOR INTRAEPITHELIAL LESION OR MALIGNANCY. Descriptive Interpretation: REACTIVE CELLULAR CHANGES. Ancillary Testing: Specimen does not meet the requisition-stated criteria for HPV testing. See Pap test interpretation above. Slide(s) initially screened by a Trust Manager Assistant at [facility], [id number] [address] QC review performed at [facility], [address] [place] [address] This specimen has been analyzed by the ThinPrep Imaging System ([employer] an automated imaging and review system, which assists the laboratory in evaluating cells on ThinPrep Pap tests. Following automated imaging, selected montesinos from every slide were reviewed by a tactical air defense controller and/or pathologist. Electronically Signed Out By DORIS RENTERIA MD/LAURA/DUANE/ALDEN By the signature on this report, the individual or group listed as making the Final Interpretation/Diagnosis certifies that they have reviewed this case. Educational Note: Cervical cytology is a screening procedure primarily for squamous cancers and precursors and has associated false-negative and false-positive results as evidenced by published data. Your patient?s test should be interpreted in this context, together with patient?s history and clinical findings. Regular sampling and follow-up of unexplained clinical signs and symptoms are recommended to minimize false negative results. Clinical History Date of Last Menstrual Period: 05/20/2021 Other Clinical Conditions: HPV Reflex for ASC-US only - Include HPV Genotype Clinical Diagnosis History: Screening for cervical cancer - (Z12.4) Source of Specimen A: THINPREP PAP CERVICAL [facility] Department of Pathology [id number] [address] StreetComment on above:Performed By: #### C #### [facility] Cytology [id number] [address]Evaluation note* Diagnosis Sinobronchitis- Primary Unspecified sinusitis (chronic) Non-recurrent acute suppurative otitis media of right ear without spontaneous rupture of tympanic membrane documented [facility] encounter [facility]* Diagnosis Abnormal uterine bleeding (AUB)- Primary [facility]* Diagnosis Abnormal uterine bleeding (AUB)- Primary Pre-conception counseling Other procreative management counseling and advice documented [facility]* Diagnosis Onset Date Resolution Status Depression acute History of miscarriage, currently acute Hx of trauma acute Obesity affecting acute PCOS (polycystic ovarian syndrome) acute acute Supervision of high risk , antepartum acute Varicose veins of both lower extremities acute [facility] Work Phone: Evaluation note* Diagnosis Onset Date Resolution Status Depression acute History of miscarriage, currently acute Hx of trauma acute Obesity affecting acute acute Supervision of high risk , antepartum acute Depression acute History of miscarriage, currently acute Hx of trauma acute Obesity affecting acute acute Supervision of high risk , antepartum acute Depression acute History of miscarriage, currently acute Hx of trauma acute Obesity affecting acute acute Supervision of high risk , antepartum acute [facility] Work Phone: Evaluation note* Diagnosis Onset Date Resolution Status Depression acute History of miscarriage, currently acute Hx of trauma acute Obesity affecting acute acute Supervision of high risk , antepartum acute Depression acute History of miscarriage, currently acute Hx of trauma acute Obesity affecting acute acute Supervision of high risk , antepartum acute Depression acute History of miscarriage, currently acute Hx of trauma acute Obesity affecting acute acute Supervision of high risk , antepartum acute Depression acute History of miscarriage, currently acute Hx of trauma acute Obesity affecting acute acute Spotting acute Supervision of high risk , antepartum acute [facility] Work Phone: Evaluation note* Diagnosis Onset Date Resolution Status History of miscarriage, currently acute Hx of trauma acute acute Supervision of high-risk acute [facility] Work Phone: Evaluation note* Diagnosis Hand pain, left Pain in limb Injury of left wrist, initial encounter documented [facility] this encounter [facility]* Diagnosis Metabolic acidosis- Primary Acidosis [facility]* She presents today for follow up of COVID pneumonia. She was feeling better, now back at work. Feeling worse. Pulse ox has been okay, with running at work will drop to 93%, * Sputum changed from clear to white cloudy. No fever, sweats, and chills. has a fever. No N/V. Chest feels tight around sides. Using inhaler, it does not help. Has had cephalexin, z pack and prednisone. Was doing better until this weekend. [facility] Work Phone: Reason for referral (narrative)* Diagnostic Procedure Only (Routine) - Pending Review Specialty Diagnoses / Procedures Referred By Samia abad Referred To Contact [facility] Diagnoses Abnormal uterine bleeding (AUB) Procedures SONOHYSTEROGRAPHY (SIS) US WHI SALINE INFUS SONOHYSTEROGRAPHY W/COLOR DOPPLER Shari Jaquez PA-C [address] [place] [address] [facility] [address] [place] [address] Referral ID Status Reason Start Date Expiration Date Visits Requested Visits Authorized [id number] Pending Review Auto-Generat ed Referral 11/01/2021 11/01/2022 1 1 * Consult, Test, Treat (Routine) - Pending Review Specialty Diagnoses / Procedures Referred By Contac t Referred To Contact Diagnoses Pre-conception counseling Abnormal uterine bleeding (AUB) Procedures CONSULT TO INFERTILITY CLINIC OFFICE/OUTPATIENT [facility] 60-74 MINUTES Shari Jaquez PA-C [address] [place] [address] Referral ID Status Reason Start Date Expiration Date Visits Requested Visits Authorized [id number] Pending Review PCP Requested Referral Auto-Generate d Referral 11/01/2021 11/01/2022 1 1 [facility] for referral (narrative)* Diagnostic Procedure Only (Urgent) - Closed Specialty Diagnoses / Procedures Referred By Contac t Referred To Contact XR IMAGING Diagnoses Injury of left wrist, initial encounter Procedures XR WRIST INJURY 4V PA/LAT/OBL/SCAPH LEFT X-RAY WRIST COMPLET MIN 3 VIEWS Rich Wu APRN.SPORTS STATISTICIAN [address] [place] [address] [place] [address] Referral ID Status Reason Start Date Expiration Date V isits Requested Visits Authorized [id number] Closed Auto-Generate d Referral 08/06/2021 09/05/2022 1 1 * Diagnostic Procedure Only (Urgent) - Closed Specialty Diagnoses / Procedures Referred By Contac t Referred To Contact XR IMAGING Diagnoses Hand pain, left Procedures XR HAND GENERAL 3V PA/LAT/OBL LEFT X-RAY HAND MINIMUM 3 VIEWS Rich Wu APRN.SPORTS STATISTICIAN [address] [place] [address] [place] [address] Referral ID Status Reason Start Date Expiration Date V isits Requested Visits Authorized [id number] Closed Auto-Generate d Referral 08/06/2021 09/05/2022 1 1 [facility] for referral (narrative)No reason for referral information [facility]Re[facility] Work Phone: Reason for visit Narrative* Diagnostic Procedure Only (Urgent) - Closed Specialty Diagnoses / Procedures Referred By Samia abad Referred To Contact XR IMAGING Diagnoses Injury of left wrist, initial encounter Procedures XR WRIST INJURY 4V PA/LAT/OBL/SCAPH LEFT X-RAY WRIST COMPLET MIN 3 VIEWS Rich Wu APRN.CNP [address] [place] [address] [place] [address] Referral ID Status Reason Start Date Expiration Date V isits Requested Visits Authorized [id number] Closed Auto-Generate d Referral 08/06/2021 09/05/2022 1 1 [facility] for visit Narrative* Auth/Cert (Routine) Specialty Diagnoses / Procedures Referred By Samia abad Referred To Contact Diagnoses Metabolic acidosis Metabolic acidosis Referral ID Status Reason Start Date Expiration Date Visits Re quested Visits Authorized [id number] 1 1 [facility] Summary Purpose Family History No Family History Records FoundUnknown Family Member Name Dates Details Family history of type 2 clarence betes mellitus: Paternal Grandmother(V18.0, Z83.3) Status:Active Unknown Family Member Name Dates Details Family history of type 2 clarence betes mellitus: Paternal Grandmother(V18.0, Z83.3) Status:Active Unknown Family Member Name Dates Details Family history of type 2 clarence betes mellitus: Paternal Grandmother(V18.0, Z83.3) Status:Active Unknown Family Member Name Dates Details Family history of type 2 clarence betes mellitus: Paternal Grandmother(V18.0, Z83.3) Status:Active Advance Directives No Advanced Directives Records Found Advance Directive Response Recorded Date/ Time Living Will No June 11 8:23am Power of Mail Reader No June 11, 2022 8:23am Advance Directive Response Recorded Date/ Time Living Will No December 29, 2022 12:40am Power of Mail Reader No December 29 12:40am Date Activated Date Inactivated Comments 09/17/2024 6:48 PM 09/19/2024 8:17 PM Chief Complaint Pt presents with c/o white, cloudy productive cough s/p positive COVID test on 03/12/21 with pneumonia Chief Complaint and Reason for Visit Chief Complaint NOB LMP 03/17/22 Reason for Visit Depression History of miscarriage, currently Hx of trauma Obesity affecting PCOS (polycystic ovarian syndrome) Supervision of high risk , antepartum Varicose veins of both lower extremities Chief Complaint NOB LMP 03/17/22 gi bleed Reason for Visit Depression History of miscarriage, currently Hx of trauma Obesity affecting PCOS (polycystic ovarian syndrome) Supervision of high risk , antepartum Varicose veins of both lower extremities Chief Complaint NOB LMP 03/17/22 gi bleed 14 WK OB 18 WK OB STAT BLEEDING Reason for Visit Depression History of miscarriage, currently Hx of trauma Obesity affecting Supervision of high risk , antepartum Depression History of miscarriage, currently Hx of trauma Obesity affecting Supervision of high risk , antepartum Depression History of miscarriage, currently Hx of trauma Obesity affecting Supervision of high risk , antepartum Chief Complaint NOB LMP 03/17/22 gi bleed 14 WK OB 18 WK OB STAT BLEEDING high risk Reason for Visit Depression History of miscarriage, currently Hx of trauma Obesity affecting Supervision of high risk , antepartum Depression History of miscarriage, currently Hx of trauma Obesity affecting Supervision of high risk , antepartum Depression History of miscarriage, currently Hx of trauma Obesity affecting Supervision of high risk , antepartum Chief Complaint NOB LMP 03/17/22 gi bleed 14 WK OB 18 WK OB STAT BLEEDING high risk 22 WK OB IUGR AFFECTING CARE OF MOTHER Reason for Visit Depression History of miscarriage, currently Hx of trauma Obesity affecting Supervision of high risk , antepartum Depression History of miscarriage, currently Hx of trauma Obesity affecting Supervision of high risk , antepartum Depression History of miscarriage, currently Hx of trauma Obesity affecting Supervision of high risk , antepartum Depression History of miscarriage, currently Hx of trauma Obesity affecting Spotting Supervision of high risk , antepartum Chief Complaint NOB LMP 07/10 Reason for Visit History of miscarria ge, currently Hx of trauma Supervision of high-risk Chief Complaint Admit Date medication follow up September 29, 2024 8: 27am medication refills January 06, 2025 11:2 1am Reason for Visit Admit Date Abnormal uterine bleeding September 29 8:27am Reason for Visit Admit Date Abnormal uterine bleeding September 29 8:27am Contraceptive management January 06, 2025 11:21am Additional Source Comments INFORMATION SOURCE (unrecogn ized section and content) DATE CREATED AUTHOR 01/21/2018 [facility] DATE CREATED AUTHOR AUTHOR'S ORGANIZ ATION 06/19/2019 [facility] DATE CREATED AUTHOR AUTHOR'S ORGANIZ ATION 06/11/2021 [employer] DATE CREATED AUTHOR AUTHOR'S ORGANIZ ATION 07/01/2021 [facility] DATE CREATED AUTHOR AUTHOR'S ORGANIZ ATION 09/23/2021 [facility] DATE CREATED AUTHOR AUTHOR'S ORGANIZ ATION 12/05/2023 [facility] DATE CREATED AUTHOR AUTHOR'S ORGANIZ ATION 09/30/2024 [facility] DATE CREATED AUTHOR AUTHOR'S ORGANIZ ATION 09/30/2024 [facility] DATE CREATED AUTHOR AUTHOR'S ORGANIZ ATION 10/22/2024 [facility] DATE CREATED AUTHOR AUTHOR'S ORGANIZ ATION 10/22/2024 [facility] DATE CREATED AUTHOR AUTHOR'S ORGANIZ ATION 01/29/2025 [facility] <item><item><item><item><item><item> Privacy Markings (unrecogniz ed section and content) Section Author: Ursula Newton PROHIBITION ON REDISCLOSURE OF CONFIDENTIAL INFORMATION This notice accompanies a disclosure of information concerning a client made to you with the consent of such client. Section Author: Ursula Newton PROHIBITION ON REDISCLOSURE OF CONFIDENTIAL INFORMATION This notice accompanies a disclosure of information concerning a client made to you with the consent of such client. Section Author: Ursula Newton PROHIBITION ON REDISCLOSURE OF CONFIDENTIAL INFORMATION This notice accompanies a disclosure of information concerning a client made to you with the consent of such client. Section Author: Ursula Newton PROHIBITION ON REDISCLOSURE OF CONFIDENTIAL INFORMATION This notice accompanies a disclosure of information concerning a client made to you with the consent of such client. Section Author: Ursula Newton PROHIBITION ON REDISCLOSURE OF CONFIDENTIAL INFORMATION This notice accompanies a disclosure of information concerning a client made to you with the consent of such client. Section Author: Ursula Newton PROHIBITION ON REDISCLOSURE OF CONFIDENTIAL INFORMATION This notice accompanies a disclosure of information concerning a client made to you with the consent of such client. Source Comments (unrecognize d section and content) In the event this informatio n is protected by the Federal Confidentiality of Alcohol and Drug Abuse Patient Records regulations: The Federal rules restrict any use of the information to criminally investigate or prosecute any alcohol or drug abuse patient.[facility] the event this information is protected by the Federal Confidentiality of Alcohol and Drug Abuse Patient Records regulations: The Federal rules restrict any use of the information to criminally investigate or prosecute any alcohol or drug abuse patient.[facility] the event this information is protected by the Federal Confidentiality of Alcohol and Drug Abuse Patient Records regulations: The Federal rules restrict any use of the information to criminally investigate or prosecute any alcohol or drug abuse patient.[facility] the event this information is protected by the Federal Confidentiality of Alcohol and Drug Abuse Patient Records regulations: The Federal rules restrict any use of the information to criminally investigate or prosecute any alcohol or drug abuse patient.[facility] the event this information is protected by the Federal Confidentiality of Alcohol and Drug Abuse Patient Records regulations: The Federal rules restrict any use of the information to criminally investigate or prosecute any alcohol or drug abuse patient.[facility] Reason for Visit (unrecogniz ed section and content) Reason Comments URI x 6 days Reason Comments Follow Up Care Teams (unrecognized sec tion and content) E Commerce Developer Relationship Specialty Start Date End Date Nani Coy, [place].SPORTS STATISTICIAN [address] [place] [address] PCP - General Family Practice 06/20/21 E Commerce Developer Relationship Specialty Start Date End Date Nani Coy, [place].SPORTS STATISTICIAN [address] [place] [address] PCP - General Family Practice 06/20/21 E Commerce Developer Relationship Specialty Start Date End Date Nani Coy, [place].SPORTS STATISTICIAN [address] [place] [address] PCP - General Family Practice 06/20/21 Team Status: Active Member Role Status Dates No Primary Care Physician Primary Care Provider Active Team Status: Inactive Member Role Status Dates Dr. Chasity Tenorio DO Attending Provider Activ e Team Status: Inactive Member Role Status Dates Dr. Milagros Akins MD Attending Provider Active No Primary Care Physician Primary Care Provider, Refer ring Provider Active Team Status: Inactive Member Role Status Dates No Primary Care Physician Primary Care Provider, Refer ring Provider Active Judi Elena PRODUCE MANAGER, PRODUCE MANAGER-C Attending Provider Active Team Status: Inactive Member Role Status Dates No Primary Care Physician Primary Care Provider Active Dr. Chasity Tenorio DO Attending Provider, Refe rring Provider Active Team Status: Inactive Member Role Status Dates No Primary Care Physician Primary Care Provider Active Dr. Duane Love DO Attending Provider, Emergency Provider Active Team Status: Inactive Member Role Status Dates No Primary Care Physician Primary Care Provider Active Dr. Milagros Akins MD Attending Provider, Referr ing Provider Active Team Status: Inactive Member Role Status Dates No Primary Care Physician Primary Care Provider Active Dr. Milagros Akins MD Attending Provider Active Team Status: Inactive Member Role Status Dates No Primary Care Physician Primary Care Provider, Refer ring Provider Active Dr. Milagros Akins MD Attending Provider Active Team Status: Inactive Member Role Status Dates No Primary Care Physician Primary Care Provider, Refer ring Provider Active Dr. Chasity Tenorio DO Attending Provider Activ e E Commerce Developer Relationship Specialty Start Date End Date Nani Coy, PROJECT CONTROL OFFICER.SPORTS STATISTICIAN [address] [place] [address] PCP - General Family Medicine 06/20/21 E Commerce Developer Relationship Specialty Start Date End Date Nani Coy, PROJECT CONTROL OFFICER.SPORTS STATISTICIAN [address] [place] [address] PCP - General Family Medicine 06/20/21 E Commerce Developer Relationship Specialty Start Date End Date SpringAnna SPORTS STATISTICIAN [facility] ER ON THE 2ND FLOOR IN THE [facility] [place] [address] PCP - General Nurse Practitioner 09/17/24 Team Status: Inactive Member Role Status Dates No Primary Care Physician Primary Care Provider Active Start: September 29, 2024 End: September 29, 2024 No Primary Care Physician Referring Provider Active Start: September 29, 2024 End: September 29, 2024 Dr. Chasity Tenorio DO Attending Provider Activ e Start: September 29, 2024 End: September 29, 2024 Team Status: Inactive Member Role Status Dates No Primary Care Physician Primary Care Provider Active Start: January 06, 2025 End: January 06, 2025 No Primary Care Physician Referring Provider Active Start: January 06, 2025 End: January 06, 2025 Dr. Chasity Tenorio DO Attending Provider Activ e Start: January 06, 2025 End: January 06, 2025 Team Status: Active Member Role/Relationship Status Dates No Primary Care Physician Primary Care Provider Active Team Status: Inactive Member Role/Relationship Status Dates No Primary Care Physician Primary Care Provider Active Start: September 29, 2024 End: September 29, 2024 No Primary Care Physician Referring Provider Active Start: September 29, 2024 End: September 29, 2024 Dr. Chasity Tenorio DO Attending Provider Activ e Start: September 29, 2024 End: September 29, 2024 Team Status: Inactive Member Role/Relationship Status Dates No Primary Care Physician Primary Care Provider Active Start: January 06, 2025 End: January 06, 2025 No Primary Care Physician Referring Provider Active Start: January 06, 2025 End: January 06, 2025 Dr. Chasity Tenorio DO Attending Provider Activ e Start: January 06, 2025 End: January 06, 2025 Team Status: Inactive Member Role/Relationship Status Dates No Primary Care Physician Primary Care Provider Active Start: January 19, 2025 End: January 19, 2025 Dr. Chasity Tenorio DO Attending Provider Activ e Start: January 19, 2025 End: January 19, 2025 Dr. Chasity Tenorio DO Referring Provider Activ e Start: January 19, 2025 End: January 19, 2025 Goals (unrecognized section and content) Goals may be documented in a n alternate sectionGoals may be documented in an alternate sectionGoals may be documented in an alternate sectionGoals may be documented in an alternate sectionGoals may be documented in an alternate sectionGoals may be documented in an alternate sectionGoals may be documented in an alternate sectionGoals may be documented in an alternate section Scheduled Active and Recently Administ ered Medications (unrecognized section and content) Medication Order 09/17/2024 09/18/2024 09/19/2024 pantoprazole (PROTONIX) Vial 40 mg 40 mg, Intravenous, Daily, First dose on Thu09/17/24 at 2000, Dilute each vial with 10 mL of 0.9% NaCl. 2144 (Given - Provider: Vianca Nascimento RN) 0856 (Given - Provider: Román Boyce RN) 0857 (Given - Provider: Milena Denton RN) potassium chloride 20 mEq in 100 mL IVPB 20 mEq, Intravenous, at 50 mL/hr, Every 2 hours, First dose on Thu09/19/24 at 0700, For 4 doses, 20mEq IVPB over 120 minutes x 4 (for total of 80 mEq over 8 hours) for serum Potassium in range of 2.5-2.9 mEq/L per Intermediate Care Electrolyte Replacement Therapy. (INTERMEDIATE CARE) ORDER repeat potassium level 4 hours after fourth dose has been infused. VESICANT 0621 (New Bag - Provider: Vianca Nascimento RN)0909 (New Bag - Provider: Milena Denton RN)1334 (New Bag - Provider: Milena Denton RN - Comment: Time shifted.)1459 (Not Given - Provider: Milena Denton RN - Reason: Other - Comment: Time shifted. comfirmed [facility] okay not to give d/t pt's K+ increasing to 3.6. confirmed not to give.) sertraline (ZOLOFT) tablet 50 mg 50 mg, Oral, Daily, First dose on Thu09/18/24 at 0900 0855 (Given - Provider: Román Boyce RN) sodium chloride (PF) (NS) flush 5 mL(Linked Group 1) 5 mL, Intravenous, Every 8 hours scheduled, First dose on 09/17/24 at 2200, Saline lock 2200 (Not Given - Provider: Vianca Nascimento RN - Reason: Other - Comment: iv infusing) 0600 (Canceled Entry - Provider: Vianca Nascimento RN - Comment: IV Infusing)1400 (Not Given - Provider: Román Boyce RN - Reason: Contraindicated - Comment: IV currently infusing)2200 (Not Given - Provider: Vianca Nascimento RN - Reason: Other - Comment: IV infusing) 0600 (Canceled Entry - Provider: Vianca Nascimento RN - Comment: IV Infusing)1400 (Given - Provider: Milena Denton RN) Continuous Medication Order 09/17/2024 09/18/2024 09/19/2024 sodium bicarbonate 150 mEq in dextrose 5% 1000 mL infusion (CANCELED) 125 mL/hr, Intravenous, Continuous, Starting on 09/17/24 at 2145 2227 (New Bag - Provider: Vianca Nascimento RN) 0907 (New Bag - Provider: Román Boyce RN)1733 (Stopped - Provider: Román Boyce RN)1749 (New Bag - Provider: Román Boyce RN)1858 (Rate/Dose Verify - Provider: Román Boyce RN) 0208 (New Bag - Provider: Vianca Nascimento RN) PRN Medication Order 09/17/2024 09/18/2024 09/19/2024 acetaminophen (TYLENOL) tablet 650 mg 650 mg, Oral, Every 4 hours PRN, mild pain, fever 100.4 F or greater, headaches, Starting on 09/17/24 at 1847 1253 (Given - Provider: Román Boyce RN) ondansetron (ZOFRAN) injection 4 mg(Linked Group 2) 4 mg, Intravenous, Every 6 hours PRN, nausea, vomiting, Starting on 09/17/24 at 1847, Use oral route first, if tolerated. ondansetron (ZOFRAN-ODT) disintegrating tablet 4 mg(Linked Group 2) 4 mg, Oral, Every 6 hours PRN, nausea, vomiting, Starting on 09/17/24 at 1847, Use oral route first, if tolerated. Formulation requires tablet remain in sealed package until immediately prior to dose being administered. sodium chloride (PF) (NS) flush 5 mL(Linked Group 1) 5 mL, Intravenous, As needed, line care, Starting on 09/17/24 at 1846 sodium chloride 0.9% (NS)(Linked Group 1) 0-150 mL/hr, Intravenous, As needed, To flush line after IV infusions when no maintenance IV ordered or a compatibility issue. Infuse 20ml at the same rate as the secondary infusion, Starting on 09/17/24 at 1846, Run as Primary IV. NOT intended for KVO. No Frequency Medication Order 09/17/2024 09/18/2024 09/19/2024 sodium chloride 0.9 % (NS) infusion - ADS Override Pull (COMPLETED) Starting on 09/19/24 at 0855, For 1 dose, MILENA DENTON: cabinet override 0900 (New Bag - Prov ider: Milena Denton RN - Comment: USED FOR PRIMARY FOR K+) Linked Groups Order Group 1: Saline lock IV (CANCELED) Routine, Continuous, Starting on 09/17/24 at 1847, Until Specified And sodium chloride (PF) (NS) flush 5 mLJump to med 5 mL, Intravenous, As needed, line care, Starting on 09/17/24 at 1846 And sodium chloride (PF) (NS) flush 5 mLJump to med 5 mL, Intravenous, Every 8 hours scheduled, First dose on 09/17/24 at 2200, Saline lock And sodium chloride 0.9% (NS)Jump to med 0-150 mL/hr, Intravenous, As needed, To flush line after IV infusions when no maintenance IV ordered or a compatibility issue. Infuse 20ml at the same rate as the secondary infusion, Starting on 09/17/24 at 1846, Run as Primary IV. NOT intended for KVO. Group 2: ondansetron (ZOFRAN-ODT) disintegrating tablet 4 mgJump to med 4 mg, Oral, Every 6 hours PRN, nausea, vomiting, Starting on 09/17/24 at 1847, Use oral route first, if tolerated. Formulation requires tablet remain in sealed package until immediately prior to dose being administered. Or ondansetron (ZOFRAN) injection 4 mgJump to med 4 mg, Intravenous, Every 6 hours PRN, nausea, vomiting, Starting on 09/17/24 at 1847, Use oral route first, if tolerated. FOR RECORDS PERTAINING TO PATIENTS WHO ARE OR HAVE BEEN ENROLLED IN A CHEMICAL DEPENDENCY/SUBSTANCEABUSE PROGRAM, SOME INFORMATION MAY BE OMITTED. This clinical summary was aggregated from multiple sources. Caution should be exercised in using it in the provision of clinical care. This summary normalizes information from multiple sources, and as a consequence, information in this document may materially change the coding, format and clinical context of patient data. In addition, data may be omitted in some cases. CLINICAL DECISIONS SHOULD BE BASED ON THE PRIMARY CLINICAL RECORDS. [facility] [employer] [facility]. provides no warranty or guarantee of the accuracy or completeness of information in this document.
[2025-07-15 10:57] LABS: hCG Titer Quant., Serum 86 mIU/mL (<9 non-preg)
== END | disposition home or self-care (01) ==
LOC: LAB 09:32
PROVIDERS: Referring Provider Obstetrics & Gynecology; Visit Provider Obstetrics & Gynecology
DX: Z34.90 Encounter for supervision of normal pregnancy, unspecified, unspecified trimester (principal)
CPT/HCPCS: 36415; 84702

== ENCOUNTER → 2025-07-17 | Outpatient (CLI) | payer OTHER, SELFPAY ==
[2025-07-17 10:58] LABS: hCG Titer Quant., Serum 248 mIU/mL (<9 non-preg)
== END | disposition home or self-care (01) ==
LOC: PAVLAB 10:04
PROVIDERS: Referring Provider Obstetrics & Gynecology; Visit Provider Obstetrics & Gynecology
DX: Z34.90 Encounter for supervision of normal pregnancy, unspecified, unspecified trimester (principal)
CPT/HCPCS: 36415; 84702